=== PATIENT | male | born 1955 | race Caucasian/White ===

== ENCOUNTER 2020-06-24 14:14 | Emergency (ER) | payer OTHER, SELFPAY | END 2020-06-24 16:36 | disposition left against medical advice (07) | PROVIDERS: Emergency Provider Emergency Medicine; PCP Family Medicine | DX: M79.646 Pain in unspecified finger(s) (principal) ==

== ENCOUNTER 2020-07-12 10:00 | Outpatient (RCR) | payer OTHER, SELFPAY ==
--- NOTE | 2020-06-06 14:54 | MHC.PT.EP ---
[facility] [place] Office [place] Office [place] Office [address] Leola Farr [address] [phone] F: [phone] F: [phone] F: [phone] F: [phone] Physical Therapy Plan of Care Date of Evaluation: 06/06/20 Date of Surgery: N/A Diagnosis: sciatica, left side Assessment: pt presents to physical therapy with pain, decreased range of motion, decreased strength, impaired functional mobility, impaired postural awareness, and gait deviations. pt is a good candidate for skilled PT due to age, potential remediation of impairments, typical disease/condition progression and prognosis, comorbidities, and motivation. pt would benefit from tailored strengthening and stretching exercise program, functional training, gait training, postural re-training, neuromuscular re-education, modalities as needed for pain, equipment safety demonstration. Frequency and Duration: The patient will be seen 2x/wk for 5 wks Short Term Goals: pt will be I w/ HEP to promote self-management of condition. pt will demo proper sitting posture w/ lumbar roll to facilitate neutral spine. Penitentiary Goals: pt will report statistically significant improvement in self-reported outcome measure, Nathalie, to promote return to PLOF. pt will report <1/10 low back pain w/ standing for >1 hr to promote full return to work. Treatment Plan: Modalities to reduce pain, spasms and effusion. Manual therapy to restore motion and function. Therapeutic exercise to improve strength and flexibility. Neuromuscular re-education for posture and balance. Therapeutic activities to return to functional activities of daily living. Electronically signed by: Stacie Murillo PT, DPT Please sign and return to therapist. Thank you for your referral.
--- NOTE | 2020-07-12 10:23 | MHC.PT.DC ---
[facility] [place] Office [place] Office [place] Office [address] Leola Farr [address] [phone] F: [phone] F: [phone] F: [phone] F: [phone] Physical Therapy Discharge Report Diagnosis: sciatica, left side Date of Surgery: N/A Date of Evaluation: 06/06/20 Date of Discharge: 07/12/20 Treatments to Date: 10 Cancellations to Date: 0 No Shows to Date: 0 Discharge Status: Achieved Goals Improved Function Independent with HEP Discharge Summary: The patient arrived with no pain for over a week now. He still has two more visits scheduled; however, he stated he would like today to be his last visit as he feels he is able to manage his pain on his own now. We reviewed his home exercise program and he was given an updated handout. He reported a statistically significant improvement in his self-reported outcome measure, the modified Oswestry. 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 He is discharged from this physical therapy plan of care to his home exercise program. Electronically signed by: Stacie Murillo PT, DPT Please sign and return to therapist. Thank you for your referral.
== END 2020-07-12 10:23 | disposition other institution (70) ==
LOC: HO.PT 10:00
PROVIDERS: PCP Family Medicine; Visit Provider Family Medicine
DX: M54.32 Sciatica, left side (principal)
CPT/HCPCS: 97110; 97161; 97530

== ENCOUNTER 2020-07-12 10:56 | Emergency (ER) | payer OTHER, SELFPAY ==
--- NOTE | ~2020-07-12 | XR_ITS ---
EXAMINATION: XR HAND, RIGHT CLINICAL INFORMATION: Injury to ring finger, evaluate for fracture. COMPARISON: None TECHNIQUE: PA, lateral, and oblique views of the right hand. FINDINGS: There is a comminuted fracture of the midshaft of the fourth distal phalanx. There appears to be extension to the proximal articular surface. No dislocation however. There are vascular calcifications consistent with diabetes. Surgical clips are seen lateral to the distal radius. XR/XR hand RT 2V IMPRESSION: Comminuted fracture of the midshaft of the fourth distal phalanx with extension to the proximal articular surface.
[2020-07-12 10:58] VITALS: BP 157/75; PULSE 87; RESP 18; TEMP 36.3; O2SAT 99; BMI 28.0
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
[2020-07-12] MEDS: Lidocaine HCl 2 % MPF 5 ML VIAL SUBCUT (11:32)
== END 2020-07-12 12:31 | disposition home or self-care (01) ==
PROVIDERS: Emergency Provider Emergency Medicine; PCP Family Medicine
DX: S62.634A Displaced fracture of distal phalanx of right ring finger, initial encounter for closed fracture (principal); L60.0 Ingrowing nail; M79.644 Pain in right finger(s); Y04.8XXA Assault by other bodily force, initial encounter; Y93.9 Activity, unspecified; Y92.9 Unspecified place or not applicable; Y99.0 Civilian activity done for income or pay; Z79.899 Other long term (current) drug therapy
CPT/HCPCS: 64450; 73120; 99283; 99284

== ENCOUNTER 2021-03-07 15:44 | Emergency (ER) | payer OTHER, SELFPAY ==
--- NOTE | ~2021-03-07 | XR_ITS ---
EXAMINATION: XR CHEST CLINICAL INFORMATION: Chest pain. COMPARISON: Most recent chest and rib radiographs dated 11/21/2019 TECHNIQUE: Frontal view of the chest was obtained. FINDINGS: Patchy bilateral airspace opacities, most prominent within the left lower lobe, consistent with multifocal pneumonia. No pleural effusion or pneumothorax. Stable cardiomediastinal silhouette. Sternal wires and mediastinal surgical clips. XR/XR chest 1V IMPRESSION: Patchy bilateral airspace opacities, most prominent within the left lower lobe. Findings are consistent with multifocal pneumonia and can be seen in the setting of an infectious or inflammatory process, including viral pneumonia.
[2021-03-07 15:54] VITALS: BP 158/75; PULSE 76; RESP 18; TEMP 36.8; O2SAT 96; BMI 26.9
--- NOTE | 2021-03-07 15:59 | ECG_ITS ---
Test Reason : CHEST PAIN Blood Pressure : / mmHG Vent. Rate : 072 BPM Atrial Rate : 072 BPM P-R Int : 146 ms QRS Dur : 098 ms QT Int : 390 ms P-R-T Axes : 069 032 166 degrees QTc Int : 427 ms Normal sinus rhythm Left ventricular hypertrophy with repolarization abnormality ( Sokolow-Betts ) Abnormal ECG No previous ECGs available Referred By: Generic ED Physician Electronically Signed By:ADELSO HERNÁNDEZ MD
[2021-03-07 16:56] LABS: MANUAL DIFF FLAG NO
[2021-03-07 17:11] LABS: Anion Gap 12 (12-20); Blood Urea Nitrogen 12 mg/dL (9-16); Calcium 9.2 mg/dL (8.4-10.2); Carbon Dioxide 29 mmol/L (22-29); Chloride 102 mmol/L (96-108); Creatinine Clr Calc Pharmacy 56.5; Estimated Glomerular Filt Rate 58; Glucose Random 301 mg/dL (60-115); Potassium 4.3 mmol/L (3.3-5.1); Sodium 139 mmol/L (135-145)
[2021-03-07 17:19] LABS: Basophils Percent Auto 0.1 % (0-2); Hematocrit 31.3 % (42-52); Hemoglobin 10.5 g/dl (14.0-18.0); Imm Gran Abs Auto 0.04 X10*3/uL (0.00-0.03); Imm Gran Pct Auto 0.6 % (0.0-0.4); Lymphocytes Absolute Auto 1.9 X10*3/uL (1.2-4.9); Lymphocytes Percent Auto 26.7 % (20-40); Mean Corpuscular HGB Conc 33.5 g/dl (31.0-36.0); Mean Corpuscular Hemoglobin 28.8 pg (27.0-33.0); Mean Platelet Volume 8.8 fL (9.4-12.4); Monocytes Absolute Auto 0.6 X10*3/uL (0.1-1.2); Monocytes Percent Auto 8.8 % (2-11); Neutrophils Absolute Auto 4.6 X10*3/uL (2.0-8.3); Neutrophils Percent Auto 63.8 % (45-73); Platelet Count 521 X10*3/uL (160-400); Red Blood Count 3.64 X10*6/uL (4.60-5.80); Red Cell Distribution Width 15.1 % (11.0-16.0); White Blood Count 7.2 X10*3/uL (4.8-10.8)
[2021-03-07 17:36] LABS: Troponin-I High Sensitivity 148.5 ng/L (<3.5-35.0)
[2021-03-07 17:57] VITALS: BP 160/71; PULSE 69; RESP 17; TEMP 36.7; O2SAT 99
--- NOTE | 2021-03-07 17:58 | ED_ITS ---
HPI - Chest Pain General Chief Complaint: Chest Pain Stated Complaint: Chest pain Time Seen by Provider: 03/07/21 17:42 History of Present Illness HPI narrative: Patient is 65 years old presents today with having chest pain that is mid chest goes to the left arm. The pain is dull. Associated with shortness of breath. It woke him up from sleep. Patient works overnight he woke up at approximately 01:00 with the chest pain. Subsequently the pain subsided patient came to the ED for further evaluation. No diaphoresis. Patient has a history of diabetes. Has been noncompliant with his medication. Also history of hypertension. No history of smoking. Positive history of MIs in the past. Status post bypass and also status post stent in the past. Last in 2017. There is no leg swelling. Patient does not have any history of blood clots. He is not on any blood thinners. He has no coughing congestion upper respiratory symptoms. He did receive his coronavirus vaccine x2 over 2 weeks ago. Related Data Previous Rx's Medication Instructions Recorded glipizide 10 mg tablet 10 mg PO BID #60 tab 02/11/21 metformin 1,000 mg tablet 1,000 mg PO BID 90 Days #180 tab 02/26/21 metoprolol succinate 50 mg 50 mg PO BID 90 Days #180 tab 02/26/21 tablet,extended release 24 hr Allergies Allergy/AdvReac Type Severity Reaction Status Date / Time No Known Allergies Allergy Verified 02/29/20 09:11 [No Known Allergies*] Review of Systems Review of Systems: No fever no chills no diaphoresis No cough no congestion Positive chest pain Positive shortness of breath All systems reviewed otherwise negative PMFSH Past Medical History Attestation statement: The following information was validated with the patient. Medical History Diabetes Epilepsy Heart attack High cholesterol Hypertension Sciatica Surgical History History of cardiac catheterization (~2015) History of coronary artery bypass graft x 2 (~2005) History of tonsillectomy Family History Family History Father Cardiovascular disease Mother No problems noted. Social History Social History Smoked in Last 30 Days: No Use of substances other than those prescribed or required for medical reasons: No Advance Directives: No Advance Directives Information Provided: No Physical Exam Vital Signs: Vital Signs: Last Vital Signs Temp 98.1 F 03/07/21 17:57 Pulse 69 03/07/21 17:57 Resp 17 03/07/21 17:57 BP 160/71 H 03/07/21 17:57 Pulse Ox 99 03/07/21 17:57 Body Mass Index 26.9 Appearance: Alert. Oriented X3. No acute distress. Eyes: Pupils equal, round and reactive to light. ENT: Pharynx normal. Neck: Normal inspection. Neck supple. No lymph nodes noted. No crepitus CVS: Normal heart rate and rhythm. Pulses normal. Normal S1 and S2 Respiratory: No respiratory distress. Breath sounds normal. No Wheezing. No rales Abdomen: Soft and nontender. No rigidity. No distention. good BS x4 Skin: Skin warm and dry. Normal skin color. Normal skin turgor. Extremities: No lower extremity edema. Neurovascular intact to all extremities. No Lacerations. No Rash Neuro: Oriented X 3. No motor deficit. No sensory deficit. Moving all extermities. No slurred speech MDM - Chest Pain MDM Narrative Medical decision making narrative: Fair peering not acute distress patient did have chest pain on waking up along with shortness of breath and tingling to his left hand. Previous history of NH. Proven coronary artery disease. Patient's EKG initially was done at 16:45. It showed a sinus pattern heart rate was 70 AL QRS QT within normal limits there is T wave inversions over the 5 and V6. T- wave flattening over the inferior leads. Troponin was done at triage. It was grossly elevated at over 100. A repeat EKG was done at 05:54 p.m. it is essentially unchanged. Heart rate was 70 AL QRS QT within normal limits it is sinus. There is T-wave inversion over tV5, V6. Nonspecific T-wave flattening over 2 3 and AVF. Patient currently is chest pain-free. Aspirin given. Will d iscuss with Cardiology about potentially transferring patient for further cardiac care. Patient's case discussed with Cardiology at [facility] agree with plan of transfer. Patient's case discussed with bilingual spanish inbound sales at [facility]. Agree with plan of transfer to a telemetry unit and be monitored. Medical Records Data Attestation: I reviewed the patient's medical records. Lab Data Attestation: I reviewed the patient's lab results. Result diagrams: 03/07/21 16:50 03/07/21 16:50 Labs: Lab Results 03/07/21 03/07/21 03/07/21 Range/Units 16:50 16:50 16:50 WBC 7.2 (4.8-10.8) X10*3/uL RBC 3.64 L (4.60-5.80) X10*6/uL Hgb 10.5 L (14.0-18.0) g/dl Hct 31.3 L (42-52) % MCV 86.0 (80-98) fL MCH 28.8 (27.0-33.0) pg MCHC 33.5 (31.0-36.0) g/dl RDW 15.1 (11.0-16.0) % Plt Count 521 H (160-400) X10*3/uL MPV 8.8 L (9.4-12.4) fL Immature Gran % (Auto) 0.6 H (0.0-0.4) % Neut % (Auto) 63.8 (45-73) % Lymph % (Auto) 26.7 (20-40) % Logan % (Auto) 8.8 (2-11) % Eos % (Auto) 0.0 (0-4) % Baso % (Auto) 0.1 (0-2) % Lymph # (Auto) 1.9 (1.2-4.9) X10*3/uL Logan # (Auto) 0.6 (0.1-1.2) X10*3/uL Eos # (Auto) 0.0 (0.0-0.4) X10*3/uL Baso # (Auto) 0.0 (0.0-0.2) X10*3/uL Abs Immat Gran (auto) 0.04 H (0.00-0.03) X10*3/uL Absolute Neuts (auto) 4.6 (2.0-8.3) X10*3/uL Absolute Nucleated RBC 0.000 (0.0-0.012) X10*3/uL Nucleated RBC % (auto) 0.0 (0.0-0.2) /100WBC Sodium 139 (135-145) mmol/L Potassium 4.3 (3.3-5.1) mmol/L Chloride 102 (96-108) mmol/L Carbon Dioxide 29 (22-29) mmol/L Anion Gap 12 (12-20) BUN 12 (9-16) mg/dL Creatinine 1.25 (0.5-1.4) mg/dL Estim Creat Clear Calc 56.5 Estimated GFR 58 Random Glucose 301 H (60-115) mg/dL Calcium 9.2 (8.4-10.2) mg/dL Troponin I High Sens 148.5 H* (<3.5-35.0) ng/L COVID-19 ([facility]) (Negative) COVID-19 Clin Com 03/07/21 Range/Units 18:05 WBC (4.8-10.8) X10*3/uL RBC (4.60-5.80) X10*6/uL Hgb (14.0-18.0) g/dl Hct (42-52) % MCV (80-98) fL MCH (27.0-33.0) pg MCHC (31.0-36.0) g/dl RDW (11.0-16.0) % Plt Count (160-400) X10*3/uL MPV (9.4-12.4) fL Immature Gran % (Auto) (0.0-0.4) % Neut % (Auto) (45-73) % Lymph % (Auto) (20-40) % Logan % (Auto) (2-11) % Eos % (Auto) (0-4) % Baso % (Auto) (0-2) % Lymph # (Auto) (1.2-4.9) X10*3/uL Logan # (Auto) (0.1-1.2) X10*3/uL Eos # (Auto) (0.0-0.4) X10*3/uL Baso # (Auto) (0.0-0.2) X10*3/uL Abs Immat Gran (auto) (0.00-0.03) X10*3/uL Absolute Neuts (auto) (2.0-8.3) X10*3/uL Absolute Nucleated RBC (0.0-0.012) X10*3/uL Nucleated RBC % (auto) (0.0-0.2) /100WBC Sodium (135-145) mmol/L Potassium (3.3-5.1) mmol/L Chloride (96-108) mmol/L Carbon Dioxide (22-29) mmol/L Anion Gap (12-20) BUN (9-16) mg/dL Creatinine (0.5-1.4) mg/dL Estim Creat Clear Calc Estimated GFR Random Glucose (60-115) mg/dL Calcium (8.4-10.2) mg/dL Troponin I High Sens (<3.5-35.0) ng/L COVID-19 ([facility]) Positive A (Negative) COVID-19 Clin Com See Note Critical Care Time Critical Care Time Critical Care Time: Yes Total Critical Care Time: 40 Attestation: I have personally provided 40 minutes of critical care time exclusive of time spent on separately billable procedures. Time includes review of lab data, radiology results, discussion with consultants, and monitoring for potential decompensation. Interventions were performed as documented above Discharge Plan Discharge Clinical Impression: COVID-19, Non-ST elevation NH (NSTEMI) Patient Disposition: Xfer Acute Care Hospital Prescriptions: No Action glipizide 10 mg tablet 10 mg PO BID Qty: 60 RF: 2 metformin 1,000 mg tablet 1,000 mg PO BID 90 Days Qty: 180 RF: 3 metoprolol succinate 50 mg tablet extended release 24 hr 50 mg PO BID 90 Days Qty: 180 RF: 3
[2021-03-07] MEDS: Aspirin 81 MG TAB.CHEW 324 MG PO (18:03)
[2021-03-07 18:18] LABS: COVID-19 Test Positive (Negative)
[2021-03-07] MEDS: Enoxaparin Sodium 80 MG/0.8 ML SYRINGE SUBCUT (18:56)
--- NOTE | 2021-03-07 19:45 | PC.NURSE ---
spoke with emiliana in [facility] transfer center at 1942, states that she has not heard back from provider for an update on bed we were waiting for. She reports she will try to contact the provider again and will call back with an update.
--- NOTE | 2021-03-07 20:10 | PC.NURSE ---
patient placement at [facility] 6A rm [address]. Dr Rosales and RN Asya aware
[2021-03-07 20:29] VITALS: BP 144/61; PULSE 66; RESP 16; TEMP 36.6; O2SAT 94
[2021-03-07 20:53] VITALS: BP 136/61; PULSE 70; RESP 18; O2SAT 97
--- NOTE | 2021-03-07 20:54 | PC.NURSE ---
Pt transferred to [facility] at this time via EMS, sent in stable condition w/ all belongings, report called to receiving RN at [facility] 6A room 57A
== END 2021-03-07 20:55 | disposition short-term general hospital (02) ==
PROVIDERS: Emergency Provider Emergency Medicine Emergency Medical Services; PCP Family Medicine
DX: U07.1 COVID-19 (principal); I21.4 Non-ST elevation (NSTEMI) myocardial infarction; R07.9 Chest pain, unspecified; R06.02 Shortness of breath; I10 Essential (primary) hypertension; Z79.899 Other long term (current) drug therapy
CPT/HCPCS: 36415; 71045; 80048; 84484; 85025; 87635; 93005; 96372; 99285; 99291; J1650

== ENCOUNTER 2021-03-26 13:42 | Emergency (ER) | payer OTHER, SELFPAY ==
--- NOTE | 2021-03-26 | ECG_ITS ---
Test Reason : cp Blood Pressure : / mmHG Vent. Rate : 069 BPM Atrial Rate : 069 BPM P-R Int : 152 ms QRS Dur : 088 ms QT Int : 400 ms P-R-T Axes : 009 005 009 degrees QTc Int : 428 ms Normal sinus rhythm Minimal voltage criteria for LVH, may be normal variant ( R in aVL ) Nonspecific T wave abnormality Abnormal ECG T wave inversion more evident in Lateral leads Referred By: Generic ED Physician Electronically Signed By:ADELSO HERNÁNDEZ MD
--- NOTE | ~2021-03-26 | CT_ITS ---
EXAMINATION: CT ANGIOGRAM OF THE CHEST WITH AND WITHOUT CONTRAST (CT PULMONARY ANGIOGRAM FOR PE) CLINICAL INFORMATION: Reason for Exam recent covid, +sob/cp COMPARISON: None TECHNIQUE: Prior to contrast administration, noncontrast localization images were obtained. Subsequently, multidetector volumetric imaging was performed from the thoracic inlet to below the diaphragms following the administration of 71 mL Omnipaque 350 intravenous contrast. No contrast reaction reported Sagittal, coronal, and MIP oblique sagittal reformatted images were obtained on the CT workstation, uploaded to PACS, and reviewed. This CT examination was performed using dose optimization techniques as appropriate, variously including the following: *Automated exposure control *Adjustment of mA and/or kV according to patient size (this includes techniques or standardized protocols for targeted exams where dose is matched to indication/reason for exam; i.e. extremities or head) *Use of iterative reconstruction technique Total exam dose-length product 272 mGy-cm FINDINGS: QUALITY OF STUDY/CONTRAST BOLUS: Satisfactory. PULMONARY ARTERIES: No central or segmental pulmonary emboli. THORACIC AORTA: No aneurysm or dissection. LUNG: Multifocal infiltrates are seen in the right upper lobe lingula compatible with lower lobes predominantly peripheral. No solid lung masses are seen. PLEURA: No pleural effusion or pneumothorax. MEDIASTINUM: Heart size upper limits of normal. No pericardial effusion. No hilar or mediastinal lymphadenopathy. No evidence of septal bowing or right heart strain. CHEST WALL/AXILLA: No axillary or internal mammary lymphadenopathy. OSSEOUS STRUCTURES: Status post median sternotomy. Some mild degenerative changes present in the spine. No bony destructive lesions. UPPER ABDOMEN: The entire spleen is not included but the spleen is most certainly enlarged measuring at least 15 cm in greatest length. No reflux of contrast into the hepatic veins to suggest elevated right heart pressures. CT/CT angio chest PE protocol IMPRESSION: 1. No evidence of pulmonary emboli 2. Commonly reported imaging features of Covid 19 or viral pneumonia are present. Other processes such as influenza pneumonia or organizing pneumonia, as can be seen with drug toxicity and connective tissue disease, can cause a similar imaging pattern. VTE: negative
--- NOTE | ~2021-03-26 | XR_ITS ---
EXAMINATION: XR CHEST CLINICAL INFORMATION: Chest pain COMPARISON: Chest x-ray March 07, 2021 TECHNIQUE: Frontal view of the chest was obtained. 5:13 PM FINDINGS: The patchy parenchymal airspace opacity in the left mid and lower lung has improved. There are still faint stranding opacities remaining. The right lung is normally aerated. There is no dense consolidation. No new airspace disease. Heart size is normal. Cardiac mediastinal contours normal. Status post median sternotomy. No pulmonary vascular congestion. XR/XR chest 1V IMPRESSION: Improving but persistent patchy airspace disease at the left lung base.
[2021-03-26 14:15] VITALS: BP 156/70; PULSE 75; RESP 18; TEMP 36.1; O2SAT 99; BMI 23.0
[2021-03-26 16:54] LABS: MANUAL DIFF FLAG NO
[2021-03-26 16:58] LABS: Basophils Percent Auto 0.2 % (0-2); Hematocrit 30.6 % (42.0-52.0); Hemoglobin 10.1 g/dl (14.0-18.0); Imm Gran Abs Auto 0.02 X10*3/uL (0.00-0.03); Imm Gran Pct Auto 0.4 % (0.0-0.4); Lymphocytes Absolute Auto 1.7 X10*3/uL (1.2-4.9); Lymphocytes Percent Auto 35.2 % (20-40); Mean Corpuscular Hemoglobin 28.2 pg (27.0-33.0); Mean Corpuscular Volume 85.5 fL (80.0-98.0); Mean Platelet Volume 9.1 fL (9.4-12.4); Monocytes Absolute Auto 0.6 X10*3/uL (0.1-1.2); Monocytes Percent Auto 12.3 % (2-11); Neutrophils Absolute Auto 2.52 x10*3/uL (2.0-8.3); Neutrophils Percent Auto 51.9 % (45-73); Platelet Count 276 X10*3/uL (160-400); Red Blood Count 3.58 X10*6/uL (4.60-5.80); White Blood Count 4.9 X10*3/uL (4.8-10.8)
[2021-03-26 17:17] LABS: Anion Gap 10 (12-20); Blood Urea Nitrogen 21 mg/dL (9-16); Calcium 9.2 mg/dL (8.4-10.2); Carbon Dioxide 27 mmol/L (22-29); Chloride 105 mmol/L (96-108); Creatinine Clr Calc Pharmacy 67.2; Estimated Glomerular Filt Rate > 60; Glucose Random 172 mg/dL (60-115); Potassium 4.2 mmol/L (3.3-5.1); Sodium 138 mmol/L (135-145)
[2021-03-26 17:22] LABS: Troponin-I High Sensitivity 6.7 ng/L (<3.5-35.0)
--- NOTE | 2021-03-26 18:57 | ED.CHESTPAIN ---
HPI - Chest Pain General Chief Complaint: Chest Pain Stated Complaint: chest pressure Time Seen by Provider: 03/26/21 18:46 Source: patient Mode of arrival: ambulatory Limitations: no limitations History of Present Illness HPI narrative: 65-year-old male with a past medical history of coronary artery disease with 2 stents placed March 10, diabetes, seizure disorder, high cholesterol, hypertension here with complaints of chest pain and shortness of breath. Patient tells me that he was seen here on March 07 and was sent to [facility] for 2 stents placed. Incidentally was noted to be COVID positive. He was discharged on the 11 of March. He tells me that after some walking on March 11 he started to experience chest pain which was central and tight which lasted for about 15 minutes and then self resolved. Did have some associated shortness of breath with this. No fevers, chills, nausea, vomiting, dizziness or diaphoresis. He tells me that he has had occasional episodes of throat burning when he walks but no chest pain which lasts for several seconds and self-resolved. He also notices when he walks very far about 20 blocks that he feels short of breath. Related Data Home Medications Medication Instructions Recorded Confirmed aspirin 81 mg chewable tablet 1 tab PO DAILY 03/25/21 03/25/21 isosorbide mononitrate 30 mg 30 mg PO DAILY 03/25/21 03/25/21 tablet,extended release 24 hr Previous Rx's Medication Instructions Recorded glipizide 10 mg tablet 10 mg PO BID #60 tab 02/11/21 metformin 1,000 mg tablet 1,000 mg PO BID 90 Days #180 tab 02/26/21 metoprolol succinate 50 mg 50 mg PO BID 90 Days #180 tab 02/26/21 tablet,extended release 24 hr fluticasone propionate 50 2 spray INTRANASAL DAILY 30 Days 03/25/21 mcg/actuation nasal #16 g spray,suspension (Allergy Relief (fluticasone)) loratadine 10 mg tablet (Allergy 10 mg PO DAILY 30 Days #30 tab 03/25/21 Relief (loratadine)) Allergies Allergy/AdvReac Type Severity Reaction Status Date / Time No Known Allergies Allergy Verified 03/25/21 11:45 [No Known Allergies*] Review of Systems Review of Systems: Yes all other systems are reviewed and are negative Constitutional: Constitutional: Reports no additional constitutional complaints, Denies body ache(s), Denies chills, Denies fever(s), Denies headache(s) and Denies weakness Eyes: Eyes: Reports no additional eye complaints and Denies change in vision ENT: Reports system reviewed and no additional complaints, except as documented, Denies dizziness, Denies headache(s), Denies nasal congestion, Denies nasal discharge and Denies neck pain Cardiovascular: Cardiovascular: Reports no additional cardiovascular complaints, Reports chest pain, Denies leg edema, Denies dyspnea and Reports dyspnea on exertion Respiratory: Respiratory: Reports no additional respiratory complaints, Denies cough, Denies dyspnea and Reports dyspnea on exertion Gastrointestinal: Gastrointestinal: Reports no additional gastrointestinal complaints, Denies abdominal pain, Denies diarrhea, Denies nausea and Denies vomiting Genitourinary: Genitourinary: Denies urinary incontinence Musculoskeletal: Musculoskeletal: Reports no additional musculoskeletal complaints, Denies back pain, Denies arthralgias, Denies joint swelling, Denies neck pain, Denies numbness and Denies tingling Integumentary/Breasts: Skin/Breast: Reports system reviewed and no additional complaints, except as docu and Denies rash Neurologic: Reports system reviewed and no additional complaints, except as documented, Denies Abnormal speech present, Denies dizziness, Denies headache(s), Denies numbness, Denies tingling and Denies weakness PMFSH Past Medical History Attestation statement: The following information was validated with the patient. Source: old records reviewed and nursing notes reviewed Medical History Diabetes Epilepsy Heart attack High cholesterol Hypertension Sciatica Surgical History History of cardiac catheterization (~2015) History of coronary artery bypass graft x 2 (~2005) History of tonsillectomy Family History Family History Father Cardiovascular disease Mother No problems noted. Social History Social History Housing: House Alcohol intake: never Patient Tobacco Use Status: Never used Tobacco e-Cigarette/Vaping Use: Never Used Advance Directives: No Advance Directives Information Provided: No service: No Physical Exam Vital Signs: Vital Signs: Last Vital Signs Temp 97 F 03/26/21 14:15 Pulse 64 03/26/21 20:00 Resp 18 03/26/21 20:00 BP 158/72 H 03/26/21 20:00 Pulse Ox 99 03/26/21 20:00 Body Mass Index 23.0 Const: General: cooperative, healthy appearing, comfortable and no acute distress Orientation/consciousness: patient oriented x3 Limitations: no limitations HENMT: Head: Yes normal to inspection Ears: hearing grossly normal bilaterally and TM's normal bilaterally General nose exam: Normal external nose present Face and sinus: Yes normal facial exam Mouth: Normal oral and palatal mucosa present Throat: Yes posterior oropharynx normal, Yes tonsils normal and Yes uvula midline Eyes: General: appearance normal, both eyes and all related structures Pupils: Equal, round and reactive pupils present Neck: Neck: Yes normal visual inspection Chest: Chest palpation & inspection: normal inspection of the chest Resp: Effort & Inspection: normal respiratory effort Auscultation: clear to auscultation bilaterally Cardio: Rate: regular rate Rhythm: regular rhythm Peripheral pulses: Peripheral pulses 2+ throughout GI: Inspection: Yes normal to inspection Palpation (GI): Soft to palpation and nontender Auscultation: normal bowel sounds Back/Spine/Pelvis: Thoracic/Lumbar Spine: thoracic and lumbar spine normal to inspection Skin: General skin exam: no rashes or lesions noted Neuro: General: patient oriented x3, no focal motor deficits and normal sensation to monofilament Cranial nerves: Yes Equal, round and reactive pupils present Cognition (Neuro): normal cognition Speech: No Abnormal speech present Gait exam (Neuro): Normal gait present Motor exam (neuro): 5/5 motor strength present throughout Extrem: General: Yes normal to inspection, Yes no pedal edema and Yes no calf tenderness Course Course Course Narrative: 65-year-old male here with 1 episode of chest pain on March 11 after some exertion with intermittent throat burning and shortness of breath since then. Of note, patient has history of coronary artery disease with 2 stents placed on March 10.. Will check labs, EKG, chest x-ray, CTA to rule out PE 1940-reviewed cardiac catheterization from [facility]. Patient had previous CABG x2 in 2005 (TREJO to LAD and RA to OM), S/p MELISSA to RCA in 2016. NEW RCA lesion stented 03/10/21) 2210-CTA shows IMPRESSION: 1.? No evidence of pulmonary emboli 2.? Commonly reported imaging features of Covid 19 or viral pneumonia are present. Other processes such as influenza pneumonia or organizing pneumonia, as can be seen with drug toxicity and connective tissue disease, can cause a similar imaging pattern. Repeat troponin is unchanged. Less likely ACS with atypical chest pain intermittent over the last few weeks with a troponin x2 which is flat did an EKG which shows no acute changes. 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 Reviewed worrisome signs and symptoms of when to return to the emergency department. Comfortable discharge home. MDM - Chest Pain MDM Narrative Medical decision making narrative: ACS, PE Medical Records Data Attestation: I reviewed the patient's medical records. Lab Data Attestation: I reviewed the patient's lab results. Result diagrams: 03/26/21 16:49 03/26/21 16:49 Labs: Lab Results 03/26/21 03/26/21 03/26/21 Range/Units 16:49 16:49 16:49 WBC 4.9 (4.8-10.8) X10*3/uL RBC 3.58 L (4.60-5.80) X10*6/uL Hgb 10.1 L (14.0-18.0) g/dl Hct 30.6 L (42.0-52.0) % MCV 85.5 (80.0-98.0) fL MCH 28.2 (27.0-33.0) pg MCHC 33.0 (31.0-36.0) g/dl RDW 16.0 (11.0-16.0) % Plt Count 276 (160-400) X10*3/uL MPV 9.1 L (9.4-12.4) fL Immature Gran % (Auto) 0.4 (0.0-0.4) % Neut % (Auto) 51.9 (45-73) % Lymph % (Auto) 35.2 (20-40) % Mesa % (Auto) 12.3 H (2-11) % Eos % (Auto) 0.0 (0-4) % Baso % (Auto) 0.2 (0-2) % Lymph # (Auto) 1.7 (1.2-4.9) X10*3/uL [place] # (Auto) 0.6 (0.1-1.2) X10*3/uL Eos # (Auto) 0.0 (0.0-0.4) X10*3/uL Baso # (Auto) 0.0 (0.0-0.2) X10*3/uL Abs Immat Gran (auto) 0.02 (0.00-0.03) X10*3/uL Absolute Neuts (auto) 2.52 (2.0-8.3) x10*3/uL Absolute Nucleated RBC 0.000 (0.0-0.012) X10*3/uL Nucleated RBC % (auto) 0.0 (0.0-0.2) /100WBC ESR (0-15) MM/HR Sodium 138 (135-145) mmol/L Potassium 4.2 (3.3-5.1) mmol/L Chloride 105 (96-108) mmol/L Carbon Dioxide 27 (22-29) mmol/L Anion Gap 10 L (12-20) BUN 21 H D (9-16) mg/dL Creatinine 1.19 (0.5-1.4) mg/dL Estim Creat Clear Calc 67.2 Estimated GFR > 60 Random Glucose 172 H D (60-115) mg/dL Calcium 9.2 (8.4-10.2) mg/dL Total Bilirubin 0.7 (0.0-1.0) mg/dL Direct Bilirubin 0.3 (0.0-0.5) mg/dL AST 11 (5-37) U/L ALT 9 (0-40) U/L Alkaline Phosphatase 113 (39-117) U/L Troponin I High Sens 6.7 D (<3.5-35.0) ng/L C-Reactive Protein 0.37 (< or = 0.50) mg/dL Total Protein 7.1 (6.5-8.0) g/dL Albumin 3.8 (3.5-5.0) g/dL 03/26/21 03/26/21 Range/Units 16:49 20:13 WBC (4.8-10.8) X10*3/uL RBC (4.60-5.80) X10*6/uL Hgb (14.0-18.0) g/dl Hct (42.0-52.0) % MCV (80.0-98.0) fL MCH (27.0-33.0) pg MCHC (31.0-36.0) g/dl RDW (11.0-16.0) % Plt Count (160-400) X10*3/uL MPV (9.4-12.4) fL Immature Gran % (Auto) (0.0-0.4) % Neut % (Auto) (45-73) % Lymph % (Auto) (20-40) % Mesa % (Auto) (2-11) % Eos % (Auto) (0-4) % Baso % (Auto) (0-2) % Lymph # (Auto) (1.2-4.9) X10*3/uL Mes[place] # (Auto) (0.1-1.2) X10*3/uL Eos # (Auto) (0.0-0.4) X10*3/uL Baso # (Auto) (0.0-0.2) X10*3/uL Abs Immat Gran (auto) (0.00-0.03) X10*3/uL Absolute Neuts (auto) (2.0-8.3) x10*3/uL Absolute Nucleated RBC (0.0-0.012) X10*3/uL Nucleated RBC % (auto) (0.0-0.2) /100WBC ESR 87 H (0-15) MM/HR Sodium (135-145) mmol/L Potassium (3.3-5.1) mmol/L Chloride (96-108) mmol/L Carbon Dioxide (22-29) mmol/L Anion Gap (12-20) BUN (9-16) mg/dL Creatinine (0.5-1.4) mg/dL Estim Creat Clear Calc Estimated GFR Random Glucose (60-115) mg/dL Calcium (8.4-10.2) mg/dL Total Bilirubin (0.0-1.0) mg/dL Direct Bilirubin (0.0-0.5) mg/dL AST (5-37) U/L ALT (0-40) U/L Alkaline Phosphatase (39-117) U/L Troponin I High Sens 8.6 (<3.5-35.0) ng/L C-Reactive Protein (< or = 0.50) mg/dL Total Protein (6.5-8.0) g/dL Albumin (3.5-5.0) g/dL Imaging Data Chest x-ray: Attestation: I personally reviewed and interpreted this imaging study as follows: Radiologist's impression: FINDINGS: The patchy parenchymal airspace opacity in the left mid and lower lung has improved. There are still faint stranding opacities remaining. The right lung is normally aerated. There is no dense consolidation. No new airspace disease. Heart size is normal. Cardiac mediastinal contours normal. Status post median sternotomy. No pulmonary vascular congestion. XR/XR chest 1V IMPRESSION: Improving but persistent patchy airspace disease at the left lung base. ? CT scan - chest: Attestation: I personally reviewed and interpreted this imaging study as follows: Radiologist's impression: IMPRESSION: 1.? No evidence of pulmonary emboli 2.? Commonly reported imaging features of Covid 19 or viral pneumonia are present. Other processes such as influenza pneumonia or organizing pneumonia, as can be seen with drug toxicity and connective tissue disease, can cause a similar imaging pattern. ECG Data ECG #1: Attestation: I personally reviewed and interpreted this ECG as follows: ECG interpretation date: 03/26/21 ECG interpretation time: 14:01 Interpretation: NSR with rate 69, normal pr, normal qrs, nonspecific ST changes, LVH Discharge Plan Discharge Clinical Impression: Atypical chest pain Patient Disposition: Home, Self-Care Instructions: Chest Wall Pain (ED) Additional Instructions: Your lab work, EKG are normal Your CT scan of her chest shows some inflammatory changes we see with a previous COVID infection. This will improve with time. Follow-up with your outpatient frame gate mortiser operator Prescriptions: No Action glipizide 10 mg tablet 10 mg PO BID Qty: 60 RF: 2 metformin 1,000 mg tablet 1,000 mg PO BID 90 Days Qty: 180 RF: 3 metoprolol succinate 50 mg tablet extended release 24 hr 50 mg PO BID 90 Days Qty: 180 RF: 3 aspirin 81 mg tablet,chewable 1 tab PO DAILY RF: 0 isosorbide mononitrate 30 mg tablet extended release 24 hr 30 mg PO DAILY RF: 0 fluticasone propionate [Allergy Relief (fluticasone)] 50 mcg/actuation spray,suspension 2 spray intranasal DAILY 30 Days Qty: 16 RF: 4 loratadine [Allergy Relief (loratadine)] 10 mg tablet 10 mg PO DAILY 30 Days Qty: 30 RF: 4 Referrals: Bandar Martin MD [Primary Care Provider] - 2 days Interventions: ED Discharge Assessment Last Done: 03/26/21 22:07 Discharge Date/Time: 03/26/21 22:08
[2021-03-26 19:26] LABS: Alanine Aminotransferase 9 U/L (0-40); Albumin Level 3.8 g/dL (3.5-5.0); Alkaline Phosphatase 113 U/L (39-117); Aspartate Amino Transferase 11 U/L (5-37); Bilirubin Direct 0.3 mg/dL (0.0-0.5); Bilirubin Total 0.7 mg/dL (0.0-1.0); C Reactive Protein 0.37 mg/dL (< or = 0.50); Total Protein 7.1 g/dL (6.5-8.0)
[2021-03-26 19:59] LABS: Erythrocyte Sedimentation Rate 87 MM/HR (0-15)
[2021-03-26 20:00] VITALS: BP 158/72; PULSE 64; RESP 18; O2SAT 99
[2021-03-26 20:41] LABS: Troponin-I High Sensitivity 8.6 ng/L (<3.5-35.0)
[2021-03-26] MEDS: iohexoL 350 MG/ML 100 ML INFUS..BTL IV (20:56)
== END 2021-03-26 22:08 | disposition home or self-care (01) ==
PROVIDERS: Nurse Practitioner Family; Emergency Provider Internal Medicine; PCP Family Medicine
DX: R07.89 Other chest pain (principal); I25.10 Atherosclerotic heart disease of native coronary artery without angina pectoris; E11.9 Type 2 diabetes mellitus without complications; G40.909 Epilepsy, unspecified, not intractable, without status epilepticus; Z79.82 Long term (current) use of aspirin; I25.2 Old myocardial infarction; Z95.5 Presence of coronary angioplasty implant and graft
CPT/HCPCS: 36415; 71045; 71275; 80048; 80076; 84484; 85025; 85652; 86140; 93005; 99284; Q9967

== ENCOUNTER → 2021-04-10 10:44 | Outpatient (BNVA) | payer OTHER, SELFPAY | PROVIDERS: PCP Family Medicine; Referring Provider Family Medicine; Visit Provider Internal Medicine | DX: I25.10 Atherosclerotic heart disease of native coronary artery without angina pectoris (principal); I10 Essential (primary) hypertension; E11.8 Type 2 diabetes mellitus with unspecified complications; R00.2 Palpitations | CPT/HCPCS: 99212 ==

== ENCOUNTER → 2021-05-08 07:43 | Outpatient (REF) | payer OTHER, SELFPAY ==
--- NOTE | 2021-05-08 07:46 | HM_ITS ---
Conclusion : 1. Patient was monitored for total of 3 days and 16 hours 2. Baseline rhythm is NSR with average HR of 81 bpm 3. No significant pauses or bradycardia noted 4. Very rare ectopics noted 5. 3 short runs of SVT longest 6 beats 6. No patient reported events MTDD
== END ==
LOC: HO.CARD 07:43
PROVIDERS: PCP Family Medicine; Visit Provider Internal Medicine
DX: R00.2 Palpitations (principal)
CPT/HCPCS: 93242

== ENCOUNTER 2021-08-20 09:19 | Emergency (ER) | payer OTHER, SELFPAY ==
[2021-07-28 12:31] VITALS: BP 124/58; BMI 26.7
[2021-08-20 09:29] VITALS: BP 142/55; PULSE 62; RESP 16; TEMP 36.5; O2SAT 100; BMI 26.6
[2021-08-20 09:32] VITALS: BP 142/55; PULSE 60; RESP 16; TEMP 36.5; O2SAT 99; BMI 26.6
[2021-08-20] MEDS: Tetracaine HCl/PF 0.5% Oph Sol 4 ML DROPS 3 DROP EYE-LEFT (11:13)
[2021-08-20] MEDS: Fluorescein Sodium STRIP 1 STRIP EYE-BOTH (11:13)
--- NOTE | 2021-08-20 11:28 | ED.EYEPROB ---
HPI - Eye Problem General Chief complaint: Eye Problems Stated complaint: Eye pain Time Seen by Provider: 08/20/21 11:07 Source: patient Mode of arrival: ambulatory Limitations: no limitations History of Present Illness HPI Narrative: 66-year-old male presents with a right itchy red eye that started yesterday. Also has redness and swelling around his eye. States that 5 days ago he got an eyelash in his eye and rubbed his eye. He has noticed yellow discharge. No other trauma that he can remember, nothing flow up into his eye. He does not wear contacts but he does were glasses. No pain with eye movements, no photophobia, no fevers, no headache, no neck pain. He is using saline rinse which helps a little bit. Related Data Home Medications Medication Instructions Recorded Confirmed lamotrigine 200 mg tablet 200 mg PO BID 07/01/21 Previous Rx's Medication Instructions Recorded loratadine 10 mg tablet (Allergy 10 mg PO DAILY 30 Days #30 tab 03/25/21 Relief (loratadine)) aspirin 81 mg chewable tablet 81 mg PO DAILY #30 tab 04/16/21 atorvastatin 80 mg tablet 80 mg PO DAILY #90 tab 05/22/21 clopidogrel 75 mg tablet 75 mg PO DAILY #90 tab 05/22/21 blood sugar diagnostic (FreeStyle #50 ea 06/10/21 Lite Strips) glipizide 10 mg tablet 10 mg PO BID #60 tab 06/27/21 fluticasone propionate 50 2 spray INTRANASAL DAILY #48 ml 07/16/21 mcg/actuation nasal spray,suspension isosorbide mononitrate 30 mg 30 mg PO DAILY #90 tab 07/16/21 tablet,extended release 24 hr metformin 1,000 mg tablet 1,000 mg PO BID 90 Days #180 tab 07/30/21 metoprolol succinate 50 mg 50 mg PO BID 90 Days #180 tab 07/30/21 tablet,extended release 24 hr amoxicillin 875 mg-potassium 1 tab PO BID 10 Days #20 tab 08/20/21 clavulanate 125 mg tablet erythromycin 5 mg/gram (0.5 %) eye 0.5 inch OPHTHALMIC (EYE) QID 5 08/20/21 ointment Days #3.5 g Allergies Allergy/AdvReac Type Severity Reaction Status Date / Time No Known Allergies Allergy Verified 08/20/21 09:33 [No Known Allergies*] Review of Systems Constitutional: Constitutional: Denies body ache(s), Denies chills, Denies fatigue, Denies fever(s), Denies headache(s), Denies malaise and Denies weakness Eyes: Eyes: Denies change in vision, Denies diplopia, Reports eye discharge, Reports irritation, Reports itchy eyes, Denies loss of vision, Denies eye pain, Reports requires corrective lenses, Denies seeing flashes and Denies photophobia ENT: Denies vertigo, Denies dizziness, Denies otalgia, Denies headache(s), Denies mouth pain, Denies post nasal drip, Denies sinus pain, Denies sinus pressure, Denies sore throat and Denies throat swelling Cardiovascular: Cardiovascular: Denies chest pain, Denies syncope, Denies leg edema, Denies lightheadedness, Denies Loss of Consciousness, Denies palpitations and Denies dyspnea Respiratory: Respiratory: Denies chest congestion, Denies cough and Denies dyspnea Gastrointestinal: Gastrointestinal: Reports abdominal pain, Denies hematochezia, Denies constipation, Denies diarrhea and Denies vomiting Musculoskeletal: Musculoskeletal: Reports no additional musculoskeletal complaints Neurologic: Denies confusion, Denies vertigo, Denies dizziness, Denies syncope, Denies headache(s), Denies loss of vision and Denies weakness Psychiatric: Psychiatric: Denies anxiety, Denies confusion and Denies depression Endocrine: Endocrine: Denies fatigue and Denies palpitations Allergic/Immunologic: Allergic/Immunologic: Reports itchy eyes and Denies throat swelling PMFSH Past Medical History Medical History Diabetes Epilepsy Heart attack High cholesterol Hypertension Sciatica Surgical History History of cardiac catheterization (~2015) History of coronary artery bypass graft x 2 (~2005) History of tonsillectomy Family History Family History Father Cardiovascular disease Mother No problems noted. Social History Social History Housing: House Alcohol intake: never Patient Tobacco Use Status: Never used Tobacco e-Cigarette/Vaping Use: Never Used Second Hand Smoke Exposure: No Advance Directives: No Advance Directives Information Provided: Yes service: No Cognitive needs: No Hearing needs: No Vision needs: No Physical Exam Vital Signs: Vital Signs: Last Vital Signs Temp 97.7 F 08/20/21 09:32 Pulse 60 08/20/21 09:32 Resp 16 08/20/21 09:32 BP 142/55 H 08/20/21 09:32 Pulse Ox 99 08/20/21 09:32 BMI result Body Mass Index 26.6 Const: General: No confusion Nutritional Appearance: well nourished Orientation/consciousness: No confusion Limitations: no limitations HEENT: Head: Yes normal to inspection, Yes normocephalic and Yes atraumatic Ears: hearing grossly normal bilaterally, external ears normal, TM's normal bilaterally and EAC's normal General nose exam: Normal external nose present Face and sinus: Yes normal facial exam and Yes sinuses nontender Mouth: Normal oral and palatal mucosa present Throat: Yes posterior oropharynx normal Eyes: Visual Jean-Baptiste: normal visual jean-baptiste by confrontation Alignment and Position: alignment normal Periorbital: periorbital findings abnormal right periorbital erythema; Negative for no swelling, no tenderness and no crepitus Eyelids: Yes eyelids normal Conjunctivae: conjunctival abnormal right conjunctival chemosis, conjunctival injection diffuse and discharge purulent Sclerae: sclerae normal Corneas: corneas normal and fluorescein used Pupils: Equal, round and reactive pupils present EOM: EOMs intact bilaterally Direct Ophthalmoscopy: normal light reflex, no photophobia and No photophobia Neck: Neck: Yes full ROM, Yes no lymphadenopathy and Yes supple Resp: Effort & Inspection: normal respiratory effort and able to speak in complete sentences Auscultation: clear to auscultation bilaterally, no crackles, no rales, no rhonchi and no wheezes Cardio: Rate: regular rate Rhythm: regular rhythm Heart sounds: S1 normal heart sound present and S2 normal heart sound present GI: Inspection: Yes normal to inspection Palpation (GI): Soft to palpation, nontender, no guarding and not rigid Percussion: Yes normal to percussion Auscultation: normal bowel sounds Skin: General skin exam: no rashes or lesions noted Neuro: General: No confusion Cranial nerves: Yes Equal, round and reactive pupils present Extrem: General: Yes normal to inspection and Yes full ROM Psych: Appearance: grossly normal Affect: normal affect Attitude: cooperative Thought process: Normal thought process present Course Course Course Narrative: 66-year-old male presents for 2 days of right red itchy eye with discharge. On exam, patient has no pain with external ocular movement, has pupils reactive and equal, no nystagmus. Patient has injected right conjunctivas that is erythematous and diffuse with purulence discharge. Conjunctival chemosis noted right lateral eye. Eyelids were lifted and examined, no foreign body under upper or lower eyelid. No corneal abrasion seen on fluorescein stain. Patient does have surrounding erythema of right eye without significant edema. I think this is preseptal cellulitis with conjuntiviitis. Will treat with Augmentin, erythromycin ointment, follow-up with primary care provider Patient given return precautions of sudden visual loss, headache, pain with eye movement Discharge Plan Discharge Clinical Impression: Conjunctivitis, Preseptal cellulitis of right eye Patient Disposition: Home, Self-Care Instructions: Conjunctivitis (ED) Additional Instructions: Please call your primary care provider for follow-up appointment from today's emergency room visit. If you have sudden severe eye pain, loss of vision, sudden headache, please return to emergency room. Please apply 1/2 inch strip to your right eye of the antibiotic ointment 4 times a day for the next 5 days. For the redness and swelling around her eye, please take the oral antibiotic for the next 10 days. Please return to emergency room for any new or concerning symptoms. Prescriptions: New amoxicillin-pot clavulanate 875-125 mg tablet 1 tab PO BID 10 Days Qty: 20 0RF erythromycin 5 mg/gram (0.5 %) ointment 0.5 inch ophthalmic (eye) QID 5 Days Qty: 3.5 0RF No Action aspirin 81 mg tablet,chewable 81 mg PO DAILY Qty: 30 2RF clopidogrel 75 mg tablet 75 mg PO DAILY Qty: 90 1RF atorvastatin 80 mg tablet 80 mg PO DAILY Qty: 90 1RF (DME) FreeStyle Lite Strips Strip See Rx Instructions .Route Qty: 50 3RF Rx Instructions: daily glipizide 10 mg tablet 10 mg PO BID Qty: 60 2RF fluticasone propionate 50 mcg/actuation spray,suspension 2 spray intranasal DAILY Qty: 48 1RF isosorbide mononitrate 30 mg tablet extended release 24 hr 30 mg PO DAILY Qty: 90 1RF metformin 1,000 mg tablet 1,000 mg PO BID 90 Days Qty: 180 3RF metoprolol succinate 50 mg tablet extended release 24 hr 50 mg PO BID 90 Days Qty: 180 3RF lamotrigine 200 mg tablet 200 mg PO BID 0RF loratadine [Allergy Relief (loratadine)] 10 mg tablet 10 mg PO DAILY 30 Days Qty: 30 4RF
== END 2021-08-20 11:48 | disposition home or self-care (01) ==
PROVIDERS: Emergency Provider Emergency Medicine; PCP Family Medicine
DX: H10.89 Other conjunctivitis (principal); H11.421 Conjunctival edema, right eye; L03.213 Periorbital cellulitis
CPT/HCPCS: 99283; 99284

== ENCOUNTER → 2021-10-22 09:20 | Outpatient (BNVA) | payer OTHER, SELFPAY ==
[2021-08-28 07:22] VITALS: BP 146/76; BP 148/60; BMI 26.7
== END ==
PROVIDERS: PCP Family Medicine; Referring Provider Family Medicine; Visit Provider Internal Medicine
DX: I25.10 Atherosclerotic heart disease of native coronary artery without angina pectoris (principal); I10 Essential (primary) hypertension; E11.8 Type 2 diabetes mellitus with unspecified complications
CPT/HCPCS: 99212

== ENCOUNTER 2021-12-01 07:40 | Emergency (ER) | payer OTHER, SELFPAY ==
[2021-08-28 07:22] VITALS: BP 146/76; BP 148/60; BMI 26.7
--- NOTE | ~2021-12-01 | CT_ITS ---
EXAMINATION: CT HEAD WITHOUT CONTRAST CLINICAL INFORMATION: Headache for one week COMPARISON: Previous head CT May 2019 TECHNIQUE: Contiguous axial imaging was performed from the skull base to vertex without intravenous administration of contrast. This CT examination was performed using dose optimization techniques as appropriate, variously including the following: *Automated exposure control *Adjustment of mA and/or kV according to patient size (this includes techniques or standardized protocols for targeted exams where dose is matched to indication/reason for exam; i.e. extremities or head) *Use of iterative reconstruction technique DLP: 796 mGy-cm FINDINGS: There is no evidence of acute intracranial hemorrhage. No abnormal mass effect or midline shift is seen. Ferrera to white matter differentiation is well preserved. No extra-axial fluid collections are identified. The ventricles are normal in size. 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 No mass, mass effect or acute infarct is seen. The osseous structures and soft tissues are normal. There are inflammatory changes in the left maxillary sinus. The mastoid air cells and visualized portions of the paranasal sinuses are otherwise clear. CT/CT head/brain wo con IMPRESSION: No acute findings. 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
--- NOTE | 2021-12-01 07:45 | ECG_ITS ---
Test Reason : dizzy Blood Pressure : / mmHG Vent. Rate : 065 BPM Atrial Rate : 065 BPM P-R Int : 156 ms QRS Dur : 094 ms QT Int : 420 ms P-R-T Axes : 010 001 026 degrees QTc Int : 436 ms Normal sinus rhythm Moderate voltage criteria for LVH, may be normal variant ( R in aVL , Nathan product ) Borderline ECG When compared with ECG of 26-MAR-2021 14:01, No significant change was found Referred By: Generic ED Physician Electronically Signed By:EMILY ROBINS MD
[2021-12-01 09:46] VITALS: BP 183/81; PULSE 66; RESP 18; TEMP 36.6; O2SAT 99; BMI 27.1
[2021-12-01 12:03] LABS: IDNOW Serial# 9DB6401D; Influenza A Negative (Negative); Influenza B2 Negative (Negative)
[2021-12-01 12:06] LABS: MANUAL DIFF FLAG NO
[2021-12-01 12:07] LABS: Eosinophils Percent Auto 0.2 % (0-4); Hematocrit 41.8 % (42.0-52.0); Hemoglobin 14.3 g/dl (14.0-18.0); Imm Gran Abs Auto 0.01 X10*3/uL (0.00-0.03); Imm Gran Pct Auto 0.2 % (0.0-0.4); Lymphocytes Percent Auto 36.8 % (20-40); Mean Corpuscular HGB Conc 34.2 g/dl (31.0-36.0); Mean Corpuscular Hemoglobin 28.8 pg (27.0-33.0); Mean Corpuscular Volume 84.1 fL (80.0-98.0); Mean Platelet Volume 9.5 fL (9.4-12.4); Monocytes Absolute Auto 0.5 X10*3/uL (0.1-1.2); Monocytes Percent Auto 10.1 % (2-11); Neutrophils Absolute Auto 2.8 x10*3/uL (2.0-8.3); Neutrophils Percent Auto 52.7 % (45-73); Platelet Count 202 X10*3/uL (160-400); Red Blood Count 4.97 X10*6/uL (4.60-5.80); Red Cell Distribution Width 13.5 % (11.0-16.0); White Blood Count 5.4 X10*3/uL (4.8-10.8)
[2021-12-01 12:11] LABS: Alanine Aminotransferase 13 U/L (0-40); Albumin Level 4.4 g/dL (3.5-5.0); Alkaline Phosphatase 90 U/L (39-117); Anion Gap 13 (12-20); Aspartate Amino Transferase 16 U/L (5-37); Bilirubin Direct 0.3 mg/dL (0.0-0.5); Bilirubin Total 0.6 mg/dL (0.0-1.0); Blood Urea Nitrogen 17 mg/dL (9-16); Calcium 9.6 mg/dL (8.4-10.2); Carbon Dioxide 28 mmol/L (22-29); Chloride 103 mmol/L (96-108); Creatinine Clr Calc Pharmacy 57.1; Estimated Glomerular Filt Rate 60; Glucose Random 87 mg/dL (60-115); Potassium 4.7 mmol/L (3.3-5.1); Sodium 139 mmol/L (135-145); Total Protein 7.2 g/dL (6.5-8.0)
[2021-12-01 12:22] LABS: COVID-19 Test Negative (Negative); IDNOW Serial# 55D5AD1C
--- NOTE | 2021-12-01 12:49 | ED.GENADULT ---
HPI - General Adult General Chief complaint: General Medical Stated complaint: Headache/Dizziness/trouble walking 1x week Time Seen by Provider: 12/01/21 11:44 Source: patient Mode of arrival: ambulatory Limitations: no limitations History of Present Illness HPI narrative: Patient is a 66 year old male presenting to the emergency department today with intermittent lightheadedness and a headache over the last week. Patient states that over the last week, he has had moments of having a headache some mild lightheadedness. Patient states that he is a diabetic but he is not checking his sugar in those moments. Patient states that the only thing that seems to help is when he eats. Patient states that his blood pressure is high today because he doesn't take his medications until before work which is at 11pm. Patient denies any current dizziness, lightheadedness, abdominal pain, nausea, vomiting, fever, chills, blurry vision, double vision, loss of vision, chest pain, difficulty breathing, shortness of breath, back pain, night sweats, pain with urination, increased urinary frequency, increased urinary urgency, blood in his urine or stool, syncope or a near syncopal episode, recent trauma or falls, bowel incontinence, bladder incontinence, bowel retention, bladder retention, or any other complaints at this time. Onset (ago): week(s) (1) Severity: mild Severity scale (1-10): 2 Relieving factors: none Exacerbating factors: none Associated symptoms: denies other symptoms Treatments prior to arrival: none Related Data Home Medications Medication Instructions Recorded Confirmed lamotrigine 200 mg tablet 200 mg PO BID 07/01/21 10/22/21 Previous Rx's Medication Instructions Recorded loratadine 10 mg tablet (Allergy 10 mg PO DAILY 1 month #30 tabs 03/25/21 Relief (loratadine)) aspirin 81 mg chewable tablet 81 mg PO DAILY #30 tabs 04/16/21 atorvastatin 80 mg tablet 80 mg PO DAILY #90 tabs 05/22/21 blood sugar diagnostic (FreeStyle #50 ea 06/10/21 Lite Strips) glipizide 10 mg tablet 10 mg PO BID #60 tabs 06/27/21 fluticasone propionate 50 2 spray intranasal DAILY #48 mL 07/16/21 mcg/actuation nasal spray,suspension isosorbide mononitrate 30 mg 30 mg PO DAILY #90 tabs 07/16/21 tablet,extended release 24 hr metformin 1,000 mg tablet 1,000 mg PO BID 90 days #180 tabs 07/30/21 metoprolol succinate 50 mg 50 mg PO BID 90 days #180 tabs 07/30/21 tablet,extended release 24 hr erythromycin 5 mg/gram (0.5 %) eye 0.5 inch ophthalmic (eye) QID 5 08/20/21 ointment days #3.5 grams blood pressure test kit-large #1 ea 09/30/21 clopidogrel 75 mg tablet 75 mg PO DAILY #90 tabs 10/28/21 Allergies Allergy/AdvReac Type Severity Reaction Status Date / Time No Known Allergies Allergy Verified 10/22/21 09:46 [No Known Allergies*] Review of Systems Constitutional: Constitutional: Reports no additional constitutional complaints, Denies chills, Denies fever(s) and Denies night sweats Eyes: Eyes: Reports no additional eye complaints, Denies blurry vision, Denies change in vision, Denies diplopia, Denies eye discharge, Denies loss of vision and Denies eye pain ENT: Denies dizziness Cardiovascular: Cardiovascular: Reports no additional cardiovascular complaints, Denies chest pain, Denies lightheadedness, Denies Loss of Consciousness and Denies dyspnea Respiratory: Respiratory: Reports no additional respiratory complaints and Denies dyspnea Gastrointestinal: Gastrointestinal: Reports no additional gastrointestinal complaints, Denies abdominal pain, Denies melena, Denies hematochezia, Denies change in bowel habits and Denies change in stool character Genitourinary: Genitourinary: Reports no additional male genitourinary complaints, Denies hematuria, Denies oliguria, Denies difficulty urinating, Denies dysuria, Denies urinary frequency, Denies urinary hesitancy, Denies urinary incontinence and Denies urinary urgency Musculoskeletal: Musculoskeletal: Reports no additional musculoskeletal complaints, Denies numbness and Denies tingling Neurologic: Denies dizziness, Denies loss of vision, Denies numbness and Denies tingling Psychiatric: Psychiatric: Reports no additional psychiatric complaints Endocrine: Endocrine: Reports no additional endocrine complaints Hematologic/Lymphatic: Hematologic/Lymphatic: Reports no additional hematologic/lymphatic complaints Allergic/Immunologic: Allergic/Immunologic: Reports no additional allergic/immunologic complaints PMFSH Past Medical History Attestation statement: The following information was validated with the patient. Source: old records reviewed Medical History Diabetes Epilepsy Heart attack High cholesterol Hypertension Sciatica Surgical History History of cardiac catheterization (~2015) History of coronary artery bypass graft x 2 (~2005) History of tonsillectomy Family History Family History Father Cardiovascular disease Mother No problems noted. Social History Social History Housing: House Alcohol intake: never Patient Tobacco Use Status: Never used Tobacco e-Cigarette/Vaping Use: Never Used Second Hand Smoke Exposure: No Advance Directives: No Advance Directives Information Provided: No service: No Cognitive needs: No Hearing needs: No Vision needs: No Physical Exam ED Vital Signs: Vital Signs - 24 hr 12/01/21 09:46 Temperature 98 F Pulse Rate 66 Respiratory Rate 18 Blood Pressure 183/81 H Pulse Oximetry 99 BMI result Body Mass Index 27.1 Const General: cooperative, no acute distress, alert and awake Nutritional Appearance: well nourished Orientation/consciousness: patient oriented x3 Limitations: no limitations HENMT Head: Yes normal to inspection and Yes atraumatic Ears: hearing grossly normal bilaterally and external ears normal General nose exam: Normal external nose present, no nasal discharge noted and no epistaxis Face and sinus: Yes normal facial exam, No abrasion and No laceration Mouth: Normal oral and palatal mucosa present, no drooling and no muffled voice Eyes General: appearance normal, both eyes and all related structures Periorbital: periorbital findings normal Eyelids: Yes eyelids normal Conjunctivae: conjunctivae normal Pupils: Equal, round and reactive pupils present EOM: EOMs intact bilaterally Neck Neck: Yes normal visual inspection, Yes full ROM and Yes no lymphadenopathy Chest Chest palpation & inspection: normal inspection of the chest Resp Effort & Inspection: normal respiratory effort and able to speak in complete sentences Auscultation: clear to auscultation bilaterally Cardio Rate: regular rate Rhythm: regular rhythm GI Inspection: Yes normal to inspection Neuro General: patient oriented x3 and moves all extremities Cranial nerves: Yes Equal, round and reactive pupils present Cognition (Neuro): normal cognition Motor exam (neuro): 5/5 motor strength present throughout Sensory Exam: Normal double simultaneous stimulation for sensation Coordination: [id number] test normal Extrem General: Yes normal to inspection, Yes full ROM and Yes capillary refill normal Psych Appearance: grossly normal Mental Status: mental status grossly normal Affect: normal affect Attitude: cooperative Thought process: Normal thought process present Thought content: Normal thought content present Insight: Good insight present (Psych) NIH Stroke Scale Internal: Initial- Upon Arrival Time: 11:44 Level of Consciousness: Alert Level of Consciousness Questions: Answers both questions correctly Level of Consciousness Commands: Performs both tasks correctly Best Gaze: Normal Visual: No visual loss Facial Palsy: Normal Motor Arm (Right): No drift Motor Arm (Left): No drift Motor Leg (Right): No drift Motor Leg (Left): No drift Limb Ataxia: Absent Sensory: Normal Best Language: No aphasia Dysarthia: Normal Extinction and Inattention: No abnormality Score: 0 Medical Decision Making MDM Narrative Medical decision making narrative: Patient is a 66 year old male presenting to the emergency department today with intermittent lightheadedness and a headache. Patient's physical exam was unremarkable including a negative stroke examination. Patient's blood work was unremarkable. Patient's EKG was unremarkable. Patient's head CT showed no acute process. I explained to the patient that was I am suspicious these episodes have to do with a hypoglycemic episode. I recommended the patient check his blood sugar when these episodes occur and document them for his primary care provider to review. I also recommended the patient follow up with a sleep specialist as he describes having sleep apnea diagnosed years ago but no CPAP machine and endorses he sleeps poorly. I explained my physical exam findings as well as all test results to the patient. I answered all questions asked by the patient. I stressed the importance of the patient taking his medication as prescribed. I stressed the importance of the patient following up with his primary care provider. I stressed the importance of the patient returning to the emergency department immediately if his symptoms were to worsen or if he were to develop any dizziness, shortness of breath, difficulty breathing, chest pain, blurry vision, loss of vision, nausea, vomiting, abdominal pain, fever, chills, back pain, or any other complaints. Patient verbalized agreement and understanding with this treatment plan and discharge. Differential Diagnosis Differential Diagnosis: hypoglycemia Medical Records Medical records reviewed: Yes I reviewed the patient's medical records. Lab Data Lab results reviewed: Yes I reviewed the patient's lab results. Result diagrams: 12/01/21 12:00 12/01/21 11:33 Labs: Lab Results 12/01/21 12/01/21 12/01/21 Range/Units 11:33 11:33 11:33 WBC (4.8-10.8) X10*3/uL RBC (4.60-5.80) X10*6/uL Hgb (14.0-18.0) g/dl Hct (42.0-52.0) % MCV (80.0-98.0) fL MCH (27.0-33.0) pg MCHC (31.0-36.0) g/dl RDW (11.0-16.0) % Plt Count (160-400) X10*3/uL MPV (9.4-12.4) fL Immature Gran % (Auto) (0.0-0.4) % Neut % (Auto) (45-73) % Lymph % (Auto) (20-40) % [place] % (Auto) (2-11) % Eos % (Auto) (0-4) % Baso % (Auto) (0-2) % Lymph # (Auto) (1.2-4.9) X10*3/uL [place] # (Auto) (0.1-1.2) X10*3/uL Eos # (Auto) (0.0-0.4) X10*3/uL Baso # (Auto) (0.0-0.2) X10*3/uL Abs Immat Gran (auto) (0.00-0.03) X10*3/uL Absolute Neuts (auto) (2.0-8.3) x10*3/uL Absolute Nucleated RBC (0.0-0.012) X10*3/uL Nucleated RBC % (auto) (0.0-0.2) /100WBC Sodium 139 (135-145) mmol/L Potassium 4.7 (3.3-5.1) mmol/L Chloride 103 (96-108) mmol/L Carbon Dioxide 28 (22-29) mmol/L Anion Gap 13 (12-20) BUN 17 H (9-16) mg/dL Creatinine 1.22 (0.5-1.4) mg/dL Estim Creat Clear Calc 57.1 Estimated GFR 60 Random Glucose 87 D (60-115) mg/dL Calcium 9.6 (8.4-10.2) mg/dL Total Bilirubin 0.6 (0.0-1.0) mg/dL Direct Bilirubin 0.3 (0.0-0.5) mg/dL AST 16 D (5-37) U/L ALT 13 (0-40) U/L Alkaline Phosphatase 90 D (39-117) U/L Troponin I High Sens 9.0 (<3.5-35.0) ng/L Total Protein 7.2 (6.5-8.0) g/dL Albumin 4.4 (3.5-5.0) g/dL COVID-19 ([facility]) Negative (Negative) COVID-19 Clin Com See Note Influenza Type A ([facility]) (Negative) Influenza Type B ([facility]) (Negative) Influenza A & B Note 12/01/21 12/01/21 Range/Units 11:33 12:00 WBC 5.4 (4.8-10.8) X10*3/uL RBC 4.97 D (4.60-5.80) X10*6/uL Hgb 14.3 D (14.0-18.0) g/dl Hct 41.8 L D (42.0-52.0) % MCV 84.1 (80.0-98.0) fL MCH 28.8 (27.0-33.0) pg MCHC 34.2 (31.0-36.0) g/dl RDW 13.5 (11.0-16.0) % Plt Count 202 D (160-400) X10*3/uL MPV 9.5 (9.4-12.4) fL Immature Gran % (Auto) 0.2 (0.0-0.4) % Neut % (Auto) 52.7 (45-73) % Lymph % (Auto) 36.8 (20-40) % [place] % (Auto) 10.1 (2-11) % Eos % (Auto) 0.2 (0-4) % Baso % (Auto) 0.0 (0-2) % Lymph # (Auto) 2.0 (1.2-4.9) X10*3/uL [place] # (Auto) 0.5 (0.1-1.2) X10*3/uL Eos # (Auto) 0.0 (0.0-0.4) X10*3/uL Baso # (Auto) 0.0 (0.0-0.2) X10*3/uL Abs Immat Gran (auto) 0.01 (0.00-0.03) X10*3/uL Absolute Neuts (auto) 2.8 (2.0-8.3) x10*3/uL Absolute Nucleated RBC 0.000 (0.0-0.012) X10*3/uL Nucleated RBC % (auto) 0.0 (0.0-0.2) /100WBC Sodium (135-145) mmol/L Potassium (3.3-5.1) mmol/L Chloride (96-108) mmol/L Carbon Dioxide (22-29) mmol/L Anion Gap (12-20) BUN (9-16) mg/dL Creatinine (0.5-1.4) mg/dL Estim Creat Clear Calc Estimated GFR Random Glucose (60-115) mg/dL Calcium (8.4-10.2) mg/dL Total Bilirubin (0.0-1.0) mg/dL Direct Bilirubin (0.0-0.5) mg/dL AST (5-37) U/L ALT (0-40) U/L Alkaline Phosphatase (39-117) U/L Troponin I High Sens (<3.5-35.0) ng/L Total Protein (6.5-8.0) g/dL Albumin (3.5-5.0) g/dL COVID-19 ([facility]) (Negative) COVID-19 Clin Com Influenza Type A ([facility]) Negative (Negative) Influenza Type B ([facility]) Negative (Negative) Influenza A & B Note See Note Imaging Data CT scan - head: Attestation: I personally reviewed and interpreted this imaging study as follows: My impression: No acute process. Radiologist's impression: EXAMINATION: CT HEAD WITHOUT CONTRAST CLINICAL INFORMATION: Headache for one week? COMPARISON: Previous head CT May 2019 TECHNIQUE: Contiguous axial imaging was performed from the skull base to vertex without intravenous administration of contrast. This CT examination was performed using dose optimization techniques as appropriate, variously including the following: *Automated exposure control *Adjustment of mA and/or kV according to patient size (this includes techniques or standardized protocols for targeted exams where dose is matched to indication/reason for exam; i.e. extremities or head) *Use of iterative reconstruction technique DLP: 796 mGy-cm FINDINGS: There is no evidence of acute intracranial hemorrhage. No abnormal mass effect or midline shift is seen. Ferrera to white matter differentiation is well preserved. No extra-axial fluid collections are identified. The ventricles are normal in size. 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 No mass, mass effect or acute infarct is seen. The osseous structures and soft tissues are normal. There are inflammatory changes in the left maxillary sinus. The mastoid air cells and visualized portions of the paranasal sinuses are otherwise clear. ? CT/CT head/brain wo con IMPRESSION: No acute findings. 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 Dictated By: Kavya Hines MD Signed By: Electronically signed by Kavya Hines MD 12/01/21 1035 ECG Data Attestation: I personally reviewed and interpreted this ECG as follows: Prior ECG tracings: available for review Interpretation: Vent. Rate: 065 BPM ? ? Atrial Rate: 065 BPM P-R Int: 156 ms? QRS Dur: 094 ms QT Int: 420 ms ? ? ? P-R-T Axes: 010 001 026 degrees QTc Int: 436 ms ? Normal sinus rhythm Moderate voltage criteria for LVH, may be normal variant ( R in aVL , Nathan product ) Borderline ECG When compared with ECG of 26-MAR-2021 14:01, No significant change was found Electronically Signed By:ERROL ROBINS MD Dictated By: Errol Robins MD Signed By: Electronically signed by Errol Robins MD 12/01/21 1384 Discharge Plan Discharge Clinical Impression: History of hypertension, Hx of diabetes mellitus Patient Disposition: Home, Self-Care Instructions: Hypoglycemia in a Person with Diabetes (ED) Additional Instructions: Follow up with your primary care provider. Return to the emergency department immediately if your symptoms worsen or if you develop any dizziness, shortness of breath, difficulty breathing, chest pain, blurry vision, loss of vision, nausea, vomiting, abdominal pain, fever, chills, back pain, or any other complaints. Prescriptions: No Action aspirin 81 mg tablet,chewable 81 mg PO DAILY Qty: 30 2RF atorvastatin 80 mg tablet 80 mg PO DAILY Qty: 90 1RF (DME) FreeStyle Lite Strips Strip See Rx Instructions .Route Qty: 50 3RF Rx Instructions: daily glipizide 10 mg tablet 10 mg PO BID Qty: 60 2RF fluticasone propionate 50 mcg/actuation spray,suspension 2 spray intranasal DAILY Qty: 48 1RF isosorbide mononitrate 30 mg tablet extended release 24 hr 30 mg PO DAILY Qty: 90 1RF metformin 1,000 mg tablet 1,000 mg PO BID 90 Days Qty: 180 3RF metoprolol succinate 50 mg tablet extended release 24 hr 50 mg PO BID 90 Days Qty: 180 3RF clopidogrel 75 mg tablet 75 mg PO DAILY Qty: 90 1RF erythromycin 5 mg/gram (0.5 %) ointment 0.5 inch ophthalmic (eye) QID 5 Days Qty: 3.5 0RF lamotrigine 200 mg tablet 200 mg PO BID (DME) blood pressure test kit-large Kit See Rx Instructions .ROUTE .MEDSUPPLY Qty: 1 0RF Rx Instructions: check bp daily once stable check twice a week and as needed loratadine [Allergy Relief (loratadine)] 10 mg tablet 10 mg PO DAILY 30 Days Qty: 30 4RF [place] [facility] [facility] [place] (Call to establish and follow up with a sleep specialist. ) Bandar Martin MD [Primary Care Provider] - Print Language: Georgian
[2021-12-01 13:12] VITALS: BP 206/89; PULSE 65; RESP 18; O2SAT 99
--- NOTE | 2021-12-01 13:14 | PC.NURSE ---
Pt's BP elevated. PA aware. Pt states that he did not take home BP med today but plans to take when he gets home.
== END 2021-12-01 13:16 | disposition home or self-care (01) ==
PROVIDERS: Emergency Provider Emergency Medicine; PCP Family Medicine
DX: R51.9 Headache, unspecified (principal); R42 Dizziness and giddiness; R26.2 Difficulty in walking, not elsewhere classified; I10 Essential (primary) hypertension; Z20.822 Contact with and (suspected) exposure to COVID-19; Z91.14 Patient's other noncompliance with medication regimen; Z79.899 Other long term (current) drug therapy
CPT/HCPCS: 36415; 70450; 80048; 80076; 84484; 85025; 87502; 87635; 93005; 99283; 99284

== ENCOUNTER 2021-12-22 08:16 | Outpatient (REF) | payer OTHER, SELFPAY ==
[2021-08-28 07:22] VITALS: BP 146/76; BP 148/60; BMI 26.7
[2021-12-22 09:53] LABS: Alanine Aminotransferase 12 U/L (0-40); Albumin Level 4.2 g/dL (3.5-5.0); Alkaline Phosphatase 88 U/L (39-117); Anion Gap 14 (12-20); Aspartate Amino Transferase 14 U/L (5-37); Bilirubin Total 0.6 mg/dL (0.0-1.0); Blood Urea Nitrogen 19 mg/dL (9-16); Calcium 9.1 mg/dL (8.4-10.2); Carbon Dioxide 27 mmol/L (22-29); Chloride 103 mmol/L (96-108); Cholesterol 209 mg/dL; Estimated Glomerular Filt Rate 59; Glucose Fasting 102 mg/dL (60-99); HDL Cholesterol 35 mg/dL; LDL Cholesterol Calculated 141 mg/dl; Potassium 4.5 mmol/L (3.3-5.1); Sodium 139 mmol/L (135-145); Total Protein 7.1 g/dL (6.5-8.0); Triglycerides 168 mg/dL
[2021-12-22 10:15] LABS: Prostate Specific Antigen Scr 1.97 ng/mL (<0.05-4.0); TSH reflex Free T4 1.35 uIU/mL (0.32-4.0)
== END 2021-12-22 08:17 | disposition home or self-care (01) ==
LOC: HO.10HDL 08:16
PROVIDERS: Visit Provider Family Medicine
DX: Z00.00 Encounter for general adult medical examination without abnormal findings (principal); Z12.5 Encounter for screening for malignant neoplasm of prostate
CPT/HCPCS: 36415; 80053; 80061; 84153; 84443

== ENCOUNTER → 2022-01-22 09:30 | Outpatient (BNVA) | payer OTHER, SELFPAY ==
[2021-08-28 07:22] VITALS: BP 146/76; BP 148/60; BMI 26.7
== END ==
PROVIDERS: PCP Family Medicine; Visit Provider Nurse Practitioner Family
DX: G47.30 Sleep apnea, unspecified (principal); R06.83 Snoring; G47.26 Circadian rhythm sleep disorder, shift work type; E11.8 Type 2 diabetes mellitus with unspecified complications; Z86.73 Personal history of transient ischemic attack (TIA), and cerebral infarction without residual deficits
CPT/HCPCS: 99202

== ENCOUNTER 2022-01-23 08:01 | Outpatient (REF) | payer OTHER, SELFPAY ==
[2021-08-28 07:22] VITALS: BP 146/76; BP 148/60; BMI 26.7
--- NOTE | 2022-01-23 13:55 | MHC.AU.ANO ---
Adult Audiological Evaluation Date of Visit: 01/23/22 Quality Control Used: Not Applicable Reason for Appointment: Audiologic evaluation due to history of tinnitus and question of decreased hearing ability. Does patient feel they have a hearing loss?: No Has hearing been tested previously?: No Hearing Handicap Inventory: HHIE SCORE: 2 Based on HHIE score, patient has: No perceived hearing handicap Ear History: Bothersome Tinnitus/Ringing/Noises in Ears: Both Ears History of occupational noise exposure?: Yes Medical History: Medical History: Diabetes, Headache, Heart Problems, High Blood Pressure, Seizure Disorder, Stroke Medication List: Asprin, Atorvastatin, Clopidogrel, Erythromycin drops, Fluticasone, Glipizide, Isosorbide, Lamotrigine, Metformin, Metoprolol Otoscopy: Right Ear: Unremarkable Left Ear: Unremarkable Tympanometry: Tympanometry performed due to: To assess integrity of the middle ear system Right Ear: Normal Middle Ear System (Type A) Left Ear: Normal Middle Ear System (Type A) Otoacoustic Emissions Did Not Test Hearing Evaluation: Transducer(s) Used: Insert Earphones Bone Conduction Method: Conventional Audiometry Stimuli Used: Pure Tones Right Ear: Description of Hearing: Normal hearing thresholds 250-1000 Hz, sloping to a moderately-severe sensorineural hearing loss Left Ear: Description of Hearing: Normal hearing thresholds 250-1000 Hz, sloping to a moderately-severe sensorineural hearing loss Speech Recognition Threshold (SRT): Method Used: Monitored Live Voice Stimuli Used: Spondee Words Right Ear: 25 dB HL Left Ear: 25 dB HL Word Discrimination: Method: Recorded Lists Word Lists Used: NU-6 Right Ear: 84% at 65 dB HL Left Ear: 84% at 65 dB HL Interpretation of Results: Results indicate bilateral high frequency sensorineural hearing loss. With this type of hearing loss, Kiel can hear in general, but is not able to hear the high frequency consonant sounds of speech which is needed for speech discrimination ability. He is a candidate for binaural hearing aids. This hearing loss is also related to his perception of tinnitus. Discussed the theories of tinnitus. Recommendations: Advise cerumen removal by physician, then use the [id number] Ear Wax MD once a month to reduce the amount of cerumen build up Trial with amplification is recommended. Medical clearance from a physician is required before fitting. Hearing Aid Fitting will be scheduled when all materials arrive. Audiological re-evaluation in one year. Will send a reminder card Diagnosis: Primary Diagnosis: H90.3 Bilateral Sensorineural Hearing Loss Secondary Diagnosis: H93.13 Tinnitus, Bilateral Services Performed: Comprehensive Audiological Evaluation (CPT 94922) Tympanometry (CPT 52319) Signature: Provider: Mary De León, MACHELLE-A
--- NOTE | 2022-01-23 13:59 | MHC.AU.MED ---
Medical Clearance for Hearing Instrumentation Date: 01/23/22 Patient Name: Kiel Bourne Date of : 1955 Primary Care Provider: Referring Provider: Bandar Martin MD We have seen your patient on 01/23/22 and have determined that they are a candidate for amplification (See accompanying report). Specifically, they would benefit from: Hearing aid use in both ears There is a statute that addresses Medical Evaluation Requirements prior to fitting a patient with a hearing aid. According to [place] statute 265 CMR:6.03(1), (a) General. Except as provided in 265 CMR 6.03(1)(b), a hearing care professional shall not sell a hearing aid unless the prospective user has presented to the hearing care professional a written statement signed by a licensed physician that states that the patient's hearing loss has been medically evaluated and the patient may be considered a candidate for a hearing aid. The medical evaluation must have taken place within the preceding six months. Please note: Due to the [place] Statute referenced above, we cannot accept a signature other than that of a licensed physician. BOX TRUCK DRIVER and PA signatures cannot be accepted. I am in agreement with the above recommendation. There is no medical contraindication for hearing instrumentation. Physician Signature Date Physician Name (Printed)
--- NOTE | 2022-01-23 14:03 | MHC.AU.HAS ---
Hearing Aid Evaluation Date of Visit: 01/23/22 Historical Information: Description of Hearing: Normal hearing thresholds 250-1000 Hz, sloping to a moderately-severe high frequency sensorineural hearing loss bilaterally. This hearing causes difficulty understanding speech, particularly when background noise is present. 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 Current personal amplification information, if applicable: None Hearing Aid Prescription: Based on the individual?s shared listening needs, communication environments, dexterity, desire for connectivity, and personal preferences, the following prescription for amplification has been made: Right ear: Front Office Clerk: Phonak Model: Audeo P 70-R Battery Size: Rechargeable Color: Silver [employer] Network Technician: #1 M Type of Dome: Open Left ear: Left ear prescription to be same as Right Hearing Aid above: Front Office Clerk: Phonak Model: Audeo P 70-R Battery Size: Rechargeable Color: Silver [employer] Network Technician: #1 M Type of Dome: Open Plan of Care: Patient wishes to purchase hearing aids as prescribed Action Taken/Action Needed: Medical Clearance to be requested from PCP/ENT Hearing Instrument Fitting to be scheduled when materials arrive Primary Diagnosis: H90.3 Bilateral Sensorineural Hearing Loss Secondary Diagnosis: H93.13 Tinnitus, Bilateral Signature:Provider: Kathleen De León, MACHELLE-A
== END 2022-01-23 08:02 | disposition home or self-care (01) ==
LOC: HO.SH 08:01
PROVIDERS: Visit Provider Family Medicine
DX: Z01.118 Encounter for examination of ears and hearing with other abnormal findings (principal); Z46.1 Encounter for fitting and adjustment of hearing aid; H90.3 Sensorineural hearing loss, bilateral; H93.13 Tinnitus, bilateral
CPT/HCPCS: 92557; 92567; 92591

== ENCOUNTER → 2022-02-04 08:43 | Outpatient (BNVA) | payer OTHER, SELFPAY ==
[2021-08-28 07:22] VITALS: BP 146/76; BP 148/60; BMI 26.7
== END ==
PROVIDERS: PCP Family Medicine; Visit Provider Nurse Practitioner
DX: Z01.818 Encounter for other preprocedural examination (principal); I25.10 Atherosclerotic heart disease of native coronary artery without angina pectoris; G40.909 Epilepsy, unspecified, not intractable, without status epilepticus; G47.30 Sleep apnea, unspecified
CPT/HCPCS: 99202; 99212

== ENCOUNTER 2022-02-05 07:43 | Emergency (ER) | payer OTHER, SELFPAY ==
[2021-08-28 07:22] VITALS: BP 146/76; BP 148/60; BMI 26.7
[2022-02-05 08:03] VITALS: BP 171/87; PULSE 82; RESP 18; TEMP 36.6; O2SAT 98; BMI 26.7
--- NOTE | 2022-02-05 08:24 | ED.EXTPRO ---
HPI - Extremity Problem General Chief complaint: Extremity Problem Stated complaint: L foot pain Time Seen by Provider: 02/05/22 08:10 Source: patient Mode of arrival: ambulatory History of Present Illness HPI Narrative: 66-year-old male with a past medical history of diabetes, epilepsy, [place], HLD, HTN, sciatica, presenting to the ED complaining of nonhealing wound to bottom of left foot x3 weeks. Admits has been walking about 35 miles weekly to get to work. Has been applying topical triple antibiotic without relief. Denies fever, erythema, drainage, injury, puncture wound MD Complaint: extremity pain Onset (ago): week(s) Related Data Home Medications Medication Instructions Recorded Confirmed lamotrigine 200 mg tablet 200 mg PO BID 07/01/21 12/04/21 Previous Rx's Medication Instructions Recorded loratadine 10 mg tablet (Allergy 10 mg PO DAILY 1 month #30 tabs 03/25/21 Relief (loratadine)) aspirin 81 mg chewable tablet 81 mg PO DAILY #30 tabs 04/16/21 atorvastatin 80 mg tablet 80 mg PO DAILY #90 tabs 05/22/21 blood sugar diagnostic (FreeStyle #50 ea 06/10/21 Lite Strips) glipizide 10 mg tablet 10 mg PO BID #60 tabs 06/27/21 isosorbide mononitrate 30 mg 30 mg PO DAILY #90 tabs 07/16/21 tablet,extended release 24 hr metformin 1,000 mg tablet 1,000 mg PO BID 90 days #180 tabs 07/30/21 metoprolol succinate 50 mg 50 mg PO BID 90 days #180 tabs 07/30/21 tablet,extended release 24 hr blood pressure test kit-large #1 ea 09/30/21 clopidogrel 75 mg tablet 75 mg PO DAILY #90 tabs 10/28/21 peg 3350-electrolytes 236 240 ml PO Q10M 1 day #4,000 mL 02/04/22 gram-22.74 gram-6.74 gram-5.86 gram solution (Golytely) clotrimazole 1 % topical cream 1 appl topical BID 2 weeks #45 02/05/22 grams fluticasone propionate 50 2 spray intranasal DAILY #48 mL 02/05/22 mcg/actuation nasal spray,suspension Allergies Allergy/AdvReac Type Severity Reaction Status Date / Time No Known Allergies Allergy Verified 02/04/22 08:57 [No Known Allergies*] Review of Systems Review of Systems: Constitutional: No Fever, No Chills ENT/Mouth: No Ear Pain, No Nasal Congestion, No sore throat, No Rhinorrhea, No Swallowing Difficulty Cardiovascular: No Chest Pain, No SOB Respiratory: No Cough, No Sputum, No Wheezing Gastrointestinal: No Nausea, No Vomiting, No Diarrhea, No Constipation, No Abdominal pain Genitourinary: No Dysuria, No Hematuria, No Flank Pain Musculoskeletal: No joint pain, No Myalgias, No Joint Swelling Skin: + Skin Lesions, No rash Neuro: No Weakness, No Numbness, No Paresthesias Yes all other systems are reviewed and are negative Constitutional: Constitutional: Reports as per [facility] [place] Past Medical History Attestation statement: The following information was validated with the patient. Medical History Diabetes Epilepsy Heart attack High cholesterol Hypertension Sciatica Surgical History H/O colonoscopy History of cardiac catheterization (~2015) History of coronary artery bypass graft x 2 (~2005) History of tonsillectomy Family History Family History Father Cardiovascular disease Mother No problems noted. Social History Social History Housing: Apartment Alcohol intake: never Patient Tobacco Use Status: Never used Tobacco e-Cigarette/Vaping Use: Never Used Second Hand Smoke Exposure: No Advance Directives: No Advance Directives Information Provided: No service: No Current occupational exposures/hazards: No Cognitive needs: No Hearing needs: No Vision needs: No Physical Exam Vital Signs: Vital Signs: Last Vital Signs Temp 98 F 02/05/22 08:03 Pulse 82 02/05/22 08:03 Resp 18 02/05/22 08:03 BP 171/87 H 02/05/22 08:03 Pulse Ox 98 02/05/22 08:03 O2 Del Method 02/05/22 08:03 BMI result Body Mass Index 26.7 Const: General: cooperative, healthy appearing and no acute distress Orientation/consciousness: patient oriented x3 Limitations: no limitations HEENT: Head: Yes normal to inspection and Yes atraumatic Ears: hearing grossly normal bilaterally General nose exam: Normal external nose present Face and sinus: Yes normal facial exam Eyes: General: appearance normal, both eyes and all related structures EOM: EOMs intact bilaterally Neck: Neck: Yes normal visual inspection and Yes no meningeal signs Resp: Effort & Inspection: normal respiratory effort and no respiratory distress Auscultation: clear to auscultation bilaterally Cardio: Rate: regular rate Heart sounds: S1 normal heart sound present and S2 normal heart sound present Skin: Other: + small scaling patch noted to plantar aspect of left foot. No erythema. No ulceration. No fluctuance/induration. Wounds: no wounds Neuro: General: patient oriented x3, tone normal and no meningeal signs Gait exam (Neuro): Normal gait present Extrem: General: Yes normal to inspection MDM - Extremity (Nontraumatic) MDM Narrative Medical decision making narrative: 66-year-old male with a past medical history of diabetes, epilepsy, [place], HLD, HTN, sciatica, presenting to the ED complaining of nonhealing wound to bottom of left foot x3 weeks. On exam vital signs stable, NAD, nontoxic appearing, physical exam consistent with tinea pedis. No evidence of cellulitis or Ulceration. Low concern for osteomyelitis Plan: Topical clotrimazole, close PCP follow-up Medical Records Attestation: I reviewed the patient's medical records. Lab Data Attestation: I reviewed the patient's lab results. Discharge Plan Discharge Clinical Impression: Tinea pedis Qualifiers: Laterality: left Qualified Code(s): B35.3 - Tinea pedis Patient Disposition: Home, Self-Care Instructions: Athlete's Foot (ED) Additional Instructions: It appears you have a foot fungus. Apply topical clotrimazole twice daily for the next 2 weeks as prescribed. Keep a close eye in the area, it becomes red, there streaking, changes colors, you have fevers please return to the emergency department. Please with close follow-up with your doctor. Keep your feet dry, avoid moisture Prescriptions: New clotrimazole 1 % cream 1 appl topical BID 14 Days Qty: 45 0RF No Action aspirin 81 mg tablet,chewable 81 mg PO DAILY Qty: 30 2RF atorvastatin 80 mg tablet 80 mg PO DAILY Qty: 90 1RF (DME) FreeStyle Lite Strips Strip See Rx Instructions .Route Qty: 50 3RF Rx Instructions: daily glipizide 10 mg tablet 10 mg PO BID Qty: 60 2RF isosorbide mononitrate 30 mg tablet extended release 24 hr 30 mg PO DAILY Qty: 90 1RF metformin 1,000 mg tablet 1,000 mg PO BID 90 Days Qty: 180 3RF metoprolol succinate 50 mg tablet extended release 24 hr 50 mg PO BID 90 Days Qty: 180 3RF clopidogrel 75 mg tablet 75 mg PO DAILY Qty: 90 1RF fluticasone propionate 50 mcg/actuation spray,suspension 2 spray intranasal DAILY Qty: 48 1RF lamotrigine 200 mg tablet 200 mg PO BID (DME) blood pressure test kit-large Kit See Rx Instructions .ROUTE .MEDSUPPLY Qty: 1 0RF Rx Instructions: check bp daily once stable check twice a week and as needed loratadine [Allergy Relief (loratadine)] 10 mg tablet 10 mg PO DAILY 30 Days Qty: 30 4RF peg 3350-electrolytes [Golytely] 236-22.74-6.74 -5.86 gram recon soln 240 ml PO Q10M 1 Days Qty: 4000 0RF Rx Instructions: until fecal effluent is clear; do not exceed a total volume of 2,000 mL Referrals: Bandar Martin MD [Primary Care Provider] -
== END 2022-02-05 09:12 | disposition home or self-care (01) ==
PROVIDERS: Emergency Provider Emergency Medicine; PCP Family Medicine
DX: B35.3 Tinea pedis (principal); Z79.899 Other long term (current) drug therapy
CPT/HCPCS: 99283

== ENCOUNTER → 2022-02-24 09:00 | Outpatient (REF) | payer OTHER, SELFPAY ==
[2021-08-28 07:22] VITALS: BP 146/76; BP 148/60; BMI 26.7
== END ==
LOC: HO.SL 09:00
PROVIDERS: PCP Family Medicine; Visit Provider Nurse Practitioner Family
DX: G47.30 Sleep apnea, unspecified (principal); R06.83 Snoring; E11.8 Type 2 diabetes mellitus with unspecified complications; Z86.73 Personal history of transient ischemic attack (TIA), and cerebral infarction without residual deficits
CPT/HCPCS: 95806

== ENCOUNTER 2022-03-12 09:24 | Outpatient (REF) | payer OTHER, SELFPAY ==
[2021-08-28 07:22] VITALS: BP 146/76; BP 148/60; BMI 26.7
== END 2022-03-12 09:25 | disposition home or self-care (01) ==
LOC: HO.HAP 09:24
PROVIDERS: Visit Provider Family Medicine
DX: Z46.1 Encounter for fitting and adjustment of hearing aid (principal); H90.3 Sensorineural hearing loss, bilateral
CPT/HCPCS: V5011; V5020; V5160; V5261

== ENCOUNTER 2022-03-24 08:25 | Outpatient (REF) | payer OTHER, SELFPAY ==
[2021-08-28 07:22] VITALS: BP 146/76; BP 148/60; BMI 26.7
[2022-03-24 09:02] LABS: COVID-19 Test Negative (Negative); IDNOW Serial# 9DB6401D
== END 2022-03-24 08:26 | disposition home or self-care (01) ==
LOC: HO.LAB 08:25
PROVIDERS: Visit Provider Internal Medicine
DX: Z20.822 Contact with and (suspected) exposure to COVID-19 (principal)
CPT/HCPCS: 87635; C9803

== ENCOUNTER 2022-03-24 08:41 | Outpatient (REF) | payer OTHER, SELFPAY ==
[2021-08-28 07:22] VITALS: BP 146/76; BP 148/60; BMI 26.7
== END 2022-03-24 08:42 | disposition home or self-care (01) ==
LOC: HO.HAP 08:41
PROVIDERS: Visit Provider Family Medicine
DX: Z13.89 Encounter for screening for other disorder (principal)

== ENCOUNTER 2022-03-25 08:31 | Outpatient (REF) | payer OTHER, SELFPAY ==
[2021-08-28 07:22] VITALS: BP 146/76; BP 148/60; BMI 26.7
== END 2022-03-25 08:32 | disposition home or self-care (01) ==
LOC: HO.HAP 08:31
PROVIDERS: Visit Provider Family Medicine
DX: Z13.89 Encounter for screening for other disorder (principal)

== ENCOUNTER → 2022-03-31 14:05 | Outpatient (BNVA) | payer OTHER, SELFPAY ==
[2021-08-28 07:22] VITALS: BP 146/76; BP 148/60; BMI 26.7
== END ==
PROVIDERS: PCP Family Medicine; Visit Provider Urology
DX: R68.82 Decreased libido (principal); E11.69 Type 2 diabetes mellitus with other specified complication; N52.1 Erectile dysfunction due to diseases classified elsewhere
CPT/HCPCS: 99212

== ENCOUNTER 2022-04-03 09:20 | Outpatient (REF) | payer OTHER, SELFPAY ==
[2021-08-28 07:22] VITALS: BP 146/76; BP 148/60; BMI 26.7
--- NOTE | 2022-04-07 07:51 | MHC.AU.HFU ---
Hearing Instrument Follow-Up- Binaural Date of Visit: 04/03/22 Right Ear: Skin Washer: Phonak Audeo P 70-R Silver Ferrera Serial#[id number] Repair Warranty: 05/02/2025 Loss and Damage Warranty: 05/02/2025 Service Plan: 03/13/2023 Battery Size: Rechargeable Color: Silver Ferrera Veneer Grader: #1 M Type of Dome: Medium Open Type of Wax Guard: CeruShield Dispensed By: [facility] Date of Fittin03/12/2022 Left Ear: Skin Washer: Phonak Audeo P 70-R Silver Ferrera Serial# [id number] Repair Warranty: 05/02/2025 Loss and Damage Warranty: 05/02/2025 Service Plan: 03/13/2023 Battery Size: Rechargeable Color: Silver Ferrera Veneer Grader: #1 M Type of Dome: Medium Open Type of Wax Guard: CeruShield Dispensed By: [facility] Date of Fittin03/12/2022 Follow-Up Summary: Hearing Aid Follow-up - Patient reports improved comfort after decreasing the left aid high frequency gain. Datalogging shows average of 4 hours wearing time. Again counseled on need for every day, all day use for most benefit and adjustment to aids. Patient wants to keep the aids. Answered patient questions regarding aids. Recommendations: Hearing instrument follow-up or maintenance as needed. Please contact our clinic with any questions or concerns. Diagnosis Code(s): Primary Diagnosis: H90.3 Bilateral Sensorineural Hearing Loss Secondary Diagnosis: H93.13 Tinnitus, Bilateral Signature:Provider: Twila De León, [facility]
== END 2022-04-03 09:21 | disposition home or self-care (01) ==
LOC: HO.HAP 09:20
PROVIDERS: Visit Provider Family Medicine
DX: Z13.89 Encounter for screening for other disorder (principal)

== ENCOUNTER 2022-04-10 10:26 | Outpatient (REF) | payer OTHER, SELFPAY ==
[2021-08-28 07:22] VITALS: BP 146/76; BP 148/60; BMI 26.7
[2022-04-17 21:57] LABS: Testosterone, Free 61.5 pg/mL (35.0-155.0); Testosterone, Total 340 ng/dL (250-1100)
== END 2022-04-10 10:27 | disposition home or self-care (01) ==
LOC: HO.LAB 10:26
PROVIDERS: PCP Family Medicine; Visit Provider Urology
DX: R68.82 Decreased libido (principal)
CPT/HCPCS: 36415; 84402; 84403

== ENCOUNTER → 2022-04-23 09:06 | Outpatient (BNVA) | payer OTHER, SELFPAY ==
[2021-08-28 07:22] VITALS: BP 146/76; BP 148/60; BMI 26.7
== END ==
PROVIDERS: PCP Family Medicine; Referring Provider Family Medicine; Visit Provider Internal Medicine
DX: I25.10 Atherosclerotic heart disease of native coronary artery without angina pectoris (principal); I10 Essential (primary) hypertension; E11.8 Type 2 diabetes mellitus with unspecified complications; E78.5 Hyperlipidemia, unspecified
CPT/HCPCS: 99212

== ENCOUNTER 2022-05-04 09:47 | Outpatient (REF) | payer OTHER, SELFPAY ==
[2021-08-28 07:22] VITALS: BP 146/76; BP 148/60; BMI 26.7
== END 2022-05-04 09:48 | disposition home or self-care (01) ==
LOC: HO.HAP 09:47
PROVIDERS: Visit Provider Family Medicine
DX: Z13.89 Encounter for screening for other disorder (principal)

== ENCOUNTER 2022-05-05 10:12 | Outpatient (REF) | payer OTHER, SELFPAY ==
[2021-08-28 07:22] VITALS: BP 146/76; BP 148/60; BMI 26.7
== END 2022-05-05 10:13 | disposition home or self-care (01) ==
LOC: HO.HAP 10:12
PROVIDERS: Visit Provider Family Medicine
DX: Z13.89 Encounter for screening for other disorder (principal)

== ENCOUNTER 2022-07-07 09:30 | Outpatient (REF) | payer OTHER, SELFPAY ==
[2021-08-28 07:22] VITALS: BP 146/76; BP 148/60; BMI 26.7
[2022-07-12 12:23] LABS: Testosterone, Total 365 ng/dL (250-1100)
== END 2022-07-07 09:31 | disposition home or self-care (01) ==
LOC: HO.10HDL 09:30
PROVIDERS: Visit Provider Urology
DX: R68.82 Decreased libido (principal)
CPT/HCPCS: 36415; 84403

== ENCOUNTER → 2022-07-21 10:13 | Outpatient (BNVA) | payer MEDICAID, SELFPAY ==
[2021-08-28 07:22] VITALS: BP 146/76; BP 148/60; BMI 26.7
== END ==
PROVIDERS: PCP Family Medicine; Visit Provider Urology
DX: Z13.89 Encounter for screening for other disorder (principal)

== ENCOUNTER → 2022-08-27 12:38 | Outpatient (BNVA) | payer MEDICAID, SELFPAY ==
[2021-08-28 07:22] VITALS: BP 146/76; BP 148/60; BMI 26.7
== END ==
PROVIDERS: PCP Family Medicine; Visit Provider Urology

== ENCOUNTER → 2022-10-28 10:49 | Outpatient (BNVA) | payer MEDICARE, MEDICAID, SELFPAY ==
[2021-08-28 07:22] VITALS: BP 146/76; BP 148/60; BMI 26.7
== END ==
PROVIDERS: PCP Family Medicine; Visit Provider Urology
DX: E11.69 Type 2 diabetes mellitus with other specified complication (principal); N52.1 Erectile dysfunction due to diseases classified elsewhere
CPT/HCPCS: 99212

== ENCOUNTER 2023-01-13 12:49 | Outpatient (REF) | payer MEDICARE, MEDICAID, SELFPAY ==
[2021-08-28 07:22] VITALS: BP 146/76; BP 148/60; BMI 26.7
== END 2023-01-13 12:50 | disposition home or self-care (01) ==
LOC: HO.HAP 12:49
PROVIDERS: Visit Provider Family Medicine
DX: Z13.89 Encounter for screening for other disorder (principal)

== ENCOUNTER 2023-01-15 14:32 | Outpatient (AMB) | payer MEDICARE, MEDICAID, SELFPAY ==
[2021-08-28 07:22] VITALS: BP 146/76; BP 148/60; BMI 26.7
--- NOTE | 2023-01-13 11:12 | MHC.OFFVIS ---
Intake Intake Visit Reasons: Erectile dysfunction/Penile injection Intake Note: Patient presents today for a follow-up Erectile dysfunction/Penile injection Urology Medications: None Blood Thinner- None Plant Utility Person Required: No Accompanied by: Self / Same As Patient Allergies No Known Allergies [No Known Allergies*] Allergy (Verified 01/15/23 16:08) Medication List - Last Reconciled 01/15/23 by RIC Suero- aspirin 81 mg PO DAILY atorvastatin 80 mg PO DAILY blood pressure test kit-large check bp daily once stable check twice a week and as needed blood sugar diagnostic (FreeStyle Lite Strips) daily clotrimazole 1% 1 appl topical BID 2 weeks fluticasone propionate 50 mcg/actuation 2 sprays intranasal DAILY glipizide 10 mg PO BID isosorbide mononitrate ER 30 mg PO DAILY lamotrigine 200 mg PO BID loratadine (Allergy Relief (loratadine)) 10 mg PO DAILY 1 month metformin 1,000 mg PO BID 90 days metoprolol succinate ER 50 mg PO BID 90 days peg 3350-electrolytes 236-22.74-6.74 -5.86 gram (Golytely) 240 mL PO Q10M 1 day tadalafil 10 mg PO DAILY 90 days tadalafil 20 mg PO DAILY PRN 30 days HPI HPI Comments History of Present Illness Details Kiel is a 67-year-old male who presents today to the office for a follow up for an erectile dysfunction and penile injection. 01/13/2023? Kiel is followed today due to erectile dysfunction and penile injection. He has seen Dr. Santamaria on 10/28/2022 for erectile dysfunction. Patient states that is no longer taking tadalafil. States that he attempted to take one tadalafil 10mg along with Tadalafil 20mg and still not working. He was recommended to trial injection therapy versus penile prosthetic at that time, and information provided about penile vacuum pump during that time. Penile injection performed in the office Patient provided medication Good response to TriMix initial 30 units Sterile technique used Teaching provided for identification of injection sites CPT 98817? Education provided Erectile dysfunction Failed oral therapy Here for injectable therapy Good response to 30 units.? Suggest 40 units of TriMix initial [facility] Medical History Diabetes Epilepsy Heart attack High cholesterol Hypertension Sciatica Surgical History H/O colonoscopy History of cardiac catheterization (~2015) History of coronary artery bypass graft x 2 (~2005) History of tonsillectomy Family History Father Cardiovascular disease Mother No problems noted. Social History Housing: Apartment Alcohol intake: never Patient Tobacco Use Status: Never used Tobacco e-Cigarette/Vaping Use: Never Used Second Hand Smoke Exposure: No service: No Current occupational exposures/hazards: No Cognitive needs: No Hearing needs: No Vision needs: No Assessment & Plan Assessment & Plan Orders: Orders Hemoglobin A1c 3 Months E11.9 - Type 2 diabetes mellitus without complications AMB Urinalysis Automated Today Z13.9 - Encounter for screening, unspecified Patient Instructions: The patient had an opportunity to ask questions regarding treatment plan. All questions were answered. Imaging, Laboratory studies and physical exam results were discussed and reviewed in detail. No major barriers to understanding were identified. The patient expressed understanding and agreement with the above treatment plan.? ? ? The patient is aware they should contact our office by phone for worsening of their current condition or the appearance of new symptoms. Compliance is encouraged with any medications and followup testing that is ordered.? ? ? It is a privilege to be allowed the opportunity to participate in the urologic care of your patient. If you have any questions or concerns regarding treatment for the above conditions please do not hesitate to contact me. The office telephone contact is [phone].? ? ? This note is constructed in part using voice recognition software. While every effort has been made to ensure accuracy germ drier errors may have been included.? ? ? Yours sincerely,? ? ? James Giraldo MD? ? Coding Diagnoses
--- NOTE | 2023-01-15 16:10 | A.OFFVIS_ITS ---
Intake Intake Visit Reasons: Erectile dysfunction/Penile injection Allergies No Known Allergies [No Known Allergies*] Allergy (Verified 01/15/23 16:08) Medication List - Last Reconciled 01/15/23 by NARGIS Suero aspirin 81 mg PO DAILY atorvastatin 80 mg PO DAILY blood pressure test kit-large check bp daily once stable check twice a week and as needed blood sugar diagnostic (FreeStyle Lite Strips) daily clotrimazole 1% 1 appl topical BID 2 weeks fluticasone propionate 50 mcg/actuation 2 sprays intranasal DAILY glipizide 10 mg PO BID isosorbide mononitrate ER 30 mg PO DAILY lamotrigine 200 mg PO BID loratadine (Allergy Relief (loratadine)) 10 mg PO DAILY 1 month metformin 1,000 mg PO BID 90 days metoprolol succinate ER 50 mg PO BID 90 days peg 3350-electrolytes 236-22.74-6.74 -5.86 gram (Golytely) 240 mL PO Q10M 1 day tadalafil 10 mg PO DAILY 90 days tadalafil 20 mg PO DAILY PRN 30 days HPI HPI Comments History of Present Illness Details Kiel is a pleasant 67-year-old male patient of Dr. Martin. He has a past medical history of diabetes, epilepsy, [place], hypertension, hyperlipidemia, and sciatica. He presents to the office today for follow-up of his erectile dysfunction. Of note, patient was previously seen by Dr. Santamaria approximately 2 months ago at which time injectable therapy was prescribed. The patient presents to the office today for penile injection therapy teaching. Penile injection performed in the office Patient provided medication Good response to TriMix initial 30 units Sterile technique used Teaching provided for identification of injection sites CPT 05808? Education provided Erectile dysfunction Failed oral therapy Here for injectable therapy Good response to 30 units.?Suggest 45 units of TriMix initial Discussed using medication 1-2 times per week p.r.n. no more than 2 times per week. [facility] Medical History Diabetes Epilepsy Heart attack High cholesterol Hypertension Sciatica Surgical History H/O colonoscopy History of cardiac catheterization (~2015) History of coronary artery bypass graft x 2 (~2005) History of tonsillectomy Family History Father Cardiovascular disease Mother No problems noted. Social History Housing: Apartment Alcohol intake: never Patient Tobacco Use Status: Never used Tobacco e-Cigarette/Vaping Use: Never Used Second Hand Smoke Exposure: No service: No Current occupational exposures/hazards: No Cognitive needs: No Hearing needs: No Vision needs: No Review of Systems Const Reports as per HPI Eyes Reports no additional complaints ENT Reports no additional complaints Card Reports as per HPI Resp Reports no additional complaints GI Reports no additional complaints Reports as per HPI Musc Reports no additional complaints Neuro Reports as per HPI Psych Reports no additional complaints Endo Reports no additional complaints Grupo/Lymph Reports no additional complaints Aller/Immun Reports no additional complaints Physical Exam Const General: cooperative, comfortable, no acute distress, well developed, alert and awake Orientation/consciousness: patient oriented x3 Limitations: no limitations HEENT Head: Yes normal to inspection, Yes normocephalic and Yes atraumatic Ears: hearing grossly normal bilaterally Eyes General: appearance normal, both eyes and all related structures Neck Neck: Yes normal visual inspection and Yes trachea midline Chest Chest palpation & inspection: normal inspection of the chest Resp Effort & Inspection: normal respiratory effort and able to speak in complete sentences Cardio Rate: regular rate GI Inspection: Yes normal to inspection General: Yes no CVA tenderness Penis: normal penis and circumcised Meatus: meatus normal Scrotum: scrotum normal Testes: Testes normal Back/Spine/Pelvis Back: no CVA tenderness Skin General skin exam: no rashes or lesions noted Neuro General: patient oriented x3 Extrem General: Yes normal to inspection Psych Appearance: grossly normal and well kempt Mental Status: mental status grossly normal Speech and movement: Normal speech and movement present and Clear speech present Affect: normal affect Attitude: cooperative Thought process: Normal thought process present Thought content: Normal thought content present Insight: Fair insight present (Psych) Assessment & Plan Assessment & Plan (1) Erectile dysfunction associated with type 2 diabetes mellitus: Code(s): E11.69 - Type 2 diabetes mellitus with other specified complication; N52.1 - Erectile dysfunction due to diseases classified elsewhere Plan With penile injection teaching provided at today's office visit; as noted above. Educational packet provided Discussed and stressed the importance of limiting penile injection therapy to no more than 2 times per week PRN Discussed at length importance of managing diabetes for improvement in erectile dysfunction as well as overall health and well-being. Discussed obtaining hemoglobin A1c in 3 months for further assessment evaluation. Discussed at length penile prosthesis risks and benefits Patient otherwise denies any other urological issues or concerns at this time; he is happy with his current voiding parameters. Follow-up in 3 months with lab to be completed prior; or sooner with any issues, concerns, and or questions Orders: Orders Hemoglobin A1c 3 Months E11.9 - Type 2 diabetes mellitus without complications AMB Urinalysis Automated 01/15/23 Z13.9 - Encounter for screening, unspecified Patient Instructions: The patient had an opportunity to ask questions regarding the treatment plan. All questions were answered. Physical exam, labs, and imaging were discussed and reviewed in detail. As well as risks, benefits, and discussion of treatment choices. No major barriers to understanding were identified. The patient expressed understanding and agreement with the above treatment plan. The patient was made aware they should contact our office by phone for worsening of their current condition, the appearance of new symptoms, or with any questions or concerns. Compliance is encouraged with any medications and follow up testing that is ordered. It is a privilege to be allowed the opportunity to participate in? your urological care.? Again, if you have any questions or concerns If you have any questions or concerns please do not hesitate to contact me. The office is [phone]. This note is constructed using voice recognition software. While every effort has been made to ensure accuracy prepared foods service team member errors may have been included. Yours sincerely, NARGIS Suero Coding Level of Care Code Est Pt Level 3 (93135) Diagnoses Erectile dysfunction associated with type 2 diabetes mellitus E11.69; N52.1
== END 2023-01-15 16:00 | disposition home or self-care (01) ==
PROVIDERS: PCP Family Medicine; Visit Provider Nurse Practitioner Family
DX: E11.69 Type 2 diabetes mellitus with other specified complication (principal); N52.1 Erectile dysfunction due to diseases classified elsewhere
CPT/HCPCS: 99213

== ENCOUNTER → 2023-01-15 14:32 | Outpatient (BNVA) | payer MEDICARE, MEDICAID, SELFPAY ==
[2021-08-28 07:22] VITALS: BP 146/76; BP 148/60; BMI 26.7
== END ==
PROVIDERS: PCP Family Medicine; Visit Provider Nurse Practitioner Family
DX: E11.69 Type 2 diabetes mellitus with other specified complication (principal); N52.1 Erectile dysfunction due to diseases classified elsewhere
CPT/HCPCS: 99212

== ENCOUNTER 2023-01-15 15:57 | Outpatient (REF) | payer MEDICARE, MEDICAID, SELFPAY ==
[2021-08-28 07:22] VITALS: BP 146/76; BP 148/60; BMI 26.7
== END 2023-01-15 15:58 | disposition home or self-care (01) ==
LOC: HO.HAP 15:57
PROVIDERS: Visit Provider Family Medicine
DX: Z13.89 Encounter for screening for other disorder (principal)
CPT/HCPCS: V5299

== ENCOUNTER 2023-01-25 16:18 | Emergency (ER) | payer MEDICARE, MEDICAID, SELFPAY ==
[2021-08-28 07:22] VITALS: BP 146/76; BP 148/60; BMI 26.7
[2023-01-25 16:39] VITALS: BP 212/92; PULSE 108; RESP 18; TEMP 36.3; O2SAT 97; BMI 27.2
--- NOTE | 2023-01-25 16:39 | ED_ITS ---
HPI - General Adult General Chief complaint: General Medical Stated complaint: Allergic Reaction to Medication Time Seen by Provider: 01/25/23 19:00 Source: patient Mode of arrival: ambulatory Limitations: no limitations History of Present Illness HPI narrative: Patient's history of erectile dysfunction secondary to type 2 diabetes on TriMix injection started today for the 1st time is of taking 1 injection patient took 3 injections at around 10:30 with an hour patient got erection and is not going away, has improved slightly no history of priapism in the past Related Data Home Medications Medication Instructions Recorded Confirmed lamotrigine 200 mg tablet 200 mg PO BID 07/01/21 08/27/22 Previous Rx's Medication Instructions Recorded aspirin 81 mg chewable tablet 81 mg PO DAILY #30 tabs 04/16/21 atorvastatin 80 mg tablet 80 mg PO DAILY #90 tabs 05/22/21 metformin 1,000 mg tablet 1,000 mg PO BID 90 days #180 tabs 07/30/21 metoprolol succinate 50 mg 50 mg PO BID 90 days #180 tabs 07/30/21 tablet,extended release 24 hr blood pressure test kit-large #1 ea 09/30/21 peg 3350-electrolytes 236 240 ml PO Q10M 1 day #4,000 mL 02/04/22 gram-22.74 gram-6.74 gram-5.86 [facility] clotrimazole 1 % topical cream 1 appl topical BID 2 weeks #45 02/05/22 grams fluticasone propionate 50 2 spray intranasal DAILY #48 mL 02/05/22 mcg/actuation nasal spray,suspension tadalafil 10 mg tablet 10 mg PO DAILY sexual activity 90 07/21/22 days #90 tabs blood sugar diagnostic (FreeStyle #50 ea 07/27/22 Lite Strips) isosorbide mononitrate 30 mg 30 mg PO DAILY #60 tabs 08/17/22 tablet,extended release 24 hr tadalafil 20 mg tablet 20 mg PO DAILY PRN sexual activity 08/27/22 30 days #30 tabs glipizide 10 mg tablet 10 mg PO BID #60 tabs 11/10/22 loratadine 10 mg tablet (Allergy 10 mg PO DAILY 1 month #90 tabs 12/17/22 Relief (loratadine)) Allergies Allergy/AdvReac Type Severity Reaction Status Date / Time No Known Allergies Allergy Verified 01/25/23 16:43 [No Known Allergies*] Review of Systems Review of Systems: Yes all other systems are reviewed and are negative [facility] Past Medical History Medical History Diabetes Epilepsy Heart attack High cholesterol Hypertension Sciatica Surgical History H/O colonoscopy History of cardiac catheterization (~2015) History of coronary artery bypass graft x 2 (~2005) History of tonsillectomy Family History Family History Father Cardiovascular disease Mother No problems noted. Social History Social History Housing: Apartment Alcohol intake: never Patient Tobacco Use Status: Never used Tobacco e-Cigarette/Vaping Use: Never Used Second Hand Smoke Exposure: No Advance Directives: No Advance Directives Information Provided: No service: No Current occupational exposures/hazards: No Cognitive needs: No Hearing needs: No Vision needs: No Physical Exam ED Vital Signs: Vital Signs - 24 hr 01/25/23 16:39 01/25/23 19:18 01/25/23 19:34 Temperature 97.4 F 98.1 F Pulse Rate 108 H 77 69 Respiratory Rate 18 17 Blood Pressure 212/92 H 193/86 H 198/95 H Pulse Oximetry 97 99 Oxygen Delivery Method Room Air Room Air 01/25/23 20:23 Temperature 98.0 F Pulse Rate 79 Respiratory Rate 16 Blood Pressure 180/97 H Pulse Oximetry 97 Oxygen Delivery Method Room Air BMI result Body Mass Index 27.2 Appearance: Alert. Oriented X3. No acute distress. CVS: Normal heart rate and rhythm. Pulses normal. Respiratory: No respiratory distress. Equal air entry bilateral, no wheezing /rales/rhonchi Abdomen: Soft and nontender. Bowel sounds are present, no mass palpable, no CVA tenderness : Erect penis with slight tenderness sensations intact Skin: Skin warm and dry. Normal skin color. Normal skin turgor. Extremities: No lower extremity edema. Neuro: Oriented X 3. Course Course Course Narrative: This is a rapid medical exam: Additional HPI, ROS, PE not included below will be deferred to primary provider. Patient is a 67-year-old male presenting to the emergency department stating that he accidentally dosed himself with Tri-Mix (alprostadil, phenotolamine, and papaverine) prescribed by Dr. Santamaria for ED. States each injection was 0.55mLs. Has had an erection since 10:30. Denies any pain. Patient hypertensive in triage, states he forgot to take his BP meds this morning. Plan: EKG, charge account authorizer notified and patient will be brought to main ED right away Medications Administered Discontinued Medications Generic Name Dose Route Start Last Admin Trade Name Freq PRN Reason Stop Dose Admin Phenylephrine HCl 0 mg 01/25/23 19:01 01/25/23 19:34 Phenylephrine Hcl 10 Mg/Ml Vial INTRACAVER 01/25/23 19:02 10 mg ONCE ONE Administration Procedures Penile Procedure Time Out Performed: Yes Indication: priapism management Procedural Sedation: No Priapism Management: phenylephrine injection Patient Tolerated Procedure: well Complications: none Medical Decision Making Medical Decision Making [facility] Narrative: Patient with priapism secondary to use of TriMix injections over the dose as prescribed as for more than 8 hours responded to phenylephrine injections and drainage. Case discussed Dr. Santamaria urology agreed for discharge Discharge Plan Discharge Clinical Impression: Priapism Patient Disposition: Home, Self-Care Instructions: Priapism (ED) Additional Instructions: Do not use the medication over the dose as prescribed Follow-up with your urologist regarding to use the medication in future Prescriptions: No Action aspirin 81 mg tablet,chewable 81 mg PO DAILY Qty: 30 2RF atorvastatin 80 mg tablet 80 mg PO DAILY Qty: 90 1RF metformin 1,000 mg tablet 1,000 mg PO BID 90 Days Qty: 180 3RF metoprolol succinate 50 mg tablet extended release 24 hr 50 mg PO BID 90 Days Qty: 180 3RF fluticasone propionate 50 mcg/actuation spray,suspension 2 spray intranasal DAILY Qty: 48 1RF (DME) FreeStyle Lite Strips Strip See Rx Instructions .Route Qty: 50 3RF Rx Instructions: daily isosorbide mononitrate 30 mg tablet extended release 24 hr 30 mg PO DAILY Qty: 60 1RF glipizide 10 mg tablet 10 mg PO BID Qty: 60 2RF loratadine [Allergy Relief (loratadine)] 10 mg tablet 10 mg PO DAILY 30 Days Qty: 90 0RF clotrimazole 1 % cream 1 appl topical BID 14 Days Qty: 45 0RF lamotrigine 200 mg tablet 200 mg PO BID (DME) blood pressure test kit-large Kit See Rx Instructions .ROUTE .MEDSUPPLY Qty: 1 0RF Rx Instructions: check bp daily once stable check twice a week and as needed peg 3350-electrolytes [Golytely] 236-22.74-6.74 -5.86 gram recon soln 240 ml PO Q10M 1 Days Qty: 4000 0RF Rx Instructions: until fecal effluent is clear; do not exceed a total volume of 2,000 mL tadalafil 10 mg tablet 10 mg PO DAILY 90 Days Qty: 90 0RF tadalafil 20 mg tablet 20 mg PO DAILY PRN (Reason: sexual activity) 30 Days Qty: 30 0RF Interventions: ED Discharge Assessment Last Done: 01/25/23 20:24 Discharge Date/Time: 01/25/23 20:26
--- NOTE | 2023-01-25 16:44 | ECG_ITS ---
Test Reason : Overdose of Erectile Dysfunction Medication Blood Pressure : / mmHG Vent. Rate : 092 BPM Atrial Rate : 092 BPM P-R Int : 156 ms QRS Dur : 096 ms QT Int : 372 ms P-R-T Axes : 063 007 058 degrees QTc Int : 460 ms Normal sinus rhythm Left ventricular hypertrophy with repolarization abnormality ( R in aVL , Nathan product ) Abnormal ECG When compared with ECG of 01-DEC-2021 07:48, No significant change was found Referred By: Cristina Coyne Electronically Signed By:JENN BRADFORD
[2023-01-25 19:18] VITALS: BP 193/86; PULSE 77; RESP 17; TEMP 36.7; O2SAT 99
[2023-01-25 19:34] VITALS: BP 198/95; PULSE 69
[2023-01-25] MEDS: Phenylephrine HCL 10 MG/ML VIAL INTRACAVER (19:34)
[2023-01-25 20:23] VITALS: BP 180/97; PULSE 79; RESP 16; TEMP 36.7; O2SAT 97
== END 2023-01-25 20:26 | disposition home or self-care (01) ==
PROVIDERS: Emergency Provider Internal Medicine; PCP Family Medicine
DX: N48.30 Priapism, unspecified (principal); R94.31 Abnormal electrocardiogram [ECG] [EKG]; Z79.899 Other long term (current) drug therapy
CPT/HCPCS: 93005; 99284; J2371

== ENCOUNTER 2023-04-03 06:53 | Emergency (ER) | payer MEDICARE, MEDICAID, SELFPAY ==
[2021-08-28 07:22] VITALS: BP 146/76; BP 148/60; BMI 26.7
--- NOTE | ~2023-04-03 | XR_ITS ---
Examination: Left ankle and left foot CLINICAL INFORMATION: Pain following trauma TECHNIQUE: 3 views of left ankle and left foot. COMPARISON: None FINDINGS: 3 views of left foot revealed no fracture or dislocation soft tissues are unremarkable there is plantar calcaneal spurring and there is calcification in the soft tissues behind talus most likely calcified loose 3 views of left foot revealed no fracture or subluxation. Ankle mortise is preserved. Soft tissue calcification adjacent to the posterior aspect of talus seen again. XR/XR foot LT min 3V IMPRESSION: No fracture seen. Plantar calcaneal spurring and soft tissue calcification.
--- NOTE | ~2023-04-03 | XR_ITS ---
Examination: Left ankle and left foot CLINICAL INFORMATION: Pain following trauma TECHNIQUE: 3 views of left ankle and left foot. COMPARISON: None FINDINGS: 3 views of left foot revealed no fracture or dislocation soft tissues are unremarkable there is plantar calcaneal spurring and there is calcification in the soft tissues behind talus most likely calcified loose 3 views of left foot revealed no fracture or subluxation. Ankle mortise is preserved. Soft tissue calcification adjacent to the posterior aspect of talus seen again. XR/XR ankle LT min 3V IMPRESSION: No fracture seen. Plantar calcaneal spurring and soft tissue calcification.
--- NOTE | 2023-04-03 06:54 | ED.GENADULT ---
HPI - General Adult General Chief complaint: Extremity Injury, Lower Stated complaint: ankle inj Time Seen by Provider: 04/03/23 06:54 Source: patient Mode of arrival: ambulatory Limitations: no limitations History of Present Illness HPI narrative: Patient is a 67 year old assigned male at with a history of DM and HTN presenting to the emergency department today with left ankle and foot pain. Patient states that last night he tripped over a curb and heard a pop in his left foot or ankle. Patient denies any head strike or loss of consciousness. Patient denies any dizziness, lightheadedness, abdominal pain, nausea, vomiting, fever, chills, blurry vision, double vision, loss of vision, chest pain, difficulty breathing, shortness of breath, back pain, night sweats, pain with urination, increased urinary frequency, increased urinary urgency, blood in his urine or stool, syncope or a near syncopal episode, bowel incontinence, bladder incontinence, bowel retention, bladder retention, or any other complaints at this time. Onset (ago): day(s) (1) Location: left and lower extremity Radiation: non-radiation Severity: mild Severity scale (1-10): 3 Quality: aching and dull Pain Consistency: constant Relieving factors: immobilization Exacerbating factors: movement Associated symptoms: denies other symptoms Treatments prior to arrival: none Related Data Home Medications Medication Instructions Recorded Confirmed lamotrigine 200 mg tablet 200 mg PO BID 07/01/21 08/27/22 Previous Rx's Medication Instructions Recorded aspirin 81 mg chewable tablet 81 mg PO DAILY #30 tabs 04/16/21 atorvastatin 80 mg tablet 80 mg PO DAILY #90 tabs 05/22/21 metformin 1,000 mg tablet 1,000 mg PO BID 90 days #180 tabs 07/30/21 metoprolol succinate 50 mg 50 mg PO BID 90 days #180 tabs 07/30/21 tablet,extended release 24 hr blood pressure test kit-large #1 ea 09/30/21 peg 3350-electrolytes 236 240 ml PO Q10M 1 day #4,000 mL 02/04/22 gram-22.74 gram-6.74 gram-5.86 gram solution (Golytely) clotrimazole 1 % topical cream 1 appl topical BID 2 weeks #45 02/05/22 grams fluticasone propionate 50 2 spray intranasal DAILY #48 mL 02/05/22 mcg/actuation nasal spray,suspension tadalafil 10 mg tablet 10 mg PO DAILY sexual activity 90 07/21/22 days #90 tabs blood sugar diagnostic (FreeStyle #50 ea 07/27/22 Lite Strips) isosorbide mononitrate 30 mg 30 mg PO DAILY #60 tabs 08/17/22 tablet,extended release 24 hr tadalafil 20 mg tablet 20 mg PO DAILY PRN sexual activity 08/27/22 30 days #30 tabs loratadine 10 mg tablet (Allergy 10 mg PO DAILY 1 month #90 tabs 12/17/22 Relief (loratadine)) glipizide 10 mg tablet 10 mg PO BID #60 tabs 03/08/23 Allergies Allergy/AdvReac Type Severity Reaction Status Date / Time No Known Allergies Allergy Verified 01/25/23 16:43 [No Known Allergies*] Review of Systems Constitutional: Constitutional: Reports no additional constitutional complaints, Denies chills, Denies fever(s) and Denies night sweats Eyes: Eyes: Reports no additional eye complaints, Denies blurry vision, Denies change in vision, Denies diplopia, Denies eye discharge, Denies loss of vision and Denies eye pain ENT: Denies dizziness Cardiovascular: Cardiovascular: Reports no additional cardiovascular complaints, Denies chest pain, Denies lightheadedness, Denies Loss of Consciousness and Denies dyspnea Respiratory: Respiratory: Reports no additional respiratory complaints and Denies dyspnea Gastrointestinal: Gastrointestinal: Reports no additional gastrointestinal complaints, Denies abdominal pain, Denies melena, Denies hematochezia, Denies change in bowel habits and Denies change in stool character Genitourinary: Genitourinary: Reports no additional male genitourinary complaints, Denies hematuria, Denies oliguria, Denies difficulty urinating, Denies dysuria, Denies urinary frequency, Denies urinary hesitancy, Denies urinary incontinence and Denies urinary urgency Musculoskeletal: Musculoskeletal: Reports no additional musculoskeletal complaints, Denies numbness and Denies tingling Comments: left foot and ankle pain Neurologic: Denies dizziness, Denies loss of vision, Denies numbness and Denies tingling Psychiatric: Psychiatric: Reports no additional psychiatric complaints Endocrine: Endocrine: Reports no additional endocrine complaints Hematologic/Lymphatic: Hematologic/Lymphatic: Reports no additional hematologic/lymphatic complaints Allergic/Immunologic: Allergic/Immunologic: Reports no additional allergic/immunologic complaints [facility] Past Medical History Attestation statement: The following information was validated with the patient. Source: old records reviewed and nursing notes reviewed Medical History Low libido Screening for prostate cancer Pre-op examination Shift work sleep disorder Snoring Erectile dysfunction Headache Screening for prostate cancer Screening for colon cancer Adult general medical exam Erectile dysfunction due to type 2 diabetes mellitus Heart palpitations Chest pain COVID-19 High cholesterol Sciatica Hypertension Diabetes Epilepsy Heart attack Surgical History H/O colonoscopy History of tonsillectomy History of cardiac catheterization (~2015) History of coronary artery bypass graft x 2 (~2005) Family History Family History Father Cardiovascular disease Mother No problems noted. Social History Social History Housing: Apartment Alcohol intake: never Patient Tobacco Use Status: Never used Tobacco Smoked in Last 30 Days: No e-Cigarette/Vaping Use: Never Used Second Hand Smoke Exposure: No Use of substances other than those prescribed or required for medical reasons: No Advance Directives: No Advance Directives Information Provided: Yes service: No Current occupational exposures/hazards: No Cognitive needs: No Hearing needs: No Vision needs: No Physical Exam ED Vital Signs: Vital Signs - 24 hr 04/03/23 07:00 Temperature 97.1 F Pulse Rate 93 Respiratory Rate 16 Blood Pressure 173/93 H Pulse Oximetry 96 Oxygen Delivery Method Room Air BMI result Body Mass Index 29.0 Const General: cooperative, no acute distress, alert and awake Nutritional Appearance: well nourished Orientation/consciousness: patient oriented x3 Limitations: no limitations HENMT Head: Yes normal to inspection and Yes atraumatic Ears: hearing grossly normal bilaterally and external ears normal General nose exam: Normal external nose present, no nasal discharge noted and no epistaxis Face and sinus: Yes normal facial exam, No abrasion and No laceration Mouth: Normal oral and palatal mucosa present, no drooling and no muffled voice Eyes General: appearance normal, both eyes and all related structures Periorbital: periorbital findings normal Eyelids: Yes eyelids normal Conjunctivae: conjunctivae normal Pupils: Equal, round and reactive pupils present EOM: EOMs intact bilaterally Neck Neck: Yes normal visual inspection, Yes full ROM and Yes no lymphadenopathy Chest Chest palpation & inspection: normal inspection of the chest Resp Effort & Inspection: normal respiratory effort and able to speak in complete sentences GI Inspection: Yes normal to inspection Neuro General: patient oriented x3 and moves all extremities Cranial nerves: Yes Equal, round and reactive pupils present Cognition (Neuro): normal cognition Motor exam (neuro): 5/5 motor strength present throughout Sensory Exam: Normal double simultaneous stimulation for sensation Coordination: [id number] test normal Extrem Other: minimal swelling to the left lateral ankle General: Yes full ROM and Yes capillary refill normal Psych Appearance: grossly normal Mental Status: mental status grossly normal Affect: normal affect Attitude: cooperative Thought process: Normal thought process present Thought content: Normal thought content present Insight: Good insight present (Psych) Procedures Orthopedic Splinting/Casting Injury #1: Side: left Lower Extremity Injury Location: ankle Lower Extremity Immobilizer: boot orthosis Medical Decision Making Medical Decision Making MDM Narrative: Patient is a 67 year old assigned male at with a history of DM and HTN presenting to the emergency department today with left ankle pain. Patient's physical exam was as noted in the physical exam portion of this note. Patient's left ankle and foot x-rays showed no acute process. I explained my physical exam findings as well as all test results to the patient. I answered all questions asked by the patient. Patient's left ankle and foot was placed in a walking boot, without incident. Patient's PMS was intact prior to and after boot placement. I stressed the importance of the patient taking his medication as prescribed. I stressed the importance of the patient following up with his primary care provider and if pain persists >1 week, an orthopedic provider. I stressed the importance of the patient returning to the emergency department immediately if his symptoms were to worsen or if he were to develop any dizziness, shortness of breath, difficulty breathing, chest pain, blurry vision, loss of vision, nausea, vomiting, abdominal pain, fever, chills, back pain, or any other complaints. Patient verbalized agreement and understanding with this treatment plan and discharge. Differential Diagnosis Differential Diagnoses: The differential diagnosis associated with the presentation includes Ankle fracture Foot fracture Ankle sprain Foot sprain Independent Interpretation I performed an independent interpretation of an: Plain X-Ray Interpretation: My interpretation is in agreement with the radiologist's impression of these imaging studies. Examination: Left ankle and left foot CLINICAL INFORMATION: Pain following trauma TECHNIQUE: 3 views of left ankle and left foot. COMPARISON: None FINDINGS: 3 views of left foot revealed no fracture or dislocation soft tissues are unremarkable there is plantar calcaneal spurring and there is calcification in the soft tissues behind talus most likely calcified loose 3 views of left foot revealed no fracture or subluxation. Ankle mortise is preserved. Soft tissue calcification adjacent to the posterior aspect of talus seen again. XR/XR foot LT min 3V IMPRESSION: No fracture seen. Plantar calcaneal spurring and soft tissue calcification. Dictated By: Reina Rodarte MD Signed By: Electronically signed by Reina Rodarte MD 04/03/23 0816 Radiology Impression Discussion of test interpretation with radiology: I have reviewed the radiologist's reading. Discharge Plan Discharge Clinical Impression: Ankle sprain Patient Disposition: Home, Self-Care Instructions: Ankle Sprain (DC) Additional Instructions: Follow up with your primary care provider and if pain persists >1 week, an orthopedic provider. Return to the emergency department immediately if your symptoms worsen or if you develop any dizziness, shortness of breath, difficulty breathing, chest pain, blurry vision, loss of vision, nausea, vomiting, abdominal pain, fever, chills, back pain, or any other complaints. Prescriptions: No Action aspirin 81 mg tablet,chewable 81 mg PO DAILY Qty: 30 2RF atorvastatin 80 mg tablet 80 mg PO DAILY Qty: 90 1RF metformin 1,000 mg tablet 1,000 mg PO BID 90 Days Qty: 180 3RF metoprolol succinate 50 mg tablet extended release 24 hr 50 mg PO BID 90 Days Qty: 180 3RF fluticasone propionate 50 mcg/actuation spray,suspension 2 spray intranasal DAILY Qty: 48 1RF (DME) FreeStyle Lite Strips Strip See Rx Instructions .Route Qty: 50 3RF Rx Instructions: daily isosorbide mononitrate 30 mg tablet extended release 24 hr 30 mg PO DAILY Qty: 60 1RF loratadine [Allergy Relief (loratadine)] 10 mg tablet 10 mg PO DAILY 30 Days Qty: 90 0RF glipizide 10 mg tablet 10 mg PO BID Qty: 60 0RF clotrimazole 1 % cream 1 appl topical BID 14 Days Qty: 45 0RF lamotrigine 200 mg tablet 200 mg PO BID (DME) blood pressure test kit-large Kit See Rx Instructions .ROUTE .MEDSUPPLY Qty: 1 0RF Rx Instructions: check bp daily once stable check twice a week and as needed peg 3350-electrolytes [Golytely] 236-22.74-6.74 -5.86 gram recon soln 240 ml PO Q10M 1 Days Qty: 4000 0RF Rx Instructions: until fecal effluent is clear; do not exceed a total volume of 2,000 mL tadalafil 10 mg tablet 10 mg PO DAILY 90 Days Qty: 90 0RF tadalafil 20 mg tablet 20 mg PO DAILY PRN (Reason: sexual activity) 30 Days Qty: 30 0RF Referrals: [facility] [place] [facility] [Provider Group] (Call to establish and follow up with an orthopedic provider if your pain persists >1 week. ) Bandar Martin MD [Primary Care Provider] - Print Language: Belarusian
[2023-04-03 07:00] VITALS: BP 173/93; PULSE 93; RESP 16; TEMP 36.2; O2SAT 96; BMI 29.0
--- NOTE | 2023-04-03 07:33 | PC.NURSE ---
PT ASSISTED INTO STRETCHER BY THIS RN. THIS RN AND PROVIDER ASSESSED LOWER EXTREMITY; REFER TO EXTREMITY ASSESSMENT DOCUMENTATION. PT NOW IN STRETCHER RESTING COMFORTABLY WITH WHEELS LOCKED FOR SAFETY AND CALL [facility] WITHIN REACH. PT ABLE TO UTILIZE CALL [facility] FOR ASSISTANCE IF NEEDED.
[2023-04-03 08:40] VITALS: BP 190/86; PULSE 97; RESP 18; TEMP 36.6; O2SAT 97
== END 2023-04-03 08:58 | disposition home or self-care (01) ==
PROVIDERS: Emergency Provider Emergency Medicine Emergency Medical Services; PCP Family Medicine
DX: S93.402A Sprain of unspecified ligament of left ankle, initial encounter (principal); W18.43XA Slipping, tripping and stumbling without falling due to stepping from one level to another, initial encounter; E11.9 Type 2 diabetes mellitus without complications; I10 Essential (primary) hypertension; E78.00 Pure hypercholesterolemia, unspecified; Z79.82 Long term (current) use of aspirin; Z79.84 Long term (current) use of oral hypoglycemic drugs; Z79.899 Other long term (current) drug therapy; Y93.01 Activity, walking, marching and hiking; Y92.480 Sidewalk as the place of occurrence of the external cause; Y99.9 Unspecified external cause status
CPT/HCPCS: 73610; 73630; 99283; 99284

== ENCOUNTER 2023-04-22 12:51 | Outpatient (AMB) | payer MEDICARE, MEDICAID, SELFPAY ==
[2021-08-28 07:22] VITALS: BP 146/76; BP 148/60; BMI 26.7
--- NOTE | 2023-04-22 13:19 | MHC.PC.OV ---
Vital Signs 04/22/23 13:20 Height 5 ft 7 in Weight 180 lb BMI 28.2 BP 150/88 H Blood Pressure Location Lt brachial Position Sitting Pulse 80 Pulse Source Pulse Oximeter Pulse Oximetry (%) 98 Oxygen Delivery Method Room Air Intake Visit Reasons: f/u HTN and DM Intake Note: Patient is here for follow up on hypertension and diabetes. Allergies No Known Allergies [No Known Allergies*] Allergy (Verified 04/22/23 13:23) Tobacco use date assessed: 04/22/23 Fall risk assessment: 1 Fall in past year Last assessed Fall Risk: 04/22/23 Dental Screening Dental Screen Date: 04/22/23 Did you have a dental visit in the last 12 months?: Yes Did you have a dental problem in the last 6 months where you did not have access to dental care?: No Was dental information given to patient?: Yes HPI f/u HTN and DM HPI Details 67 y/o male presents to f/u hypertension and diabetes. Blood pressure today 150/88. He is on metoprolol 50mg b.i.d. and isosorbide 30mg daily but he states he has not been on any of his BP meds. A1c today 04/22/23 7.1%. He is on metformin 1000mg b.i.d. and glipizide 10mg b.i.d. [facility] Medical History Low libido Screening for prostate cancer Pre-op examination Shift work sleep disorder Snoring Erectile dysfunction Headache Screening for prostate cancer Screening for colon cancer Adult general medical exam Erectile dysfunction due to type 2 diabetes mellitus Heart palpitations Chest pain COVID-19 High cholesterol Sciatica Hypertension Diabetes Epilepsy Heart attack Surgical History H/O colonoscopy History of tonsillectomy History of cardiac catheterization (~2015) History of coronary artery bypass graft x 2 (~2005) Family History Father Cardiovascular disease Mother No problems noted. Social History Housing: Apartment Alcohol intake: never Patient Tobacco Use Status: Never used Tobacco e-Cigarette/Vaping Use: Never Used Second Hand Smoke Exposure: No service: No Current occupational status: previously employed Current occupational exposures/hazards: No Cognitive needs: No Hearing needs: No Vision needs: No Questionnaire PHQ-9 Over the last 2 weeks, how often have you been bothered by any of the following problems? 1. Little interest or pleasure in doing things: nearly every day 2. Feeling down, depressed, or hopeless: nearly every day 3. Trouble falling or staying asleep, or sleeping too much: nearly every day 4. Feeling tired or having little energy: nearly every day 5. Poor appetite or overeating: not at all 6. Feeling bad about yourself - or that you are a failure or have let yourself or your family down: not at all 7. Trouble concentrating on things, such as reading the newspaper or watching television: not at all 8. Moving or speaking so slowly that other people could have noticed. Or the opposite - being so fidgety or restless that you have been moving around a lot more than usual: not at all 9. Thoughts that you would be better off or of hurting yourself in some way: not at all Total score: 12 Source: Developed by Drs. Alex Ledezma, Nicole Scott, Messi Og and colleagues, with an educational rhonda from [employer]. Thrive Questionnaire Date Thrive assessed: 07/01/21 AUDIT C Alcohol Use Questionnaire (AUDIT-C) 1. How often do you have a drink containing alcohol?: Never 3. How often do you have six or more drinks on one occasion?: Never Total Score: 0 LAURA-7 AMB Questionnaire LAURA-7 Date LAURA - 7 assessed: 04/22/23 Feeling nervous, anxious, or on edge: 3 = Nearly every day Not being able to stop or control worryin = Several days Worrying too much about different things: 0 = Not at all Trouble relaxin = Nearly every day Being so restless that it is hard to sit still: 3 = Nearly every day Becoming easily annoyed or irritable: 0 = Not at all Feeling afraid as if something awful might happen: 0 = Not at all Total LAURA-7 score (0-4 normal; 5-9 mild; 10-14 moderate; 15-21 severe): 10 Source: Developed by Drs. Alex Ledezma, Nicole Scott, Messi Og and colleagues, with an educational rhonda from [employer]. Review of Systems Const Denies chills, Denies fatigue, Denies fever(s), Denies headache(s) and Denies weakness ENT Denies dizziness and Denies headache(s) Card Denies chest pain, Denies lightheadedness, Denies dyspnea and Denies other (Palpitations) Resp Denies cough, Denies dyspnea, Denies wheezing and Denies other ( shortness of breath) Musc Denies numbness and Denies tingling Neuro Denies dizziness, Denies headache(s), Denies numbness, Denies tingling, Denies paresthesias and Denies weakness Psych Denies anxiety and Denies depression Endo Denies fatigue Aller/Immun Denies wheezing Physical exam (Primary Care) Vital Signs: Last Vital Signs Pulse 80 04/22/23 13:20 BP 124/80 04/22/23 13:20 Pulse Ox 98 04/22/23 13:20 Oxygen Delivery Method Room Air 04/22/23 13:20 BMI result Body Mass Index 28.2 Tobacco/Smoking Status: Tobacco use Status Tobacco use date assessed 04/22/23 04/22/23 13:25 Patient Tobacco Use Status Never used Tobacco 04/22/23 13:25 e-Cigarette/Vaping Use Never Used 04/22/23 13:25 PHQ-9: PHQ-9 Score PHQ-9: Total score 12 04/22/23 13:58 Thrive Assessment: Date of Thrive Assessment Date Thrive assessed 07/01/21 04/22/23 13:25 Const General: no acute distress and well developed Nutritional Appearance: well nourished Orientation/consciousness: patient oriented x3 [facility] Head: Yes normocephalic and Yes atraumatic Eyes General: appearance normal, both eyes and all related structures Pupils: Equal, round and reactive pupils present EOM: EOMs intact bilaterally Resp Effort & Inspection: normal respiratory effort Auscultation: clear to auscultation bilaterally Cardio Rate: regular rate Rhythm: regular rhythm Heart sounds: S1 normal heart sound present, S2 normal heart sound present, no gallops, no murmurs and no rubs Neuro General: patient oriented x3 and gait normal Cranial nerves: Yes Equal, round and reactive pupils present Psych Affect: normal affect Results AMB Hemoglobin A1c AMB Hemoglobin A1c 7.1 % Last Edit by Janice Reis CMA on 04/22/23 13:38 Results Reviewed Results Reviewed: Laboratory Last Values Hgb A1c (Clinic) 7.1 % (4.0-6.0) H 04/22/23 13:36 Assessment and Plan Assessment & Plan (1) Essential hypertension: Code(s): I10 - Essential (primary) hypertension Plan: Her?is?still?high.??Goal?is?less?than?130/80 Use?metoprolol Will?follow-up?in?3?months (2) Type 2 diabetes mellitus with unspecified complications: Code(s): E11.8 - Type 2 diabetes mellitus with unspecified complications Plan: A1c?7.1%?which?is?suboptimal?control.??Goal?is?less?than?7.0% Continue?current?medication?regimen Work?at?a?diet?low?in?sugars?and?starches Will?follow-up?in?3?months (3) Erectile dysfunction associated with type 2 diabetes mellitus: Code(s): E11.69 - Type 2 diabetes mellitus with other specified complication; N52.1 - Erectile dysfunction due to diseases classified elsewhere Plan: Patient?would?like?a?referral?to?[facility]rology?at[facility] Referral?sent (4) Atherosclerotic cardiovascular disease: Code(s): I25.10 - Atherosclerotic heart disease of [place] coronary artery without angina pectoris Plan: Follow-up?with?Cardiology?as?recommended Orders: Orders AMB Hemoglobin A1c Today Z13.9 - Encounter for screening, unspecified Medications: Changed From glipizide 10 mg PO BID 60 tabs 0RF To glipizide 10 mg PO BID 30 days 60 tabs 2RF Refilled metformin 1,000 mg PO BID 90 days 180 tabs 3RF metoprolol succinate ER 50 mg PO BID 90 days 180 tabs 3RF Coding Level of Care Code Est Pt Level 4 (37354) Diagnoses Essential hypertension I10 Type 2 diabetes mellitus with unspecified complications E11.8 Erectile dysfunction associated with type 2 diabetes mellitus E11.69; N52.1 Atherosclerotic cardiovascular disease I25.10
[2023-04-22 13:20] VITALS: BP 150/88; PULSE 80; O2SAT 98; BMI 28.2
== END 2023-04-22 14:26 | disposition home or self-care (01) ==
PROVIDERS: PCP Family Medicine; Visit Provider Family Medicine
DX: I10 Essential (primary) hypertension (principal); E11.8 Type 2 diabetes mellitus with unspecified complications; E11.69 Type 2 diabetes mellitus with other specified complication; N52.1 Erectile dysfunction due to diseases classified elsewhere; I25.10 Atherosclerotic heart disease of native coronary artery without angina pectoris; Z13.9 Encounter for screening, unspecified
CPT/HCPCS: 83036; 99214

== ENCOUNTER 2023-04-23 14:15 | Outpatient (AMB) | payer MEDICARE, MEDICAID, SELFPAY ==
[2021-08-28 07:22] VITALS: BP 146/76; BP 148/60; BMI 26.7
--- NOTE | 2023-04-23 14:19 | MHC.OFFVIS ---
Intake Vital Signs 04/23/23 14:31 Height 5 ft 7 in Weight 180 lb BMI 28.2 Intake Visit Reasons: chicken hanger- left ankle Sprain Intake Note: Kiel 67 yr old male presents today for his ED follow up visit for his left ankle sprain. Patient states that on 04/02/23 he tripped over a curb and heard a pop in his left foot or ankle. Xrays taken in ED and he was given a boot which he has D/C due to pain being tolerable. Currently states he has pain with W/B and prolong walking. Also mentioned he has scabs on his foot due to scratching after an allergic reaction to eating sweets at [employer]. Allergies No Known Allergies [No Known Allergies*] Allergy (Verified 04/23/23 14:30) HPI chicken hanger- left ankle Sprain HPI Details 67-year-old male who presents in the office today, as a new patient, for an evaluation of left ankle pain. The patient presented to the ED on 04/03/2023 status post hearing a pop in the left foot or ankle. X-rays of the left ankle were obtained. He was placed in a walking boot and referred to orthopedic. He reports he discontinued the boot due to an increase in pain. The patient reports having to walk to get around and the injury is keeping him from being able to do that. He states he currently has pain with weight bearing. The patient reports after eating a desert he began to have itchy bilateral feet due to an allergic reaction. He confirms having scabs on his feet from itching. Patient has a significant medical history of diabetes mellitus. [facility] Medical History Low libido Screening for prostate cancer Pre-op examination Shift work sleep disorder Snoring Erectile dysfunction Headache Screening for prostate cancer Screening for colon cancer Adult general medical exam Erectile dysfunction due to type 2 diabetes mellitus Heart palpitations Chest pain COVID-19 High cholesterol Sciatica Hypertension Diabetes Epilepsy Heart attack Surgical History H/O colonoscopy History of tonsillectomy History of cardiac catheterization (~2015) History of coronary artery bypass graft x 2 (~2005) Family History Father Cardiovascular disease Mother No problems noted. Social History Housing: Apartment Alcohol intake: never Patient Tobacco Use Status: Never used Tobacco e-Cigarette/Vaping Use: Never Used Second Hand Smoke Exposure: No service: No Current occupational status: previously employed Current occupational exposures/hazards: No Cognitive needs: No Hearing needs: No Vision needs: No Review of Systems Const All systems reviewed & are unremarkable except as noted in HPI and below Physical Exam Vital Signs: BMI result Body Mass Index 28.2 Const General: cooperative and no acute distress Orientation/consciousness: patient oriented x3 Resp Effort & Inspection: normal respiratory effort and able to speak in complete sentences Cardio Peripheral pulses: Peripheral pulses 2+ throughout Skin General skin exam: no rashes or lesions noted Neuro General: patient oriented x3 Extrem Other: Left ankle: Normal to inspection. No ecchymosis, erythema, or edema. Able to perform dorsiflex, plantarflexion, inversion and eversion. No tenderness to palpation over the tibia tendon. Slight tenderness to palpation over the peroneal tendon. No tenderness to the ATFL or deltoid. Negative anterior drawer. Excoriation dominguez from itching which are located on the top of the foot. Sensation intact. Pedal pulse intact. Assessment & Plan Assessment & Plan (1) Left ankle sprain: Code(s): S93.402A - Sprain of unspecified ligament of left ankle, initial encounter Qualifiers: Encounter type: initial encounter Involved ligament of ankle: other ligament Qualified Code(s): S93.492A - Sprain of other ligament of left ankle, initial encounter Plan Mr. Bourne is a 67-year-old male who presents in the office today, as a new patient, for an evaluation of left ankle pain. The patient presented to the ED on 04/03/2023 status post hearing a pop in the left foot or ankle. X-rays of the left ankle were obtained. He was placed in a walking boot and referred to orthopedic. He reports he discontinued the boot due to an increase in pain. The patient reports having to walk to get around and the injury is keeping him from being able to do that. He states he currently has pain with weight bearing. The patient reports after eating a desert he began to have itchy bilateral feet due to an allergic reaction. He confirms having scabs on his feet from itching. Patient has a significant medical history of diabetes mellitus. The patient was in a boot that he was given in ED, however, he states he stopped using the boot due to his ankle feeling better and he felt he did not need it any longer. I have placed a referral for the patient to work with physical therapy on strengthening and modalities. Follow up will be in 6 weeks, or sooner if needed. X-rays of the left foot, obtained on 04/03/2023, revealed: No fracture seen. Plantar calcaneal spurring and soft tissue calcification. Orders: Orders PT Evaluation and Treatment Today S93.402A - Sprain of unspecified ligament of left ankle, initial encounter Patient Instructions: Scribed for Berta Dixon PA-C by Corrine Sampson certified ophthalmic medical technician, on 04/23/2023 at 2:22 pm, EST. Coding Level of Care Code New Pt Level 4 (96296) Diagnoses Sprain of other ligament of left ankle, initial encounter S93.492A Encounter type: initial encounter Involved ligament of ankle: other ligament
[2023-04-23 14:31] VITALS: BMI 28.2
== END 2023-04-23 15:00 | disposition home or self-care (01) ==
PROVIDERS: PCP Family Medicine; Visit Provider Physician Assistant
DX: S93.492A Sprain of other ligament of left ankle, initial encounter (principal)
CPT/HCPCS: 99203

== ENCOUNTER → 2023-04-23 14:15 | Outpatient (BNVA) | payer MEDICARE, MEDICAID, SELFPAY ==
[2021-08-28 07:22] VITALS: BP 146/76; BP 148/60; BMI 26.7
== END ==
PROVIDERS: PCP Family Medicine; Visit Provider Physician Assistant
DX: S93.492A Sprain of other ligament of left ankle, initial encounter (principal)
CPT/HCPCS: 99202

== ENCOUNTER 2023-04-28 12:24 | Outpatient (REF) | payer MEDICARE, MEDICAID, SELFPAY ==
[2021-08-28 07:22] VITALS: BP 146/76; BP 148/60; BMI 26.7
[2023-04-28 13:40] LABS: Estimated Average Glucose 151 mg/dL; Hemoglobin A1c % 6.9 % (<6.0)
[2023-05-02 14:08] LABS: Testosterone, Total 339 ng/dL (250-1100)
== END 2023-04-28 12:25 | disposition home or self-care (01) ==
LOC: HO.10HDL 12:24
PROVIDERS: Nurse Practitioner Family; Visit Provider Urology
DX: I25.10 Atherosclerotic heart disease of native coronary artery without angina pectoris (principal); I10 Essential (primary) hypertension; E11.8 Type 2 diabetes mellitus with unspecified complications; E78.5 Hyperlipidemia, unspecified; R68.82 Decreased libido
CPT/HCPCS: 36415; 83036; 84403; 99212

== ENCOUNTER 2023-04-28 12:33 | Outpatient (AMB) | payer MEDICARE, MEDICAID, SELFPAY ==
[2021-08-28 07:22] VITALS: BP 146/76; BP 148/60; BMI 26.7
--- NOTE | 2023-04-28 12:39 | A.OFFVIS_ITS ---
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 Accompanied by: Self / Same As Patient Allergies No Known Allergies [No Known Allergies*] Allergy (Verified 04/28/23 12:42) Medication List - Last Reviewed 04/28/23 by Juana Salas aspirin 81 mg PO DAILY atorvastatin 80 mg PO QPM blood pressure test kit-large check bp daily once stable check twice a week and as needed blood sugar diagnostic (FreeStyle Lite Strips) daily clotrimazole 1% 1 appl topical BID 2 weeks fluticasone propionate 50 mcg/actuation 2 sprays intranasal DAILY glipizide 10 mg PO BID 30 days isosorbide mononitrate ER 30 mg PO DAILY lamotrigine 200 mg PO BID loratadine (Allergy Relief (loratadine)) 10 mg PO DAILY 1 month metformin 1,000 mg PO BID 90 days metoprolol succinate ER 50 mg PO BID tadalafil 10 mg PO DAILY 90 days tadalafil 20 mg PO DAILY PRN 30 days HPI HPI Comments History of Present Illness Details Kiel is here for follow-up regarding coronary disease. He has a history of coronary artery bypass surgery from 2005. Then right coronary artery stenting in 2015. In 2020, he again underwent right coronary artery stenting in setting of NSTEMI. Still extremely noncompliant with medications. He states he has a script for metoprolol but has not taken it in a while. He can not give me a good reason why. Also not taking any atorvastatin. Among other medications, he states he is just taking the diabetes ones. For the most part, he is doing okay and no major cardiac concerns otherwise from symptoms. [facility] Medical History Low libido Screening for prostate cancer Pre-op examination Shift work sleep disorder Snoring Erectile dysfunction Headache Screening for prostate cancer Screening for colon cancer Adult general medical exam Erectile dysfunction due to type 2 diabetes mellitus Heart palpitations Chest pain COVID-19 High cholesterol Sciatica Hypertension Diabetes Epilepsy Heart attack Surgical History H/O colonoscopy History of tonsillectomy History of cardiac catheterization (~2015) History of coronary artery bypass graft x 2 (~2005) Family History Father Cardiovascular disease Mother No problems noted. Social History Housing: Apartment Alcohol intake: never Patient Tobacco Use Status: Never used Tobacco e-Cigarette/Vaping Use: Never Used Second Hand Smoke Exposure: No service: No Current occupational status: previously employed Current occupational exposures/hazards: No Cognitive needs: No Hearing needs: No Vision needs: No Review of Systems Const Denies weakness ENT Denies dizziness Card Denies chest pain, Denies chest pain with activity, Denies syncope, Denies rapid heart rate, Denies pedal edema, Denies edema, Denies leg edema, Denies light headedness, Denies palpitations, Denies dyspnea, Denies dyspnea on exertion and Denies orthopnea Resp Denies cough, Denies dyspnea and Denies dyspnea on exertion GI Denies hematochezia and Denies change in stool character Musc Denies abnormal gait, Denies muscle cramps, Denies muscle weakness, Denies numbness, Denies radiating pain into limb and Denies tingling Neuro Denies abnormal gait, Denies dizziness, Denies syncope, Denies numbness, Denies tingling and Denies weakness Endo Denies palpitations Physical Exam Vital Signs: Last Vital Signs Pulse 93 04/28/23 12:42 BP 136/70 04/28/23 12:42 Const General: comfortable and no acute distress Orientation/consciousness: patient oriented x3 HEENT Other: Unremarkable Head: Yes normal to inspection Neck Neck: Yes normal visual inspection Chest Chest palpation & inspection: normal inspection of the chest Resp Auscultation: clear to auscultation bilaterally Cardio Palpation: normal PMI Heart sounds: S1 normal heart sound present, S2 normal heart sound present, no gallops, no murmurs and no rubs GI Palpation (GI): Soft to palpation Back/Spine/Pelvis Other: unremarkable Skin General skin exam: no rashes or lesions noted Neuro General: patient oriented x3 Extrem General: Yes normal to inspection Psych Mental Status: mental status grossly normal Assessment & Plan Assessment & Plan (1) Atherosclerotic cardiovascular disease: Code(s): I25.10 - Atherosclerotic heart disease of [place] coronary artery without angina pectoris Plan: Cardiac catheterization data reviewed from 02/2021 He underwent drug-eluting stents to the right coronary artery. Patent TREJO to LAD and free radial graft to OM 2. Chronically occluded proximal LAD. Echocardiogram then with LVEF of 60-65% and no definite wall motion abnormalities. Continue aspirin. Advised him to resume the metoprolol. He states he already has a script but just has to go pick it up. Compliance increased. He is not taking any statins and am sending a new script for the same and again advised compliance. Risk of heart attack without medications discussed and not sure how much he understands or will comply. (2) Essential hypertension: Code(s): I10 - Essential (primary) hypertension Plan: Blood pressure seems okay today. Hopefully resuming metoprolol will help. (3) Type 2 diabetes mellitus with unspecified complications: Code(s): E11.8 - Type 2 diabetes mellitus with unspecified complications Plan: On metformin, glipizide. Most recent hemoglobin A1c is 7.1%. (4) Hyperlipidemia: Code(s): E78.5 - Hyperlipidemia, unspecified Plan: As above, sending another script for statins. Advised him to start. Medications: New atorvastatin 80 mg PO QPM 90 tabs 3RF Coding Level of Care Code Est Pt Level 4 (05736) Diagnoses Atherosclerotic cardiovascular disease I25.10 Essential hypertension I10 Type 2 diabetes mellitus with unspecified complications E11.8 Hyperlipidemia E78.5
[2023-04-28 12:42] VITALS: BP 136/70; PULSE 93
== END 2023-04-28 12:58 | disposition home or self-care (01) ==
PROVIDERS: PCP Family Medicine; Visit Provider Internal Medicine
DX: I25.10 Atherosclerotic heart disease of native coronary artery without angina pectoris (principal); I10 Essential (primary) hypertension; E11.8 Type 2 diabetes mellitus with unspecified complications; E78.5 Hyperlipidemia, unspecified
CPT/HCPCS: 99214

== ENCOUNTER 2023-06-04 11:23 | Outpatient (AMB) | payer MEDICARE, MEDICAID, SELFPAY ==
[2021-08-28 07:22] VITALS: BP 146/76; BP 148/60; BMI 26.7
[2023-06-04 11:28] VITALS: BMI 28.2
--- NOTE | 2023-06-04 11:28 | A.OFFVIS_ITS ---
Intake Vital Signs 06/04/23 11:28 Height 5 ft 7 in Weight 180 lb BMI 28.2 Intake Visit Reasons: ov- left ankle sprain Intake Note: Kiel is a 67 year old male who presents today for a follow up of his left knee sprain, DOI 04/02/23. Patient reports he is doing well and his swelling has gone down. PT went well and he is showing improvements. Allergies No Known Allergies [No Known Allergies*] Allergy (Verified 06/04/23 11:31) HPI ov- left ankle sprain HPI Details 67-year-old male who presents in the off ice today for a follow up on a left ankle sprain. I last saw the patient in the office on 04/23/2023 when he was referred to physical therapy to work on ROM. The patient reports he is doing well. He states he has not had pain in the ankle. He reports he is only wearing the ankle brace when he is out of the house. He states he uses the brace on the ankle when he walks the mile to the bus stop. Patient has a significant medical history of diabetes mellitus. 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 Social History Housing: Apartment Alcohol intake: never Patient Tobacco Use Status: Never used Tobacco e-Cigarette/Vaping Use: Never Used Second Hand Smoke Exposure: No service: No Current occupational status: previously employed Current occupational exposures/hazards: No Cognitive needs: No Hearing needs: No Vision needs: No Review of Systems Const All systems reviewed & are unremarkable except as noted in HPI and below Physical Exam Vital Signs: BMI result Body Mass Index 28.2 Const General: cooperative, healthy appearing and no acute distress Resp Effort & Inspection: normal respiratory effort and able to speak in complete sentences Cardio Rate: regular rate Peripheral pulses: Peripheral pulses 2+ throughout GI Palpation (GI): Soft to palpation Skin Lesions: no lesions Rashes: no rashes Extrem Other: Left ankle: Normal to inspection. No ecchymosis, erythema, or edema. Patient is able to demonstrate dorsiflexion, plantar flexion, pronation and supination. Negative anterior drawer. Sensation intact. Pedal Pulse intact. Assessment & Plan Assessment & Plan (1) Left ankle sprain: Code(s): S93.402A - Sprain of unspecified ligament of left ankle, initial encounter Qualifiers: Encounter type: initial encounter Involved ligament of ankle: other ligament Qualified Code(s): S93.492A - Sprain of other ligament of left ankle, initial encounter Plan Mr. Bourne is a 67-year-old male who presents in the office today for a follow up on a left ankle sprain. I last saw the patient in the office on 04/23/2023 when he was referred to physical therapy to work on ROM. The patient reports he is doing well. He states he has not had pain in the ankle. He reports he is only wearing the ankle brace when he is out of the house. He states he uses the brace on the ankle when he walks the mile to the bus stop. Patient has a significant medical history of diabetes mellitus. The patient states he still has 6 sessions of physical therapy and I would like for him to complete these sessions. He can discontinue the use of the brace at this time unless he is going to do any long distance walking. We discussed that he is able to return to normal activities as tolerated. As for the gym he was instructed to use pain as his guide. I would recommend waiting a few months before starting to attend the gym in order to get the strength in the ankle before attending. I would recommend the use of the brace the first few times at the gym until you feel stable. Follow up will be PRN, or sooner if needed. Patient Instructions: Scribed for Berta Dixon PA-C by Corrine Sampson bacteriologist medical, on 05/28/2023 at 11:24 am, EST. Coding Level of Care Code Est Pt Level 3 (24199) Diagnoses Sprain of other ligament of left ankle, initial encounter S93.492A Encounter type: initial encounter Involved ligament of ankle: other ligament
== END 2023-06-04 11:37 | disposition home or self-care (01) ==
PROVIDERS: PCP Family Medicine; Visit Provider Physician Assistant
DX: S93.492A Sprain of other ligament of left ankle, initial encounter (principal)
CPT/HCPCS: 99213

== ENCOUNTER → 2023-06-04 11:23 | Outpatient (BNVA) | payer MEDICARE, MEDICAID, SELFPAY ==
[2021-08-28 07:22] VITALS: BP 146/76; BP 148/60; BMI 26.7
== END ==
PROVIDERS: PCP Family Medicine; Visit Provider Physician Assistant
DX: S93.492A Sprain of other ligament of left ankle, initial encounter (principal)
CPT/HCPCS: 99212

== ENCOUNTER 2023-06-07 13:03 | Outpatient (AMB) | payer MEDICARE, MEDICAID, SELFPAY ==
[2021-08-28 07:22] VITALS: BP 146/76; BP 148/60; BMI 26.7
--- NOTE | 2023-06-07 13:12 | MHC.OFFVIS ---
Intake Intake Visit Reasons: 3 month/ labs Intake Note: Patient is Present for Follow Up Urology Medication: Tadalafil (Patient states that this medication is not working) Antibiotic Allergies: None Blood Thinners: Aspirin Plate Cleaner Required: No Allergies No Known Allergies [No Known Allergies*] Allergy (Verified 06/07/23 13:48) Medication List - Last Reconciled 06/07/23 by NARGIS Suero aspirin 81 mg PO DAILY atorvastatin 80 mg PO QPM blood pressure test kit-large check bp daily once stable check twice a week and as needed blood sugar diagnostic (FreeStyle Lite Strips) daily clotrimazole 1% 1 appl topical BID 2 weeks fluticasone propionate 50 mcg/actuation 2 sprays intranasal DAILY glipizide 10 mg PO BID 30 days lamotrigine 200 mg PO BID loratadine (Allergy Relief (loratadine)) 10 mg PO DAILY 1 month metformin 1,000 mg PO BID 90 days metoprolol succinate ER 50 mg PO BID HPI HPI Comments History of Present Illness Details Kiel is a pleasant 67-year-old male patient of Dr. Martin. He has a past medical history of diabetes, epilepsy, [place], hypertension, hyperlipidemia, and sciatica. He presents to the office today for follow-up of his erectile dysfunction. Of note, patient was approximately 5 months ago at which time penile injection therapy was reviewed and teaching was provided in office. In discussion with the patient today he reports to be doing and feeling well. He reports to be having adequate erections for penetration with TriMix at approximately 50 units. He denies having had any recent issues or concerns with the TriMix. He does however continue to inquire for penile prosthesis. In review of patient's chart it appears hemoglobin A1c 05/15 6.9 which is decreased from previously. He otherwise denies any bothersome urinary issues. He has previously trialed multiple different dosages of Cialis as well as Viagra with no benefit. Discussed at length potential causes for erectile dysfunction. He denies urinary urgency, urinary frequency, incontinence, nocturia, hematuria, dysuria, foul smelling urine, changes to urinary stream, flank pain, fever, and or chills. He is happy with his current voiding parameters. [facility] Medical History Low libido Screening for prostate cancer Pre-op examination Shift work sleep disorder Snoring Erectile dysfunction Headache Screening for prostate cancer Screening for colon cancer Adult general medical exam Erectile dysfunction due to type 2 diabetes mellitus Heart palpitations Chest pain COVID-19 High cholesterol Sciatica Hypertension Diabetes Epilepsy Heart attack Surgical History H/O colonoscopy History of tonsillectomy History of cardiac catheterization (~2015) History of coronary artery bypass graft x 2 (~2005) Family History Father Cardiovascular disease Mother No problems noted. Social History Housing: Apartment Alcohol intake: never Patient Tobacco Use Status: Never used Tobacco e-Cigarette/Vaping Use: Never Used Second Hand Smoke Exposure: No service: No Current occupational status: previously employed Current occupational exposures/hazards: No Cognitive needs: No Hearing needs: No Vision needs: No Review of Systems Const Reports as per HPI Eyes Reports no additional complaints ENT Reports no additional complaints Card Reports as per HPI Resp Reports no additional complaints GI Reports no additional complaints Reports as per HPI Musc Reports no additional complaints Neuro Reports as per HPI Psych Reports no additional complaints Endo Reports no additional complaints Grupo/Lymph Reports no additional complaints Aller/Immun Reports no additional complaints Physical Exam Const General: cooperative, comfortable, no acute distress, well developed, alert and awake Orientation/consciousness: patient oriented x3 Limitations: no limitations HEENT Head: Yes normal to inspection, Yes normocephalic and Yes atraumatic Ears: hearing grossly normal bilaterally Eyes General: appearance normal, both eyes and all related structures Neck Neck: Yes normal visual inspection and Yes trachea midline Chest Chest palpation & inspection: normal inspection of the chest Resp Effort & Inspection: normal respiratory effort and able to speak in complete sentences Cardio Rate: regular rate GI Inspection: Yes normal to inspection General: Yes no CVA tenderness Penis: normal penis and circumcised Meatus: meatus normal Scrotum: scrotum normal Testes: Testes normal Back/Spine/Pelvis Back: no CVA tenderness Skin General skin exam: no rashes or lesions noted Neuro General: patient oriented x3 Extrem General: Yes normal to inspection Psych Appearance: grossly normal and well kempt Mental Status: mental status grossly normal Speech and movement: Normal speech and movement present and Clear speech present Affect: normal affect Attitude: cooperative Thought process: Normal thought process present Thought content: Normal thought content present Insight: Fair insight present (Psych) Judgement: Fair judgement present (Psych) Assessment & Plan Assessment & Plan (1) Erectile dysfunction associated with type 2 diabetes mellitus: Code(s): E11.69 - Type 2 diabetes mellitus with other specified complication; N52.1 - Erectile dysfunction due to diseases classified elsewhere Plan Patient will continue with penile injection therapy for treatment of ED; as patient reports adequate erections for penetration. Recent A1c results reviewed with the patient today; as noted above. Will schedule for follow-up appointment with Dr. Santamaria to further assess, evaluate, and discuss options for penile prosthesis Discussed and stressed the importance of limiting penile injection therapy to no more than 2 times per week PRN Discussed at length importance of managing diabetes for improvement in erectile dysfunction as well as overall health and well-being. Discussed obtaining hemoglobin A1c in 3 months for further assessment evaluation. Discussed at length penile prosthesis risks and benefits Patient otherwise denies any other urological issues or concerns at this time; he is happy with his current voiding parameters. Follow-up with with lab to be completed prior; or sooner with any issues, concerns, and or questions Orders: Orders AMB Urinalysis Automated Today Z13.9 - Encounter for screening, unspecified Hemoglobin A1c Today E11.69 - Type 2 diabetes mellitus with other specified complication, N52.1 - Erectile dysfunction due to diseases classified elsewhere Patient Instructions: The patient had an opportunity to ask questions regarding the treatment plan. All questions were answered. Physical exam, labs, and imaging were discussed and reviewed in detail. As well as risks, benefits, and discussion of treatment choices. No major barriers to understanding were identified. The patient expressed understanding and agreement with the above treatment plan. The patient was made aware they should contact our office by phone for worsening of their current condition, the appearance of new symptoms, or with any questions or concerns. Compliance is encouraged with any medications and follow up testing that is ordered. It is a privilege to be allowed the opportunity to participate in? your urological care.? Again, if you have any questions or concerns If you have any questions or concerns please do not hesitate to contact me. The office is [phone]. This note is constructed using voice recognition software. While every effort has been made to ensure accuracy rubble placer errors may have been included. Yours sincerely, NARGIS Suero Coding Level of Care Code Est Pt Level 3 (99965) Diagnoses Erectile dysfunction associated with type 2 diabetes mellitus E11.69; N52.1
== END 2023-06-07 13:45 | disposition home or self-care (01) ==
PROVIDERS: PCP Family Medicine; Visit Provider Nurse Practitioner Family
DX: E11.69 Type 2 diabetes mellitus with other specified complication (principal); N52.1 Erectile dysfunction due to diseases classified elsewhere
CPT/HCPCS: 99213

== ENCOUNTER → 2023-06-07 13:03 | Outpatient (BNVA) | payer MEDICARE, MEDICAID, SELFPAY ==
[2021-08-28 07:22] VITALS: BP 146/76; BP 148/60; BMI 26.7
== END ==
PROVIDERS: PCP Family Medicine; Visit Provider Nurse Practitioner Family
DX: E11.69 Type 2 diabetes mellitus with other specified complication (principal); N52.1 Erectile dysfunction due to diseases classified elsewhere
CPT/HCPCS: 99212

== ENCOUNTER 2023-06-10 12:00 | Outpatient (RCR) | payer MEDICARE, MEDICAID, SELFPAY ==
[2021-08-28 07:22] VITALS: BP 146/76; BP 148/60; BMI 26.7
--- NOTE | 2023-05-06 13:28 | MHC.PT.EP ---
[facility] [place] [facility] [place] [facility] [place] [facility] [address] Leola Farr [address] [phone] F: [phone] F: [phone] F: [phone] F: [phone] Physical Therapy Plan of Care Date of Evaluation: 05/06/23 Date of Surgery: Diagnosis: L ankle sprain Assessment: Pt is a 67yo male who presents to PT 1 month s/p fall and L ankle sprain. Skilled PT indicated to address impairments found on exam including L ankle stability/ROM, abnormal balance and gait. Focus will be re-injury prevention, and patient education to maintain mobility and exercise upon D/C. Pt in agreement with POC and is motivated to continue. Frequency and Duration: The patient will be seen 2x/week, x 4 weeks Short Term Goals: 1. In 2 weeks, improve L ankle AROM to 10 degrees. 2. 0/10 L ankle pain and no edema in 2 weeks. 3. I with HEP for daily gastroc/soleus stretching and LE exercise. Assisted Goals: 1. In 4 weeks, patient will be able to maintain L LE SLS x 15 seconds. 2. In 4 weeks, pt will have greater L ankle stability with 5/5 MMT all planes. 3. Improve LEFS score by 10 points indicating improved functional mobility in 4 weeks. Treatment Plan: Modalities to reduce pain, spasms and effusion. Manual therapy to restore motion and function. Therapeutic exercise to improve strength and flexibility. Neuromuscular re-education for posture and balance. Therapeutic activities to return to functional activities of daily living. Electronically signed by: Lesa Hoskins PT, DPT Please sign and return to therapist. Thank you for your referral.
--- NOTE | 2023-06-21 11:46 | MHC.PT.DC ---
[facility] [place] Office [place] Office [place] Office [address] Leola Farr [address] [phone] F: [phone] F: [phone] F: [phone] F: [phone] Physical Therapy Discharge Report Diagnosis: L ankle sprain Date of Surgery: Date of Evaluation: 05/06/23 Date of Discharge: 06/10/23 Treatments to Date: 5 Cancellations to Date: No Shows to Date: Discharge Status: Achieved Goals Improved Function Independent with HEP Discharge Summary: Pt is a 67yo male who presented to PT 1 month s/p fall and L ankle sprain. Skilled PT indicated to address impairments found on exam including L ankle stability/ROM, abnormal balance and gait. Treatment focused on re-injury prevention, and patient education to maintain mobility and exercise upon D/C. Pt participated in 5 treatment sessions, reduced pain to 0/10, improved LEFS from 44/80 to 80/80 and is in agreement to D/C at this time. Electronically signed by: Lesa Hoskins PT, DPT Please sign and return to therapist. Thank you for your referral.
== END 2023-06-21 11:47 | disposition home or self-care (01) ==
LOC: HO.PT 12:00
PROVIDERS: PCP Family Medicine; Visit Provider Physician Assistant
DX: S93.402A Sprain of unspecified ligament of left ankle, initial encounter (principal)
CPT/HCPCS: 97110; 97140; 97161; 97530

== ENCOUNTER 2023-08-06 11:43 | Outpatient (REF) | payer MEDICARE, SELFPAY ==
[2021-08-28 07:22] VITALS: BP 146/76; BP 148/60; BMI 26.7
[2023-08-06 12:43] LABS: Estimated Average Glucose 134 mg/dL; Hemoglobin A1C 151.7948 umol/L; Hemoglobin A1c % 6.3 % (<6.0)
== END 2023-08-06 11:44 | disposition home or self-care (01) ==
LOC: HO.LAB 11:43
PROVIDERS: PCP Family Medicine; Visit Provider Urology
DX: E11.69 Type 2 diabetes mellitus with other specified complication (principal); N52.1 Erectile dysfunction due to diseases classified elsewhere
CPT/HCPCS: 36415; 83036

== ENCOUNTER 2023-08-11 14:08 | Outpatient (AMB) | payer MEDICARE, MEDICAID, SELFPAY ==
[2021-08-28 07:22] VITALS: BP 146/76; BP 148/60; BMI 26.7
--- NOTE | 2023-08-11 15:06 | A.OFFVIS_ITS ---
Intake Visit Reasons: 2M A1C(Lab?)Confirmed Intake Note: Patient presents today for a follow-up on labs results Meds- None Allergies to Antibiotic- No Known Allergies Blood Thinner- Aspirin Enterprise Sales Person Required: No Accompanied by: Self / Same As Patient Allergies No Known Allergies [No Known Allergies*] Allergy (Verified 08/11/23 15:12) HPI Comments Details: Kiel is a pleasant male. He is a patient of Dr. Martin. Seen for following urologic conditions - erectile dysfunction - low libido Continue good response to injectable therapy. Uses TriMix 50 units. 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 - type 2 diabetic with hypertension - HbA1c 03/14 7.9 - post COVID fatigue syndrome - atherosclerotic cardiovascular disease on isosorbide mononitrate, max statins, glipizide, metformin Prior therapy - failed high-dose oral therapy - prior success with injections Labs - 04/14 T 340 F 61.5, 07/16 T 365 PFSH Medical History Low libido Screening for prostate cancer Pre-op examination Shift work sleep disorder Snoring Erectile dysfunction Headache Screening for prostate cancer Screening for colon cancer Adult general medical exam Erectile dysfunction due to type 2 diabetes mellitus Heart palpitations Chest pain COVID-19 High cholesterol Sciatica Hypertension Diabetes Epilepsy Heart attack Surgical History H/O colonoscopy History of tonsillectomy History of cardiac catheterization (~2015) History of coronary artery bypass graft x 2 (~2005) Family History Father Cardiovascular disease Mother No problems noted. Social History (Reviewed 08/11/23 @ 15:12 by CJ Osborn Housing: Apartment Alcohol intake: never Patient Tobacco Use Status: Never used Tobacco e-Cigarette/Vaping Use: Never Used Second Hand Smoke Exposure: No service: No Current occupational status: previously employed Current occupational exposures/hazards: No Cognitive needs: No Hearing needs: No Vision needs: No Review of Systems Const Denies chills and Denies fever(s) Card Reports no additional complaints and Denies syncope Resp Denies cough GI Denies abdominal pain and Denies heartburn Reports as per HPI and Denies change in libido Neuro Denies syncope Psych Denies change in libido Endo Denies change in libido Physical Exam Const General: cooperative, healthy appearing, comfortable and no acute distress Orientation/consciousness: patient oriented x3 HEENT Face and sinus: Yes normal facial exam Mouth: moist mucous membranes Neck Neck: Yes normal visual inspection, Yes full ROM and Yes trachea midline Chest Chest palpation & inspection: normal inspection of the chest Resp Effort & Inspection: normal respiratory effort, able to speak in complete sentences and no respiratory distress GI Inspection: Yes normal to inspection Back/Spine/Pelvis Cervical Spine: normal cervical lordosis Thoracic/Lumbar Spine: thoracic and lumbar spine normal to inspection Skin General skin exam: no rashes or lesions noted Neuro General: patient oriented x3, gait normal, tone normal and moves all extremities Extrem General: Yes normal to inspection and Yes capillary refill normal Assessment & Plan Assessment & Plan (1) Erectile dysfunction associated with type 2 diabetes mellitus: Code(s): E11.69 - Type 2 diabetes mellitus with other specified complication; N52.1 - Erectile dysfunction due to diseases classified elsewhere Category: Medical Plan Interested in penile prosthetic Six-month follow-up Orders: Orders Hemoglobin A1c 08/06/23 E11.69 - Type 2 diabetes mellitus with other specified complication, N52.1 - Erectile dysfunction due to diseases classified elsewhere Patient Instructions: Imaging studies, laboratory and physical exam results were discussed and reviewed in detail. No major barriers to patient understanding were identified. An opportunity to ask questions regarding the treatment plan was provided. All questions were answered. The patient expressed understanding and agreement with the above treatment plan. The patient is aware they should contact our office by phone for worsening of their current condition or the appearance of new urologic symptoms. Compliance is encouraged with any medications and followup testing that is ordered. It is a privilege to participate in the urologic care of your patient. If you have any questions or concerns regarding treatment for the above conditions, or other urologic issues, please do not hesitate to contact me. The office telephone contact is [phone]. This note is constructed using voice recognition software. While every effort has been made to ensure accuracy image editor errors may have been included. Yours sincerely, Dr Maurizio Santamaria MD, [facility] - Urology Providers of Expert, Compassionate Care for the Genitourinary System
== END 2023-08-11 15:29 | disposition home or self-care (01) ==
PROVIDERS: PCP Family Medicine; Visit Provider Urology
DX: E11.69 Type 2 diabetes mellitus with other specified complication (principal); N52.1 Erectile dysfunction due to diseases classified elsewhere
CPT/HCPCS: 99213

== ENCOUNTER → 2023-08-11 14:08 | Outpatient (BNVA) | payer MEDICARE, MEDICAID, SELFPAY ==
[2021-08-28 07:22] VITALS: BP 146/76; BP 148/60; BMI 26.7
== END ==
PROVIDERS: PCP Family Medicine; Visit Provider Urology
DX: E11.69 Type 2 diabetes mellitus with other specified complication (principal); N52.1 Erectile dysfunction due to diseases classified elsewhere
CPT/HCPCS: 99212

== ENCOUNTER 2023-09-22 16:00 | Outpatient (AMB) | payer MEDICARE, SELFPAY ==
[2021-08-28 07:22] VITALS: BP 146/76; BP 148/60; BMI 26.7
[2023-09-22 16:16] VITALS: BP 134/72; PULSE 80; O2SAT 100; BMI 27.6
--- NOTE | 2023-09-22 16:16 | A.OFFPC_ITS ---
Vital Signs 09/22/23 16:16 Height 5 ft 7 in Weight 176 lb 2 oz BMI 27.6 BP 134/72 Blood Pressure Location Lt brachial Position Sitting Pulse 80 Pulse Source Pulse Oximeter Pulse Oximetry (%) 100 Oxygen Delivery Method Room Air Intake Visit Reasons: medication follow up Intake Note: Patient is hereto talk about being taken off the Metformin, he stated it gives him ED, and makes him depressed. Allergies No Known Allergies [No Known Allergies*] Allergy (Verified 09/22/23 16:24) Tobacco use date assessed: 09/22/23 Fall risk assessment: No Falls in past year Last assessed Fall Risk: 09/22/23 Dental Screening Dental Screen Date: 09/22/23 Did you have a dental visit in the last 12 months?: Yes Did you have a dental problem in the last 6 months where you did not have access to dental care?: No Was dental information given to patient?: Patient has dentist HPI medication follow up HPI Details 68 y/o male [facility]. Blood pressure today 134/72. He is on metoprolol 50mg b.i.d. Last A1c 08/06/23 6.3%. He is on glipizide 10mg b.i.d, metformin 1000mg b.i.d. He states he would like to trial being off metformin due to complaints of ED/depression. Pt notes depression ever since his heart attack. Pt reports difficulty staying asleep. Sometimes he wakes up to go to the bathroom. He notes he has been tested for sleep apnea about a year ago. [facility] Medical History Low libido Screening for prostate cancer Pre-op examination Shift work sleep disorder Snoring Erectile dysfunction Headache Screening for prostate cancer Screening for colon cancer Adult general medical exam Erectile dysfunction due to type 2 diabetes mellitus Heart palpitations Chest pain COVID-19 High cholesterol Sciatica Hypertension Diabetes Epilepsy Heart attack Surgical History H/O colonoscopy History of tonsillectomy History of cardiac catheterization (~2015) History of coronary artery bypass graft x 2 (~2005) Family History Father Cardiovascular disease Mother No problems noted. Social History Housing: Apartment Alcohol intake: never Patient Tobacco Use Status: Never used Tobacco e-Cigarette/Vaping Use: Never Used Second Hand Smoke Exposure: No service: No Current occupational status: previously employed Current occupational exposures/hazards: No Cognitive needs: No Hearing needs: No Vision needs: No Questionnaire Thrive Questionnaire Date Thrive assessed: 07/01/21 LAURA-7 AMB Questionnaire LAURA-7 Date LAURA - 7 assessed: 04/22/23 Source: Developed by Drs. Alex Ledezma, Nicole Scott, Messi Og and colleagues, with an educational rhonda from [employer]. Review of Systems Const Denies chills, Denies fatigue, Denies fever(s), Denies headache(s) and Denies weakness ENT Denies dizziness and Denies headache(s) Card Denies chest pain, Denies lightheadedness, Denies dyspnea and Denies other (Palpitations) Resp Denies cough, Denies dyspnea, Denies wheezing and Denies other ( shortness of breath) Musc Denies numbness and Denies tingling Neuro Denies dizziness, Denies headache(s), Denies numbness, Denies tingling, Denies paresthesias and Denies weakness Psych Denies anxiety and Denies depression Endo Denies fatigue Aller/Immun Denies wheezing Physical exam (Primary Care) Vital Signs: Last Vital Signs Pulse 80 09/22/23 16:16 BP 134/72 09/22/23 16:16 Pulse Ox 100 09/22/23 16:16 Oxygen Delivery Method Room Air 09/22/23 16:16 BMI result Body Mass Index 27.6 Tobacco/Smoking Status: Tobacco use Status Tobacco use date assessed 09/22/23 09/22/23 16:26 Patient Tobacco Use Status Never used Tobacco 09/22/23 16:16 e-Cigarette/Vaping Use Never Used 09/22/23 16:16 Thrive Assessment: Date of Thrive Assessment Date Thrive assessed 07/01/21 09/22/23 16:16 Const General: no acute distress and well developed Nutritional Appearance: well nourished Orientation/consciousness: patient oriented x3 HENMT Head: Yes normocephalic and Yes atraumatic Eyes General: appearance normal, both eyes and all related structures Pupils: Equal, round and reactive pupils present EOM: EOMs intact bilaterally Resp Effort & Inspection: normal respiratory effort Auscultation: clear to auscultation bilaterally Cardio Rate: regular rate Rhythm: regular rhythm Heart sounds: S1 normal heart sound present, S2 normal heart sound present, no gallops, no murmurs and no rubs Neuro General: patient oriented x3 and gait normal Cranial nerves: Yes Equal, round and reactive pupils present Psych Affect: normal affect Assessment and Plan Assessment & Plan (1) Essential hypertension: Code(s): I10 - Essential (primary) hypertension Plan: Fairly?well?controlled.??Goal?is?less?than?130/80 Continue?current?medication Follow-up?with?Cardiology?as?recommended (2) Type 2 diabetes mellitus with unspecified complications: Code(s): E11.8 - Type 2 diabetes mellitus with unspecified complications Plan: Last?A1c?shows?good?control.??Goal?is?less?than?7.0% Patient?was?not?sure?he?wanted?to?continue?metformin?but?after?discussing?this?h e?has?decided?to?continue?it?along?with?glipizide. We?did?discuss?other?medications?inc luding?Farxiga.??He?has?a?history?of?coronary?artery?disease?and?this?might?be?a ?good?choice?in?the?future For?now,?continue?current?medication?and?continue?diabetic?diet Encouraged?exercise (3) Atherosclerotic cardiovascular disease: Code(s): I25.10 - Atherosclerotic heart disease of [place] coronary artery without angina pectoris Plan: He?is?on?atorvastatin Follow-up?with?Cardiology?as?recommended Continue?atorvastatin (4) Depression: Code(s): F32.A - Depression, unspecified Plan: Ongoing?depression?and?history?of?epilepsy. Continue?lamotrigine (5) Erectile dysfunction associated with type 2 diabetes mellitus: Code(s): E11.69 - Type 2 diabetes mellitus with other specified complication; N52.1 - Erectile dysfunction due to diseases classified elsewhere Plan: History?erectile?dysfunction?likely?secondary?to?diabetes?and?other?comorbiditie s. Continue?to?controlled?diabetes Recommended?he?Follow-up?with?urology?but?patient?would?like?a?referral?to?anoth er?urologist?for?2nd?opinion?regarding?erectile?dysfunction?as?well?as?enhanceme nt?surgery.??We?discussed ?enhancement?would?likely?be?cosmetic?and?not?covered?by?insurance. He?can?discuss?with?urologist. (6) Difficulty sleeping: Code(s): G47.9 - Sleep disorder, unspecified Plan: Encouraged?patient?to?work?on?an?earlier?bedtime?as?he?is?not?trying?to?go?to?sl eep?until?between?1?and?04 AM Will?try?some?zolpidem Has?had?a?sleep?study?which?was?neg Orders: Referrals Podiatry Referral E11.8 - Type 2 diabetes mellitus with unspecified complications, L60.2 - Onychogryphosis, M79.673 - Pain in unspecified foot Urology Referral E11.69 - Type 2 diabetes mellitus with other specified complication, N52.1 - Erectile dysfunction due to diseases classified elsewhere Medications: New zolpidem 5 mg PO BEDTIME 30 days PRN 20 tabs 0RF sleep G47.9 - Sleep disorder, unspecified collagenase clostridium histo. 1 appl topical BEDTIME 14 days PRN 15 grams 0RF wound care R23.4 - Changes in skin texture Coding Level of Care Code Est Pt Level 4 (05785) Diagnoses Essential hypertension I10 Type 2 diabetes mellitus with unspecified complications E11.8 Atherosclerotic cardiovascular disease I25.10 Depression F32.A Erectile dysfunction associated with type 2 diabetes mellitus E11.69; N52.1 Difficulty sleeping G47.9
== END 2023-09-22 17:12 | disposition home or self-care (01) ==
PROVIDERS: PCP Family Medicine; Visit Provider Family Medicine
DX: I10 Essential (primary) hypertension (principal); E11.8 Type 2 diabetes mellitus with unspecified complications; E11.69 Type 2 diabetes mellitus with other specified complication; I25.10 Atherosclerotic heart disease of native coronary artery without angina pectoris; F32.A Depression, unspecified; N52.1 Erectile dysfunction due to diseases classified elsewhere; G47.9 Sleep disorder, unspecified
CPT/HCPCS: 99214

== ENCOUNTER 2023-11-01 14:35 | Outpatient (REF) | payer SELFPAY ==
[2021-08-28 07:22] VITALS: BP 146/76; BP 148/60; BMI 26.7
--- NOTE | 2023-11-02 14:01 | MHC.AU.HA3 ---
Hearing Instrument Follow-Up- Binaural Date of Visit: 11/01/23 Right Ear: Sanchez, , Color, Serial Number: Marilyn Montero P 70-R SN: [id number] Color: Silver Ferrera Technology Lead Repair Warranty: 05/02/2025 Technology Lead Loss and Damage Warranty: 05/02/2025 [facility] Service Plan: 03/13/2023 Battery Size: Rechargeable Psychiatric Nurse Practitioner/Slim Tube: 1M Earmold/Dome/CShell/SlimTip:Medium open dome (no retention tail) Type of Wax Guard: CeruShield Dispensed By: [facility] Date of Fittin03/12/2022 Left Ear: Model Sanchez, Color, Serial Number: Marilyn Montero P 70-R SN: [id number] Color: Silver Ferrera Technology Lead Repair Warranty: 05/02/2025 Technology Lead Loss and Damage Warranty: 05/02/2025 [facility] Service Plan: 03/13/2023 Battery Size: Rechargeable Psychiatric Nurse Practitioner/Slim Tube: 1M Earmold/Dome/CShell/SlimTip: Medium open dome (no retention tail) Type of Wax Guard: CeruShield Dispensed By: [facility] Date of Fittin03/12/2022 Follow-Up Summary: Both hearing aids and hotel valet attendant (no cord or wall plug) dropped off reporting . Upon inspection, both wax guards occluded. Cleaned both hearing aids. Replaced domes and wax guards. Vacuumed microphones. Ran through dehumidifier. Listening check demonstrated hearing aids amplifying clearly. Also updated firmware for more reliable charging. Recommendations:Hearing instrument follow-up or maintenance as needed. Please contact our clinic with any questions or concerns. Diagnosis Code(s): Primary Diagnosis: H90.3 Bilateral Sensorineural Hearing Loss Secondary Diagnosis: H93.13 Tinnitus, Bilateral Signature: Provider: Twila Cleaning, [facility]
== END 2023-11-01 14:36 | disposition home or self-care (01) ==
LOC: HO.HAP 14:35
PROVIDERS: Visit Provider Family Medicine
DX: Z13.89 Encounter for screening for other disorder (principal)

== ENCOUNTER 2023-11-02 14:24 | Outpatient (REF) | payer MEDICARE, OTHER, SELFPAY ==
[2021-08-28 07:22] VITALS: BP 146/76; BP 148/60; BMI 26.7
== END 2023-11-02 14:25 | disposition home or self-care (01) ==
LOC: HO.HAP 14:24
PROVIDERS: Visit Provider Family Medicine
DX: Z46.1 Encounter for fitting and adjustment of hearing aid (principal); H90.3 Sensorineural hearing loss, bilateral; H93.13 Tinnitus, bilateral
CPT/HCPCS: 92593; 99499

== ENCOUNTER 2023-12-21 09:39 | Outpatient (REF) | payer SELFPAY ==
[2021-08-28 07:22] VITALS: BP 146/76; BP 148/60; BMI 26.7
--- NOTE | 2023-12-21 11:07 | MHC.AU.HA3 ---
Hearing Instrument Follow-Up- Binaural Date of Visit: 12/21/23 Right Ear: Sanchez, Model, Color, Serial Number: Marilyn Montero P 70-R SN: [id number] Color: Silver Ferrera Data Visualization Developer Repair Warranty: 05/02/2025 Data Visualization Developer Loss and Damage Warranty: 05/02/2025 [facility] Service Plan: 03/13/2023 Battery Size: Rechargeable Swedish Masseuse/Slim Tube: 1M Earmold/Dome/CShell/SlimTip:Medium open dome (no retention tail) Type of Wax Guard: CeruShield Dispensed By: [facility] Date of Fittin03/12/2022 Left Ear: Sanchez, Model, Color, Serial Number: Marilyn Montero P 70-R SN: [id number] Color: Silver Ferrera Data Visualization Developer Repair Warranty: 05/02/2025 Data Visualization Developer Loss and Damage Warranty: 05/02/2025 [facility] Service Plan: 03/13/2023 Battery Size: Rechargeable Swedish Masseuse/Slim Tube: 1M Earmold/Dome/CShell/SlimTip: Medium open dome (no retention tail) Type of Wax Guard: CeruShield Dispensed By: [facility] Date of Fittin03/12/2022 Follow-Up Summary: Pt d/o hearing aids, reporting right static returned about 1 week ago. Could not replicate in office. Cleaned both aids and ran through dehumidifier, replaced right columnist/commentator under warranty. Sent to front for pickup, if issue persists will send aid out. Recommendations: Recommendations: Patient will call if problems persist. Diagnosis Code(s): Primary Diagnosis: H90.3 Bilateral Sensorineural Hearing Loss Secondary Diagnosis: H93.13 Tinnitus, Bilateral Signature: Provider: Kathleen Godwin, [facility]
== END 2023-12-21 09:40 | disposition home or self-care (01) ==
LOC: HO.HAP 09:39
PROVIDERS: Visit Provider Family Medicine
DX: Z13.89 Encounter for screening for other disorder (principal)

== ENCOUNTER 2023-12-21 09:47 | Emergency (ER) | payer MEDICARE, MEDICAID, SELFPAY ==
[2021-08-28 07:22] VITALS: BP 146/76; BP 148/60; BMI 26.7
--- NOTE | ~2023-12-21 | CT_ITS ---
EXAMINATION: CT CERVICAL SPINE WITHOUT CONTRAST CLINICAL INFORMATION: Fell down, head injury and pain COMPARISON: None available. TECHNIQUE: Multiple 3.0 mm axial images were obtained from base of skull to T1 levels without IV contrast enhancement. Sagittal and coronal 2.0 mm bone window images were reconstructed from axial image data. This CT examination was performed using dose optimization techniques as appropriate, variously including the following: *Automated exposure control *Adjustment of mA and/or kV according to patient size (this includes techniques or standardized protocols for targeted exams where dose is matched to indication/reason for exam; i.e. extremities or head) *Use of iterative reconstruction technique DLP: 504.05 mGy-cm FINDINGS: C1/C2: Bony structures are intact with normal alignment. There is no spinal stenosis. C2/C3: Bony structures are intact with normal alignment. Sharp anterior bridging syndesmophytes are present. There is no spinal stenosis. Bilateral C2/C3 neuroforamina are patent. Bilateral apophyseal joints are intact with normal alignment. C3/C4: Bony structures are intact with normal alignment. Diffuse sclerotic changes are seen in central and left C3 vertebral body. Mild posterior disc protrusion is present. Erosions are seen at inferior C3 vertebral endplate. Large anterior bridging syndesmophytes and small posterior inferior C3 syndesmophyte are present. There is no spinal stenosis. Bilateral C3/C4 neuroforamina are patent. Bilateral apophyseal joints are intact with normal alignment. C4/C5: Bony structures are intact with normal alignment. Sharp anterior syndesmophytes are present. Moderate posterior disc protrusion is seen. There is resulting moderate spinal stenosis with AP diameter of the spinal canal reduced to 8.4 mm. There is mild asymmetric left C4/C5 neural foraminal stenosis. Bilateral apophyseal joints are intact with normal alignment. C5/C6: Bony structures are intact with normal alignment. Sharp anterior syndesmophytes are present. There is no spinal stenosis. Bilateral C5/C6 neuroforamina are moderately stenosed. Bilateral apophyseal joints are intact with normal alignment. C6/C7: Bony structures are intact with normal alignment. Sharp anterior bridging syndesmophytes are present. There is marked decrease in intervertebral disc height. There is marked decrease in intervertebral disc height. There is no spinal stenosis. There are mild right and moderate left C6/C7 neural foraminal stenosis. Bilateral apophyseal joints are intact with normal alignment. C7/T1: Bony structures are intact with normal alignment. There is no spinal stenosis. Bilateral C7/T1 neuroforamina are patent. Bilateral apophyseal joints are intact with normal alignment. Multilevel bilateral apophyseal joint and uncovertebral joint osteoarthritis with loss of joint space, sclerosis, facet hypertrophy and osteophytosis are seen. CT/CT cervical spine wo IV con IMPRESSION: 1. No evidence of acute fracture or dislocation is seen in the cervical spine. 2. Moderate posterior disc protrusion causing Moderate C4/C5 spinal stenosis is seen. 3. Mild posterior C3-C4 disc protrusion is also seen. 4. Moderate bilateral C5-C6, mild right and moderate left C6-C7 foraminal stenosis is seen. 5. Diffuse sclerotic changes are seen in central and left C3 vertebral body. Erosions are seen at inferior C3 vertebral endplate. 6. Multilevel advanced cervical spondylosis and predominantly anterior C2-C7 syndesmophytes are present. Fleischner guidelines were followed.
--- NOTE | ~2023-12-21 | CT_ITS ---
EXAMINATION: CT HEAD WITHOUT CONTRAST CLINICAL INFORMATION: Mechanical fall. Blunt head trauma without loss of consciousness, significant head injury and posttraumatic headache. COMPARISON: CT scan of brain on 12/01/2021 TECHNIQUE: Contiguous axial imaging was performed from the skull base to vertex without intravenous administration of contrast. This CT examination was performed using dose optimization techniques as appropriate, variously including the following: *Automated exposure control *Adjustment of mA and/or kV according to patient size (this includes techniques or standardized protocols for targeted exams where dose is matched to indication/reason for exam; i.e. extremities or head) *Use of iterative reconstruction technique DLP: 738.41 mGy-cm FINDINGS: Ventricles, sulci and cisterns are dilated. Persistent localized cystic encephalomalacia is seen in anterior medial superior left cerebellum abutting the cerebellar vermis. There is no midline shift, no abnormal intra- or extra- axial fluid accumulation. Ferrera and white matter differentiation is normal. Bone window images show no evidence of skull fracture. CT/CT head/brain wo IV con IMPRESSION: 1. Unchanged mild age related cerebral atrophy. 2. No intracranial hemorrhage or skull fracture is seen. 3. No evidence of space occupying lesion could be found. 4. 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 5. The current plain CT scan of the brain shows no diagnostic evidence of acute cerebral infarction.
[2023-12-21 09:58] VITALS: BP 172/77; PULSE 73; RESP 16; TEMP 37; O2SAT 96; BMI 26.9
[2023-12-21 12:00] VITALS: BP 155/70; PULSE 61; RESP 14; TEMP 36.2; O2SAT 99
--- NOTE | 2023-12-21 14:40 | ED.FALL ---
HPI - Fall General Chief Complaint: Fall Stated Complaint: Fall yesterday - head/neck injury Time Seen by Provider: 12/21/23 10:04 Source: patient and RN notes reviewed Mode of arrival: ambulatory Limitations: no limitations History of Present Illness ED Provider: Mary Gardner PA-C HPI Narrative: This is a 68-year-old male, with a history of diabetes, and hypertension, who presents emergency department for evaluation of mechanical fall which occurred yesterday. Patient states that yesterday while he was walking in his home, he accidentally slipped on his wet flours and fell backwards striking his posterior head. He denies loss of consciousness. He states that he was feeling well prior to the fall. He states that this morning he awoke with slight lightheadedness, he denies any headaches, neck pain, chest pain, shortness breast, abdominal pain, nausea, vomiting or diarrhea. He denies any changes to his vision. He is not on blood thinners. No other complaints or concerns at this time. MD complaint: fall Onset (ago): day(s) Fall from: standing Fall witnessed: no Place fall occurred: home Loss of consciousness: none Prolonged down time: no Symptoms prior to fall: none Context: tripped/slipped Location of injury: head Severity: moderate Quality: aching Associated symptoms (after fall): denies Related Data Home Medications ?Medication ?Instructions ?Recorded ?Confirmed lamotrigine 200 mg tablet 200 mg PO BID 07/01/21 06/07/23 metoprolol succinate 50 mg 50 mg PO BID 04/28/23 06/07/23 tablet,extended release 24 hr Previous Rx's ?Medication ?Instructions ?Recorded aspirin 81 mg chewable tablet 81 mg PO DAILY #30 tabs 04/16/21 blood pressure test kit-large #1 ea 09/30/21 clotrimazole 1 % topical cream 1 appl topical BID 2 weeks #45 02/05/22 grams fluticasone propionate 50 2 spray intranasal DAILY #48 mL 02/05/22 mcg/actuation nasal spray,suspension loratadine 10 mg tablet (Allergy 10 mg PO DAILY 1 month #90 tabs 12/17/22 Relief (loratadine)) metformin 1,000 mg tablet 1,000 mg PO BID 90 days #180 tabs 04/22/23 atorvastatin 80 mg tablet 80 mg PO QPM #90 tabs 04/28/23 glipizide 10 mg tablet 10 mg PO BID 30 days #60 tabs 08/03/23 blood sugar diagnostic (FreeStyle #50 ea 09/07/23 Lite Strips) collagenase clostridium histo. 250 1 appl topical BEDTIME PRN wound 09/22/23 unit/gram topical ointment care 14 days #15 grams zolpidem 5 mg tablet 5 mg PO BEDTIME PRN sleep 30 days 11/22/23 #20 tabs Allergies Allergy/AdvReac Type Severity Reaction Status Date / Time No Known Allergies Allergy Verified 12/21/23 09:59 [No Known Allergies*] Review of Systems Review of Systems: Yes all other systems are reviewed and are negative Constitutional: Constitutional: Reports as per [facility] Past Medical History Medical History Low libido Screening for prostate cancer Pre-op examination Shift work sleep disorder Snoring Erectile dysfunction Headache Screening for prostate cancer Screening for colon cancer Adult general medical exam Erectile dysfunction due to type 2 diabetes mellitus Heart palpitations Chest pain COVID-19 High cholesterol Sciatica Hypertension Diabetes Epilepsy Heart attack Surgical History H/O colonoscopy History of tonsillectomy History of cardiac catheterization (~2015) History of coronary artery bypass graft x 2 (~2005) Family History Family History Father Cardiovascular disease Mother No problems noted. Social History Social History Housing: Apartment Alcohol intake: never Patient Tobacco Use Status: Never used Tobacco e-Cigarette/Vaping Use: Never Used Second Hand Smoke Exposure: No Advance Directives: No service: No Current occupational status: previously employed Current occupational exposures/hazards: No Cognitive needs: No Hearing needs: No Vision needs: No Physical Exam Vital Signs: Vital Signs: Last Vital Signs Temp 97.1 F 12/21/23 15:11 Pulse 61 12/21/23 15:11 Resp 18 12/21/23 15:11 BP 155/70 H 12/21/23 15:11 Pulse Ox 99 12/21/23 15:11 O2 Del Method Room Air 12/21/23 15:11 BMI result Body Mass Index 26.9 Const: General: cooperative, comfortable and no acute distress Orientation/consciousness: patient oriented x3 Limitations: no limitations HEENT: Head: Yes normal to inspection, Yes normocephalic, Yes atraumatic, No Vick's sign, No occipital foramen tenderness and No palpable skull fracture Ears: hearing grossly normal bilaterally and TM's normal bilaterally (No hemotympanum) General nose exam: Normal external nose present Face and sinus: Yes normal facial exam Mouth: Normal oral and palatal mucosa present, oropharynx normal and moist mucous membranes Throat: Yes posterior oropharynx normal Eyes: General: appearance normal, both eyes and all related structures Eyelids: Yes eyelids normal Conjunctivae: conjunctivae normal Sclerae: sclerae normal Pupils: Equal, round and reactive pupils present EOM: EOMs intact bilaterally Neck: Other: No midline C-spine tenderness to palpation. Neck: Yes normal visual inspection, Yes full ROM and Yes no lymphadenopathy Lymphatic: no lymphadenopathy noted Chest: Chest palpation & inspection: normal inspection of the chest Resp: Effort & Inspection: normal respiratory effort and able to speak in complete sentences Auscultation: clear to auscultation bilaterally, no crackles, no rales, no rhonchi and no wheezes Cardio: Rate: regular rate Rhythm: regular rhythm Heart sounds: S1 normal heart sound present and S2 normal heart sound present GI: Inspection: Yes normal to inspection Skin: General skin exam: no rashes or lesions noted Trauma: no lacerations or abrasions Wounds: no wounds Neuro: General: patient oriented x3 and moves all extremities Cranial nerves: Yes Equal, round and reactive pupils present Extrem: General: Yes normal to inspection Right upper extremity: normal to inspection Left upper extremity: normal to inspection Right lower extremity: normal to inspection Left lower extremity: normal to inspection Course Reevaluation(s) Reevaluation #1: CT head and neck return. They are unremarkable for any acute findings. Discussed findings with patient, he understands and agrees with plan. Given strict return precautions. Patient stable for discharge. Time: 14:40 Medical Decision Making Medical Decision Making MDM Narrative: This is a 68-year-old male who presents emergency department with complaints of mechanical fall which occurred yesterday. He slipped and fell backwards striking his posterior head on the ground. This fall was mechanical, denies any dizziness, lightheadedness, chest pain or shortness breast prior to the fall. He states he did not lose consciousness. He is not on blood thinners. He states he had slight lightheadedness this morning, denies any headache or neck pain. On arrival, patient mildly hypertensive at 172/77, all other vital signs within normal limits. He is alert and oriented x4, no neurologic deficits on examination. No C-spine tenderness. Given mechanical fall as well as lightheadedness this morning, will obtain CT head and neck to rule out any intracranial process. Differential Diagnosis Differential Diagnoses: The differential diagnosis associated with the presentation includes ICH, SDH, C-spine fracture, closed head injury Admission/Observation Consideration of admission/observation: Escalation of care including admission/observation considered Radiology Impression Discussion of test interpretation with radiology: I have reviewed the radiologist's reading. Radiologist Impression: CT/CT head/brain wo IV con IMPRESSION: 1. Unchanged mild age related cerebral atrophy. 2. No intracranial hemorrhage or skull fracture is seen. 3. No evidence of space occupying lesion could be found. 4. 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 5. The current plain CT scan of the brain shows no diagnostic evidence of acute cerebral infarction. Dictated By: Dalia Lainez CT/CT cervical spine wo IV con IMPRESSION: 1. No evidence of acute fracture or dislocation is seen in the cervical spine. 2. Moderate posterior disc protrusion causing Moderate C4/C5 spinal stenosis is seen. 3. Mild posterior C3-C4 disc protrusion is also seen. 4. Moderate bilateral C5-C6, mild right and moderate left C6-C7 foraminal stenosis is seen. 5. Diffuse sclerotic changes are seen in central and left C3 vertebral body. Erosions are seen at inferior C3 vertebral endplate. 6. Multilevel advanced cervical spondylosis and predominantly anterior C2-C7 syndesmophytes are present. Fleischner guidelines were followed. Dictated By: Dalia Lainez External Record Review External record reviewed: Inpatient record, Office record, Outpatient record, Prior outpatient labs, Prior outpatient radiology, Primary care record and Outside ED record Discharge Plan Discharge Clinical Impression: Fall, Head injury Patient Disposition: Home, Self-Care Instructions: Head Injury (ED), Fall Prevention (ED) Additional Instructions: You were seen in the emergency department after hitting your head. Your CT scans do not show any injury from this fall. Please drink plenty of fluids get plenty of rest. Your CT scan does show spinal stenosis, disc protrusions and degenerative disc disease, this can be followed up through your primary care physician for further management. Mental and physical rest can also help with your symptoms. If you develop any new or worsening symptoms including but not limited to severe headache, severe dizziness, vomiting, chest pain or shortness of breath, please return for re-evaluation. Prescriptions: No Action aspirin 81 mg tablet,chewable 81 mg PO DAILY Qty: 30 2RF fluticasone propionate 50 mcg/actuation spray,suspension 2 spray intranasal DAILY Qty: 48 1RF loratadine [Allergy Relief (loratadine)] 10 mg tablet 10 mg PO DAILY 30 Days Qty: 90 0RF glipizide 10 mg tablet 10 mg PO BID 30 Days Qty: 60 2RF (DME) FreeStyle Lite Strips Strip See Rx Instructions .Route Qty: 50 3RF Rx Instructions: daily zolpidem 5 mg tablet 5 mg PO BEDTIME PRN (Reason: sleep) 30 Days Qty: 20 0RF clotrimazole 1 % cream 1 appl topical BID 14 Days Qty: 45 0RF lamotrigine 200 mg tablet 200 mg PO BID (DME) blood pressure test kit-large Kit See Rx Instructions .ROUTE .MEDSUPPLY Qty: 1 0RF Rx Instructions: check bp daily once stable check twice a week and as needed metformin 1,000 mg tablet 1,000 mg PO BID 90 Days Qty: 180 3RF collagenase clostridium histo. 250 unit/gram ointment 1 appl topical BEDTIME PRN (Reason: wound care) 14 Days Qty: 15 0RF atorvastatin 80 mg tablet 80 mg PO QPM Qty: 90 3RF metoprolol succinate 50 mg tablet extended release 24 hr 50 mg PO BID Interventions: ED Discharge Assessment Last Done: 12/21/23 15:11 Discharge Date/Time: 12/21/23 15:11 Print Language: Bangladeshi
[2023-12-21 15:11] VITALS: BP 155/70; PULSE 61; RESP 18; TEMP 36.2; O2SAT 99
== END 2023-12-21 15:11 | disposition home or self-care (01) ==
PROVIDERS: Emergency Provider Emergency Medicine; PCP Family Medicine
DX: S09.90XA Unspecified injury of head, initial encounter (principal); X58.XXXA Exposure to other specified factors, initial encounter; R51.9 Headache, unspecified; M54.2 Cervicalgia; W01.0XXA Fall on same level from slipping, tripping and stumbling without subsequent striking against object, initial encounter; Y93.89 Activity, other specified; Y92.098 Other place in other non-institutional residence as the place of occurrence of the external cause; Y99.8 Other external cause status
CPT/HCPCS: 70450; 72125; 99283; 99284

== ENCOUNTER 2023-12-27 13:34 | Outpatient (AMB) | payer MEDICARE, MEDICAID, SELFPAY ==
[2021-08-28 07:22] VITALS: BP 146/76; BP 148/60; BMI 26.7
--- NOTE | 2023-12-27 13:52 | A.OFFPC_ITS ---
Vital Signs 12/27/23 13:57 Height 5 ft 7 in Weight 171 lb 2 oz BMI 26.8 BP 136/72 Blood Pressure Location Rt brachial Position Sitting Respiration 14 Pulse 63 Pulse Source Pulse Oximeter Pulse Oximetry (%) 94 Oxygen Delivery Method Room Air Intake Visit Reasons: f/u diabetes, hypertension Intake Note: Follow up diabetes, htn. Requesting month supply of Zolpidem. Allergies No Known Allergies [No Known Allergies*] Allergy (Verified 12/21/23 09:59) Tobacco use date assessed: 09/22/23 Dental Screening Dental Screen Date: 09/22/23 HPI f/u diabetes, hypertension HPI Details 68 y/o male presents to f/u diabetes, hy pertension. Last A1c 08/06/23 6.3%. A1c today 12/27/23 is 6.4%. Blood pressure today 136/72. He is on metoprolol 50mg b.i.d. Recent ED visit 12/21/23 for a fall. Had accidentally slipped on wet floors and had fallen backwards, striking posterior head. CT scan did not show any injury from fall. He reports fatigue. HPI Comments History of Present Illness Details Documentation assistance for Bandar Martin MD, was provided by Ronnie Barrera, Leather Case Finisher on 12/27/2023 at 2:11 PM EST. I, Dr. Martin, have read, observed, and verified documentation. [facility] Medical History Low libido Screening for prostate cancer Pre-op examination Shift work sleep disorder Snoring Erectile dysfunction Headache Screening for prostate cancer Screening for colon cancer Adult general medical exam Erectile dysfunction due to type 2 diabetes mellitus Heart palpitations Chest pain COVID-19 High cholesterol Sciatica Hypertension Diabetes Epilepsy Heart attack Surgical History H/O colonoscopy History of tonsillectomy History of cardiac catheterization (~2015) History of coronary artery bypass graft x 2 (~2005) Family History Father Cardiovascular disease Mother No problems noted. Social History Housing: Apartment Alcohol intake: never Patient Tobacco Use Status: Never used Tobacco e-Cigarette/Vaping Use: Never Used Second Hand Smoke Exposure: No service: No Current occupational status: previously employed Current occupational exposures/hazards: No Cognitive needs: No Hearing needs: No Vision needs: No Questionnaire Thrive Questionnaire Date Thrive assessed: 07/01/21 LAURA-7 AMB Questionnaire LAURA-7 Date LAURA - 7 assessed: 04/22/23 Source: Developed by Drs. Alex Ledezma, Nicole Scott, Messi Og and colleagues, with an educational rhonda from [employer]. Review of Systems Const Denies chills, Reports fatigue, Denies fever(s), Denies headache(s) and Denies weakness ENT Denies dizziness and Denies headache(s) Card Denies chest pain, Denies lightheadedness, Denies dyspnea and Denies other (Palpitations) Resp Denies cough, Denies dyspnea, Denies wheezing and Denies other ( shortness of breath) Musc Denies numbness and Denies tingling Neuro Denies dizziness, Denies headache(s), Denies numbness, Denies tingling, Denies paresthesias and Denies weakness Psych Denies anxiety and Denies depression Endo Reports fatigue Aller/Immun Denies wheezing Physical exam (Primary Care) Vital Signs: Last Vital Signs Pulse 63 12/27/23 13:57 Resp 14 12/27/23 13:57 BP 136/72 12/27/23 13:57 Pulse Ox 94 12/27/23 13:57 Oxygen Delivery Method Room Air 12/27/23 13:57 BMI result Body Mass Index 26.8 Tobacco/Smoking Status: Tobacco use Status Tobacco use date assessed 09/22/23 12/27/23 13:55 Patient Tobacco Use Status Never used Tobacco 12/27/23 13:55 e-Cigarette/Vaping Use Never Used 12/27/23 13:55 Thrive Assessment: Date of Thrive Assessment Date Thrive assessed 07/01/21 12/27/23 13:55 Const General: no acute distress and well developed Nutritional Appearance: well nourished Orientation/consciousness: patient oriented x3 HENMT Head: Yes normocephalic and Yes atraumatic Eyes General: appearance normal, both eyes and all related structures Pupils: Equal, round and reactive pupils present EOM: EOMs intact bilaterally Resp Effort & Inspection: normal respiratory effort Auscultation: clear to auscultation bilaterally Cardio Rate: regular rate Rhythm: regular rhythm Heart sounds: S1 normal heart sound present, S2 normal heart sound present, no gallops, no murmurs and no rubs Neuro General: patient oriented x3 and gait normal Cranial nerves: Yes Equal, round and reactive pupils present Psych Affect: normal affect Results AMB Hemoglobin A1c AMB Hemoglobin A1c 6.4 % Last Edit by Ximena Mason CMA on 12/27/23 14:03 Assessment and Plan Assessment & Plan (1) Essential hypertension: Code(s): I10 - Essential (primary) hypertension Plan: Blood?pressure?shows?fair?control?but?is?slightly?above?goal?of?less?than?130/80 . He?does?note?that?his?blood?pressures?in?the?mornings?are?sometimes?rather?high - these?are?not?readings?from?when?he?1st?wakes?up?but?later?in?his?mornings. He?will?check?his?blood?pressures?when?he?1st?wakes?up?and?if?they?are?already? high?we?will?have?him?increase?his?evening?metoprolol?dose. If?readings?from?1st?thing?in?the?morning?are?not?already?high,?then?he?will?sim ply?take?his?morning?dose?earlier?when?he?1st?wakes?up. Will?adjust?blood?pressure?further?if?needed (2) Type 2 diabetes mellitus with unspecified complications: Code(s): E11.8 - Type 2 diabetes mellitus with unspecified complications Plan: A1c?6.4%.??Controlled.??Goal?is?less?than?7.0% Continue?current?medication?regimen (3) Atherosclerotic cardiovascular disease: Code(s): I25.10 - Atherosclerotic heart disease of [place] coronary artery without angina pectoris Plan: Stable Follow-up?with?Cardiology?as?recommended (4) Status post fall: Code(s): Z91.81 - History of falling Plan: No?headaches,?dizziness?or?emotional?lability Does?still?have??stiff?neck Start?physical?therapy (5) Fatigue: Code(s): R53.83 - Other fatigue Plan: Patient?says?he?still?only?getting?about?4?hours?of?sleep?per?night?but?goes?to? bed?very?late Sleep?study?was?negative?for?apnea Encouraged?him?again?to?try?to?pull?his?bedtime?earlier?and?sleep?longer He?can?use?zolpidem?but?I?encouraged?him?to?continue?trying?to?use?this?more?spa ring?then?every?day Check?labs (6) Difficulty sleeping: Code(s): G47.9 - Sleep disorder, unspecified Plan: As?above Orders: Orders AMB Hemoglobin A1c Today E11.8 - Type 2 diabetes mellitus with unspecified complications PT Evaluation and Treatment Today M54.2 - Cervicalgia, Z91.81 - History of falling Medications: Refilled zolpidem 5 mg PO BEDTIME 30 days PRN 30 tabs 0RF sleep G47.9 - Sleep disorder, unspecified Coding Level of Care Code Est Pt Level 4 (27841) Diagnoses Essential hypertension I10 Type 2 diabetes mellitus with unspecified complications E11.8 Atherosclerotic cardiovascular disease I25.10 Status post fall Z91.81 Fatigue R53.83 Difficulty sleeping G47.9
[2023-12-27 13:57] VITALS: BP 136/72; PULSE 63; RESP 14; O2SAT 94; BMI 26.8
== END 2023-12-27 14:25 | disposition home or self-care (01) ==
PROVIDERS: PCP Family Medicine; Visit Provider Family Medicine
DX: I10 Essential (primary) hypertension (principal); E11.8 Type 2 diabetes mellitus with unspecified complications; I25.10 Atherosclerotic heart disease of native coronary artery without angina pectoris; Z91.81 History of falling; R53.83 Other fatigue; G47.9 Sleep disorder, unspecified
CPT/HCPCS: 83036; 99214

== ENCOUNTER 2024-03-07 15:11 | Outpatient (AMB) | payer MEDICARE, MEDICAID, SELFPAY ==
[2021-08-28 07:22] VITALS: BP 146/76; BP 148/60; BMI 26.7
--- NOTE | 2024-03-07 15:28 | A.OFFPC_ITS ---
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 12/27/23 6.4%. On metformin 1000 twice daily, glipizide. On statin. Denies chest pain, exertional dyspnea. 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 Tried OTC. Requests zolpidem. He has been very fatigued for the past few months, low energy. Denies depressive symptoms Persistent left ankle pain following trip/injury. Had xray a year ago. Declines colonoscopy. Ok for cologuard. ROS CONSTITUTIONAL: Denies weight loss, fever and chills. HEENT: Denies changes in vision and hearing. RESPIRATORY: Denies SOB and cough. CV: Denies palpitations and CP GI: Denies abdominal pain, nausea, vomiting and diarrhea. : Denies dysuria and urinary frequency. MSK: Denies new myalgia and joint pain. SKIN: Denies rash and pruritus. NEUROLOGICAL: Denies headache PSYCHIATRIC: Denies recent changes in mood. PHYSICAL EXAM: GENERAL: Alert and oriented x 3. NAD EYES: EOMI. Anicteric. HENT: Moist mucous membranes. No scleral icterus. No cervical lymphadenopathy. LUNGS: Clear to auscultation bilaterally. CARDIOVASCULAR: Regular rate and rhythm. No murmur. No JVD. ABDOMEN: Soft, non-tender +bs EXTREMITIES: No edema. Non-tender. SKIN: No rashes or lesions. Warm. NEUROLOGIC: No focal neurological deficits. CN II-XII grossly intact PSYCHIATRIC: Cooperative. Appropriate mood and affect [facility] Medical History Low libido Screening for prostate cancer Pre-op examination Shift work sleep disorder Snoring Erectile dysfunction Headache Screening for prostate cancer Screening for colon cancer Adult general medical exam Erectile dysfunction due to type 2 diabetes mellitus Heart palpitations Chest pain COVID-19 High cholesterol Sciatica Hypertension Diabetes Epilepsy Heart attack Surgical History H/O colonoscopy History of tonsillectomy History of cardiac catheterization (~2015) History of coronary artery bypass graft x 2 (~2005) Family History Father Cardiovascular disease Mother No problems noted. Social History Housing: Apartment Alcohol intake: never Patient Tobacco Use Status: Never used Tobacco e-Cigarette/Vaping Use: Never Used Second Hand Smoke Exposure: No service: No Current occupational status: previously employed Current occupational exposures/hazards: No Cognitive needs: No Hearing needs: No Vision needs: No Questionnaire PHQ-9 Over the last 2 weeks, how often have you been bothered by any of the following problems? 1. Little interest or pleasure in doing things: nearly every day 2. Feeling down, depressed, or hopeless: not at all 3. Trouble falling or staying asleep, or sleeping too much: nearly every day 4. Feeling tired or having little energy: nearly every day 5. Poor appetite or overeating: not at all 6. Feeling bad about yourself - or that you are a failure or have let yourself or your family down: not at all 7. Trouble concentrating on things, such as reading the newspaper or watching television: nearly every day 8. Moving or speaking so slowly that other people could have noticed. Or the opposite - being so fidgety or restless that you have been moving around a lot more than usual: not at all 9. Thoughts that you would be better off or of hurting yourself in some way: not at all Total score: 12 Depression Screening Interpretation: Positive Depression Screening Follow-up: Declines treatment Depression Screening Done: Yes [id number] - PHQ-9 Billing: Yes Source: Developed by Drs. Alex Ledezma, Messi Champion and colleagues, with an educational rhonda from [employer]. Thrive Questionnaire Date Thrive assessed: 07/01/21 I am a: Patient What is your living situation today?: I have a steady place to live Within the past 12 months, did the food you bought not last and you didn't have the money to get more?: Never true Within the past 12 months, did you worry whether your food would run out before you got money to buy more?: Never true Do you have trouble paying for medicines?: No Do you have trouble getting transportation to medical appointments?: No Do you have trouble paying your heating and electricity bill?: No Do you have trouble taking care of your child, family member or friend?: No Do you have trouble with day-to-day activities such as bathing, preparing meals, shopping, managing finances, etc.?: No Are you currently unemployed and looking for a job?: Yes Are you interested in more education?: No Please select the resources that you would like help with: None Currently or been in a relationship where the following occur: No concerns reported THRIVE Score: 0 AUDIT C Alcohol Use Questionnaire (AUDIT-C) 1. How often do you have a drink containing alcohol?: Never Total Score: 0 LAURA-7 AMB Questionnaire LAURA-7 Date LAURA - 7 assessed: 04/22/23 Feeling nervous, anxious, or on edge: 0 = Not at all Not being able to stop or control worryin = Nearly every day Worrying too much about different things: 3 = Nearly every day Trouble relaxin = Not at all Being so restless that it is hard to sit still: 0 = Not at all Becoming easily annoyed or irritable: 3 = Nearly every day Feeling afraid as if something awful might happen: 0 = Not at all Total LAURA-7 score (0-4 normal; 5-9 mild; 10-14 moderate; 15-21 severe): 9 Source: Developed by Drs. Alex Ledezma, Messi Champion and colleagues, with an educational rhonda from [employer]. Physical exam (Primary Care) Vital Signs: Last Vital Signs Pulse 71 03/07/24 15:31 BP 116/66 03/07/24 15:31 Pulse Ox 98 03/07/24 15:31 Oxygen Delivery Method Room Air 03/07/24 15:31 BMI result Body Mass Index 27.2 Tobacco/Smoking Status: Tobacco use Status Tobacco use date assessed 09/22/23 03/07/24 15:30 Patient Tobacco Use Status Never used Tobacco 03/07/24 15:30 e-Cigarette/Vaping Use Never Used 03/07/24 15:30 PHQ-9: PHQ-9 Score PHQ-9: Total score 12 03/10/24 13:33 Depression Screening Interpretation: Positive Depression Screening Follow-up: Declines treatment Thrive Assessment: Date of Thrive Assessment Date Thrive assessed 07/01/21 03/07/24 15:30 Currently or been in a relationship where the following occur: No concerns reported Coding Level of Care Code Est Pt Prev Care >65y(10110) Diagnoses Physical exam Z00.00 Type 2 diabetes mellitus with unspecified complications E11.8 Essential hypertension I10 Difficulty sleeping G47.9 Fatigue, unspecified type R53.83 Fatigue type: unspecified Assessment & Plan Assessment & Plan (1) Physical exam: Code(s): Z00.00 - Encounter for general adult medical examination without abnormal findings Plan: Preventive measures for age discussed Patient declines colonoscopy referral Cologuard ordered. Labs ordered (2) Type 2 diabetes mellitus with unspecified complications: Code(s): E11.8 - Type 2 diabetes mellitus with unspecified complications Category: Medical Plan: controlled on current medications (3) Essential hypertension: Code(s): I10 - Essential (primary) hypertension Category: Medical Plan: Low salt diet continue current medication (4) Difficulty sleeping: Code(s): G47.9 - Sleep disorder, unspecified Category: Medical Plan: zolpidem sent (5) Fatigue: Code(s): R53.83 - Other fatigue Category: Medical Qualifiers: Fatigue type: unspecified Qualified Code(s): R53.83 - Other fatigue Plan: Labs ordered Orders: Orders Complete Blood Count Auto Diff 03/08/24 E11.8 - Type 2 diabetes mellitus with unspecified complications, R53.83 - Other fatigue Comprehensive Met. Panel 03/08/24 E11.8 - Type 2 diabetes mellitus with unspecified complications, R53.83 - Other fatigue Prostate Specific Antigen 03/08/24 E11.8 - Type 2 diabetes mellitus with unspecified complications, R53.83 - Other fatigue Microalbumin, Random (w Creat) 03/08/24 E11.8 - Type 2 diabetes mellitus with unspecified complications, R53.83 - Other fatigue Lyme IgG/IgM w/reflex to WB 03/08/24 E11.8 - Type 2 diabetes mellitus with unspecified complications, R53.83 - Other fatigue, R68.82 - Decreased libido TSH reflex Free T4 03/08/24 E11.8 - Type 2 diabetes mellitus with unspecified complications, R53.83 - Other fatigue Lipid Panel 03/08/24 E11.8 - Type 2 diabetes mellitus with unspecified complications, R53.83 - Other fatigue Vitamin B12 and Folate 03/08/24 R53.83 - Other fatigue IRON PROFILE 03/08/24 R53.83 - Other fatigue Testosterone, Free/Total 03/08/24 E11.8 - Type 2 diabetes mellitus with unspecified complications, R53.83 - Other fatigue, R68.82 - Decreased libido Referrals Orthopedics Referral M25.572 - Pain in left ankle and joints of left foot Podiatry Referral B35.1 - Tinea unguium, E11.8 - Type 2 diabetes mellitus with unspecified complications Cologuard Test Z12.11 - Encounter for screening for malignant neoplasm of colon, Z12.12 - Encounter for screening for malignant neoplasm of rectum Medications: New diclofenac sodium 1% (Arthritis Pain (diclofenac)) apply to single knee, ankle, foot; for foot includes sole/toes/top of foot 4 grams topical QID 100 grams 3RF Changed From zolpidem 5 mg PO BEDTIME 30 days PRN 30 tabs 0RF sleep G47.00 - Insomnia, unspecified, G47.9 - Sleep disorder, unspecified To zolpidem 5 mg PO BEDTIME PRN 60 tabs 0RF sleep 60 days G47.00 - Insomnia, unspecified, G47.9 - Sleep disorder, unspecified From glipizide 10 mg PO BID 30 days 60 tabs 2RF To glipizide 10 mg PO BID 180 tabs 3RF 90 days From lamotrigine 200 mg PO BID To lamotrigine 200 mg PO BID 180 tabs 3RF 90 days Refilled atorvastatin 80 mg PO QPM 90 tabs 3RF metoprolol succinate ER 50 mg PO BID 180 tabs 3RF 90 days clotrimazole 1% 1 appl topical BID 45 grams 3RF 2 weeks metformin 1,000 mg PO BID 180 tabs 3RF 90 days
[2024-03-07 15:31] VITALS: BP 116/66; PULSE 71; O2SAT 98; BMI 27.2
== END 2024-03-07 16:16 | disposition home or self-care (01) ==
PROVIDERS: PCP Family Medicine; Visit Provider Internal Medicine
DX: Z00.00 Encounter for general adult medical examination without abnormal findings (principal); E11.8 Type 2 diabetes mellitus with unspecified complications; I10 Essential (primary) hypertension; G47.9 Sleep disorder, unspecified; R53.83 Other fatigue

== ENCOUNTER → 2024-03-07 15:11 | Outpatient (BNVA) | payer MEDICARE, MEDICAID, SELFPAY ==
[2021-08-28 07:22] VITALS: BP 146/76; BP 148/60; BMI 26.7
== END ==
PROVIDERS: PCP Family Medicine; Visit Provider Internal Medicine
DX: Z00.00 Encounter for general adult medical examination without abnormal findings (principal); E11.8 Type 2 diabetes mellitus with unspecified complications; I10 Essential (primary) hypertension; G47.9 Sleep disorder, unspecified; R53.83 Other fatigue
CPT/HCPCS: 99397

== ENCOUNTER 2024-03-08 14:33 | Outpatient (REF) | payer MEDICARE, MEDICAID, SELFPAY ==
[2021-08-28 07:22] VITALS: BP 146/76; BP 148/60; BMI 26.7
[2024-03-08 15:57] LABS: Hematocrit 37.9 % (42.0-52.0); Hemoglobin 12.7 g/dl (14.0-18.0); Imm Gran Abs Auto 0.01 X10*3/uL (0.00-0.03); Imm Gran Pct Auto 0.1 % (0.0-0.4); Lymphocytes Absolute Auto 3.3 X10*3/uL (1.2-4.9); Lymphocytes Percent Auto 49.9 % (20-40); MANUAL DIFF FLAG SCAN; Mean Corpuscular HGB Conc 33.5 g/dl (31.0-36.0); Mean Corpuscular Hemoglobin 29.3 pg (27.0-33.0); Mean Corpuscular Volume 87.3 fL (80.0-98.0); Mean Platelet Volume 9.7 fL (9.4-12.4); Monocytes Absolute Auto 0.4 X10*3/uL (0.1-1.2); Monocytes Percent Auto 5.2 % (2-11); Neutrophils Percent Auto 44.8 % (45-73); Platelet Count 257 X10*3/uL (160-400); Red Blood Count 4.34 X10*6/uL (4.60-5.80); Red Cell Distribution Width 14.6 % (11.0-16.0); SCAN SMEAR FLAG 1; White Blood Count 6.7 X10*3/uL (4.8-10.8)
[2024-03-08 16:38] LABS: Alanine Aminotransferase 15 U/L (0-40); Albumin Level 4.4 g/dL (3.5-5.0); Alkaline Phosphatase 143 U/L (39-117); Anion Gap 15 (12-20); Aspartate Amino Transferase 22 U/L (5-37); Bilirubin Total 1.2 mg/dL (0.0-1.0); Blood Urea Nitrogen 21 mg/dL (9-16); Calcium 9.9 mg/dL (8.4-10.2); Carbon Dioxide 28 mmol/L (22-29); Chloride 103 mmol/L (96-108); Cholesterol 130 mg/dL (<200); Estimated Glomerular Filt Rate 48; Glucose Random 254 mg/dL (60-115); HDL Cholesterol 25 mg/dL (>40); Iron 71 mcg/dL (45-160); LDL Cholesterol Calculated 48 mg/dL (<100); Percent Iron Saturation 24 % (15-50); Sodium 142 mmol/L (135-145); Total Iron Binding Capacity 299 mcg/dL (228-428); Total Protein 7.9 g/dL (6.5-8.0); Triglycerides 285 mg/dL (<150); Unsaturated Iron Binding 228 ug/dL
[2024-03-08 16:56] LABS: TSH reflex Free T4 1.49 uIU/mL (0.32-4.0)
[2024-03-08 17:01] LABS: Folate 7.6 ng/mL (> or = 4.0); Prostate Specific Antigen 3.29 ng/mL (<0.05-4.0); Vitamin B12 314 pg/mL (200-900)
[2024-03-08 17:12] LABS: Creatinine Urine 149.26 mg/dL
[2024-03-08 17:24] LABS: Microalbum/Creatinine Ratio Ur 1339.9 ug/mg cr (<30); Microalbumin Urine > 2000.0 mg/L
[2024-03-08 19:38] LABS: SLIDE REVIEW VERIFIED
[2024-03-09 18:48] LABS: Lyme Abs Screen <0.90 index
[2024-03-12 15:33] LABS: Testosterone, Free 35.1 pg/mL (35.0-155.0); Testosterone, Total 270 ng/dL (250-1100)
== END 2024-03-08 14:34 | disposition home or self-care (01) ==
LOC: HO.LAB 14:33
PROVIDERS: Visit Provider Internal Medicine
DX: E11.8 Type 2 diabetes mellitus with unspecified complications (principal); R68.82 Decreased libido; R53.83 Other fatigue; Z12.5 Encounter for screening for malignant neoplasm of prostate
CPT/HCPCS: 36415; 80053; 80061; 82043; 82570; 82607; 82746; 83540; 84153; 84402; 84403; 84443; 85025; 86617; 86618

== ENCOUNTER → 2024-03-09 14:06 | Outpatient (BNVA) | payer MEDICARE, MEDICAID, SELFPAY ==
[2021-08-28 07:22] VITALS: BP 146/76; BP 148/60; BMI 26.7
== END ==
PROVIDERS: PCP Family Medicine; Visit Provider Family Medicine

== ENCOUNTER 2024-03-20 14:51 | Outpatient (AMB) | payer MEDICARE, MEDICAID, SELFPAY ==
[2021-08-28 07:22] VITALS: BP 146/76; BP 148/60; BMI 26.7
--- NOTE | 2024-03-20 14:40 | A.OFFPC_ITS ---
Intake Visit Reasons: blood work follow up Allergies No Known Allergies [No Known Allergies*] Allergy (Verified 03/07/24 15:29) Tobacco use date assessed: 09/22/23 Dental Screening Dental Screen Date: 09/22/23 HPI HPI Comments History of Present Illness Details 68 year old male with a past medical his tory of [place], diabetes, hypertension, presenting for follow up He was recently seen for physical exam. Following up on some labs-mild anemia, elevated Cr, alk phos. Diabetes is well controlled. 12/27/23 6.4%. On metformin 1000 twice daily, glipizide. On statin. Denies chest pain, exertional dyspnea. CV: On metoprolol 50mg b.i.d., atorvastatin, ASA Having a lot of trouble sleeping. Tried OTC. on zolpidem. He has been very fatigued for the past few months, low energy. Denies depressive symptoms Persistent left ankle pain following trip/injury. Had xray a year ago. Referral to podiatry was placed Declines colonoscopy. Cologuard test was ordered ROS CONSTITUTIONAL: Denies weight loss, fever and chills. HEENT: Denies changes in vision and hearing. RESPIRATORY: Denies SOB and cough. CV: Denies palpitations and CP GI: Denies abdominal pain, nausea, vomiting and diarrhea. : Denies dysuria and urinary frequency. MSK: Denies new myalgia and joint pain. SKIN: Denies rash and pruritus. NEUROLOGICAL: Denies headache PSYCHIATRIC: Denies recent changes in mood. PHYSICAL EXAM: GENERAL: Alert and oriented x 3. NAD EYES: EOMI. Anicteric. HENT: Moist mucous membranes. No scleral icterus. No cervical lymphadenopathy. LUNGS: Clear to auscultation bilaterally. CARDIOVASCULAR: Regular rate and rhythm. No murmur. No JVD. ABDOMEN: Soft, non-tender +bs EXTREMITIES: No edema. Non-tender. SKIN: No rashes or lesions. Warm. NEUROLOGIC: No focal neurological deficits. CN II-XII grossly intact PSYCHIATRIC: Cooperative. Appropriate mood and affect [facility] Medical History Low libido Screening for prostate cancer Pre-op examination Shift work sleep disorder Snoring Erectile dysfunction Headache Screening for prostate cancer Screening for colon cancer Adult general medical exam Erectile dysfunction due to type 2 diabetes mellitus Heart palpitations Chest pain COVID-19 High cholesterol Sciatica Hypertension Diabetes Epilepsy Heart attack Surgical History H/O colonoscopy History of tonsillectomy History of cardiac catheterization (~2015) History of coronary artery bypass graft x 2 (~2005) Family History Father Cardiovascular disease Mother No problems noted. Social History Housing: Apartment Alcohol intake: never Patient Tobacco Use Status: Never used Tobacco e-Cigarette/Vaping Use: Never Used Second Hand Smoke Exposure: No service: No Current occupational status: previously employed Current occupational exposures/hazards: No Cognitive needs: No Hearing needs: No Vision needs: No Questionnaire Thrive Questionnaire Date Thrive assessed: 03/07/24 LAURA-7 AMB Questionnaire LAURA-7 Date LAURA - 7 assessed: 04/22/23 Source: Developed by Drs. Alex Ledezma, Nicole Scott, Messi Og and colleagues, with an educational rhonda from [employer]. Physical exam (Primary Care) Tobacco/Smoking Status: Tobacco use Status Tobacco use date assessed 09/22/23 03/20/24 14:40 Patient Tobacco Use Status Never used Tobacco 03/20/24 14:40 e-Cigarette/Vaping Use Never Used 03/20/24 14:40 Thrive Assessment: Date of Thrive Assessment Date Thrive assessed 03/07/24 03/20/24 14:40 Coding Level of Care Code Est Pt Level 4 (00791) Diagnoses Type 2 diabetes mellitus with unspecified complications E11.8 Abnormal CBC R79.89 RISHABH (acute kidney injury) N17.9 Assessment & Plan Assessment & Plan (1) Type 2 diabetes mellitus with unspecified complications: Code(s): E11.8 - Type 2 diabetes mellitus with unspecified complications Category: Medical Plan: well controlled continue current medications (2) Abnormal CBC: Code(s): R79.89 - Other specified abnormal findings of blood chemistry Category: Medical Plan: repeat cbc. cologuard pending. declines colonoscopy (3) RISHABH (acute kidney injury): Code(s): N17.9 - Acute kidney failure, unspecified Category: Medical Plan: Repeat labs. If still abnormal likely nephrology consult Orders: Orders IRON PROFILE 03/20/24 R79.89 - Other specified abnormal findings of blood chemistry, N17.9 - Acute kidney failure, unspecified Pathologist Review - CBC 03/20/24 R79.89 - Other specified abnormal findings of blood chemistry, N17.9 - Acute kidney failure, unspecified Comprehensive Met. Panel 03/20/24 R79.89 - Other specified abnormal findings of blood chemistry, N17.9 - Acute kidney failure, unspecified Complete Blood Count Auto Diff 03/20/24 R79.89 - Other specified abnormal findings of blood chemistry, N17.9 - Acute kidney failure, unspecified
== END 2024-03-20 15:39 | disposition home or self-care (01) ==
LOC: HO.HMCFM 14:52
PROVIDERS: PCP Internal Medicine; Visit Provider Internal Medicine
DX: E11.8 Type 2 diabetes mellitus with unspecified complications (principal); R79.89 Other specified abnormal findings of blood chemistry; N17.9 Acute kidney failure, unspecified

== ENCOUNTER → 2024-03-20 14:51 | Outpatient (BNVA) | payer MEDICARE, MEDICAID, SELFPAY ==
[2021-08-28 07:22] VITALS: BP 146/76; BP 148/60; BMI 26.7
== END ==
PROVIDERS: PCP Internal Medicine; Visit Provider Internal Medicine
DX: E11.8 Type 2 diabetes mellitus with unspecified complications (principal); N17.9 Acute kidney failure, unspecified; R79.89 Other specified abnormal findings of blood chemistry
CPT/HCPCS: 99212

== ENCOUNTER 2024-03-27 09:34 | Outpatient (RCR) | payer MEDICARE, MEDICAID, SELFPAY ==
[2021-08-28 07:22] VITALS: BP 146/76; BP 148/60; BMI 26.7
--- NOTE | 2024-03-27 12:58 | MHC.PT.EP ---
[facility] [place] Office [place] Office [place] Office [address] [phone] F: [phone] F: [phone] F: [phone] F: [phone] Physical Therapy Plan of Care Date of Evaluation: 03/27/24 Date of Surgery: Diagnosis: cervicalgia, Hx of falls. Assessment: Pt is a 68 yo male with Hx of HTN, NE, DM II, who is referred to PT for eval and treat of cervicalgia s/p fall who reports he fell > 3 months ago and went to the ED as he hit his head; CT at the time did not indicate acute problems, reports he does not feel dizziness, reports he had just washed his floors and was wearing socks that were slippery and fell. He has DM though denies neuropathy Sx. He reports it has taken some time to get to his PT apt and reports no functional limitations d/t his neck pain which he reports as non limiting stiffness though wanted to follow up with his appointment. Reports part of neck stiffness may be chronic poor sleep. Evaluation reveals what patient describes as mild cervical soreness with end-range rotation and flexion which is largely full and unrestricted for his age, no TTP about his cervical and upper shoulder structures. Pt is not recommended to to attend therapy for his cervical condition as he reports no pain and reports his condition is not limiting his function; Pt is in agreement. Frequency and Duration: The patient will be seen Short Term Goals: Pt evaluated w/o need for treatment at this time. Clay Mixer Goals: Pt evaluated w/o need for treatment at this time. Treatment Plan: Modalities to reduce pain, spasms and effusion. Manual therapy to restore motion and function. Therapeutic exercise to improve strength and flexibility. Neuromuscular re-education for posture and balance. Therapeutic activities to return to functional activities of daily living. Electronically signed by: Minor Gonzalez PT. Please sign and return to therapist. Thank you for your referral.
== END 2024-03-27 12:59 | disposition home or self-care (01) ==
LOC: HO.PT 09:34
PROVIDERS: PCP Internal Medicine; Visit Provider Family Medicine
DX: M54.2 Cervicalgia (principal); Z91.81 History of falling
CPT/HCPCS: 97161

== ENCOUNTER 2024-04-04 16:12 | Outpatient (AMB) | payer MEDICARE, MEDICAID, SELFPAY ==
[2021-08-28 07:22] VITALS: BP 146/76; BP 148/60; BMI 26.7
--- NOTE | 2024-04-04 16:14 | A.OFFVIS_ITS ---
Intake Visit Reasons: 6M PSA/Testo(set) Intake Note: Patient is present for PSA/Testo follow up Urology Med: None Antibiotic Allergy: None Blood Thinner: Aspirin Hemoglobin A1C: 12/27/23- 6.4(H) PSA:03/08/24 -3.29 Testosterone: 03/08/24 -270 Allergies No Known Allergies [No Known Allergies*] Allergy (Verified 03/07/24 15:29) HPI Comments Details: Kiel is a pleasant male. He is a patient of Dr. Martin. Seen for following urologic conditions - erectile dysfunction - low libido Continue good response to injectable therapy. Uses TriMix 50 units. 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 - current evaluation for sleep disorder - type 2 diabetic with hypertension - HbA1c 03/14 7.9 - post COVID fatigue syndrome - atherosclerotic cardiovascular disease on isosorbide mononitrate, max statins, glipizide, metformin Prior therapy - failed high-dose oral therapy - prior success with injections Labs - 04/14 T 340 F 61.5, 07/16 T 365, 03/16 T 270 P3.3 PFSH Medical History Low libido Screening for prostate cancer Pre-op examination Shift work sleep disorder Snoring Erectile dysfunction Headache Screening for prostate cancer Screening for colon cancer Adult general medical exam Erectile dysfunction due to type 2 diabetes mellitus Heart palpitations Chest pain COVID-19 High cholesterol Sciatica Hypertension Diabetes Epilepsy Heart attack Surgical History H/O colonoscopy History of tonsillectomy History of cardiac catheterization (~2015) History of coronary artery bypass graft x 2 (~2005) Family History Father Cardiovascular disease Mother No problems noted. Social History Housing: Apartment Alcohol intake: never Patient Tobacco Use Status: Never used Tobacco e-Cigarette/Vaping Use: Never Used Second Hand Smoke Exposure: No service: No Current occupational status: previously employed Current occupational exposures/hazards: No Cognitive needs: No Hearing needs: No Vision needs: No Review of Systems Const All systems reviewed & are unremarkable except as noted in HPI and below Denies chills and Denies fever(s) Card Reports no additional complaints and Denies syncope Resp Denies cough GI Denies abdominal pain and Denies heartburn Reports as per HPI and Denies change in libido Musc Reports no additional complaints Neuro Denies syncope Psych Denies change in libido Endo Denies change in libido Physical Exam Telemedicine evaluation Appropriate responses Regular breathing rate and rhythm HEENT Head: Yes normal to inspection Ears: hearing grossly normal bilaterally Eyes General: appearance normal, both eyes and all related structures Neck Neck: Yes normal visual inspection Chest Chest palpation & inspection: normal inspection of the chest Resp Effort & Inspection: normal respiratory effort and able to speak in complete sentences Telehealth Telehealth Location of provider rendering services: practice address Location of patient: address on file Patient Identification confirmed using: Name, : Yes Telehealth method: video Patient verbally consented to treatment: Yes Patient verbally consented to billing insurance company: Yes Patient informed of any privacy concerns related to visit: Yes Assessment & Plan Assessment & Plan (1) Low testosterone: Code(s): R79.89 - Other specified abnormal findings of blood chemistry Category: Medical Plan Check testosterone Orders: Orders Testosterone, Free/Total 10 Weeks R79.89 - Other specified abnormal findings of blood chemistry Patient Instructions: Imaging studies, laboratory and physical exam results were discussed and reviewed in detail. No major barriers to patient understanding were identified. An opportunity to ask questions regarding the treatment plan was provided. All questions were answered. The patient expressed understanding and agreement with the above treatment plan. The patient is aware they should contact our office by phone for worsening of their current condition or the appearance of new urologic symptoms. Compliance is encouraged with any medications and followup testing that is ordered. It is a privilege to participate in the urologic care of your patient. If you have any questions or concerns regarding treatment for the above conditions, or other urologic issues, please do not hesitate to contact me. The office telephone contact is [phone]. This note is constructed using voice recognition software. While every effort has been made to ensure accuracy rehab services aide errors may have been included. Yours sincerely, Dr Maurizio Santamaria MD, [facility] - Urology Providers of Expert, Compassionate Care for the Genitourinary System Coding Level of Care Code Tele Est Pt Level 3 (80105) Diagnoses Low testosterone R79.89
== END 2024-04-04 16:35 | disposition home or self-care (01) ==
LOC: HO.HUSH 16:12
PROVIDERS: PCP Internal Medicine; Visit Provider Urology
DX: R79.89 Other specified abnormal findings of blood chemistry (principal)
CPT/HCPCS: 99213

== ENCOUNTER 2024-04-17 15:11 | Outpatient (REF) | payer MEDICARE, MEDICAID, SELFPAY ==
[2021-08-28 07:22] VITALS: BP 146/76; BP 148/60; BMI 26.7
[2024-04-17 16:10] LABS: Hematocrit 37.1 % (42.0-52.0); Hemoglobin 12.5 g/dl (14.0-18.0); Imm Gran Abs Auto 0.05 X10*3/uL (0.00-0.03); Imm Gran Pct Auto 0.7 % (0.0-0.4); Lymphocytes Absolute Auto 3.6 X10*3/uL (1.2-4.9); Lymphocytes Percent Auto 47.6 % (20-40); MANUAL DIFF FLAG SCAN; Mean Corpuscular HGB Conc 33.7 g/dl (31.0-36.0); Mean Corpuscular Hemoglobin 29.4 pg (27.0-33.0); Mean Corpuscular Volume 87.3 fL (80.0-98.0); Mean Platelet Volume 9.6 fL (9.4-12.4); Monocytes Absolute Auto 0.7 X10*3/uL (0.1-1.2); Monocytes Percent Auto 9.5 % (2-11); Neutrophils Absolute Auto 3.2 x10*3/uL (2.0-8.3); Neutrophils Percent Auto 42.2 % (45-73); Platelet Count 246 X10*3/uL (160-400); Red Blood Count 4.25 X10*6/uL (4.60-5.80); Red Cell Distribution Width 14.4 % (11.0-16.0); SCAN SMEAR FLAG 1; White Blood Count 7.6 X10*3/uL (4.8-10.8)
[2024-04-17 16:38] LABS: SLIDE REVIEW VERIFIED
[2024-04-17 16:51] LABS: Alanine Aminotransferase 18 U/L (0-40); Alkaline Phosphatase 127 U/L (39-117); Anion Gap 10 (12-20); Aspartate Amino Transferase 22 U/L (5-37); Blood Urea Nitrogen 15 mg/dL (9-16); Calcium 9.3 mg/dL (8.4-10.2); Carbon Dioxide 29 mmol/L (22-29); Chloride 105 mmol/L (96-108); Estimated Glomerular Filt Rate 50; Glucose Random 176 mg/dL (60-115); Iron 45 mcg/dL (45-160); Percent Iron Saturation 16 % (15-50); Potassium 4.7 mmol/L (3.3-5.1); Sodium 139 mmol/L (135-145); Total Iron Binding Capacity 277 mcg/dL (228-428); Total Protein 7.2 g/dL (6.5-8.0); Unsaturated Iron Binding 232 ug/dL
== END 2024-04-17 15:12 | disposition home or self-care (01) ==
LOC: HO.LAB 15:11
PROVIDERS: PCP Internal Medicine; Visit Provider Internal Medicine
DX: N17.9 Acute kidney failure, unspecified (principal); R79.89 Other specified abnormal findings of blood chemistry
CPT/HCPCS: 80053; 83540; 85025

== ENCOUNTER 2024-06-02 14:16 | Outpatient (REF) | payer SELFPAY ==
[2021-08-28 07:22] VITALS: BP 146/76; BP 148/60; BMI 26.7
== END 2024-06-02 14:17 | disposition home or self-care (01) ==
LOC: HO.HAP 14:16
PROVIDERS: Visit Provider Internal Medicine
DX: Z46.1 Encounter for fitting and adjustment of hearing aid (principal); H90.3 Sensorineural hearing loss, bilateral
CPT/HCPCS: 92593

== ENCOUNTER 2024-06-06 13:13 | Outpatient (REF) | payer MEDICARE, SELFPAY ==
[2021-08-28 07:22] VITALS: BP 146/76; BP 148/60; BMI 26.7
[2024-06-06 15:01] LABS: Appearance Urine Clear; Color Urine Yellow; Glucose Urine UA Negative (Negative); Leukocyte Esterase Urine Negative (Negative); Nitrite Urine Negative (Negative); UMIC TRIGGER UA YES; Urine Blood Negative (Negative); Urine Ketones Trace mg/dL (Negative); Urine Protein 300 (3+) mg/dL (Neg-Trace)
[2024-06-06 15:29] LABS: Bacteria Urine None Seen (None Seen); RBC Urine 0-2 /HPF (0-2); Squamous Epithelial Cell Urine 0-2 /HPF (0-2); WBC Urine 0-5 /HPF (0-5)
[2024-06-06 15:30] LABS: Hyaline Casts Urine 0-2 /LPF (0-2)
[2024-06-06 16:00] LABS: Parathyroid Hormone Intact 143.8 pg/mL (8.7-77.1)
== END 2024-06-06 13:14 | disposition home or self-care (01) ==
LOC: HO.LAB 13:13
PROVIDERS: PCP Internal Medicine; Referring Provider Internal Medicine; Visit Provider Internal Medicine Hypertension Specialist
DX: N17.9 Acute kidney failure, unspecified (principal); N18.30 Chronic kidney disease, stage 3 unspecified
CPT/HCPCS: 36415; 81001; 81003; 83970; 99202

== ENCOUNTER 2024-06-06 13:13 | Outpatient (AMB) | payer MEDICARE, MEDICAID, SELFPAY ==
[2021-08-28 07:22] VITALS: BP 146/76; BP 148/60; BMI 26.7
[2024-06-06 13:24] VITALS: BP 150/64; PULSE 71; O2SAT 96; BMI 27.6
--- NOTE | 2024-06-06 13:24 | HO.NEPHOV_ITS ---
Vital Signs 06/06/24 13:24 06/06/24 13:49 Height 5 ft 7 in Weight 176 lb BMI 27.6 BP 150/64 H 140/70 H Blood Pressure Location Lt brachial Lt brachial Position Sitting Sitting Pulse 71 Pulse Source Pulse Oximeter Pulse Oximetry (%) 96 Oxygen Delivery Method Room Air Intake Visit Reasons: INP: Acute kidney failure/CONF Cardiograph Operator Required: No Accompanied by: Self / Same As Patient Allergies No Known Allergies [No Known Allergies*] Allergy (Verified 06/06/24 13:26) Medication List - Last Reconciled 06/06/24 by Mynor Gallegos MD aspirin 81 mg PO DAILY atorvastatin 10 mg PO DAILY blood pressure test kit-large check bp daily once stable check twice a week and as needed blood sugar diagnostic (FreeStyle Lite Strips) daily clotrimazole 1% 1 appl topical BID 2 weeks collagenase clostridium histo. 1 appl topical BEDTIME PRN 14 days diclofenac sodium 1% (Arthritis Pain (diclofenac)) 4 grams topical QID glipizide 10 mg PO BID 90 days lamotrigine 200 mg PO BID 90 days losartan 50 mg PO DAILY metformin 1,000 mg PO BID 90 days metoprolol succinate ER 50 mg PO BID 90 days zolpidem 5 mg PO BEDTIME PRN 60 days HPI Comments Details: 68-year-old man with a history of diabetes mellitus and proteinuria referred for chronic kidney disease. Kiel had NH at the age of 43. He was diagnosed with diabetes mellitus at that time. He has had diabetes mellitus for more than 20 years. Recent urine protein creatinine ratio was 1.333. He was started on losartan 50 mg few months ago. Serum creatinine was 1.24 back in December of 2021. The next serum creatinine was 1.47 in February of 2024. With the increase p.o. hydration repeat serum creatinine was 1.41 in March of 2024. He also has hypertension. He was initially on metoprolol. History of seizures.. [place]. He is on lamotrigine. Follows with Dr. Wesotn There is a strong family history of coronary disease. Paternal grandmother at the age of 39. His father at age of 51 -both from myocardial infarction. He is currently retired. No history of smoking or alcohol abuse. [facility] Medical History Low libido Screening for prostate cancer Pre-op examination Shift work sleep disorder Snoring Erectile dysfunction Headache Screening for prostate cancer Screening for colon cancer Adult general medical exam Erectile dysfunction due to type 2 diabetes mellitus Heart palpitations Chest pain COVID-19 High cholesterol Sciatica Hypertension Diabetes Epilepsy Heart attack Surgical History H/O colonoscopy History of tonsillectomy History of cardiac catheterization (~2015) History of coronary artery bypass graft x 2 (~2005) Family History Father Cardiovascular disease Mother No problems noted. Social History Housing: Apartment Alcohol intake: never Patient Tobacco Use Status: Never used Tobacco e-Cigarette/Vaping Use: Never Used Second Hand Smoke Exposure: No service: No Current occupational status: previously employed Current occupational exposures/hazards: No Cognitive needs: No Hearing needs: No Vision needs: No Review of Systems Const Denies fever(s) and Denies weight loss Card Denies chest pain Resp Denies cough and Denies hemoptysis GI Denies abdominal pain, Denies diarrhea and Denies nausea Musc Denies back pain Neuro Denies focal weakness Physical Exam Vital Signs: Last Vital Signs Pulse 71 06/06/24 13:24 BP 140/70 H 06/06/24 13:49 Pulse Ox 96 06/06/24 13:24 Oxygen Delivery Method Room Air 06/06/24 13:24 BMI result Body Mass Index 27.6 Comfortable Neck supple no JVD. Lungs entry equal no rales. Heart S1-S2 heard no gallop or rub. Abdomen soft nontender. Neuro alert awake oriented. No asterixis. Extremities no edema. Results Reviewed Nephrology Results: Hgb 12.5 g/dl (14.0-18.0) L 04/17/24 WBC 7.6 X10*3/uL (4.8-10.8) 04/17/24 Plt Count 246 X10*3/uL (160-400) 04/17/24 Sodium 139 mmol/L (135-145) 04/17/24 Potassium 4.7 mmol/L (3.3-5.1) 04/17/24 Chloride 105 mmol/L (96-108) 04/17/24 Carbon Dioxide 29 mmol/L (22-29) 04/17/24 BUN 15 mg/dL (9-16) 04/17/24 Creatinine 1.41 mg/dL (0.5-1.4) H 04/17/24 Calcium 9.3 mg/dL (8.4-10.2) 04/17/24 Assessment & Plan Assessment & Plan (1) RISHABH (acute kidney injury): Code(s): N17.9 - Acute kidney failure, unspecified Category: Medical (2) CKD (chronic kidney disease) stage 3, GFR 30-59 ml/min: Code(s): N18.30 - Chronic kidney disease, stage 3 unspecified Category: Medical Plan Kiel has stage 3 chronic kidney disease in the setting of longstanding diabetes mellitus. He has had diabetes mellitus for more than 20 years. He has non nep hrotic range proteinuria most likely due to underlying diabetic kidney disease. No reason to believe he has any active glomerular nephritis or interstitial disease. Obstructive uropathy seems less likely nevertheless needs to be ruled out. There could be a component of acute kidney injury. Further clinical course we will determine this. Serum creatinine was 1.24 about 2 years ago and the current serum creatinine is around 1.4. This may be due to natural progression of the underlying disease. I have initiated a workup for CKD as outlined below. Hypertension. Blood pressure has been suboptimal initially. However the repeat blood pressure was better. Goal is to maintain blood pressure less than 130/80 mm Hg. Encouraged him to stay on low-sodium diet. She will recheck blood pressure and if needed we can either increase losartan or add a calcium channel shea to achieve the target. He returned to the office after the baseline workup is completed I will keep you updated Orders: Orders Creatinine Clearance Urine 24U Today N17.9 - Acute kidney failure, unspecified Creatinine, 24 Hr Group Today N17.9 - Acute kidney failure, unspecified Comprehensive Met. Panel Today N17.9 - Acute kidney failure, unspecified Protein, 24 Hr Urine Group Today N17.9 - Acute kidney failure, unspecified Parathyroid Hormone Intact Today N17.9 - Acute kidney failure, unspecified US renal BI Today I10 - Essential (primary) hypertension, N17.9 - Acute kidney failure, unspecified UA and rflx microscopic Today N17.9 - Acute kidney failure, unspecified Coding Level of Care Code New Pt Level 4 (73066) Diagnoses RISHABH (acute kidney injury) N17.9 CKD (chronic kidney disease) stage 3, GFR 30-59 ml/min N18.30
[2024-06-06 13:49] VITALS: BP 140/70
== END 2024-06-06 13:53 | disposition home or self-care (01) ==
PROVIDERS: PCP Internal Medicine; Referring Provider Internal Medicine; Visit Provider Internal Medicine Hypertension Specialist
DX: N17.9 Acute kidney failure, unspecified (principal); N18.30 Chronic kidney disease, stage 3 unspecified
CPT/HCPCS: 99204

== ENCOUNTER 2024-06-14 15:58 | Outpatient (REF) | payer MEDICARE, MEDICAID, SELFPAY ==
[2021-08-28 07:22] VITALS: BP 146/76; BP 148/60; BMI 26.7
--- NOTE | ~2024-06-14 | US_ITS ---
EXAMINATION: US RETROPERITONEAL LIMITED (RENAL ONLY) CLINICAL INFORMATION: Essential hypertension.. COMPARISON: 12/23/2012 abdomen US. TECHNIQUE: Real-time imaging of the kidneys. FINDINGS: RIGHT KIDNEY: 10.4 x 5.3 x 5.6 cm (SAG x AP x TRV). The kidney is normal in size, contour, and echogenicity. Renal cortical thickness is normal. No calculi or focal parenchymal lesions. No hydronephrosis. LEFT KIDNEY: 11.6 x 6.1 x 4.8 cm (SAG x AP x TRV). The kidney is normal in size, contour, and echogenicity. Renal cortical thickness is normal. No calculi or focal parenchymal lesions. No hydronephrosis. US/US renal BI IMPRESSION: Normal kidneys bilaterally. Electronically signed by: Hakan Faria MD 06/14/2024 04:58 PM [facility]
--- OUTSIDE RECORDS SUMMARY | 2024-06-14 18:07 | XMS_ITS | Clinical Summary ---
Author Organization [email or web address] Address [address] [place] [address] Care Team Providers Care Enterprise Security Architect Name Role Phone Unavailable Primary Care Provider Unavailabl e Allergies No known active allergies Medications atorvastatin (Lipitor) 10 MG tablet Take 10 mg by mouth in the morning. Active metoprolol succinate XL (Toprol-XL) 25 MG 24 hr tablet Take by mouth. Do not crush or chew. Active metFORMIN, OSM, (Fortamet) 500 MG 24 hr tablet Take 500 mg by mouth with evening meal. Do not crush, chew, or split. Active lamoTRIgine (LaMICtal) 25 MG tablet Take by mouth. Active aspirin 81 MG EC tablet Take 81 mg by mouth in the morning. Active glipiZIDE XL (Glucotrol XL) 2.5 MG 24 hr tablet Take 2.5 mg by mouth in the morning. Do not crush, chew, or split. Active Active Problems Problem Noted Date Diagnosed Date Retained dental root 09/30/2023 Severe dental caries 09/30/2023 Dental abscess 09/24/2023 Social History Tobacco Use Types Packs/Day Years Used Date Smoking Tobacco: Never Smokeless Tobacco: Never Tobacco Cessation:Counseling Given: Not Answered Alcohol Use Standard Drinks/Week Comments Defer 0 (1 standard drink = 0.6 oz pur e alcohol) Sex and Gender Information Value Date Recorded Sex Assigned at Male 08/25/2023 8:14 AM EDT Legal Sex Male 8:10 AM EDT Gender Identity Male 08/25/2023 8:11 AM EDT Sexual Orientation Straight 08/25/2023 8: 14 AM EDT Last Filed Vital Signs Vital Sign Reading Time Taken Comments Blood Pressure 120/70 09/30/2023 7:57 AM EDT Pulse 88 09/30/2023 7:57 AM EDT Temperature - - Respiratory Rate - - Oxygen Saturation - - Inhaled Oxygen Concentration - - Weight - - Height - - Body Mass Index - - Plan of Treatment Health Maintenance Due Date Last Done Comments CT Colonography 1957 Colonoscopy 1957 Colorectal Cancer Screening 1957 Dental Oral Exam 1957 Dental Prophylaxis 1957 Depression Screening 1957 FIT DNA/Cologuard 1957 FIT 1957 FOBT 1957 Lipid Panel 1957 SDOH Screening 1957 Sigmoidoscopy 1957 Alcohol/Substance Use Screening 1969 Hepatitis C Screening 1975 Zoster Vaccines (1 of 2) 2007 Pneumococcal Vaccine: 65+ Years (1 of 1 - PCV) 2022 COVID-19 Vaccine (4 - 2023-2 5 season) 2024 06/20/2021, 10/04/2020, 09/06/2020 Influenza Vaccine (#1) 2024 04/07/2021 Dental X-Ray: Bitewings 08/25/2024 08/25/2023 Tobacco Screening 09/29/2024 09/30/2023 Dental X-Ray: Full Mouth 09/24/2026 09/24/2023 DTaP/Tdap/Td Vaccines (2 - T d or Tdap) 11/20/2029 11/21/2019 RSV Patients and Patients Aged 60 years or older (1 - 1-dose 75+ series) 2032 HIB Vaccines Aged Out No longer eligi ble based on patient's age to complete this topic HPV Vaccines Aged Out No longer eligi ble based on patient's age to complete this topic Hepatitis A Vaccines Aged Out No long er eligible based on patient's age to complete this topic Hepatitis B Vaccines Aged Out No long er eligible based on patient's age to complete this topic IPV Vaccines Aged Out No longer eligi ble based on patient's age to complete this topic Meningococcal Vaccine Aged Out No philippe ronald eligible based on patient's age to complete this topic RSV under 20 months Aged Out No longe r eligible based on patient's age to complete this topic Rotavirus Vaccines Aged Out No longer eligible based on patient's age to complete this topic Procedures Procedure Name Priority Date/Time Associated Diagnosis Comments PANORAMIC RADIOGRAPHIC IMAGE Routine 09/24/2023 11:30 AM EDT BITEWING - SINGLE RADIOGRAPHIC IMAGE Routine 08/25/2023 1:00 PM EDT from Last 3 Months or Most Recently Relevant to Health Maintenance Insurance DENTAL - HSN FULL (MEDICAID)
--- OUTSIDE RECORDS SUMMARY | 2024-06-14 18:07 | XMS_ITS | Clinical Summary ---
Author Organization 175 [facility] Address [address] [place] [address] Phone Care Team Providers Care Mica Miner Blasting Name Role Phone Lou Jameson MD Primary Care Provider [phone] Allergies No known active allergies Medications Medication Sig Dispensed Refills Start Date End Date Status diclofenac (VOLTAREN) 1 % topical gel Apply 4 g topically 2 (two) times a day. Active zolpidem (AMBIEN) 5 mg tablet Take 1 tablet (5 mg total) by mouth at bedtime as needed for sleep. Max Daily Amount: 5 mg Active glipiZIDE (GLUCOTROL XL) 10 mg 24 hr tablet Take 1 tablet (10 mg total) by mouth 1 (one) time each day. Do not crush, chew, or split. Active lamoTRIgine (LaMICtal XR) 200 mg tablet extended release 24hr 24 hr tablet Take 1 tablet (200 mg total) by mouth. Active atorvastatin (LIPITOR) 80 mg tablet Take 1 tablet (80 mg total) by mouth at bedtime. Active metFORMIN (FORTAMET) 1,000 mg 24 hr tablet Take 1 tablet (1,000 mg total) by mouth 1 (one) time each day with dinner. Do not crush, chew, or split. Active clotrimazole (LOTRIMIN) 1 % cream Apply topically 2 (two) times a day. Active metoprolol succinate (TOPROL-XL) 50 mg 24 hr tablet Take 1 tablet (50 mg total) by mouth 1 (one) time each day. Do not crush or chew. Active clotrimazole (LOTRIMIN) 1 % cream Apply topically 2 (two) times a day. 30 g 3 06/07/2024 07/07/2024 Active Active Problems Problem Noted Date Diagnosed Date Type 2 diabetes mellitus with unspecified compli cations 06/02/2024 Tinea unguium 06/02/2024 Encounters Date Type Department Care Team Description 06/07/2024 1:00 PM EST Office Visit Orthopedic Surgery [facility] [address] [phone] Brandon Clement DPM Dermatophytosis of nail (Primary Dx); Pain in toe of right foot; Pain in toe of left foot; Tinea pedis of both feet; Diabetic mononeuropathy simplex (CMS/HCC); Type II diabetes mellitus with peripheral circulatory disorder (CMS/HCC); Metatarsalgia of both feet from Last 3 Months Social History Tobacco Use Types Packs/Day Years Used Date Smoking Tobacco: Never Assessed Sex and Gender Information Value Date Recorded Sex Assigned at Not on file Gender Identity Not on file Sexual Orientation Not on file Job Start Date Occupation Industry Not on file Not on file Not on file Last Filed Vital Signs Vital Sign Reading Time Taken Comments Blood Pressure - - Pulse - - Temperature - - Respiratory Rate - - Oxygen Saturation - - Inhaled Oxygen Concentration - - Weight 79.8 kg (176 lb) 06/07/2024 12:54 PM EST Height 170.2 cm (5' 7 ) 06/07/2024 12:54 PM EST Body Mass Index 27.57 06/07/2024 12:54 PM EST Plan of Treatment Upcoming Encounters Date Type Department Care Team (Late st Contact Info) Description 09/05/2024 1:30 PM EDT Office Visit Orthopedic [facility] [address] [phone] Brandon Clement DPM 175 [place] [address] Health Maintenance Due Date Last Done Comments Diabetes: Annual GFR (Glomerular Filtration Rate) 1957 Pneumococcal Vaccine: 65+ Years (1 of 2 - PCV) 1963 Diabetes: Annual Foot Exam 1967 Diabetes: Annual Retina Eye Exam 1967 Zoster Vaccines (1 of 2) 2007 RSV Immunization Patients 60 + Years Old (1 - Risk 60-74 years 1-dose series) 2017 COVID-19 Vaccine (2023-2 5 season) 2024 06/20/2021, 10/04/2020, 09/06/2020 Influenza Vaccine (#1) 2024 04/07/2021 Cholesterol Screening (Lipid Panel) 03/18/2024 Colorectal Cancer Screening: Colonoscopy 03/18/2024 Depression Screening 03/18/2024 Falls Risk Assessment 03/18/2024 Hepatitis C Screening 03/18/2024 Medicare Annual Wellness Visit 03/18/2024 Social Influencers of Health Screening 03/18/2024 Diabetes: Annual Urine Albumin-Creatinine Ratio (uACR) 06/02/2024 Diabetes: Blood Sugar Contro l Test (HGBA1C) 06/02/2024 DTaP,Tdap,and Td Vaccines (2 - Td or Tdap) 11/20/2029 11/21/2019 HIB Vaccines Aged Out No longer eligi [...] on patient's age to complete this topic MMR Vaccines Aged Out No longer eligi ble based on patient's age to complete this topic Meningococcal ACWY Vaccine Aged Out N o longer eligible based on patient's age to complete this topic RSV Immunization Patients Under 20 months Aged Out No longer eligible b ased on patient's age to complete this topic Varicella Vaccines Aged Out No longer eligible based on patient's age to complete this topic Care Teams Mica Miner Blasting Relationship Specialty Start Date End Date Lou Jameson MD PCP - General 03/15/24
--- OUTSIDE RECORDS SUMMARY | 2024-06-14 18:07 | XMS_ITS | Encounter Summary ---
Author Organization [facility] Address [address] [place] [phone] Care Team Providers Care Mid Level Java Developer Name Role Phone Lou Jameson MD Primary Care Provider [phone] Reason for Visit * Reason Comments DM Foot Care * Consultation (Routine) - Closed Specialty Diagnoses / Procedures Referred By Contact Referred To Contact Podiatry / Orthopaedic Surgery Diagnoses Diabetic foot (CMS/HCC) Procedures [id number] REFERRAL Lou Jameson MD [address] [place] [phone] Brandon Clement DPM [address] [place] [phone] Referral ID Status Reason Start Date Expiration Date V isits Requested Visits Authorized [id number] Closed Specialty Services Required 03/24/2024 03/24/2025 1 1 Encounter Details Date Type Department Care Team (Late st Contact Info) Description 06/07/2024 1:00 PM EST Office Visit Orthopedic Surgery [address] [phone] Brandon Clement DPM [address] [place] [phone] Dermatophytosis of nail (Primary Dx); Pain in toe of right foot; Pain in toe of left foot; Tinea pedis of both feet; Diabetic mononeuropathy simplex (CMS/HCC); Type II diabetes mellitus with peripheral circulatory disorder (CMS/HCC); Metatarsalgia of both feet Social History Tobacco Use Types Packs/Day Years Used Date Smoking Tobacco: Never Assessed Sex and Gender Information Value Date Recorded Sex Assigned at Not on file Gender Identity Not on file Sexual Orientation Not on file Job Start Date Occupation Industry Not on file Not on file Not on file documented as of this encounter Last Filed Vital Signs Vital Sign Reading Time Taken Comments Blood Pressure - - Pulse - - Temperature - - Respiratory Rate - - Oxygen Saturation - - Inhaled Oxygen Concentration - - Weight 79.8 kg (176 lb) 06/07/2024 12:54 PM EST Height 170.2 cm (5' 7 ) 06/07/2024 12:54 PM EST Body Mass Index 27.57 06/07/2024 12:54 PM EST documented in this encounter Ordered Prescriptions Prescription Sig Dispensed Refills Start Date End Da te clotrimazole (LOTRIMIN) 1 % cream Apply topically 2 (two) times a day. 30 g 3 06/07/2024 07/07/2024 documented in this encounter Progress Notes * Brandon Clement DPM - 06/07/2024 1:00 PM EST Last PCP visit:Referring MD: Lou Jameson MD 03/13/2024 IDENTIFIER: Tayla is a 68 y.o. year old male who presents for consultation. CC: Foot pain HPI: Patient presents today for evaluation of his feet he does report occasional numbness burning tingling does not that he has itchiness of his skin and nails he notes his nails elongated painful thickened to bother him his last A1c was 6.4 states that occasionally his nails grow too long and are painful and difficult for him to walk he does note that he follows with primary care his last PCP visit was on 03/13/2024 denies lipid complaints does state that he used to see an outside padded box sewer but was lost to follow-up ROS: GENERAL: Pt denies nausea, fever, vomiting, chills, or shortness of breath. Pt in NAD. CARDIOLOGY: pt denies chest pain, palpitations LUNGS: pt denies shortness of breath MUSCULOSKELETAL: See HPI, otherwise no joint pain or swelling, back pain, or muscle pain. SKIN: see HPI, otherwise no lesions, rash or itching NEURO: No persistent headache, weakness or numbness The remainder of the review of systems is noncontributory PAST MEDICAL HISTORY: Patient Active Problem List Diagnosis Type 2 diabetes mellitus with unspecified complications (CMS/HCC) Tinea unguium SOCIAL HISTORY: Social History Tobacco Use Smoking status: Not on file Smokeless tobacco: Not on file Substance Use Topics Alcohol use: Not on file ACTIVE MEDICATIONS: No outpatient medications have been marked as taking for the 06/07/24 encounter (Office Visit) with Brandon Clement DPM. ALLERGIES: No Known Allergies PHYSICAL EXAM: Visit Vitals Ht 1.702 m (67 ) Wt 79.8 kg (176 lb) BMI 27.57 kg/m?? BSA 1.91 m?? PODIATRIC EXAMINATION: GENERAL: Patient appears well nourished, with NAD. VASCULAR: Dorsalis pedis pulses are 1/4 bilaterally and Posterior tibial pulses are 2/4 bilaterally. Capillary filling time within normal limits the digits. No pallor on elevation or rubor on dependency. Positive hair growth. No varicosities. Denies rest pain or claudication pain. NEUROLOGICAL: Sharp/dull sensation intact, protective sensation intact 10/10 with 5.07 semmes farideh bilaterally, vibratory sensation with tuning fork intact to the tibial tuberosity. ORTHOPEDIC: Good muscle strength 5/5 of all flexors and extensors. Dorsi flexion of ankle ,10 degrees, plantar flexion WNL. No muscle atrophy. DERMATOLOGICAL:Toenails: Left Toenail(s) 1-5: Crumbling upon debridement, subungual debris, discoloration, dystrophy, elongation, mycotic appearance, onychomycosis, pain and thickening. Right Toenail(s) 1-5: Crumbling upon debridement, subungual debris, discoloration, dystrophy, elongation, mycotic appearance, onychomycosis, pain and thickening. Annular scaling bilateral feet moccasin distribution Skin thinning texture shiny appearance diffuse hyperpigmentation bilaterally pedal hair decreased BIOMECHANICS: Ankle ROM WNL, STJ ROM wnl, MTJ ROM crepitation palpable bilateral, 1st MPJ ROM wnl. Fat pad atrophy bilateral metatarsalgia bilateral hammertoe contractures to the 5 bilateral IMAGING: IMPRESSION: 1. Dermatophytosis of nail 2. Pain in toe of right foot 3. Pain in toe of left foot 4. Tinea pedis of both feet 5. Diabetic mononeuropathy simplex (CMS/HCC) 6. Type II diabetes mellitus with peripheral circulatory disorder (CMS/HCC) 7. Metatarsalgia of both feet PLAN: Pt was seen and examined, history reviewed. Clotrimazole prescribed Discussed with patient regarding proper glucose control, exercise, and diet. Explained to patient proper shoe gear, and importance of daily foot checks. I reviewed neuropathy and why it occurs in diabetics. I educated the patient on proper blood sugar control and the importance of an HgBA1c of less than 7.0%. I reviewed the signs and symptoms of neuropathy with the patient Pt to return for another evaluation in 3 months. Debridement of mycotic toenails 6-10: Verbal informed consent was obtained from the patient. Greater than 6 nails were aseptically debrided in thickness and length with nail nippers Brandon Clement DPM documented in this encounter Plan of Treatment Upcoming Encounters Date Type Department Care Team (Late st Contact Info) Description 09/05/2024 1:30 PM EDT Office Visit Orthopedic Surgery - [place] [phone] [phone] Brandon Clement DPM 175 [place] [address] documented as of this encounter Visit Diagnoses Diagnosis Dermatophytosis of nail- Primary Pain in toe of right foot Pain in soft tissues of limb Pain in toe of left foot Pain in soft tissues of limb Tinea pedis of both feet Diabetic mononeuropathy simplex (CMS/HCC) Type II or unspecified type diabetes mellitus with neurological manifestations, not stated as uncontrolled Type II diabetes mellitus with peripheral circulatory disorder (CMS/HCC) Type II or unspecified type diabetes mellitus with peripheral circulatory disorders, not stated as uncontrolled Metatarsalgia of both feet documented in this encounter Historical Medications * This list may reflect changes made after this encounter. Medication Sig Dispensed Refills Start Date End Date metoprolol succinate (TOPROL-XL) 50 mg 24 hr tablet Take 1 tablet (50 mg total) by mouth 1 (one) time each day. Do not crush or chew. clotrimazole (LOTRIMIN) 1 % cream Apply topically 2 (two) times a day. metFORMIN (FORTAMET) 1,000 mg 24 hr tablet Take 1 tablet (1,000 mg total) by mouth 1 (one) time each day with dinner. Do not crush, chew, or split. atorvastatin (LIPITOR) 80 mg tablet Take 1 tablet (80 mg total) by mouth at bedtime. lamoTRIgine (LaMICtal XR) 200 mg tablet extended release 24hr 24 hr tablet Take 1 tablet (200 mg total) by mouth. glipiZIDE (GLUCOTROL XL) 10 mg 24 hr tablet Take 1 tablet (10 mg total) by mouth 1 (one) time each day. Do not crush, chew, or split. zolpidem (AMBIEN) 5 mg tablet Take 1 tablet (5 mg total) by mouth at bedtime as needed for sleep. Max Daily Amount: 5 mg diclofenac (VOLTAREN) 1 % topical gel Apply 4 g topically 2 (two) times a day. added in this encounter Care Teams Mid Level Java Developer Relationship Specialty Start Date End Date Lou Jameson MD PCP - General 03/15/24 documented as of this encounter
== END 2024-06-14 15:59 | disposition home or self-care (01) ==
LOC: HO.US 15:58
PROVIDERS: PCP Internal Medicine; Visit Provider Internal Medicine Hypertension Specialist
DX: I10 Essential (primary) hypertension (principal); N17.9 Acute kidney failure, unspecified
CPT/HCPCS: 76775

== ENCOUNTER → 2024-06-14 15:59 | Outpatient (BNV) | payer MEDICARE, MEDICAID, SELFPAY ==
[2021-08-28 07:22] VITALS: BP 146/76; BP 148/60; BMI 26.7
== END ==
PROVIDERS: PCP Internal Medicine; Visit Provider Radiology Diagnostic Radiology
DX: I10 Essential (primary) hypertension (principal)
CPT/HCPCS: 76775

== ENCOUNTER 2024-06-15 08:16 | Outpatient (REF) | payer MEDICARE, MEDICAID, SELFPAY ==
[2021-08-28 07:22] VITALS: BP 146/76; BP 148/60; BMI 26.7
[2024-06-15 09:24] LABS: Creatinine, mg/dL 175.61
[2024-06-15 09:26] LABS: Creatinine, mg/dL 178.25; Protein mg/dL 147 mg/dL
[2024-06-15 09:40] LABS: Alanine Aminotransferase 20 U/L (0-40); Albumin Level 3.9 g/dL (3.5-5.0); Alkaline Phosphatase 126 U/L (39-117); Anion Gap 10 (12-20); Aspartate Amino Transferase 21 U/L (5-37); Bilirubin Total 0.8 mg/dL (0.0-1.0); Blood Urea Nitrogen 25 mg/dL (9-16); Calcium 9.4 mg/dL (8.4-10.2); Carbon Dioxide 28 mmol/L (22-29); Chloride 110 mmol/L (96-108); Estimated Glomerular Filt Rate 45; Glucose Random 81 mg/dL (60-115); Potassium 4.5 mmol/L (3.3-5.1); Sodium 143 mmol/L (135-145); Total Protein 7.2 g/dL (6.5-8.0)
[2024-06-15 10:08] LABS: Creatinine (CrCl) 1.56 mg/dL (0.5-1.4); Creatinine Clearance 49.5 mL/min (85-125); Creatinine, 24Hr Urine 1.1 G/Day (1.0-2.0); Protein 24 Hr Urine 919 mg/Day (<150); Total Volume 24 Hour Urine 625 mL
[2024-06-20 20:38] LABS: Testosterone, Free 61.9 pg/mL (35.0-155.0); Testosterone, Total 356 ng/dL (250-1100)
== END 2024-06-15 08:17 | disposition home or self-care (01) ==
LOC: HO.LAB 08:16
PROVIDERS: Urology; PCP Internal Medicine; Visit Provider Internal Medicine Hypertension Specialist
DX: N17.9 Acute kidney failure, unspecified (principal); R79.89 Other specified abnormal findings of blood chemistry
CPT/HCPCS: 36415; 80053; 82570; 82575; 84156; 84402; 84403

== ENCOUNTER 2024-06-27 13:29 | Outpatient (AMB) | payer MEDICARE, SELFPAY ==
[2021-08-28 07:22] VITALS: BP 146/76; BP 148/60; BMI 26.7
--- NOTE | 2024-06-27 13:29 | HO.NEPHOV_ITS ---
Vital Signs 06/27/24 13:30 06/27/24 13:41 06/27/24 13:42 Height 5 ft 7 in Weight 176 lb BMI 27.6 BP 152/62 H 140/70 H 120/70 Blood Pressure Location Lt brachial Lt brachial Lt brachial Position Sitting Sitting Standing Pulse 77 Pulse Source Pulse Oximeter Pulse Oximetry (%) 96 Oxygen Delivery Method Room Air Intake Visit Reasons: Acute kidney failure/ Conf Gasket Supervisor Required: No Accompanied by: Self / Same As Patient Allergies No Known Allergies [No Known Allergies*] Allergy (Verified 06/27/24 13:32) Medication List - Last Reconciled 06/27/24 by Mynor Gallegos MD aspirin 81 mg PO DAILY atorvastatin 80 mg PO BEDTIME blood pressure test kit-large check bp daily once stable check twice a week and as needed blood sugar diagnostic (FreeStyle Lite Strips) daily clotrimazole 1% 1 appl topical BID 2 weeks collagenase clostridium histo. 1 appl topical BEDTIME PRN 14 days diclofenac sodium 1% (Arthritis Pain (diclofenac)) 4 grams topical QID glipizide 10 mg PO BID 90 days lamotrigine 200 mg PO BID 90 days losartan 50 mg PO DAILY metformin 1,000 mg PO BID 90 days metoprolol succinate ER 50 mg PO BID 90 days zolpidem 10 mg (2 x 5 mg) PO BEDTIME 60 days HPI Comments Details: 68-year-old man with a history of diabetes mellitus and proteinuria referred for chronic kidney disease. Kiel had NH at the age of 43. He was diagnosed with diabetes mellitus at that time. He has had diabetes mellitus for more than 20 years. Recent urine protein creatinine ratio was 1.333. He was started on losartan 50 mg few months ago. Serum creatinine was 1.24 back in December of 2021. The next serum creatinine was 1.47 in February of 2024. With the increase p.o. hydration repeat serum creatinine was 1.41 in March of 2024. He also has hypertension. He was initially on metoprolol. History of seizures.. [place]. He is on lamotrigine. Follows with Dr. Weston There is a strong family history of coronary disease. Paternal grandmother at the age of 39. His father at age of 51 -both from myocardial infarction. He is currently retired. No history of smoking or alcohol abuse. [facility] Medical History Low libido Screening for prostate cancer Pre-op examination Shift work sleep disorder Snoring Erectile dysfunction Headache Screening for prostate cancer Screening for colon cancer Adult general medical exam Erectile dysfunction due to type 2 diabetes mellitus Heart palpitations Chest pain COVID-19 High cholesterol Sciatica Hypertension Diabetes Epilepsy Heart attack Surgical History H/O colonoscopy History of tonsillectomy History of cardiac catheterization (~2015) History of coronary artery bypass graft x 2 (~2005) Family History Father Cardiovascular disease Mother No problems noted. Social History Housing: Apartment Alcohol intake: never Patient Tobacco Use Status: Never used Tobacco e-Cigarette/Vaping Use: Never Used Second Hand Smoke Exposure: No service: No Current occupational status: previously employed Current occupational exposures/hazards: No Cognitive needs: No Hearing needs: No Vision needs: No Physical Exam Vital Signs: Last Vital Signs Pulse 77 06/27/24 13:30 BP 152/62 H 06/27/24 13:30 Pulse Ox 96 06/27/24 13:30 Oxygen Delivery Method Room Air 06/27/24 13:30 BMI result Body Mass Index 27.6 Comfortable Neck supple no JVD. Lungs entry equal no rales. Heart S1-S2 heard no gallop or rub. Abdomen soft nontender. Neuro alert awake oriented. No asterixis. Extremities no edema. Results Reviewed Results Reviewed: RIGHT KIDNEY: 10.4 x 5.3 x 5.6 cm (SAG x AP x TRV). The kidney is normal in size, contour, and echogenicity. Renal cortical thickness is normal. No calculi or focal parenchymal lesions. No hydronephrosis. LEFT KIDNEY: 11.6 x 6.1 x 4.8 cm (SAG x AP x TRV). The kidney is normal in size, contour, and echogenicity. Renal cortical thickness is normal. No calculi or focal parenchymal lesions. No hydronephrosis. US/US renal BI IMPRESSION: Normal kidneys bilaterally. Nephrology Results: Hgb 12.5 g/dl (14.0-18.0) L 04/17/24 WBC 7.6 X10*3/uL (4.8-10.8) 04/17/24 Plt Count 246 X10*3/uL (160-400) 04/17/24 Sodium 143 mmol/L (135-145) 06/15/24 Potassium 4.5 mmol/L (3.3-5.1) 06/15/24 Chloride 110 mmol/L (96-108) H 06/15/24 Carbon Dioxide 28 mmol/L (22-29) 06/15/24 BUN 25 mg/dL (9-16) H 06/15/24 Creatinine 1.56 mg/dL (0.5-1.4) H 06/15/24 Calcium 9.4 mg/dL (8.4-10.2) 06/15/24 PTH Intact 143.8 pg/mL (8.7-77.1) H 06/06/24 Urine Protein 300 (3+) mg/dL (Neg-Trace) H 06/06/24 Renal US 06/14/24 Assessment & Plan Assessment & Plan (1) RISHABH (acute kidney injury): Code(s): N17.9 - Acute kidney failure, unspecified Category: Medical (2) CKD (chronic kidney disease) stage 3, GFR 30-59 ml/min: Code(s): N18.30 - Chronic kidney disease, stage 3 unspecified Category: Medical Plan Kiel has stage 3 chronic kidney disease in the setting of longstanding diabetes mellitus. He has had diabetes mellitus for more than 20 years. He has non nephrotic range proteinuria most likely due to underlying diabetic kidney disease. No reason to believe he has any active glomerular nephritis or interstitial disease. No Obstructive uropathy based on renal ultrasonogram There could be a component of acute kidney injury. Further clinical course we will determine this. Serum creatinine was 1.24 about 2 years ago and the current serum creatinine is around 1.4. This may be due to natural progression of the underlying disease. Cr unchanged 24 hr urine shows volume of 625 cc with 919 mg of protein.- Non nephrotic SG is elevated Appears volume depleted Encouraged to increase fluid intake Hypertension. Standing BP was better Goal is to maintain blood pressure less than 130/80 mm Hg. Encouraged him to stay on low-sodium diet. She will recheck blood pressure and if needed we can either increase losartan or add a calcium channel shea to achieve the target. Orders: Orders UA and rflx microscopic 4 Weeks N18.30 - Chronic kidney disease, stage 3 unspecified Basic Metabolic Panel 4 Weeks N18.30 - Chronic kidney disease, stage 3 unspecified Coding Level of Care Code Est Pt Level 4 (00213) Diagnoses RISHABH (acute kidney injury) N17.9 CKD (chronic kidney disease) stage 3, GFR 30-59 ml/min N18.30
[2024-06-27 13:30] VITALS: BP 152/62; PULSE 77; O2SAT 96; BMI 27.6
[2024-06-27 13:41] VITALS: BP 140/70
[2024-06-27 13:42] VITALS: BP 120/70
--- OUTSIDE RECORDS SUMMARY | 2024-06-27 13:42 | XMS_ITS | Clinical Summary ---
Author Organization 175 [facility] Address [address] [place] [address] Phone Care Team Providers Care Ceramist Name Role Phone Lou Jameson MD Primary Care Provider [phone] Allergies No known active allergies Medications Medication [...] 1:00 PM EST Office Visit Orthopedic Surgery [facility] [address] [phone] Brandon Clement DPM Dermatophytosis of nail (Primary [...] 1:30 PM EDT Office Visit Orthopedic Surgery [facility] [address] [phone] Brandon Clement DPM [address] [address] Health Maintenance Due Date Last Done Comments [...] age to complete this topic Care Teams Ceramist Relationship Specialty Start Date End Date Lou Jameson MD PCP - General 03/15/24
--- OUTSIDE RECORDS SUMMARY | 2024-06-27 13:42 | XMS_ITS | Encounter Summary ---
Author Organization [facility] Address [address] [place] [phone] Care Team Providers Care Telegraphic Typewriter Mechanic Name Role Phone Lou Jameson MD Primary Care Provider Reason for Visit * Reason Comments DM Foot Care * Consultation (Routine) - Closed Specialty Diagnoses / Procedures Referred By Contact Referred To Contact Podiatry / Orthopaedic Surgery Diagnoses Diabetic foot (CMS/HCC) Procedures [id number] REFERRAL Lou Jameson MD [address] [place] [phone] Brandon Clement DPM [address] [place] [id number] Referral ID Status Reason Start Date Expiration Date V isits Requested Visits Authorized [id number] Closed Specialty Services Required 03/24/2024 03/24/2025 1 1 Encounter Details Date Type Department Care Team (Late st Contact Info) Description 06/07/2024 1:00 PM EST Office Visit Orthopedic Surgery - [place] [phone] [phone] Brandon Clement DPM [address] [address] Dermatophytosis of nail (Primary Dx); Pain in [...] in this encounter Progress Notes * Brandon Clement, DPM - 06/07/2024 1:00 PM EST Last [...] that he used to see an outside pocket assembler but was lost to follow-up ROS: GENERAL: [...] Pt was seen and examined, history reviewed. Triciarimazole prescribed Discussed with patient regarding proper glucose [...] PM EDT Office Visit Orthopedic Surgery - [place] [address] [phone] Brandon Clement DPM [address] [phone] documented as of this encounter Visit Diagnoses [...] day. added in this encounter Care Teams Telegraphic Typewriter Mechanic Relationship Specialty Start Date End Date Lou Jameson MD PCP - General 03/15/24 documented as of this encounter
--- OUTSIDE RECORDS SUMMARY | 2024-06-27 13:42 | XMS_ITS | Clinical Summary ---
Author Organization [employer] Address [address] [facility] [address] [place] [address] Care Team Providers Care Engineered Wood Designer Name Role Phone Unavailable Primary Care Provider [...] Use Screening 1969 Hepatitis C Screening 1975 Pneumococcal Vaccine: 50+ Years (1 of 1 - PCV) 2007 Zoster Vaccines (1 of 2) 2007 COVID-19 Vaccine (4 - 2023-2 5 season) [...]
== END 2024-06-27 13:49 | disposition home or self-care (01) ==
PROVIDERS: PCP Internal Medicine; Visit Provider Internal Medicine Hypertension Specialist
DX: N17.9 Acute kidney failure, unspecified (principal); N18.30 Chronic kidney disease, stage 3 unspecified
CPT/HCPCS: 99214

== ENCOUNTER 2024-06-27 13:29 | Outpatient (REF) | payer MEDICARE, SELFPAY ==
[2021-08-28 07:22] VITALS: BP 146/76; BP 148/60; BMI 26.7
--- OUTSIDE RECORDS SUMMARY | 2024-06-27 14:15 | XMS_ITS | Encounter Summary ---
Author Organization [facility] Address [address] [place] [phone] Care Team Providers Care Automotive Technology Instructor Name Role Phone Lou Jameson MD Primary Care Provider Reason for Visit * Reason Comments DM Foot Care * Consultation (Routine) - Closed Specialty Diagnoses / Procedures Referred By Contact Referred To Contact Podiatry / Orthopaedic Surgery Diagnoses Diabetic foot (CMS/HCC) Procedures [id number] REFERRAL Lou Jameson MD [address] [place] [phone] Brandon Clement DPM [address] [place] [id number] Referral ID Status Reason Start Date Expiration Date V isits Requested Visits Authorized [id number] Closed Specialty Services Required 03/24/2024 03/24/2025 1 1 Encounter Details Date Type Department Care Team (Late st Contact Info) Description 06/07/2024 1:00 PM EST Office Visit Orthopedic Surgery - [place] [address] [phone] Brandon Clement DPM [address] [address] Dermatophytosis of nail (Primary Dx); Pain in [...] that he used to see an outside ladle puller but was lost to follow-up ROS: GENERAL: [...] PM EDT Office Visit Orthopedic Surgery - [place] [address] [phone] Brandon Clement DPM [address] [address] documented as of this encounter Visit Diagnoses [...] day. added in this encounter Care Teams Automotive Technology Instructor Relationship Specialty Start Date End Date Lou Jameson MD PCP - General 03/15/24 documented as of this encounter
--- OUTSIDE RECORDS SUMMARY | 2024-06-27 14:15 | XMS_ITS | Clinical Summary ---
Author Organization [employer] Address 75 [facility] 7t [place] [address] Care Team Providers Care Convex Grinder Name Role Phone Unavailable Primary Care Provider [...]
--- OUTSIDE RECORDS SUMMARY | 2024-06-27 14:15 | XMS_ITS | Clinical Summary ---
Author Organization 175 [facility] Address 175 [place] [address] Phone Care Team Providers Care Milk Tanker Driver Name Role Phone Lou Jameson MD Primary Care Provider [phone] Allergies No known active allergies Medications Medication [...] 1:00 PM EST Office Visit Orthopedic Surgery [facility] [address] [phone] Brandon Clement DPM Dermatophytosis of nail (Primary [...] 1:30 PM EDT Office Visit Orthopedic Surgery [facility] [address] [phone] Brandon Clement DPM [address] [address] Health Maintenance Due Date Last Done Comments [...] age to complete this topic Care Teams Milk Tanker Driver Relationship Specialty Start Date End Date Lou Jameson MD PCP - General 03/15/24
[2024-07-02 13:54] LABS: Testosterone, Total 256 ng/dL (250-1100)
== END 2024-06-27 13:30 | disposition home or self-care (01) ==
LOC: HO.LAB 13:29
PROVIDERS: Absent Provider Urology; PCP Internal Medicine; Visit Provider Internal Medicine Hypertension Specialist
DX: N18.30 Chronic kidney disease, stage 3 unspecified (principal); R79.89 Other specified abnormal findings of blood chemistry; N17.9 Acute kidney failure, unspecified
CPT/HCPCS: 36415; 84403; 99212

== ENCOUNTER 2024-06-29 15:43 | Outpatient (REF) | payer MEDICARE, MEDICAID, SELFPAY ==
[2021-08-28 07:22] VITALS: BP 146/76; BP 148/60; BMI 26.7
--- OUTSIDE RECORDS SUMMARY | 2024-06-29 15:45 | XMS_ITS | Encounter Summary ---
Author Organization [facility] Address [address] [place] [phone] Care Team Providers Care Record Changer Name Role Phone Lou Jameson MD Primary Care Provider Reason for Visit * Reason Comments DM Foot Care * Consultation (Routine) - Closed Specialty Diagnoses / Procedures Referred By Contact Referred To Contact Podiatry / Orthopaedic Surgery Diagnoses Diabetic foot (CMS/HCC) Procedures [id number] REFERRAL Lou Jameson MD [address] [place] [phone] Brandon Clement DPM [address] [place] [phone] Referral ID Status Reason Start Date Expiration Date V isits Requested Visits Authorized [id number] Closed Specialty Services Required 03/24/2024 03/24/2025 1 1 Encounter Details Date Type Department Care Team (Late st Contact Info) Description 06/07/2024 1:00 PM EST Office Visit Orthopedic Surgery - [place] [address] [phone] Brandon Clement DPM [address] [address] Dermatophytosis of nail (Primary Dx); Pain in [...] that he used to see an outside web development consultant but was lost to follow-up ROS: GENERAL: [...] PM EDT Office Visit Orthopedic Surgery - [place] [address] [phone] Brandon Clement DPM [address] [address] documented as of this encounter Visit Diagnoses [...] day. added in this encounter Care Teams Record Changer Relationship Specialty Start Date End Date Lou Jameson MD PCP - General 03/15/24 documented as of this encounter
--- OUTSIDE RECORDS SUMMARY | 2024-06-29 15:45 | XMS_ITS | Clinical Summary ---
Author Organization 175 [facility] Address 175 [place] [address] Phone Care Team Providers Care Publishing Manager Name Role Phone Lou Jameson MD Primary Care Provider [phone] Allergies No known active allergies Medications Medication [...] 1:00 PM EST Office Visit Orthopedic Surgery [facility] [address] [phone] Brandon Clement DPM Dermatophytosis of nail (Primary [...] 1:30 PM EDT Office Visit Orthopedic Surgery [facility] [address] [phone] Brandon Clement DPM [address] [address] Health Maintenance Due Date Last Done Comments [...] age to complete this topic Care Teams Publishing Manager Relationship Specialty Start Date End Date Lou Jameson MD PCP - General 03/15/24
--- OUTSIDE RECORDS SUMMARY | 2024-06-29 15:46 | XMS_ITS | Clinical Summary ---
Author Organization [employer] Address 75 [facility] 7t [place] [address] Care Team Providers Care Road Engineer Freight Name Role Phone Unavailable Primary Care Provider [...]
[2024-07-03 08:28] LABS: Lamotrigine Lamictal 6.4 mcg/mL (2.5-15.0)
== END 2024-06-29 15:44 | disposition home or self-care (01) ==
LOC: HO.LAB 15:43
PROVIDERS: Visit Provider Registered Nurse
DX: I25.10 Atherosclerotic heart disease of native coronary artery without angina pectoris (principal); I25.2 Old myocardial infarction; I10 Essential (primary) hypertension; E11.8 Type 2 diabetes mellitus with unspecified complications; Z79.84 Long term (current) use of oral hypoglycemic drugs; Z95.1 Presence of aortocoronary bypass graft; E78.5 Hyperlipidemia, unspecified; Z79.899 Other long term (current) drug therapy; G40.909 Epilepsy, unspecified, not intractable, without status epilepticus
CPT/HCPCS: 36415; 80175; 93005; 99212

== ENCOUNTER 2024-07-04 14:50 | Outpatient (AMB) | payer MEDICARE, MEDICAID, SELFPAY ==
[2021-08-28 07:22] VITALS: BP 146/76; BP 148/60; BMI 26.7
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
== END 2024-07-04 15:20 | disposition home or self-care (01) ==
PROVIDERS: PCP Internal Medicine; Visit Provider Urology
DX: E11.69 Type 2 diabetes mellitus with other specified complication (principal); N52.1 Erectile dysfunction due to diseases classified elsewhere; R79.89 Other specified abnormal findings of blood chemistry; R68.82 Decreased libido
CPT/HCPCS: 99214; G2211

== ENCOUNTER → 2024-07-04 14:50 | Outpatient (BNVA) | payer MEDICARE, MEDICAID, SELFPAY ==
[2021-08-28 07:22] VITALS: BP 146/76; BP 148/60; BMI 26.7
== END ==
PROVIDERS: PCP Internal Medicine; Visit Provider Urology
DX: E11.69 Type 2 diabetes mellitus with other specified complication (principal); N52.1 Erectile dysfunction due to diseases classified elsewhere; R79.89 Other specified abnormal findings of blood chemistry; R68.82 Decreased libido
CPT/HCPCS: 99212

== ENCOUNTER 2024-08-01 12:25 | Outpatient (REF) | payer MEDICARE, MEDICAID, SELFPAY ==
[2021-08-28 07:22] VITALS: BP 146/76; BP 148/60; BMI 26.7
[2024-08-01 13:30] LABS: Appearance Urine Clear; Color Urine Yellow; Glucose Urine UA Negative (Negative); Leukocyte Esterase Urine Negative (Negative); Nitrite Urine Negative (Negative); PH 5.5 (5.0-9.0); Specific Gravity - Urine 1.015 (1.005-1.025); UMIC TRIGGER UA YES; Urine Blood Negative (Negative); Urine Ketones Negative (Negative); Urine Protein 100 (2+) mg/dL (Neg-Trace)
[2024-08-01 13:33] LABS: Bacteria Urine None Seen (None Seen); Hyaline Casts Urine 0-2 /LPF (0-2); RBC Urine 0-2 /HPF (0-2); Squamous Epithelial Cell Urine 0-2 /HPF (0-2); WBC Urine 0-5 /HPF (0-5)
[2024-08-01 14:19] LABS: Anion Gap 12 (12-20); Blood Urea Nitrogen 22 mg/dL (9-16); Calcium 9.6 mg/dL (8.4-10.2); Carbon Dioxide 28 mmol/L (22-29); Chloride 107 mmol/L (96-108); Estimated Glomerular Filt Rate 48; Glucose Random 116 mg/dL (60-115); Potassium 4.1 mmol/L (3.3-5.1); Sodium 143 mmol/L (135-145)
--- OUTSIDE RECORDS SUMMARY | 2024-08-01 15:01 | XMS_ITS | Clinical Summary ---
Author Organization 175 [facility] Address 175 [place] [address] Phone Care Team Providers Care Design Manager Name Role Phone Lou Jameson MD Primary Care Provider [phone] Allergies No known active allergies Medications diclofenac (VOLTAREN) 1 % topical gel Apply [...] (two) times a day. 30 g 3 5 07/07/19 25 Active Problems Problem Noted Date Diagnosed Date Type 2 diabetes mellitus with unspecified compli cations 06/02/2024 Tinea unguium 06/02/2024 Encounters Date Type Department Care Team Description 06/07/2024 1:00 PM EST Office Visit Orthopedic Surgery [facility] [address] [phone] Brandon Clement DPM Dermatophytosis of nail (Primary Dx); Pain in toe of right foot; Pain in toe of left foot; Tinea pedis of both feet; Diabetic mononeuropathy simplex ([facility]/HCC); Type II diabetes mellitus with peripheral circulatory disorder ([facility]); Metatarsalgia of both feet from Last 3 Months Social History Tobacco Use Types Packs/Day Years Used Date Smoking Tobacco: Never Assessed Sex and Gender Information Value Date Recorded Sex Assigned at Not on file Legal Sex Male 4:37 PM EDT Gender Identity Not on file Sexual Orientation Not on file Last Filed Vital Signs [...] 09/05/2024 1:30 PM EDT Office Visit Orthopedic [facility] [address] [phone] Brandon Clement DPM [address] [address] Health Maintenance Due Date Last Done Comments Diabetes: Annual GFR (Glomerular Filtration Rate) 1957 Diabetes: Annual Foot Exam 1967 Diabetes: Annual Retina Eye Exam 1967 Pneumococcal Vaccine: 50+ Years (1 of 2 - PCV) 1976 Zoster Vaccines (1 of 2) 2007 RSV [...] patient's age to complete this topic Meningococcal B Vacine Aged Out No lo nger eligible based on patient's age to complete this topic RSV Immunization Patients Under 20 months Aged Out No longer eligible b ased on patient's age to complete this topic Varicella Vaccines Aged Out No longer eligible based on patient's age to complete this topic Insurance MEDICAID - [place] MEDICARE Care Teams Design Manager Relationship Specialty Start Date End Date Lou Jameson MD PCP - General 03/15/24
--- OUTSIDE RECORDS SUMMARY | 2024-08-01 15:01 | XMS_ITS | Clinical Summary ---
Author Organization [employer] Address 75 [facility] 7t [place] [address] Care Team Providers Care Restaurant Operations Manager Name Role Phone Unavailable Primary Care Provider [...]
== END 2024-08-01 12:26 | disposition home or self-care (01) ==
LOC: HO.LAB 12:25
PROVIDERS: PCP Internal Medicine; Visit Provider Internal Medicine Hypertension Specialist
DX: N18.30 Chronic kidney disease, stage 3 unspecified (principal)
CPT/HCPCS: 36415; 80048; 81001

== ENCOUNTER 2024-08-08 10:35 | Outpatient (AMB) | payer MEDICARE, SELFPAY ==
[2021-08-28 07:22] VITALS: BP 146/76; BP 148/60; BMI 26.7
[2024-08-08 10:52] VITALS: BP 140/68; PULSE 61; O2SAT 96; BMI 27.2
--- NOTE | 2024-08-08 10:52 | HO.NEPHOV_ITS ---
Vital Signs 08/08/24 10:52 Height 5 ft 7 in Weight 174 lb BMI 27.2 BP 140/68 H Blood Pressure Location Rt brachial Position Sitting Pulse 61 Pulse Source Pulse Oximeter Pulse Oximetry (%) 96 Oxygen Delivery Method Room Air Intake Visit Reasons: Acute kidney failure/ LVM Metal Spraying Machine Operator Required: No Accompanied by: Self / Same As Patient Allergies No Known Allergies [No Known Allergies*] Allergy (Verified 08/08/24 10:54) Medication List - Last Reconciled 08/08/24 by Mnyor Gallegos MD amlodipine 2.5 mg PO DAILY aspirin 81 mg PO DAILY atorvastatin 80 mg PO BEDTIME blood pressure test kit-large check bp daily once stable check twice a week and as needed blood sugar diagnostic (FreeStyle Lite Strips) daily clotrimazole 1% 1 appl topical BID 2 weeks collagenase clostridium histo. 1 appl topical BEDTIME PRN 14 days diclofenac sodium 1% (Arthritis Pain (diclofenac)) 4 grams topical QID glipizide 10 mg PO BID 90 days lamotrigine 200 mg PO BID 90 days losartan 50 mg PO DAILY metformin 1,000 mg PO BID 90 days metoprolol succinate ER 50 mg PO BID 90 days needle (disp) 18 G (BD Regular Bevel [place]) As directed - draw up testosterone needle (disp) 23 gauge (BD Regular Bevel [place]) Inject testosterone subcutaneous safety needles (BD SafetyGlide Needle) As directed to inject testosterone syringe (disposable) (BD Luer-Verito Syringe) Testosterone injection weekly testosterone cypionate (Depo-Testosterone) 80 mg (0.4 mL) subcut QWEEK 4 weeks zolpidem 10 mg (2 x 5 mg) PO BEDTIME 60 days HPI Comments Details: 69-year-old man with a history of diabetes mellitus and proteinuria referred for chronic kidney disease. Kiel had CO at the age of 43. He was diagnosed with diabetes mellitus at that time. He has had diabetes mellitus for more than 20 years. Recent urine protein creatinine ratio was 1.333. He was started on losartan 50 mg few months ago. Serum creatinine was 1.24 back in December of 2021. The next serum creatinine was 1.47 in February of 2024. With the increase p.o. hydration repeat serum creatinine was 1.41 in March of 2024. He also has hypertension. He was initially on metoprolol. History of seizures.. [place]. He is on lamotrigine. Follows with Dr. Weston There is a strong family history of coronary disease. Paternal grandmother at the age of 39. His father at age of 51 -both from myocardial infarction. He is currently retired. No history of smoking or alcohol abuse. [facility] Medical History Low libido Screening for prostate cancer Pre-op examination Shift work sleep disorder Snoring Erectile dysfunction Headache Screening for prostate cancer Screening for colon cancer Adult general medical exam Erectile dysfunction due to type 2 diabetes mellitus Heart palpitations Chest pain COVID-19 High cholesterol Sciatica Hypertension Diabetes Epilepsy Heart attack Surgical History H/O colonoscopy History of tonsillectomy History of cardiac catheterization (~2015) History of coronary artery bypass graft x 2 (~2005) Family History Father Cardiovascular disease Mother No problems noted. Social History Housing: Apartment Alcohol intake: never Patient Tobacco Use Status: Never used Tobacco e-Cigarette/Vaping Use: Never Used Second Hand Smoke Exposure: No service: No Current occupational status: previously employed Current occupational exposures/hazards: No Cognitive needs: No Hearing needs: No Vision needs: No Physical Exam Vital Signs: Last Vital Signs Pulse 61 08/08/24 10:52 BP 140/68 H 08/08/24 10:52 Pulse Ox 96 08/08/24 10:52 Oxygen Delivery Method Room Air 08/08/24 10:52 BMI result Body Mass Index 27.2 Comfortable Neck supple no JVD. Lungs entry equal no rales. Heart S1-S2 heard no gallop or rub. Abdomen soft nontender. Neuro alert awake oriented. No asterixis. Extremities no edema. Results Reviewed Nephrology Results: Sodium 143 mmol/L (135-145) 08/01/24 Potassium 4.1 mmol/L (3.3-5.1) 08/01/24 Chloride 107 mmol/L (96-108) 08/01/24 Carbon Dioxide 28 mmol/L (22-29) 08/01/24 BUN 22 mg/dL (9-16) H 08/01/24 Creatinine 1.46 mg/dL (0.5-1.4) H 08/01/24 Calcium 9.6 mg/dL (8.4-10.2) 08/01/24 Urine Protein 100 (2+) mg/dL (Neg-Trace) H 08/01/24 Renal US 06/14/24 Assessment & Plan Assessment & Plan (1) RISHABH (acute kidney injury): Code(s): N17.9 - Acute kidney failure, unspecified Category: Medical (2) CKD (chronic kidney disease) stage 3, GFR 30-59 ml/min: Code(s): N18.30 - Chronic kidney disease, stage 3 unspecified Category: Medical Plan Kiel has stage 3 chronic kidney disease in the setting of longstanding diabetes mellitus. He has had diabetes mellitus for more than 20 years. He has non nephrotic range proteinuria most likely due to underlying diabetic kidney disease. No reason to believe he has any active glomerular nephritis or interstitial disease. No Obstructive uropathy based on renal ultrasonogram There could be a component of acute kidney injury. Further clinical course we will determine this. Serum creatinine was 1.24 about 2 years ago and the current serum creatinine is around 1.4. This may be due to natural progression of the underlying disease. Cr unchanged 24 hr urine shows volume of 625 cc with 919 mg of protein.- Non nephrotic SG is elevated Appears volume depleted Encouraged to increase fluid intake Hypertension. BP is above Goal is to maintain blood pressure less than 130/80 mm Hg. Encouraged him to stay on low-sodium diet. Increase amlodipine from 2.5 mg up to 5 mg daily Orders: Orders UA and rflx microscopic 4 Months N18.30 - Chronic kidney disease, stage 3 unspecified Total Protein Urine Random 4 Months N18.30 - Chronic kidney disease, stage 3 unspecified Creatinine Urine 4 Months N18.30 - Chronic kidney disease, stage 3 unspecified Basic Metabolic Panel 4 Months N18.30 - Chronic kidney disease, stage 3 unspecified Medications: Changed From amlodipine 2.5 mg PO DAILY 90 tabs 3RF To amlodipine 5 mg PO DAILY 90 tabs 3RF Coding Level of Care Code Est Pt Level 4 ([address]) Diagnoses RISHABH (acute kidney injury) N17.9 CKD (chronic kidney disease) stage 3, GFR 30-59 ml/min N18.30
--- OUTSIDE RECORDS SUMMARY | 2024-08-08 12:29 | XMS_ITS | Clinical Summary ---
Author Organization [employer] Address 75 [facility] 7t [place] [address] Care Team Providers Care Lance Crewmember/Mlrs Sergeant Name Role Phone Unavailable Primary Care Provider [...]
--- OUTSIDE RECORDS SUMMARY | 2024-08-08 12:29 | XMS_ITS | Clinical Summary ---
Author Organization 175 [facility] Address 175 [place] [address] Phone Care Team Providers Care Baker Operator Automatic Name Role Phone Lou Jameson MD Primary Care Provider Allergies No known active allergies Medications diclofenac [...] day. Do not crush or chew. Active Active Problems Problem Noted Date Diagnosed Date Type 2 diabetes mellitus with unspecified compli cations 06/02/2024 Tinea unguium 06/02/2024 Encounters Date Type Department Care Team Description 06/07/2024 1:00 PM EST Office Visit Orthopedic Surgery [facility] [address] [phone] Brandon Clement DPM Dermatophytosis of nail (Primary [...] 09/05/2024 1:30 PM EDT Office Visit Orthopedic [place] [address] [phone] Brandon Clement DPM [address] [address] Health Maintenance Due Date Last Done Comments Diabetes: Annual GFR (Glomerular Filtration Rate) 1957 Diabetes: Annual Foot Exam 1967 Diabetes: Annual Retina Eye Exam 1967 Pneumococcal Vaccine: 50+ Years (1 of 2 - PCV) 1976 Zoster Vaccines (1 of 2) 2007 RSV Immunization Patients 60 + Years Old (1 - Risk 60-74 years 1-dose series) 2017 COVID-19 Vaccine ( - 2023-2 5 season) 2024 06/20/2021, 10/04/2020, [...] to complete this topic Insurance MEDICAID - [place] MEDICARE Care Teams Baker Operator Automatic Relationship Specialty Start Date End Date oLu Jameson MD PCP - General 03/15/24
== END 2024-08-08 11:15 | disposition home or self-care (01) ==
LOC: HO.HKA 10:35
PROVIDERS: PCP Internal Medicine; Visit Provider Internal Medicine Hypertension Specialist
DX: N17.9 Acute kidney failure, unspecified (principal); N18.30 Chronic kidney disease, stage 3 unspecified
CPT/HCPCS: 99214

== ENCOUNTER → 2024-08-08 10:35 | Outpatient (BNVA) | payer MEDICARE, SELFPAY ==
[2021-08-28 07:22] VITALS: BP 146/76; BP 148/60; BMI 26.7
== END ==
PROVIDERS: PCP Internal Medicine; Visit Provider Internal Medicine Hypertension Specialist
DX: E11.22 Type 2 diabetes mellitus with diabetic chronic kidney disease (principal); R80.9 Proteinuria, unspecified; N17.9 Acute kidney failure, unspecified; N18.30 Chronic kidney disease, stage 3 unspecified
CPT/HCPCS: 99212

== ENCOUNTER 2024-08-15 10:12 | Outpatient (AMB) | payer MEDICARE, MEDICAID, SELFPAY ==
[2021-08-28 07:22] VITALS: BP 146/76; BP 148/60; BMI 26.7
--- NOTE | 2024-08-15 10:42 | A.OFFPC_ITS ---
Vital Signs 08/15/24 10:51 08/15/24 11:02 Height 5 ft 7 in Weight 175 lb BMI 27.4 BP 158/66 H 152/70 H Blood Pressure Location Rt brachial Rt brachial Position Sitting Sitting Respiration 12 Pulse 59 Pulse Source Pulse Oximeter Pulse Oximetry (%) 99 Oxygen Delivery Method Room Air Intake Visit Reasons: DM Intake Note: Follow up diabetes, htn. Blood pressures are still elevated still. Underwriting Consultant Required: No Allergies No Known Allergies [No Known Allergies*] Allergy (Verified 08/15/24 10:47) Medication List - Last Reconciled 08/15/24 by Lou Jameson MD amlodipine 10 mg PO DAILY aspirin 81 mg PO DAILY atorvastatin 80 mg PO BEDTIME blood pressure test kit-large check bp daily once stable check twice a week and as needed blood sugar diagnostic (FreeStyle Lite Strips) daily clotrimazole 1% 1 appl topical BID 2 weeks collagenase clostridium histo. 1 appl topical BEDTIME PRN 14 days glipizide 10 mg PO BID 90 days lamotrigine 200 mg PO BID 90 days losartan 50 mg PO DAILY metformin 1,000 mg PO BID 90 days metoprolol succinate ER 50 mg PO BID 90 days needle (disp) 18 G (BD Regular Bevel [place]) As directed - draw up testosterone needle (disp) 23 gauge (BD Regular Bevel [place]) Inject testosterone subcutaneous safety needles (BD SafetyGlide Needle) As directed to inject testosterone syringe (disposable) (BD Luer-Verito Syringe) Testosterone injection weekly testosterone cypionate (Depo-Testosterone) 80 mg (0.4 mL) subcut QWEEK 4 weeks zolpidem 10 mg (2 x 5 mg) PO BEDTIME 60 days Tobacco use date assessed: 09/22/23 Dental Screening Dental Screen Date: 09/22/23 HPI HPI Comments History of Present Illness Details 69 year old male with a past medical his [place] of [place], diabetes, hypertension, CKD presenting for follow up Diabetes is well controlled. 12/27/23 6.4%. On metformin 1000 twice daily, glipizide. On statin. Denies chest pain, exertional dyspnea. CKD. seeing nephrology CV: On metoprolol 50mg b.i.d, losartan, atorvastatin, ASA Having a lot of trouble sleeping. Tried OTC. on zolpidem. Persistent left ankle pain following trip/injury. Had xray a year ago. Referral to podiatry was placed Declines colonoscopy. Cologuard test was ordered ROS CONSTITUTIONAL: Denies weight loss, fever and chills. HEENT: Denies changes in vision and hearing. RESPIRATORY: Denies SOB and cough. CV: Denies palpitations and CP GI: Denies abdominal pain, nausea, vomiting and diarrhea. : Denies dysuria and urinary frequency. MSK: Denies new myalgia and joint pain. SKIN: Denies rash and pruritus. NEUROLOGICAL: Denies headache PSYCHIATRIC: Denies recent changes in mood. PHYSICAL EXAM: GENERAL: Alert and oriented x 3. NAD EYES: EOMI. Anicteric. HENT: Moist mucous membranes. No scleral icterus. No cervical lymphadenopathy. LUNGS: Clear to auscultation bilaterally. CARDIOVASCULAR: Regular rate and rhythm. No murmur. No JVD. ABDOMEN: Soft, non-tender +bs EXTREMITIES: No edema. Non-tender. SKIN: No rashes or lesions. Warm. NEUROLOGIC: No focal neurological deficits. CN II-XII grossly intact PSYCHIATRIC: Cooperative. Appropriate mood and affect [facility] Medical History Low libido Screening for prostate cancer Pre-op examination Shift work sleep disorder Snoring Erectile dysfunction Headache Screening for prostate cancer Screening for colon cancer Adult general medical exam Erectile dysfunction due to type 2 diabetes mellitus Heart palpitations Chest pain COVID-19 High cholesterol Sciatica Hypertension Diabetes Epilepsy Heart attack Surgical History H/O colonoscopy History of tonsillectomy History of cardiac catheterization (~2015) History of coronary artery bypass graft x 2 (~2005) Family History Father Cardiovascular disease Mother No problems noted. Social History Housing: Apartment Alcohol intake: never Patient Tobacco Use Status: Never used Tobacco e-Cigarette/Vaping Use: Never Used Second Hand Smoke Exposure: No service: No Current occupational status: previously employed Current occupational exposures/hazards: No Cognitive needs: No Hearing needs: No Vision needs: No Questionnaire PHQ-9 Over the last 2 weeks, how often have you been bothered by any of the following problems? 1. Little interest or pleasure in doing things: not at all 2. Feeling down, depressed, or hopeless: nearly every day 3. Trouble falling or staying asleep, or sleeping too much: nearly every day 4. Feeling tired or having little energy: nearly every day 5. Poor appetite or overeating: not at all 6. Feeling bad about yourself - or that you are a failure or have let yourself or your family down: nearly every day 7. Trouble concentrating on things, such as reading the newspaper or watching television: nearly every day 8. Moving or speaking so slowly that other people could have noticed. Or the opposite - being so fidgety or restless that you have been moving around a lot more than usual: not at all 9. Thoughts that you would be better off or of hurting yourself in some way: not at all Total score: 15 Depression Screening Interpretation: Positive Depression Screening Follow-up: Existing condition and Declines treatment Depression Screening Done: Yes 56326 - PHQ-9 Billing: Yes Source: Developed by Drs. Alex Ledezma, Nicole Scott, Messi Og and colleagues, with an educational rhonda from [employer]. Thrive Questionnaire Date Thrive assessed: 03/07/24 I am a: Patient What is your living situation today?: I have a steady place to live Within the past 12 months, did the food you bought not last and you didn't have the money to get more?: Sometimes True Within the past 12 months, did you worry whether your food would run out before you got money to buy more?: Sometimes True Do you have trouble paying for medicines?: No Do you have trouble getting transportation to medical appointments?: No Do you have trouble paying your heating and electricity bill?: No Do you have trouble taking care of your child, family member or friend?: No Do you have trouble with day-to-day activities such as bathing, preparing meals, shopping, managing finances, etc.?: No Are you currently unemployed and looking for a job?: I choose not to answer this question Are you interested in more education?: No Please select the resources that you would like help with: None Currently or been in a relationship where the following occur: No concerns reported THRIVE Score: 2 AUDIT C Alcohol Use Questionnaire (AUDIT-C) 1. How often do you have a drink containing alcohol?: Never Total Score: 0 LAURA-7 AMB Questionnaire LAURA-7 Date LAURA - 7 assessed: 04/22/23 Feeling nervous, anxious, or on edge: 0 = Not at all Not being able to stop or control worryin = Not at all Worrying too much about different things: 0 = Not at all Trouble relaxin = Nearly every day Being so restless that it is hard to sit still: 3 = Nearly every day Becoming easily annoyed or irritable: 0 = Not at all Feeling afraid as if something awful might happen: 0 = Not at all Total LAURA-7 score (0-4 normal; 5-9 mild; 10-14 moderate; 15-21 severe): 6 Source: Developed by Drs. Alex Ledezma, Nicole Scott, Messi Og and colleagues, with an educational rhonda from [employer]. Physical exam (Primary Care) Vital Signs: Last Vital Signs Pulse 59 08/15/24 10:51 Resp 12 08/15/24 10:51 BP 152/70 H 08/15/24 11:02 Pulse Ox 99 08/15/24 10:51 Oxygen Delivery Method Room Air 08/15/24 10:51 BMI result Body Mass Index 27.4 Tobacco/Smoking Status: Tobacco use Status Tobacco use date assessed 09/22/23 08/15/24 10:42 Patient Tobacco Use Status Never used Tobacco 08/15/24 10:42 e-Cigarette/Vaping Use Never Used 08/15/24 10:42 PHQ-9: PHQ-9 Score PHQ-9: Total score 15 08/19/24 11:21 Depression Screening Interpretation: Positive Depression Screening Follow-up: Existing condition and Declines treatment Thrive Assessment: Date of Thrive Assessment Date Thrive assessed 03/07/24 08/15/24 10:42 Currently or been in a relationship where the following occur: No concerns reported Coding Level of Care Code Est Pt Level 4 (34391) Diagnoses Type 2 diabetes mellitus with unspecified complications E11.8 Stage 3 chronic kidney disease, unspecified whether stage 3a or 3b CKD N18.30 Chronic kidney disease stage 3 subtype: unspecified whether 3a or 3b Additional Codes PHQ-9 - 76021 - PHQ-9 Billing: Yes ([id number]) Assessment & Plan Assessment & Plan (1) Type 2 diabetes mellitus with unspecified complications: Code(s): E11.8 - Type 2 diabetes mellitus with unspecified complications Category: Medical (2) CKD (chronic kidney disease) stage 3, GFR 30-59 ml/min: Code(s): N18.30 - Chronic kidney disease, stage 3 unspecified Category: Medical Qualifiers: Chronic kidney disease stage 3 subtype: unspecified whether 3a or 3b Qualified Code(s): N18.30 - Chronic kidney disease, stage 3 unspecified Plan DM-well controlled. continue current medications Continue nephrology follow up Orders: Orders Hemoglobin A1c 6 Months E11.8 - Type 2 diabetes mellitus with unspecified complications Lipid Panel 6 Months E11.8 - Type 2 diabetes mellitus with unspecified complications Comprehensive Met. Panel 6 Months E11.8 - Type 2 diabetes mellitus with unspecified complications AMB Hemoglobin A1c 08/15/24 E11.8 - Type 2 diabetes mellitus with unspecified complications Medications: New amlodipine 10 mg PO DAILY 90 tabs 3RF losartan 100 mg PO DAILY 90 tabs 3RF Discontinued losartan Discontinued Reason: Doctor's Order 50 mg PO DAILY 90 tabs 3RF
[2024-08-15 10:51] VITALS: BP 158/66; PULSE 59; RESP 12; O2SAT 99; BMI 27.4
[2024-08-15 11:02] VITALS: BP 152/70
== END 2024-08-15 11:21 | disposition home or self-care (01) ==
LOC: HO.HMCFM 10:13
PROVIDERS: PCP Family Medicine; Visit Provider Internal Medicine
DX: E11.8 Type 2 diabetes mellitus with unspecified complications (principal); N18.30 Chronic kidney disease, stage 3 unspecified

== ENCOUNTER → 2024-08-15 10:12 | Outpatient (BNVA) | payer MEDICARE, MEDICAID, SELFPAY ==
[2021-08-28 07:22] VITALS: BP 146/76; BP 148/60; BMI 26.7
== END ==
PROVIDERS: PCP Family Medicine; Visit Provider Internal Medicine
DX: E11.22 Type 2 diabetes mellitus with diabetic chronic kidney disease (principal); I12.9 Hypertensive chronic kidney disease with stage 1 through stage 4 chronic kidney disease, or unspecified chronic kidney disease; N18.30 Chronic kidney disease, stage 3 unspecified; Z79.84 Long term (current) use of oral hypoglycemic drugs
CPT/HCPCS: 96127; 99212

== ENCOUNTER 2024-09-12 15:53 | Emergency (ER) | payer MEDICARE, MEDICAID, SELFPAY ==
[2021-08-28 07:22] VITALS: BP 146/76; BP 148/60; BMI 26.7
[2024-09-12 16:57] VITALS: BP 174/64; PULSE 65; RESP 16; O2SAT 97; BMI 27.0
--- NOTE | 2024-09-12 17:07 | ED_ITS ---
HPI - General Adult General Chief complaint: Allergic Reaction Stated complaint: Lips swelling Related Data Home Medications ?Medication ?Instructions ?Recorded ?Confirmed atorvastatin 80 mg tablet 80 mg PO BEDTIME 06/06/24 08/15/24 Previous Rx's ?Medication ?Instructions ?Recorded aspirin 81 mg chewable tablet 81 mg PO DAILY #30 tabs 04/16/21 blood pressure test kit-large #1 ea 09/30/21 blood sugar diagnostic (FreeStyle #50 ea 09/07/23 Lite Strips) collagenase clostridium histo. 250 1 appl topical BEDTIME PRN wound 09/22/23 unit/gram topical ointment care 14 days #15 grams clotrimazole 1 % topical cream 1 appl topical BID 2 weeks #45 03/07/24 grams glipizide 10 mg tablet 10 mg PO BID 90 days #180 tabs 03/07/24 lamotrigine 200 mg tablet 200 mg PO BID 90 days #180 tabs 03/07/24 metformin 1,000 mg tablet 1,000 mg PO BID 90 days #180 tabs 03/07/24 metoprolol succinate 50 mg 50 mg PO BID 90 days #180 tabs 03/07/24 tablet,extended release 24 hr needle (disp) 18 G 18 gauge x 1 #30 ea 07/04/24 (BD Regular Bevel [place]) needle (disp) 23 gauge 23 gauge x #30 ea 07/04/24 3/4 (BD Regular Bevel [place]) syringe (disposable) 1 mL (BD #30 ea 07/04/24 Luer-Verito Syringe) testosterone cypionate 200 mg/mL 80 mg (0.4 mL) subcut QWEEK 4 07/04/24 intramuscular oil weeks #2 mL (Depo-Testosterone) safety needles 23 gauge x 1 (BD #50 ea 07/06/24 SafetyGlide Needle) amlodipine 10 mg tablet 10 mg PO DAILY #90 tabs 08/15/24 losartan 100 mg tablet 100 mg PO DAILY #90 tabs 08/15/24 zolpidem 10 mg tablet 10 mg PO BEDTIME #30 tabs 08/25/24 Allergies Allergy/AdvReac Type Severity Reaction Status Date / Time No Known Allergies Allergy Verified 09/12/24 17:00 [No Known Allergies*] [facility] Past Medical History Medical History Low libido Screening for prostate cancer Pre-op examination Shift work sleep disorder Snoring Erectile dysfunction Headache Screening for prostate cancer Screening for colon cancer Adult general medical exam Erectile dysfunction due to type 2 diabetes mellitus Heart palpitations Chest pain COVID-19 High cholesterol Sciatica Hypertension Diabetes Epilepsy Heart attack Surgical History H/O colonoscopy History of tonsillectomy History of cardiac catheterization (~2015) History of coronary artery bypass graft x 2 (~2005) Family History Family History Father Cardiovascular disease Mother No problems noted. Social History Social History Housing: Apartment Alcohol intake: never Patient Tobacco Use Status: Never used Tobacco Smoked in Last 30 Days: No e-Cigarette/Vaping Use: Never Used Second Hand Smoke Exposure: No Use of substances other than those prescribed or required for medical reasons: No Advance Directives: No Advance Directives Information Provided: No Do you have a plan to hurt others: No Plan service: No Current occupational status: previously employed Current occupational exposures/hazards: No Cognitive needs: No Hearing needs: No Vision needs: No Physical Exam ED Vital Signs: Vital Signs - 24 hr 09/12/24 16:57 Pulse Rate 65 Respiratory Rate 16 Blood Pressure 174/64 H Pulse Oximetry 97 Oxygen Delivery Method Room Air BMI result Body Mass Index 27.0 Course Course Course Narrative: RME: 69-year-old male presents to ED for upper lip swelling since last night. Patient to the ED because swelling of upper lip is not totally resolved. Patient states this has happened before in the past. Patient denies any drooling, change in voice, itchy throat, rash, fever, chills, chest pain, shortness of breath, swelling of tongue or dizziness. Patient is not on any ROGER inhibitors. Patient is speaking in clear sentences. Oral cavity negative for swelling of tongue or uvula. On my evaluation upper lip does not look swollen but patient states his lipids not usually that is size. Patient presently denies any itchiness. We will inform charge nurse Medical Decision Making Medical Decision Making MDM Narrative: Patient eloped from the emergency department prior to me having a chance to evaluate patient. Discharge Plan Discharge Clinical Impression: Allergic reaction Patient Disposition: Left W/O Completing Treatment Prescriptions: No Action aspirin 81 mg tablet,chewable 81 mg PO DAILY Qty: 30 2RF (DME) FreeStyle Lite Strips Strip See Rx Instructions .Route Qty: 50 3RF Rx Instructions: daily atorvastatin 80 mg tablet 80 mg PO BEDTIME (DME) BD SafetyGlide Needle 23 gauge x 1 needle See Rx Instructions .Route Qty: 50 0RF Rx Instructions: As directed to inject testosterone zolpidem 10 mg tablet 10 mg PO BEDTIME Qty: 30 0RF (DME) blood pressure test kit-large Kit See Rx Instructions .ROUTE .MEDSUPPLY Qty: 1 0RF Rx Instructions: check bp daily once stable check twice a week and as needed collagenase clostridium histo. 250 unit/gram ointment 1 appl topical BEDTIME PRN (Reason: wound care) 14 Days Qty: 15 0RF glipizide 10 mg tablet 10 mg PO BID 90 Days Qty: 180 3RF metformin 1,000 mg tablet 1,000 mg PO BID 90 Days Qty: 180 3RF metoprolol succinate 50 mg tablet extended release 24 hr 50 mg PO BID 90 Days Qty: 180 3RF lamotrigine 200 mg tablet 200 mg PO BID 90 Days Qty: 180 3RF clotrimazole 1 % cream 1 appl topical BID 14 Days Qty: 45 3RF amlodipine 10 mg tablet 10 mg PO DAILY Qty: 90 3RF losartan 100 mg tablet 100 mg PO DAILY Qty: 90 3RF (DME) BD Regular Bevel [place] 23 gauge x 3/4 needle See Rx Instructions .Route Qty: 30 0RF Rx Instructions: Inject testosterone subcutaneous (DME) BD Luer-Verito Syringe 1 mL syringe See Rx Instructions .MEDSUPPLY Qty: 30 0RF Rx Instructions: Testosterone injection weekly (DME) needle (disp) 18 G [BD Regular Bevel [place]] 18 gauge x 1 needle See Rx Instructions .MEDSUPPLY Qty: 30 0RF Rx Instructions: As directed - draw up testosterone testosterone cypionate [Depo-Testosterone] 200 mg/mL oil 80 mg subcut QWEEK 28 Days Qty: 2 2RF Discharge Date/Time: 09/12/24 21:26
--- NOTE | 2024-09-12 19:30 | PC.NURSE ---
pt a&ox4, respirations even and unlabored. pt able to speak in full clear sentences. 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 pt denies any allergies, denies new foods and new medications. vss.
--- OUTSIDE RECORDS SUMMARY | 2024-09-12 19:50 | XMS_ITS | Clinical Summary ---
Author Organization [address] [facility] Address [address] [place] [address] Phone Care Team Providers Care Terminologist Name Role Phone Lou Jameson MD Primary Care Provider [phone] Allergies No known active allergies Medications diclofenac [...] Date Diagnosed Date Type 2 diabetes mellitus wit h unspecified complications (CMS/HCC V24, CMS/HCC V28) 06/02/2024 Tinea unguium 06/02/2024 Encounters Date Type Department Care Team Description 09/05/2024 1:30 PM EDT Office Visit Orthopedic Surgery [facility] [address] [phone] Brandon Clement DPM Metatarsalgia of both feet (Primary Dx); Dermatophytosis of nail; Pain in toe of right foot; Pain in toe of left foot; Type II diabetes mellitus with peripheral circulatory disorder ([facility] [place] V24, [facility] V28); Diabetic mononeuropathy simplex ([facility] [place] [facility] V24, [facility] [place] V28); Tinea pedis of both feet; Corns and callosities from Last 3 Months Social History Tobacco [...] Care Team (Late st Contact Info) Description 12/05/2024 1:45 PM EDT Office Visit Orthopedic Surgery [facility] [address] [phone] Brandon Clement DPM [address] [id number] Health Maintenance Due Date Last Done Comments Diabetes: Annual GFR (Glomerular Filtration Rate) 1957 Diabetes: Annual Foot Exam 1967 Diabetes: Annual Retina Eye Exam 1967 Pneumococcal Vaccine: 50+ Years (1 of 2 - PCV) 1976 Zoster Vaccines (1 of 2) 2007 RSV Immunization Adult Patients (1 - Risk 60-74 years 1-dose series) 2017 COVID-19 Vaccine (2023-2 5 season) 2024 06/20/2021, 10/04/2020, 09/06/2020 Cholesterol Screening (Lipid Panel) 03/18/2024 Colorectal Cancer Screening: Colonoscopy 03/18/2024 Depression Screening 03/18/2024 Falls Risk Assessment 03/18/2024 Hepatitis C Screening 03/18/2024 Medicare Annual Wellness Visit 03/18/2024 Social Influencers of Health Screening 03/18/2024 Diabetes: Annual Urine Albumin-Creatinine Ratio (uACR) 06/02/2024 Diabetes: Blood Sugar Contro l Test (HGBA1C) 06/02/2024 Influenza Vaccine (Season Ended) 2025 04/07/2021 DTaP,Tdap,and Td Vaccines (2 - Td or [...] age to complete this topic Meningococcal B Vaccine Aged Out No l onger eligible based on patient's age to complete this topic RSV Immunization Patients Under 20 months Aged Out No longer eligible b ased on patient's age to complete this topic Varicella Vaccines Aged Out No longer eligible based on patient's age to complete this topic Insurance MEDICAID - [place] MEDICARE Care Teams Terminologist Relationship Specialty Start Date End Date Lou Jameson MD [address] [place] [address] PCP - General 03/15/24
--- NOTE | 2024-09-12 21:25 | PC.NURSE ---
pt stated to this rn he no longer wants to wait for provider as he is feeling better.
== END 2024-09-12 21:26 | disposition left against medical advice (07) ==
PROVIDERS: Emergency Provider Emergency Medicine Emergency Medical Services; PCP Internal Medicine
DX: K13.0 Diseases of lips (principal); R22.0 Localized swelling, mass and lump, head; T78.40XA Allergy, unspecified, initial encounter; X58.XXXA Exposure to other specified factors, initial encounter; Z79.899 Other long term (current) drug therapy
CPT/HCPCS: 99282; 99284

== ENCOUNTER 2024-09-18 15:33 | Outpatient (AMB) | payer MEDICARE, MEDICAID, SELFPAY ==
[2021-08-28 07:22] VITALS: BP 146/76; BP 148/60; BMI 26.7
--- NOTE | 2024-09-18 15:50 | MHC.PC.OV ---
Vital Signs 09/18/24 15:53 09/18/24 15:58 Height 5 ft 7 in Weight 172 lb BMI 26.9 BP 156/72 H 152/68 H Blood Pressure Location Rt brachial Lt brachial Position Sitting Sitting Respiration 14 Pulse 66 Pulse Source Pulse Oximeter Pulse Oximetry (%) 96 Oxygen Delivery Method Room Air Intake Visit Reasons: elevated BP Intake Note: HTN follow up Pilot Control Operator Required: No Allergies No Known Allergies [No Known Allergies*] Allergy (Verified 09/21/24 15:29) Tobacco use date assessed: 09/18/24 Fall risk assessment: No Falls in past year Last assessed Fall Risk: 09/18/24 Dental Screening Dental Screen Date: 09/22/23 HPI HPI Comments History of Present Illness Details 69 year old male with a past medical history of SD, diabetes, hypertension, CKD presenting for follow up Notes blood pressure continues to be elevated despite losartan, metoprolol and norvasc. He has had a few episodes recently where his lips have swollen and they have remained so for hours. He has no known food allergies Diabetes is well controlled. 12/27/23 6.4%. On metformin 1000 twice daily, glipizide. On statin. Denies chest pain, exertional dyspnea. CKD. seeing nephrology CV: On metoprolol, losartan, norvasc, atorvastatin, ASA. BP elevated. No chest pain or dyspnea. Having a lot of trouble sleeping. Tried OTC. on zolpidem. MSK: left ankle pain-referred to podiatry Declines colonoscopy. Cologuard test was ordered ROS CONSTITUTIONAL: Denies weight loss, fever and chills. HEENT: Denies changes in vision and hearing. RESPIRATORY: Denies SOB and cough. CV: Denies palpitations and CP GI: Denies abdominal pain, nausea, vomiting and diarrhea. : Denies dysuria and urinary frequency. MSK: Denies new myalgia and joint pain. SKIN: Denies rash and pruritus. NEUROLOGICAL: Denies headache PSYCHIATRIC: Denies recent changes in mood. PHYSICAL EXAM: GENERAL: Alert and oriented x 3. NAD EYES: EOMI. Anicteric. HENT: Moist mucous membranes. No scleral icterus. No cervical lymphadenopathy. LUNGS: Clear to auscultation bilaterally. CARDIOVASCULAR: Regular rate and rhythm. No murmur. No JVD. ABDOMEN: Soft, non-tender +bs EXTREMITIES: No edema. Non-tender. SKIN: No rashes or lesions. Warm. NEUROLOGIC: No focal neurological deficits. CN II-XII grossly intact PSYCHIATRIC: Cooperative. Appropriate mood and affect [facility] Medical History Low libido Screening for prostate cancer Pre-op examination Shift work sleep disorder Snoring Erectile dysfunction Headache Screening for prostate cancer Screening for colon cancer Adult general medical exam Erectile dysfunction due to type 2 diabetes mellitus Heart palpitations Chest pain COVID-19 High cholesterol Sciatica Hypertension Diabetes Epilepsy Heart attack Surgical History H/O colonoscopy History of tonsillectomy History of cardiac catheterization (~2015) History of coronary artery bypass graft x 2 (~2005) Family History Father Cardiovascular disease Mother No problems noted. Social History Housing: Apartment Alcohol intake: former Comment: hasnt drank in 30 years Patient Tobacco Use Status: Never used Tobacco e-Cigarette/Vaping Use: Never Used Second Hand Smoke Exposure: No service: No Current occupational status: previously employed Current occupational exposures/hazards: No Cognitive needs: No Hearing needs: No Vision needs: No Questionnaire Thrive Questionnaire Date Thrive assessed: 08/15/24 I am a: Patient What is your living situation today?: I have a steady place to live Within the past 12 months, did the food you bought not last and you didn't have the money to get more?: Sometimes True Within the past 12 months, did you worry whether your food would run out before you got money to buy more?: Sometimes True Do you have trouble paying for medicines?: No Do you have trouble getting transportation to medical appointments?: No Do you have trouble paying your heating and electricity bill?: No Do you have trouble taking care of your child, family member or friend?: No Do you have trouble with day-to-day activities such as bathing, preparing meals, shopping, managing finances, etc.?: No Are you currently unemployed and looking for a job?: I choose not to answer this question Are you interested in more education?: No Please select the resources that you would like help with: None Currently or been in a relationship where the following occur: No concerns reported THRIVE Score: 2 AUDIT C Alcohol Use Questionnaire (AUDIT-C) 1. How often do you have a drink containing alcohol?: Never 3. How often do you have six or more drinks on one occasion?: Never Total Score: 0 LAURA-7 AMB Questionnaire LAURA-7 Date LAURA - 7 assessed: 04/22/23 Source: Developed by Drs. Alex Ledezma, Nicole Scott, Messi Og and colleagues, with an educational rhonda from [email or web address]. Physical exam (Primary Care) Vital Signs: Last Vital Signs Pulse 66 09/18/24 15:53 Resp 14 09/18/24 15:53 BP 152/68 H 09/18/24 15:58 Pulse Ox 96 09/18/24 15:53 Oxygen Delivery Method Room Air 09/18/24 15:53 BMI result Body Mass Index 26.9 Tobacco/Smoking Status: Tobacco use Status Tobacco use date assessed 09/18/24 09/18/24 15:53 Patient Tobacco Use Status Never used Tobacco 09/18/24 16:00 e-Cigarette/Vaping Use Never Used 09/18/24 16:00 Thrive Assessment: Date of Thrive Assessment Date Thrive assessed 08/15/24 09/18/24 15:53 Currently or been in a relationship where the following occur: No concerns reported Coding Level of Care Code Est Pt Level 4 (80950) Diagnoses Lip swelling R22.0 Essential hypertension I10 Assessment & Plan Assessment & Plan (1) Lip swelling: Code(s): R22.0 - Localized swelling, mass and lump, head Category: Medical (2) Essential hypertension: Code(s): I10 - Essential (primary) hypertension Category: Medical Plan Lip swelling-will take off losartan to be cautious. referral to allergy Start hydralazine 50mg three times daily Follow up 1-2 weeks Orders: Referrals Allergy & Immunology Referral L29.9 - Pruritus, unspecified, R22.0 - Localized swelling, mass and lump, head Medications: New hydralazine 50 mg PO TID 270 tabs 3RF epinephrine (EpiPen 2-Charanjit) for 2 doses 0.3 mg (0.3 mL) IM Q10M PRN 2 ea 0RF anaphylaxis/shortness of breath Discontinued losartan Discontinued Reason: Doctor's Order 100 mg PO DAILY 90 tabs 3RF
[2024-09-18 15:53] VITALS: BP 156/72; PULSE 66; RESP 14; O2SAT 96; BMI 26.9
[2024-09-18 15:58] VITALS: BP 152/68
--- OUTSIDE RECORDS SUMMARY | 2024-09-18 18:21 | XMS_ITS | Clinical Summary ---
Author Organization [employer] Address [address] [place] [address] Care Team Providers Care Lapel Baster Name Role Phone Unavailable Primary Care Provider [...]
--- OUTSIDE RECORDS SUMMARY | 2024-09-18 18:21 | XMS_ITS | Clinical Summary ---
Author Organization 175 [facility] Address [address] [place] [address] Phone Care Team Providers Care Infection Control Nurse Name Role Phone Lou Jameson MD Primary Care Provider [phone] Allergies No known active allergies Medications diclofenac [...] 1:30 PM EDT Office Visit Orthopedic Surgery [facility] [address] [phone] Brandon Clement DPM Metatarsalgia of both feet (Primary Dx); Dermatophytosis of nail; Pain in toe of right foot; Pain in toe of left foot; Type II diabetes mellitus with peripheral circulatory disorder ([facility] V24, [facility] V28); Diabetic mononeuropathy simplex ([facility] V24, [facility] V28); Tinea pedis of both feet; Corns [...] 1:45 PM EDT Office Visit Orthopedic Surgery [facility] [address] [phone] Brandon Clement DPM [address] [phone] Health Maintenance Due Date Last Done Comments [...] Insurance [place] - [place] MEDICARE Care Teams Infection Control Nurse Relationship Specialty Start Date End Date Lou Jameson MD [address] [place] [address] PCP - General 03/15/24
== END 2024-09-18 16:14 | disposition home or self-care (01) ==
LOC: HO.HMCFM 15:33
PROVIDERS: PCP Internal Medicine; Visit Provider Internal Medicine
DX: R22.0 Localized swelling, mass and lump, head (principal); I10 Essential (primary) hypertension

== ENCOUNTER → 2024-09-18 15:33 | Outpatient (BNVA) | payer MEDICARE, MEDICAID, SELFPAY ==
[2021-08-28 07:22] VITALS: BP 146/76; BP 148/60; BMI 26.7
== END ==
PROVIDERS: PCP Internal Medicine; Visit Provider Internal Medicine
DX: I25.2 Old myocardial infarction (principal); I12.9 Hypertensive chronic kidney disease with stage 1 through stage 4 chronic kidney disease, or unspecified chronic kidney disease; E11.22 Type 2 diabetes mellitus with diabetic chronic kidney disease; N18.9 Chronic kidney disease, unspecified; R22.0 Localized swelling, mass and lump, head; L29.9 Pruritus, unspecified
CPT/HCPCS: 99212

== ENCOUNTER 2024-09-21 14:58 | Emergency (ER) | payer MEDICARE, MEDICAID, SELFPAY ==
[2021-08-28 07:22] VITALS: BP 146/76; BP 148/60; BMI 26.7
--- NOTE | ~2024-09-21 | XR_ITS ---
EXAMINATION: XR SHOULDER, LEFT CLINICAL INFORMATION: shoulder pain COMPARISON: None available. TECHNIQUE: AP external rotation, Grashey, scapular Y, and axillary views of the left shoulder. FINDINGS: Normal bone mineralization. No fracture, dislocation, or suspicious bone lesion. Normal alignment. The glenohumeral joint demonstrate mild degenerative arthritis. The AC joint demonstrates mild degenerative arthritis. There is a type II acromion. There is a small subacromial spur. The subacromial space is grossly preserved. Sternotomy wires and surgical clips in the mediastinum. Coronary stent noted. Remainder of the soft tissue and bony structures appear normal. XR/XR shoulder LT min 2V IMPRESSION: No acute findings left shoulder. Electronically signed by: Hakan Faria MD 09/21/2024 04:36 PM EDT
--- NOTE | ~2024-09-21 | XR_ITS ---
EXAMINATION: XR SHOULDER, RIGHT CLINICAL INFORMATION: SHoulder pain COMPARISON: None available. TECHNIQUE: AP external rotation, Grashey, scapular Y, and axillary views of the right shoulder. FINDINGS: Normal bone mineralization. No fracture, dislocation, or suspicious bone lesion. Normal alignment. The glenohumeral joint is mild to moderate osteoarthrosis. The AC joint is mild spurring. There is a type II acromion. No undersurface spurring. The subacromial space is preserved. Sternotomy wires and surgical clips in the mediastinum. Coronary stent noted. Remainder of the soft tissue and bony structures appear normal. XR/XR shoulder RT min 2V IMPRESSION: No acute findings right shoulder. Electronically signed by: Hakan Faria MD 09/21/2024 04:38 PM EDT
--- NOTE | ~2024-09-21 | CT_ITS ---
EXAMINATION: CT CERVICAL SPINE WITHOUT CONTRAST CLINICAL INFORMATION: Neck pain radiating down shoulders. COMPARISON: 12/21/2023. TECHNIQUE: Spiral CT imaging of the cervical spine performed in axial plane without contrast. Multiplanar reformatted images were constructed from the axial data set. This CT examination was performed using dose optimization techniques as appropriate, variously including the following: *Automated exposure control *Adjustment of mA and/or kV according to patient size (this includes techniques or standardized protocols for targeted exams where dose is matched to indication/reason for exam; i.e. extremities or head) *Use of iterative reconstruction technique FINDINGS: CORONAL ALIGNMENT: -There is a minimal right convex scoliosis, apex at T6, possibly positional. SAGITTAL ALIGNMENT: -Mildly exaggerated lordosis. -Trace degenerative retrolisthesis C3 on C4, C5 on C6, and C6 on C7. C1-C2 AND CRANIOCERVICAL JUNCTION: -Intact and normally aligned. VERTEBRAL BODIES AND FACETS: -No fractures, compression deformities, or suspicious bone lesions. -Sclerosis of the endplates present at C3-4. -Normal facet alignment bilaterally with mild multilevel facet degenerative changes. DISCS: -Moderate to severe multilevel disc degeneration present, with associated mild disc osteophytic spurring, spanning C3-C7. Findings appear most severe at C6-7. CENTRAL CANAL: -No evidence of high-grade central canal narrowing or large disc herniation allowing for modality limitations. -Moderate central canal stenosis present C3-4, C4-5, C5-6, and C6-7 due to disc osteophytic bulges and facet hypertrophic changes. -Multilevel neural foraminal encroachment, severe at C4-5, C5-6, and C6-7 bilaterally. PREVERTEBRAL AND PARAVERTEBRAL SOFT TISSUES: -No prevertebral soft tissue abnormality. The thyroid appears normal. No mass or lymphadenopathy. Mild to moderate bilateral carotid bulb calcifications. LUNG APICES: -Imaged lung apices are clear allowing for motion artifact. CT/CT cervical spine wo IV con IMPRESSION: 1. No acute bony abnormality. 2. Moderate degenerative spondylosis of the spine spanning C3-C7. 3. No high-grade central canal stenosis. Moderate central stenosis present C3-4, C4-5, C5-6, and C6-7 due to disc osteophytic ridge complexes and facet hypertrophic changes. Multilevel neural foraminal encroachment, severe at C4-5, C5-6, and C6-7 bilaterally. MRI would be a more appropriate examination to evaluate for etiology of radicular symptoms. Electronically signed by: Hakan Faria MD 09/21/2024 04:32 PM EDT RP
[2024-09-21 15:28] VITALS: BP 164/75; PULSE 73; RESP 16; TEMP 37.2; O2SAT 96; BMI 27.4
--- NOTE | 2024-09-21 16:20 | ED_ITS ---
HPI - Extremity Problem General Chief complaint: Extremity Injury, Upper Stated complaint: shoulder pain Time Seen by Provider: 09/21/24 18:57 Source: patient Limitations: no limitations History of Present Illness ED Provider: Kayley Tinajero PA-C HPI Narrative: 69-year-old male with a history of chronic kidney disease stage 3, known significant arthritis of the cervical spine, hyperlipidemia, hypertension, diab etes, known coronary artery disease, prior CVA without residual deficits, who presents with neck and bilateral shoulder pain. Patient states he woke this morning with a extreme pain. Pain radiating from neck to bilateral shoulders. Patient thinks he may have slept incorrectly, this is happened in the past. Denies preceding trauma, heavy lifting or overuse injury. Denies weakness of upper extremities, paresthesia, headache or visual disturbance. Related Data Home Medications ?Medication ?Instructions ?Recorded ?Confirmed atorvastatin 80 mg tablet 80 mg PO BEDTIME 06/06/24 08/15/24 Previous Rx's ?Medication ?Instructions ?Recorded aspirin 81 mg chewable tablet 81 mg PO DAILY #30 tabs 04/16/21 blood pressure test kit-large #1 ea 09/30/21 blood sugar diagnostic (FreeStyle #50 ea 09/07/23 Lite Strips) collagenase clostridium histo. 250 1 appl topical BEDTIME PRN wound 09/22/23 unit/gram topical ointment care 14 days #15 grams clotrimazole 1 % topical cream 1 appl topical BID 2 weeks #45 03/07/24 grams glipizide 10 mg tablet 10 mg PO BID 90 days #180 tabs 03/07/24 lamotrigine 200 mg tablet 200 mg PO BID 90 days #180 tabs 03/07/24 metformin 1,000 mg tablet 1,000 mg PO BID 90 days #180 tabs 03/07/24 metoprolol succinate 50 mg 50 mg PO BID 90 days #180 tabs 03/07/24 tablet,extended release 24 hr needle (disp) 18 G 18 gauge x 1 #30 ea 07/04/24 (BD Regular Bevel [place]) needle (disp) 23 gauge 23 gauge x #30 ea 07/04/24 3/4 (BD Regular Bevel [place]) syringe (disposable) 1 mL (BD #30 ea 07/04/24 Luer-Verito Syringe) testosterone cypionate 200 mg/mL 80 mg (0.4 mL) subcut QWEEK 4 07/04/24 intramuscular oil weeks #2 mL (Depo-Testosterone) safety needles 23 gauge x 1 (BD #50 ea 07/06/24 SafetyGlide Needle) amlodipine 10 mg tablet 10 mg PO DAILY #90 tabs 08/15/24 epinephrine 0.3 mg/0.3 mL 0.3 mg (0.3 mL) IM Q10M PRN 09/18/24 injection, auto-injector (EpiPen anaphylaxis/shortness of breath #2 2-Charanjit) ea hydralazine 50 mg tablet 50 mg PO TID #270 tabs 09/18/24 methocarbamol 750 mg tablet 1,500 mg (2 x 750 mg) PO Q8H PRN 09/21/24 pain, moderate #20 tabs methylprednisolone 4 mg tablets in 4 mg PO QAM #21 ea 09/21/24 a dose pack (Medrol (Charanjit)) zolpidem 10 mg tablet 10 mg PO BEDTIME #30 tabs 09/21/24 Allergies Allergy/AdvReac Type Severity Reaction Status Date / Time No Known Allergies Allergy Verified 09/21/24 15:29 [No Known Allergies*] Review of Systems Review of Systems: Yes all other systems are reviewed and are negative Constitutional: Constitutional: Denies fatigue, Denies fever(s) and Denies headache(s) Eyes: Eyes: Denies change in vision ENT: Denies dizziness, Denies headache(s) and Reports neck pain Cardiovascular: Cardiovascular: Denies chest pain and Denies dyspnea Respiratory: Respiratory: Denies dyspnea Gastrointestinal: Gastrointestinal: Denies abdominal pain, Denies nausea and Denies vomiting Musculoskeletal: Musculoskeletal: Reports neck pain, Denies numbness, Reports radiating pain into limb and Denies tingling Neurologic: Denies dizziness, Denies headache(s), Denies numbness and Denies tingling Endocrine: Endocrine: Denies fatigue PMFSH Past Medical History Attestation statement: The following information was validated with the patient. Medical History Low libido Screening for prostate cancer Pre-op examination Shift work sleep disorder Snoring Erectile dysfunction Headache Screening for prostate cancer Screening for colon cancer Adult general medical exam Erectile dysfunction due to type 2 diabetes mellitus Heart palpitations Chest pain COVID-19 High cholesterol Sciatica Hypertension Diabetes Epilepsy Heart attack Surgical History H/O colonoscopy History of tonsillectomy History of cardiac catheterization (~2015) History of coronary artery bypass graft x 2 (~2005) Family History Family History Father Cardiovascular disease Mother No problems noted. Social History Social History (Updated 09/18/24 @ 16:00 by Ximena Mason CMA) Housing: Apartment Alcohol intake: former Comment: hasnt drank in 30 years Patient Tobacco Use Status: Never used Tobacco e-Cigarette/Vaping Use: Never Used Second Hand Smoke Exposure: No Advance Directives: No Advance Directives Information Provided: No Do you have a plan to hurt others: No Plan service: No Current occupational status: previously employed Current occupational exposures/hazards: No Cognitive needs: No Hearing needs: No Vision needs: No Physical Exam Vital Signs: Vital Signs: Last Vital Signs Temp 98.0 F 09/21/24 20:58 Pulse 66 09/21/24 20:58 Resp 16 09/21/24 20:58 BP 90/72 09/21/24 20:58 Pulse Ox 96 09/21/24 20:58 O2 Del Method Room Air 09/21/24 20:58 BMI result Body Mass Index 27.4 Const: Other: Alert well-appearing Orientation/consciousness: patient oriented x3 Neck: Other: Full range of motion of neck although with discomfort Resp: Effort & Inspection: normal respiratory effort Cardio: Other: Normal peripheral perfusion Skin: Other: Warm dry no rash Neuro: General: patient oriented x3, gait normal, no focal motor deficits and CN's II-XI intact bilaterally Extrem: Other: Strength 5/5 bilateral upper extremities with resistance Psych: Other: Cooperative Course Course Course Narrative: RME: 59 male presents to ED for bilateral shoulder pain who woke up. Patient able to move bilateral upper extremities but with pain. Patient states neck pain radiating down bilateral shoulders. Patient denies any chest pain, shortness of breath headache, slurred speech, facial droop or paralysis of extremities. Medications Administered Discontinued Medications Generic Name Dose Route Start Last Admin Trade Name Freq PRN Reason Stop Dose Admin Methocarbamol 1,500 mg 09/21/24 20:03 09/21/24 21:03 Methocarbamol 750 Mg Tablet PO 09/21/24 20:04 1,500 mg ONCE ONE Administration Methylprednisolone 8 mg 09/21/24 20:04 09/21/24 21:02 Methylprednisolone 4 Mg Tablet PO 09/21/24 20:05 8 mg ONCE ONE Administration Medical Decision Making Medical Decision Making MDM Narrative: 69-year-old male with a history of chronic kidney disease stage 3, known significant arthritis of the cervical spine, hyperlipidemia, hypertension, diabetes, known coronary artery disease, prior CVA without residual deficits, who presents with neck and bilateral shoulder pain. Patient states he woke this morning with a extreme pain. Pain radiating from neck to bilateral shoulders. Patient thinks he may have slept incorrectly, this is happened in the past. Denies preceding trauma, heavy lifting or overuse injury. Denies weakness of upper extremities, paresthesia, headache or visual disturbance. Problem: Known significant arthritis History: Per patient I have considered the following differential diagnoses: Cervical strain, cervical radiculopathy, compression fracture, VAD, fracture dislocation, sprain Plan: Imaging of the shoulders and cervical spine were ordered from triage, no acute injury, significant arthritic changes again appreciated. The patient was having radicular symptoms. We will send with Medrol Dosepak given he can not have NSAIDs, and a muscle relaxant. I have suggested to him that he follow up with an orthopedist, he could likely benefit from cortisone injections, and follow up with primary care for physical therapy. Thought about VAD, however there was no preceding heavy lifting injury , he is neurologically intact. I have independently reviewed the following tests: X-ray right shoulder: XR/XR shoulder RT min 2V IMPRESSION: No acute findings right shoulder. X-ray left shoulder: XR/XR shoulder LT min 2V IMPRESSION: No acute findings left shoulder. CT cervical spine: CT/CT cervical spine wo IV con IMPRESSION: 1. No acute bony abnormality. 2. Moderate degenerative spondylosis of the spine spanning C3-C7. 3. No high-grade central canal stenosis. Moderate central stenosis present C3-4, C4-5, C5-6, and C6-7 due to disc osteophytic ridge complexes and facet hypertrophic changes. Multilevel neural foraminal encroachment, severe at C4-5, C5-6, and C6-7 bilaterally. MRI would be a more appropriate examination to evaluate for etiology of radicular symptoms. Discharge Plan Discharge Clinical Impression: Cervical radiculopathy Patient Disposition: Home, Self-Care Instructions: Cervical Radiculopathy (ED) Additional Instructions: No acute injury was sustained, the x-rays of both the your shoulders do reveal arthritic changes. As you know, you have significant degenerative changes in your cervical spine. I am treating you for cervical radiculopathy. Use the Medrol Dosepak as directed. This is an anti-inflammatory. Use the methocarbamol as needed, this is a muscle relaxant, it will cause drowsiness, do not drive or operate machinery while taking this medication. You could benefit from physical therapy, follow up with your primary care provider, they can help expedite this process. I am also providing you with our orthopedic service, you could also benefit from cortisone injections. Prescriptions: New methylprednisolone [Medrol (Charanjit)] 4 mg tablets,dose pack 4 mg PO QAM Qty: 21 0RF Rx Instructions: Take the medication per package instructions methocarbamol 750 mg tablet 1,500 mg PO Q8H PRN (Reason: pain, moderate) Qty: 20 0RF No Action aspirin 81 mg tablet,chewable 81 mg PO DAILY Qty: 30 2RF (DME) FreeStyle Lite Strips Strip See Rx Instructions .Route Qty: 50 3RF Rx Instructions: daily atorvastatin 80 mg tablet 80 mg PO BEDTIME (DME) BD SafetyGlide Needle 23 gauge x 1 needle See Rx Instructions .Route Qty: 50 0RF Rx Instructions: As directed to inject testosterone zolpidem 10 mg tablet 10 mg PO BEDTIME Qty: 30 0RF (DME) blood pressure test kit-large Kit See Rx Instructions .ROUTE .MEDSUPPLY Qty: 1 0RF Rx Instructions: check bp daily once stable check twice a week and as needed collagenase clostridium histo. 250 unit/gram ointment 1 appl topical BEDTIME PRN (Reason: wound care) 14 Days Qty: 15 0RF glipizide 10 mg tablet 10 mg PO BID 90 Days Qty: 180 3RF metformin 1,000 mg tablet 1,000 mg PO BID 90 Days Qty: 180 3RF metoprolol succinate 50 mg tablet extended release 24 hr 50 mg PO BID 90 Days Qty: 180 3RF lamotrigine 200 mg tablet 200 mg PO BID 90 Days Qty: 180 3RF clotrimazole 1 % cream 1 appl topical BID 14 Days Qty: 45 3RF hydralazine 50 mg tablet 50 mg PO TID Qty: 270 3RF epinephrine [EpiPen 2-Charanjit] 0.3 mg/0.3 mL auto-injector 0.3 mg IM Q10M PRN (Reason: anaphylaxis/shortness of breath) Qty: 2 0RF Rx Instructions: for 2 doses amlodipine 10 mg tablet 10 mg PO DAILY Qty: 90 3RF (DME) BD Regular Bevel [place] 23 gauge x 3/4 needle See Rx Instructions .Route Qty: 30 0RF Rx Instructions: Inject testosterone subcutaneous (DME) BD Luer-Verito Syringe 1 mL syringe See Rx Instructions .MEDSUPPLY Qty: 30 0RF Rx Instructions: Testosterone injection weekly (DME) needle (disp) 18 G [BD Regular Bevel [place]] 18 gauge x 1 needle See Rx Instructions .MEDSUPPLY Qty: 30 0RF Rx Instructions: As directed - draw up testosterone testosterone cypionate [Depo-Testosterone] 200 mg/mL oil 80 mg subcut QWEEK 28 Days Qty: 2 2RF Referrals: Curly Dill MD [Physician] - (need for potential cortisone injection; cervical radiculopathy) Print Language: Khmer
--- OUTSIDE RECORDS SUMMARY | 2024-09-21 18:35 | XMS_ITS | Clinical Summary ---
Author Organization 175 [facility] Address [address] [place] [address] Phone Care Team Providers Care Sustainability Coach Name Role Phone Lou Jameson MD Primary Care Provider [phone] Allergies No known active allergies Medications diclofenac [...] Surgery [facility] [address] [phone] Brandon Clement DPM Metatarsalgia of both feet (Primary Dx); Dermatophytosis of nail; Pain in toe of right foot; Pain in toe of left foot; Type II diabetes mellitus with peripheral circulatory disorder [place] [place]24, [facility] V28); Diabetic mononeuropathy simplex ([facility] [place]24, [facility] V28); Tinea pedis of both feet; Corns [...] 1:45 PM EDT Office Visit Orthopedic Surgery [facility] [address] [phone] Brandon Clement DPM [address] [address] Health Maintenance Due Date Last Done Comments [...] Insurance [place] Care Teams Sustainability Coach Relationship Specialty Start Date End Date Lou Jameson MD [address] [place] [address] PCP - General 03/15/24
[2024-09-21 18:52] VITALS: BP 146/68; PULSE 68; RESP 18; TEMP 36.9; O2SAT 97
[2024-09-21 20:58] VITALS: BP 90/72; PULSE 66; RESP 16; TEMP 36.7; O2SAT 96
[2024-09-21] MEDS: methylPREDNISolone 4 MG TABLET 8 MG PO (21:02)
[2024-09-21] MEDS: methocarbamoL 750 MG TABLET 1500 MG PO (21:03)
== END 2024-09-21 21:00 | disposition home or self-care (01) ==
PROVIDERS: Emergency Provider Emergency Medicine; PCP Internal Medicine
DX: M54.12 Radiculopathy, cervical region (principal); M25.512 Pain in left shoulder; M25.511 Pain in right shoulder; M54.2 Cervicalgia; Z79.899 Other long term (current) drug therapy
CPT/HCPCS: 72125; 73030; 99283; 99284

== ENCOUNTER → 2024-09-21 15:30 | Outpatient (BNV) | payer MEDICARE, MEDICAID, SELFPAY ==
[2021-08-28 07:22] VITALS: BP 146/76; BP 148/60; BMI 26.7
== END ==
PROVIDERS: PCP Internal Medicine; Visit Provider Radiology Diagnostic Radiology
DX: M47.892 Other spondylosis, cervical region (principal); M48.02 Spinal stenosis, cervical region; M25.512 Pain in left shoulder; M25.511 Pain in right shoulder
CPT/HCPCS: 72125; 73030

== ENCOUNTER 2024-09-23 12:31 | Emergency (ER) | payer MEDICARE, MEDICAID, SELFPAY ==
[2021-08-28 07:22] VITALS: BP 146/76; BP 148/60; BMI 26.7
--- NOTE | ~2024-09-23 | CT_ITS ---
CLINICAL HISTORY: dizziness, weakness CT head without contrast Comparison: CT/[place]/SR - CT HEAD/BRAIN WO IV CON - 12/21/23 12:15 EDT Findings: No intra-axial mass, midline shift, hydrocephalus, or acute hemorrhage. Mild diffuse cerebral volume loss. Mild degree of patchy low-density within the periventricular and subcortical white matter. There is no sinus or mastoid fluid. The orbits are within normal limits. There is no acute fracture. IMPRESSION: 1. No acute intracranial findings. This document has been electronically signed by: Zach Bess MD on 09/23/2024 14:31:00
--- NOTE | ~2024-09-23 | MR_ITS ---
CLINICAL HISTORY: Unsteady gait ? cerebellar CVA MR Brain without gadolinium Comparison: CT/MI/SR - CT HEAD/BRAIN WO IV CON - 09/23/24 13:[address]/MI/SR - CT HEAD/BRAIN WO IV CON - 12/21/23 12:15 EDT Findings: No restricted diffusion. No intra-axial mass or hemorrhage. Mild diffuse cerebral volume loss. No midline shift. No hydrocephalus. Vascular flow voids are intact. Orbital contents are unremarkable. The sinuses and mastoid air cells are clear. No focal bone lesion. IMPRESSION: No acute findings. This document has been electronically signed by: Zach Bess MD on 09/23/2024 17:19:58
[2024-09-23 12:42] VITALS: BP 158/65; PULSE 75; RESP 18; TEMP 36.3; O2SAT 99; BMI 27.4
--- NOTE | 2024-09-23 12:43 | ED_ITS ---
HPI - General Adult General Chief complaint: Neuro Symptoms/Deficit Stated complaint: balance issues, back pain Time Seen by Provider: 09/23/24 13:47 Related Data Home Medications ?Medication ?Instructions ?Recorded ?Confirmed atorvastatin 80 mg tablet 80 mg PO BEDTIME 06/06/24 08/15/24 Previous Rx's ?Medication ?Instructions ?Recorded aspirin 81 mg chewable tablet 81 mg PO DAILY #30 tabs 04/16/21 blood pressure test kit-large #1 ea 09/30/21 blood sugar diagnostic (FreeStyle #50 ea 09/07/23 Lite Strips) collagenase clostridium histo. 250 1 appl topical BEDTIME PRN wound 09/22/23 unit/gram topical ointment care 14 days #15 grams clotrimazole 1 % topical cream 1 appl topical BID 2 weeks #45 03/07/24 grams glipizide 10 mg tablet 10 mg PO BID 90 days #180 tabs 03/07/24 lamotrigine 200 mg tablet 200 mg PO BID 90 days #180 tabs 03/07/24 metformin 1,000 mg tablet 1,000 mg PO BID 90 days #180 tabs 03/07/24 metoprolol succinate 50 mg 50 mg PO BID 90 days #180 tabs 03/07/24 tablet,extended release 24 hr needle (disp) 18 G 18 gauge x 1 #30 ea 07/04/24 (BD Regular [place]vel [place]) needle (disp) 23 gauge 23 gauge x #30 ea 07/04/24 3/4 (BD Regular [place]vel [place]) syringe (disposable) 1 mL (BD #30 ea 07/04/24 Luer-Verito Syringe) testosterone cypionate 200 mg/mL 80 mg (0.4 mL) subcut QWEEK 4 07/04/24 intramuscular oil weeks #2 mL (Depo-Testosterone) safety needles 23 gauge x 1 (BD #50 ea 07/06/24 SafetyGlide Needle) amlodipine 10 mg tablet 10 mg PO DAILY #90 tabs 08/15/24 epinephrine 0.3 mg/0.3 mL 0.3 mg (0.3 mL) IM Q10M PRN 09/18/24 injection, auto-injector (EpiPen anaphylaxis/shortness of breath #2 2-Charanjit) ea hydralazine 50 mg tablet 50 mg PO TID #270 tabs 04/28/25 methocarbamol 750 mg tablet 1,500 mg (2 x 750 mg) PO Q8H PRN 09/21/24 pain, moderate #20 tabs methylprednisolone 4 mg tablets in 4 mg PO QAM #21 ea 09/21/24 a dose pack (Medrol (Charanjit)) zolpidem 10 mg tablet 10 mg PO BEDTIME #30 tabs 09/21/24 Allergies Allergy/AdvReac Type Severity Reaction Status Date / Time sesame seed Allergy Swelling Verified 09/23/24 12:48 [facility] Past Medical History Medical History Low libido Screening for prostate cancer Pre-op examination Shift work sleep disorder Snoring Erectile dysfunction Headache Screening for prostate cancer Screening for colon cancer Adult general medical exam Erectile dysfunction due to type 2 diabetes mellitus Heart palpitations Chest pain COVID-19 High cholesterol Sciatica Hypertension Diabetes Epilepsy Heart attack Surgical History H/O colonoscopy History of tonsillectomy History of cardiac catheterization (~2015) History of coronary artery bypass graft x 2 (~2005) Family History Family History Father Cardiovascular disease Mother No problems noted. Social History Social History Housing: Apartment Alcohol intake: former Comment: hasnt drank in 30 years Patient Tobacco Use Status: Never used Tobacco Smoked in Last 30 Days: No e-Cigarette/Vaping Use: Never Used Second Hand Smoke Exposure: No Use of substances other than those prescribed or required for medical reasons: No Advance Directives: No Advance Directives Information Provided: No service: No Current occupational status: previously employed Current occupational exposures/hazards: No Cognitive needs: No Hearing needs: No Vision needs: No Physical Exam ED Vital Signs: Vital Signs - 24 hr 09/23/24 12:42 09/23/24 15:21 09/23/24 18:48 Temperature 97.4 F 98.0 F 98.0 F Pulse Rate 75 69 72 Respiratory Rate 18 18 18 Blood Pressure 158/65 H 144/63 H 136/72 Pulse Oximetry 99 98 100 Oxygen Delivery Method Room Air Room Air Room Air BMI result Body Mass Index 27.4 Course Course Course Narrative: This is an RME performed by Tamy Lambert CNP: Additional HPI, ROS, PE not included below will be deferred to primary provider. Patient is a 69-year-old male who presents emergency department for evaluation. He reports at approximately 10:45 he was walking into a [employer] when he felt off balance, swing towards the left and the right. [place] as though he might fall if he did not grab onto something. Ultimately someone helped him back to his car and he was able to sit down for awhile. He went out to lunch with family, and still felt a little off. 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 He is feeling well at this time, ambulatory with steady gait NIH score of 0. Plan: Serum labs, EKG, viral serologies, CT head See additional primary note dated from Dr. Child 09/23/2024 Reevaluation(s) Reevaluation #1: 09/23/2024 Dr. Hernandez's progress note:GCS of 15, neuro exam: Mental status: Normal attention, orientation, memory, and affect. Cranial nerves: Pupils are equal, round and reactive to light, EOMI, visual jean-baptiste are fall, face is symmetric, facial sensations are normal. Motor examination normal muscle tone, strength to 4 extremities. DTR are +2, planter's are flexor. Sensory exam; normal coordination, no ataxia, gait stable. Cerebellar exam: [id number] and [id number] is normal. Extrapyramidal system: No tremors, no rigidity with normal facial expressions. Pronator drift not present. Head CT: No acute intracranial findings. MRI of the brain:No restricted diffusion. No intra-axial mass or hemorrhage. Mild diffuse cerebral volume loss. No midline shift. No hydrocephalus. Vascular flow voids are intact. Orbital contents are unremarkable. The sinuses and mastoid air cells are clear. No focal bone lesion. Findings were discussed with the patient using the hourly sign language interpreter service patient fully understand, and he will be discharged home. Time: 18:36 Medical Decision Making Lab Data 09/23/24 13:08 09/23/24 13:08 Labs: Lab Results 09/23/24 09/23/24 Range/Units 13:08 15:20 WBC 10.4 (4.8-10.8) X10*3/uL RBC 4.18 L (4.60-5.80) X10*6/uL Hgb 12.3 L (14.0-18.0) g/dl Hct 35.8 L (42.0-52.0) % MCV 85.6 (80.0-98.0) fL MCH 29.4 (27.0-33.0) pg MCHC 34.4 (31.0-36.0) g/dl RDW 14.6 (11.0-16.0) % Plt Count 262 (160-400) X10*3/uL MPV 9.2 L (9.4-12.4) fL Immature Gran % (Auto) 0.2 (0.0-0.4) % Neut % (Auto) 47.1 (45-73) % Lymph % (Auto) 46.4 H (20-40) % [place] % (Auto) 6.2 (2-11) % Eos % (Auto) 0.0 (0-4) % Baso % (Auto) 0.1 (0-2) % Lymph # (Auto) 4.8 (1.2-4.9) X10*3/uL [place] # (Auto) 0.6 (0.1-1.2) X10*3/uL Eos # (Auto) 0.0 (0.0-0.4) X10*3/uL Baso # (Auto) 0.0 (0.0-0.2) X10*3/uL Abs Immat Gran (auto) 0.02 (0.00-0.03) X10*3/uL Absolute Neuts (auto) 4.9 (2.0-8.3) x10*3/uL Absolute Nucleated RBC 0.000 (0.0-0.012) X10*3/uL Nucleated RBC % (auto) 0.0 (0.0-0.2) /100WBC Smear Tech's Comments VERIFIED Sodium 139 (135-145) mmol/L Potassium 3.7 (3.3-5.1) mmol/L Chloride 107 (96-108) mmol/L Carbon Dioxide 21 L (22-29) mmol/L Anion Gap 15 (12-20) BUN 26 H (9-16) mg/dL Creatinine 1.72 H (0.5-1.4) mg/dL Estim Creat Clear Calc 42.0 Estimated GFR 40 Random Glucose 175 H (60-115) mg/dL Calcium 8.8 D (8.4-10.2) mg/dL Magnesium 1.7 (1.6-2.6) mg/dL Total Bilirubin 0.8 (0.0-1.0) mg/dL AST 20 (5-37) U/L ALT 22 (0-40) U/L Alkaline Phosphatase 164 H (39-117) U/L Troponin I High Sens 9.8 (<3.5-35.0) ng/L Total Protein 7.4 (6.5-8.0) g/dL Albumin 4.0 (3.5-5.0) g/dL Urine Color Yellow Urine Appearance Clear Urine pH 5.0 (5.0-9.0) Ur Specific [place] 1.015 (1.005-1.025) Urine Protein 100 (2+) H (Neg-Trace) mg/dL Urine Glucose (UA) Negative (Negative) mg/dL Urine Ketones Negative (Negative) mg/dL Urine Blood Negative (Negative) Urine Nitrite Negative (Negative) Ur Leukocyte Esterase Negative (Negative) Urine RBC 0-2 (0-2) /HPF Urine WBC 0-5 (0-5) /HPF Ur Squamous Epith Cells 0-2 (0-2) /HPF Urine Bacteria None Seen (None Seen) Hyaline Casts 0-2 (0-2) /LPF Influenza Type A (PCR) NEGATIVE (Negative) Influenza Type B (PCR) NEGATIVE (Negative) RSV RNA Qual (PCR) NEGATIVE (Negative) SARS-CoV-2 RNA (RT-PCR) NEGATIVE (Negative) Discharge Plan Discharge Clinical Impression: Dizziness Patient Disposition: Home, Self-Care Instructions: Vertigo (ED) Prescriptions: No Action aspirin 81 mg tablet,chewable 81 mg PO DAILY Qty: 30 2RF (DME) FreeStyle Lite Strips Strip See Rx Instructions .Route Qty: 50 3RF Rx Instructions: daily atorvastatin 80 mg tablet 80 mg PO BEDTIME (DME) BD SafetyGlide Needle 23 gauge x 1 needle See Rx Instructions .Route Qty: 50 0RF Rx Instructions: As directed to inject testosterone zolpidem 10 mg tablet 10 mg PO BEDTIME Qty: 30 0RF methylprednisolone [Medrol (Charanjit)] 4 mg tablets,dose pack 4 mg PO QAM Qty: 21 0RF Rx Instructions: Take the medication per package instructions methocarbamol 750 mg tablet 1,500 mg PO Q8H PRN (Reason: pain, moderate) Qty: 20 0RF (DME) blood pressure test kit-large Kit See Rx Instructions .ROUTE .MEDSUPPLY Qty: 1 0RF Rx Instructions: check bp daily once stable check twice a week and as needed collagenase clostridium histo. 250 unit/gram ointment 1 appl topical BEDTIME PRN (Reason: wound care) 14 Days Qty: 15 0RF glipizide 10 mg tablet 10 mg PO BID 90 Days Qty: 180 3RF metformin 1,000 mg tablet 1,000 mg PO BID 90 Days Qty: 180 3RF metoprolol succinate 50 mg tablet extended release 24 hr 50 mg PO BID 90 Days Qty: 180 3RF lamotrigine 200 mg tablet 200 mg PO BID 90 Days Qty: 180 3RF clotrimazole 1 % cream 1 appl topical BID 14 Days Qty: 45 3RF hydralazine 50 mg tablet 50 mg PO TID Qty: 270 3RF epinephrine [EpiPen 2-Charanjit] 0.3 mg/0.3 mL auto-injector 0.3 mg IM Q10M PRN (Reason: anaphylaxis/shortness of breath) Qty: 2 0RF Rx Instructions: for 2 doses amlodipine 10 mg tablet 10 mg PO DAILY Qty: 90 3RF (DME) BD Regular [place]vel [place] 23 gauge x 3/4 needle See Rx Instructions .Route Qty: 30 0RF Rx Instructions: Inject testosterone subcutaneous (DME) BD Luer-Verito Syringe 1 mL syringe See Rx Instructions .MEDSUPPLY Qty: 30 0RF Rx Instructions: Testosterone injection weekly (DME) needle (disp) 18 G [BD Regular [place]vel [place]] 18 gauge x 1 needle See Rx Instructions .MEDSUPPLY Qty: 30 0RF Rx Instructions: As directed - draw up testosterone testosterone cypionate [Depo-Testosterone] 200 mg/mL oil 80 mg subcut QWEEK 28 Days Qty: 2 2RF Referrals: Lou Jameson MD [Primary Care Provider] - Interventions: ED Discharge Assessment Last Done: 09/23/24 18:48 Discharge Date/Time: 09/23/24 18:48 Print Language: Korean
--- NOTE | 2024-09-23 12:56 | ECG_ITS ---
Test Reason : dizziness Blood Pressure : */* mmHG Vent. Rate : 72 BPM Atrial Rate : 72 BPM P-R Int : 166 ms QRS Dur : 90 ms QT Int : 388 ms P-R-T Axes : 43 2 104 degrees QTcB Int : 424 ms Normal sinus rhythm Minimal voltage criteria for LVH, may be normal variant ( R in aVL ) Anterior infarct , age undetermined Abnormal ECG When compared with ECG of 25-Jan-2023 17:14, Anterior infarct is now Present Referred By: Juana Lambert Electronically Signed By: Alex العراقي
--- OUTSIDE RECORDS SUMMARY | 2024-09-23 13:07 | XMS_ITS | Clinical Summary ---
Author Organization [facility] Address [address] [place] [address] Phone Care Team Providers Care Oven Baker Name Role Phone Lou Jameson MD Primary Care Provider [phone] Allergies No known active allergies Medications diclofenac [...] 1:30 PM EDT Office Visit Orthopedic Surgery [facility] [address] [phone] Brandon Clement DPM Metatarsalgia of both feet (Primary Dx); Dermatophytosis of nail; Pain in toe of right foot; Pain in toe of left foot; Type II diabetes mellitus with peripheral circulatory disorder [place] [place] [facility] [place] Diabetic mononeuropathy simplex [place] [place] [facility] [place] Tinea pedis of both feet; Corns [...] 1:45 PM EDT Office Visit Orthopedic Surgery [facility] [address] [phone] Brandon Clement DPM [address] [address] Health Maintenance Due Date Last Done Comments [...] Insurance MEDICAID - [place] MEDICARE Care Teams Oven Baker Relationship Specialty Start Date End Date Lou Jameson MD [address] [place] [address] PCP - General 03/15/24
[2024-09-23 13:18] LABS: Basophils Percent Auto 0.1 % (0-2); Hematocrit 35.8 % (42.0-52.0); Hemoglobin 12.3 g/dl (14.0-18.0); Imm Gran Abs Auto 0.02 X10*3/uL (0.00-0.03); Imm Gran Pct Auto 0.2 % (0.0-0.4); Lymphocytes Absolute Auto 4.8 X10*3/uL (1.2-4.9); Lymphocytes Percent Auto 46.4 % (20-40); MANUAL DIFF FLAG SCAN; Mean Corpuscular HGB Conc 34.4 g/dl (31.0-36.0); Mean Corpuscular Hemoglobin 29.4 pg (27.0-33.0); Mean Corpuscular Volume 85.6 fL (80.0-98.0); Mean Platelet Volume 9.2 fL (9.4-12.4); Monocytes Absolute Auto 0.6 X10*3/uL (0.1-1.2); Monocytes Percent Auto 6.2 % (2-11); Neutrophils Absolute Auto 4.9 x10*3/uL (2.0-8.3); Neutrophils Percent Auto 47.1 % (45-73); Platelet Count 262 X10*3/uL (160-400); Red Blood Count 4.18 X10*6/uL (4.60-5.80); Red Cell Distribution Width 14.6 % (11.0-16.0); SCAN SMEAR FLAG 1; White Blood Count 10.4 X10*3/uL (4.8-10.8)
[2024-09-23 13:31] LABS: Alanine Aminotransferase 22 U/L (0-40); Alkaline Phosphatase 164 U/L (39-117); Anion Gap 15 (12-20); Aspartate Amino Transferase 20 U/L (5-37); Bilirubin Total 0.8 mg/dL (0.0-1.0); Blood Urea Nitrogen 26 mg/dL (9-16); Calcium 8.8 mg/dL (8.4-10.2); Carbon Dioxide 21 mmol/L (22-29); Chloride 107 mmol/L (96-108); Estimated Glomerular Filt Rate 40; Glucose Random 175 mg/dL (60-115); Magnesium 1.7 mg/dL (1.6-2.6); Potassium 3.7 mmol/L (3.3-5.1); Sodium 139 mmol/L (135-145); Total Protein 7.4 g/dL (6.5-8.0)
[2024-09-23 13:38] LABS: Troponin-I High Sensitivity 9.8 ng/L (<3.5-35.0)
[2024-09-23 13:43] LABS: SLIDE REVIEW VERIFIED
[2024-09-23 13:54] LABS: Influenza A PCR NEGATIVE (Negative); Influenza B PCR NEGATIVE (Negative); Resp Syncy Virus RNA Qual PCR NEGATIVE (Negative); SARS COV2 PCR INHOUSE NEGATIVE (Negative)
--- NOTE | 2024-09-23 14:01 | ED_ITS ---
HPI - Neuro Symptoms/Deficit General Chief Complaint: Neuro Symptoms/Deficit Stated Complaint: balance issues, back pain Time Seen by Provider: 09/23/24 13:47 Source: patient Mode of arrival: ambulatory Limitations: no limitations History of Present Illness HPI Narrative: This is a 69 years old male presented to the emergency department because feeling of off balance while he was a CVS. Symptoms are improving now. Patient has history of diabetes, he reports history of prior CVA, history of hypertension. He is ambulatory to the emergency department denies any upper extremity weakness or legs weakness or speech problem Onset (ago): hour(s) (2) Location: other (unsteady gait) History of same: No Severity: mild Relieving factors: none Exacerbating factors: none Context: sudden onset On Anticoagulants: No Associated symptoms: denies other symptoms Treatments Prior to Arrival: none Related Data Home Medications ?Medication ?Instructions ?Recorded ?Confirmed atorvastatin 80 mg tablet 80 mg PO BEDTIME 06/06/24 08/15/24 Previous Rx's ?Medication ?Instructions ?Recorded aspirin 81 mg chewable tablet 81 mg PO DAILY #30 tabs 04/16/21 blood pressure test kit-large #1 ea 09/30/21 blood sugar diagnostic (FreeStyle #50 ea 09/07/23 Lite Strips) collagenase clostridium histo. 250 1 appl topical BEDTIME PRN wound 09/22/23 unit/gram topical ointment care 14 days #15 grams clotrimazole 1 % topical cream 1 appl topical BID 2 weeks #45 03/07/24 grams glipizide 10 mg tablet 10 mg PO BID 90 days #180 tabs 03/07/24 lamotrigine 200 mg tablet 200 mg PO BID 90 days #180 tabs 03/07/24 metformin 1,000 mg tablet 1,000 mg PO BID 90 days #180 tabs 03/07/24 metoprolol succinate 50 mg 50 mg PO BID 90 days #180 tabs 03/07/24 tablet,extended release 24 hr needle (disp) 18 G 18 gauge x 1 #30 ea 07/04/24 (BD Regular Bevel [place]) needle (disp) 23 gauge 23 gauge x #30 ea 07/04/24 3/4 (BD Regular Bevel [place]) syringe (disposable) 1 mL (BD #30 ea 07/04/24 Luer-Verito Syringe) testosterone cypionate 200 mg/mL 80 mg (0.4 mL) subcut QWEEK 4 07/04/24 intramuscular oil weeks #2 mL (Depo-Testosterone) safety needles 23 gauge x 1 (BD #50 ea 07/06/24 SafetyGlide Needle) amlodipine 10 mg tablet 10 mg PO DAILY #90 tabs 08/15/24 epinephrine 0.3 mg/0.3 mL 0.3 mg (0.3 mL) IM Q10M PRN 09/18/24 injection, auto-injector (EpiPen anaphylaxis/shortness of breath #2 2-Charanjit) ea hydralazine 50 mg tablet 50 mg PO TID #270 tabs 09/18/24 methocarbamol 750 mg tablet 1,500 mg (2 x 750 mg) PO Q8H PRN 09/21/24 pain, moderate #20 tabs methylprednisolone 4 mg tablets in 4 mg PO QAM #21 ea 09/21/24 a dose pack (Medrol (Charanjit)) zolpidem 10 mg tablet 10 mg PO BEDTIME #30 tabs 09/21/24 Allergies Allergy/AdvReac Type Severity Reaction Status Date / Time sesame seed Allergy Swelling Verified 09/23/24 12:48 Review of Systems 2 Eyes: Eyes: Reports no additional eye complaints Cardiovascular: Cardiovascular: Reports no additional cardiovascular complaints Psychiatric: Psychiatric: Reports as per [facility] Past Medical History Attestation statement: The following information was validated with the patient. Medical History Low libido Screening for prostate cancer Pre-op examination Shift work sleep disorder Snoring Erectile dysfunction Headache Screening for prostate cancer Screening for colon cancer Adult general medical exam Erectile dysfunction due to type 2 diabetes mellitus Heart palpitations Chest pain COVID-19 High cholesterol Sciatica Hypertension Diabetes Epilepsy Heart attack Surgical History H/O colonoscopy History of tonsillectomy History of cardiac catheterization (~2015) History of coronary artery bypass graft x 2 (~2005) Family History Family History Father Cardiovascular disease Mother No problems noted. Social History Social History Housing: Apartment Alcohol intake: former Comment: hasnt drank in 30 years Patient Tobacco Use Status: Never used Tobacco Smoked in Last 30 Days: No e-Cigarette/Vaping Use: Never Used Second Hand Smoke Exposure: No Use of substances other than those prescribed or required for medical reasons: No Advance Directives: No Advance Directives Information Provided: No service: No Current occupational status: previously employed Current occupational exposures/hazards: No Cognitive needs: No Hearing needs: No Vision needs: No Physical Exam 2 Vital Signs: Vital Signs: Last Vital Signs Temp 98.0 F 09/23/24 15:21 Pulse 69 09/23/24 15:21 Resp 18 09/23/24 15:21 BP 144/63 H 09/23/24 15:21 Pulse Ox 98 09/23/24 15:21 O2 Del Method Room Air 09/23/24 15:21 BMI result Body Mass Index 27.4 Awake alert oriented x3, no acute distress Const: General: comfortable, well developed and alert Nutritional Appearance: average body habitus Orientation/consciousness: patient oriented x3 HEENT: Head: Yes normal to inspection General nose exam: Normal external nose present Face and sinus: Yes normal facial exam Neck: Neck: Yes normal visual inspection Chest: Chest palpation & inspection: normal inspection of the chest Resp: Effort & Inspection: normal respiratory effort Auscultation: clear to auscultation bilaterally Cardio: Jugular venous distension: no JVD Rate: regular rate GI: Inspection: Yes normal to inspection Palpation (GI): Soft to palpation, not firm and nontender Auscultation: normal bowel sounds Skin: General skin exam: no rashes or lesions noted, elasticity normal and turgor normal Lesions: no lesions Rashes: no rashes Hair: normal Neuro: Other: Stroke scale 0 at this time, [id number] normal gait stable General: patient oriented x3 Course Reevaluation(s) Reevaluation #1: CT scan negative, we are unable to do a CTA head and neck because of the chronic renal failure we will do an MRI. I am off shift now case was signed out to Dr. Hernandez Time: 17:21 Medical Decision Making Lab Data 09/23/24 13:08 09/23/24 13:08 Labs: Lab Results 09/23/24 09/23/24 Range/Units 13:08 15:20 WBC 10.4 (4.8-10.8) X10*3/uL RBC 4.18 L (4.60-5.80) X10*6/uL Hgb 12.3 L (14.0-18.0) g/dl Hct 35.8 L (42.0-52.0) % MCV 85.6 (80.0-98.0) fL MCH 29.4 (27.0-33.0) pg MCHC 34.4 (31.0-36.0) g/dl RDW 14.6 (11.0-16.0) % Plt Count 262 (160-400) X10*3/uL MPV 9.2 L (9.4-12.4) fL Immature Gran % (Auto) 0.2 (0.0-0.4) % Neut % (Auto) 47.1 (45-73) % Lymph % (Auto) 46.4 H (20-40) % [place] % (Auto) 6.2 (2-11) % Eos % (Auto) 0.0 (0-4) % Baso % (Auto) 0.1 (0-2) % Lymph # (Auto) 4.8 (1.2-4.9) X10*3/uL [place] # (Auto) 0.6 (0.1-1.2) X10*3/uL Eos # (Auto) 0.0 (0.0-0.4) X10*3/uL Baso # (Auto) 0.0 (0.0-0.2) X10*3/uL Abs Immat Gran (auto) 0.02 (0.00-0.03) X10*3/uL Absolute Neuts (auto) 4.9 (2.0-8.3) x10*3/uL Absolute Nucleated RBC 0.000 (0.0-0.012) X10*3/uL Nucleated RBC % (auto) 0.0 (0.0-0.2) /100WBC Smear Tech's Comments VERIFIED Sodium 139 (135-145) mmol/L Potassium 3.7 (3.3-5.1) mmol/L Chloride 107 (96-108) mmol/L Carbon Dioxide 21 L (22-29) mmol/L Anion Gap 15 (12-20) BUN 26 H (9-16) mg/dL Creatinine 1.72 H (0.5-1.4) mg/dL Estim Creat Clear Calc 42.0 Estimated GFR 40 Random Glucose 175 H (60-115) mg/dL Calcium 8.8 D (8.4-10.2) mg/dL Magnesium 1.7 (1.6-2.6) mg/dL Total Bilirubin 0.8 (0.0-1.0) mg/dL AST 20 (5-37) U/L ALT 22 (0-40) U/L Alkaline Phosphatase 164 H (39-117) U/L Troponin I High Sens 9.8 (<3.5-35.0) ng/L Total Protein 7.4 (6.5-8.0) g/dL Albumin 4.0 (3.5-5.0) g/dL Urine Color Yellow Urine Appearance Clear Urine pH 5.0 (5.0-9.0) Ur Specific [place] 1.015 (1.005-1.025) Urine Protein 100 (2+) H (Neg-Trace) mg/dL Urine Glucose (UA) Negative (Negative) mg/dL Urine Ketones Negative (Negative) mg/dL Urine Blood Negative (Negative) Urine Nitrite Negative (Negative) Ur Leukocyte Esterase Negative (Negative) Urine RBC 0-2 (0-2) /HPF Urine WBC 0-5 (0-5) /HPF Ur Squamous Epith Cells 0-2 (0-2) /HPF Urine Bacteria None Seen (None Seen) Hyaline Casts 0-2 (0-2) /LPF Influenza Type A (PCR) NEGATIVE (Negative) Influenza Type B (PCR) NEGATIVE (Negative) RSV RNA Qual (PCR) NEGATIVE (Negative) SARS-CoV-2 RNA (RT-PCR) NEGATIVE (Negative) Discharge Plan Discharge Clinical Impression: Dizziness Patient Disposition: Still a Patient Prescriptions: No Action aspirin 81 mg tablet,chewable 81 mg PO DAILY Qty: 30 2RF (DME) FreeStyle Lite Strips Strip See Rx Instructions .Route Qty: 50 3RF Rx Instructions: daily atorvastatin 80 mg tablet 80 mg PO BEDTIME (DME) BD SafetyGlide Needle 23 gauge x 1 needle See Rx Instructions .Route Qty: 50 0RF Rx Instructions: As directed to inject testosterone zolpidem 10 mg tablet 10 mg PO BEDTIME Qty: 30 0RF methylprednisolone [Medrol (Charanjit)] 4 mg tablets,dose pack 4 mg PO QAM Qty: 21 0RF Rx Instructions: Take the medication per package instructions methocarbamol 750 mg tablet 1,500 mg PO Q8H PRN (Reason: pain, moderate) Qty: 20 0RF (DME) blood pressure test kit-large Kit See Rx Instructions .ROUTE .MEDSUPPLY Qty: 1 0RF Rx Instructions: check bp daily once stable check twice a week and as needed collagenase clostridium histo. 250 unit/gram ointment 1 appl topical BEDTIME PRN (Reason: wound care) 14 Days Qty: 15 0RF glipizide 10 mg tablet 10 mg PO BID 90 Days Qty: 180 3RF metformin 1,000 mg tablet 1,000 mg PO BID 90 Days Qty: 180 3RF metoprolol succinate 50 mg tablet extended release 24 hr 50 mg PO BID 90 Days Qty: 180 3RF lamotrigine 200 mg tablet 200 mg PO BID 90 Days Qty: 180 3RF clotrimazole 1 % cream 1 appl topical BID 14 Days Qty: 45 3RF hydralazine 50 mg tablet 50 mg PO TID Qty: 270 3RF epinephrine [EpiPen 2-Charanjit] 0.3 mg/0.3 mL auto-injector 0.3 mg IM Q10M PRN (Reason: anaphylaxis/shortness of breath) Qty: 2 0RF Rx Instructions: for 2 doses amlodipine 10 mg tablet 10 mg PO DAILY Qty: 90 3RF (DME) BD Regular Bevel [place] 23 gauge x 3/4 needle See Rx Instructions .Route Qty: 30 0RF Rx Instructions: Inject testosterone subcutaneous (DME) BD Luer-Verito Syringe 1 mL syringe See Rx Instructions .MEDSUPPLY Qty: 30 0RF Rx Instructions: Testosterone injection weekly (DME) needle (disp) 18 G [BD Regular Bevel [place]] 18 gauge x 1 needle See Rx Instructions .MEDSUPPLY Qty: 30 0RF Rx Instructions: As directed - draw up testosterone testosterone cypionate [Depo-Testosterone] 200 mg/mL oil 80 mg subcut QWEEK 28 Days Qty: 2 2RF Print Language: Mongolian
[2024-09-23 15:21] VITALS: BP 144/63; PULSE 69; RESP 18; TEMP 36.7; O2SAT 98
[2024-09-23 15:36] LABS: Appearance Urine Clear; Color Urine Yellow; Glucose Urine UA Negative (Negative); Leukocyte Esterase Urine Negative (Negative); Nitrite Urine Negative (Negative); Specific Gravity - Urine 1.015 (1.005-1.025); UMIC TRIGGER UACC YES; Urine Blood Negative (Negative); Urine Ketones Negative (Negative); Urine Protein 100 (2+) mg/dL (Neg-Trace)
[2024-09-23 15:41] LABS: Bacteria Urine None Seen (None Seen); Hyaline Casts Urine 0-2 /LPF (0-2); RBC Urine 0-2 /HPF (0-2); Squamous Epithelial Cell Urine 0-2 /HPF (0-2); WBC Urine 0-5 /HPF (0-5)
--- NOTE | 2024-09-23 16:10 | PC.NURSE ---
Pt off unit at MRI.
--- NOTE | 2024-09-23 17:39 | PC.NURSE ---
Pt a/ox3, speaking in full sentences, no facial droop noted, swelling noted to R side of face/lips, speech clear and appropriate, neuros intact, resppirations even and unlabored, no increased wob/sob noted, lung sounds cta bilaterally, maintaining own airway/O2 sat >92%, denies cp, HR 70s, NSR. Plan for MRI- screening form done and sent to lab. Call villasenor within reach, all needs met at this time.
[2024-09-23 18:48] VITALS: BP 136/72; PULSE 72; RESP 18; TEMP 36.7; O2SAT 100
== END 2024-09-23 18:48 | disposition home or self-care (01) ==
PROVIDERS: Nurse Practitioner Family; Emergency Provider Emergency Medicine; PCP Internal Medicine
DX: R42 Dizziness and giddiness (principal); R26.81 Unsteadiness on feet; R29.6 Repeated falls; M54.50 Low back pain, unspecified; E78.5 Hyperlipidemia, unspecified; Z03.818 Encounter for observation for suspected exposure to other biological agents ruled out; E11.22 Type 2 diabetes mellitus with diabetic chronic kidney disease; I12.9 Hypertensive chronic kidney disease with stage 1 through stage 4 chronic kidney disease, or unspecified chronic kidney disease; N18.30 Chronic kidney disease, stage 3 unspecified; Z86.73 Personal history of transient ischemic attack (TIA), and cerebral infarction without residual deficits; Z79.82 Long term (current) use of aspirin; Z79.02 Long term (current) use of antithrombotics/antiplatelets; Z79.84 Long term (current) use of oral hypoglycemic drugs; Z79.899 Other long term (current) drug therapy
CPT/HCPCS: 0241U; 70450; 70551; 80053; 81001; 83735; 84484; 85025; 93005; 99285

== ENCOUNTER → 2024-09-23 12:56 | Outpatient (BNV) | payer MEDICARE, MEDICAID, SELFPAY ==
[2021-08-28 07:22] VITALS: BP 146/76; BP 148/60; BMI 26.7
== END ==
PROVIDERS: Emergency Provider Emergency Medicine; PCP Internal Medicine; Visit Provider Radiology Diagnostic Radiology
DX: R26.81 Unsteadiness on feet (principal); R42 Dizziness and giddiness; R53.1 Weakness
CPT/HCPCS: 70450; 70551

== ENCOUNTER → 2024-09-23 12:56 | Outpatient (BNV) | payer MEDICARE, MEDICAID, SELFPAY ==
[2021-08-28 07:22] VITALS: BP 146/76; BP 148/60; BMI 26.7
== END ==
PROVIDERS: Emergency Provider Emergency Medicine; PCP Internal Medicine; Visit Provider Internal Medicine Cardiovascular Disease
DX: R42 Dizziness and giddiness (principal); R94.31 Abnormal electrocardiogram [ECG] [EKG]
CPT/HCPCS: 93010

== ENCOUNTER 2024-09-26 14:19 | Outpatient (AMB) | payer MEDICARE, MEDICAID, SELFPAY ==
[2021-08-28 07:22] VITALS: BP 146/76; BP 148/60; BMI 26.7
--- NOTE | 2024-09-26 14:44 | MHC.PC.OV ---
Vital Signs 09/26/24 14:50 Height 5 ft 7 in Weight 171 lb 2 oz BMI 26.8 BP 122/66 Blood Pressure Location Rt brachial Position Sitting Respiration 14 Pulse 75 Pulse Source Pulse Oximeter Pulse Oximetry (%) 97 Oxygen Delivery Method Room Air Intake Visit Reasons: Fall F/U Intake Note: Emergency room follow up. 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 Allergies sesame seed Allergy (Verified 09/26/24 14:49) Swelling Tobacco use date assessed: 09/26/24 Fall risk assessment: 1 Fall in past year Last assessed Fall Risk: 09/26/24 Dental Screening Dental Screen Date: 09/22/23 Did you have a dental visit in the last 12 months?: Yes Did you have a dental problem in the last 6 months where you did not have access to dental care?: No Was dental information given to patient?: Patient has dentist HPI HPI Comments History of Present Illness Details 69 year old male with a past medical history of [place], diabetes, hypertension, CKD presenting for follow up Notes blood pressure continues to be elevated despite losartan, metoprolol and norvasc. He has had a few episodes recently where his lips have swollen and they have remained so for hours. He has no known food allergies Was in the ER recently 09/21 for acute flare of neck pain and 09/23 for dizziness. he was seen recently with complaints of uncontrolled blood pressure and lip swelling.He was advised to stop the losartan and start hydralazine. He did not stop the losartan and just started the hydralazine yesterday His blood pressure is normal today Diabetes is well controlled. 12/27/23 6.4%. On metformin 1000 twice daily, glipizide. On statin. Denies chest pain, exertional dyspnea. CKD. seeing nephrolog Having a lot of trouble sleeping. Tried OTC. on zolpidem. MSK: left ankle pain-referred to podiatry Declines colonoscopy. Cologuard test was ordered ROS CONSTITUTIONAL: Denies weight loss, fever and chills. HEENT: Denies changes in vision and hearing. RESPIRATORY: Denies SOB and cough. CV: Denies palpitations and CP GI: Denies abdominal pain, nausea, vomiting and diarrhea. : Denies dysuria and urinary frequency. MSK: Denies new myalgia and joint pain. SKIN: Denies rash and pruritus. NEUROLOGICAL: Denies headache PSYCHIATRIC: Denies recent changes in mood. PHYSICAL EXAM: GENERAL: Alert and oriented x 3. NAD EYES: EOMI. Anicteric. HENT: Moist mucous membranes. No scleral icterus. No cervical lymphadenopathy. LUNGS: Clear to auscultation bilaterally. CARDIOVASCULAR: Regular rate and rhythm. No murmur. No JVD. ABDOMEN: Soft, non-tender +bs EXTREMITIES: No edema. Non-tender. SKIN: No rashes or lesions. Warm. NEUROLOGIC: No focal neurological deficits. CN II-XII grossly intact PSYCHIATRIC: Cooperative. Appropriate mood and affect [facility] Medical History Low libido Screening for prostate cancer Pre-op examination Shift work sleep disorder Snoring Erectile dysfunction Headache Screening for prostate cancer Screening for colon cancer Adult general medical exam Erectile dysfunction due to type 2 diabetes mellitus Heart palpitations Chest pain COVID-19 High cholesterol Sciatica Hypertension Diabetes Epilepsy Heart attack Surgical History H/O colonoscopy History of tonsillectomy History of cardiac catheterization (~2015) History of coronary artery bypass graft x 2 (~2005) Family History Father Cardiovascular disease Mother No problems noted. Social History Housing: Apartment Alcohol intake: former Comment: hasnt drank in 30 years Patient Tobacco Use Status: Never used Tobacco e-Cigarette/Vaping Use: Never Used Second Hand Smoke Exposure: No service: No Current occupational status: previously employed Current occupational exposures/hazards: No Cognitive needs: No Hearing needs: No Vision needs: No Questionnaire Thrive Questionnaire Date Thrive assessed: 08/15/24 I am a: Patient What is your living situation today?: I have a steady place to live Within the past 12 months, did the food you bought not last and you didn't have the money to get more?: Sometimes True Within the past 12 months, did you worry whether your food would run out before you got money to buy more?: Sometimes True Do you have trouble paying for medicines?: No Do you have trouble getting transportation to medical appointments?: No Do you have trouble paying your heating and electricity bill?: No Do you have trouble taking care of your child, family member or friend?: No Do you have trouble with day-to-day activities such as bathing, preparing meals, shopping, managing finances, etc.?: No Are you currently unemployed and looking for a job?: I choose not to answer this question Are you interested in more education?: No Please select the resources that you would like help with: None Currently or been in a relationship where the following occur: No concerns reported THRIVE Score: 2 LAURA-7 AMB Questionnaire LAURA-7 Date LAURA - 7 assessed: 04/22/23 Source: Developed by Drs. Alex Ledezma, Nicole Scott, Messi Og and colleagues, with an educational rhonda from [employer]. Physical exam (Primary Care) Vital Signs: Last Vital Signs Pulse 75 09/26/24 14:50 Resp 14 09/26/24 14:50 BP 122/66 09/26/24 14:50 Pulse Ox 97 09/26/24 14:50 Oxygen Delivery Method Room Air 09/26/24 14:50 BMI result Body Mass Index 26.8 Tobacco/Smoking Status: Tobacco use Status Tobacco use date assessed 09/26/24 09/26/24 14:54 Patient Tobacco Use Status Never used Tobacco 09/26/24 14:46 e-Cigarette/Vaping Use Never Used 09/26/24 14:46 Thrive Assessment: Date of Thrive Assessment Date Thrive assessed 08/15/24 09/26/24 14:46 Currently or been in a relationship where the following occur: No concerns reported Coding Level of Care Code Est Pt Level 3 (59847) Diagnoses Essential hypertension I10 Type 2 diabetes mellitus with unspecified complications E11.8 Assessment & Plan Assessment & Plan (1) Essential hypertension: Code(s): I10 - Essential (primary) hypertension Category: Medical (2) Type 2 diabetes mellitus with unspecified complications: Code(s): E11.8 - Type 2 diabetes mellitus with unspecified complications Category: Medical Plan ER follow up x 2 Reinforced stopping losartan pending allergy consult Continue hydralazine.BP check 2 weeks Neck pain is at baseline
[2024-09-26 14:50] VITALS: BP 122/66; PULSE 75; RESP 14; O2SAT 97; BMI 26.8
--- OUTSIDE RECORDS SUMMARY | 2024-09-26 15:40 | XMS_ITS | Clinical Summary ---
Author Organization [address] [facility] Address [address] [place] [address] Phone Care Team Providers Care Analysis Manager Name Role Phone Lou Jameson MD Primary Care Provider [phone] Allergies No known active allergies Medications diclofenac [...] 1:30 PM EDT Office Visit Orthopedic Surgery [facility] [address] [phone] Brandon Clement DPM Metatarsalgia of both feet (Primary Dx); Dermatophytosis of nail; Pain in toe of right foot; Pain in toe of left foot; Type II diabetes mellitus with peripheral circulatory disorder ([facility] V24, [facility] V28); Diabetic mononeuropathy simplex ([facility] V24, [facility] V28); Tinea pedis of [...] 1:45 PM EDT Office Visit Orthopedic Surgery [facility] [address] [phone] Brandon Clement DPM [address] [address] Health Maintenance Due Date Last Done Comments [...] Insurance MEDICAID - [place] MEDICARE Care Teams Analysis Manager Relationship Specialty Start Date End Date Lou Jameson MD [address] [place] [address] PCP - General 03/15/24
--- OUTSIDE RECORDS SUMMARY | 2024-09-26 15:40 | XMS_ITS | Clinical Summary ---
Author Organization [employer] Address [address] [place] [address] Care Team Providers Care Apigee Developer Name Role Phone Unavailable Primary Care Provider [...]
== END 2024-09-26 15:14 | disposition home or self-care (01) ==
LOC: HO.HMCFM 14:23
PROVIDERS: PCP Internal Medicine; Visit Provider Internal Medicine
DX: I10 Essential (primary) hypertension (principal); E11.8 Type 2 diabetes mellitus with unspecified complications

== ENCOUNTER → 2024-09-26 14:19 | Outpatient (BNVA) | payer MEDICARE, MEDICAID, SELFPAY ==
[2021-08-28 07:22] VITALS: BP 146/76; BP 148/60; BMI 26.7
== END ==
PROVIDERS: PCP Internal Medicine; Visit Provider Internal Medicine
DX: E11.22 Type 2 diabetes mellitus with diabetic chronic kidney disease (principal); I12.9 Hypertensive chronic kidney disease with stage 1 through stage 4 chronic kidney disease, or unspecified chronic kidney disease; N18.9 Chronic kidney disease, unspecified; I25.2 Old myocardial infarction
CPT/HCPCS: 99212

== ENCOUNTER 2024-10-06 09:38 | Outpatient (AMB) | payer MEDICARE, MEDICAID, SELFPAY ==
[2021-08-28 07:22] VITALS: BP 146/76; BP 148/60; BMI 26.7
--- NOTE | 2024-10-06 09:39 | A.OFFVIS_ITS ---
Vital Signs 10/06/24 09:41 Height 5 ft 7 in Weight 172 lb 1 oz BMI 26.9 BP 139/66 Blood Pressure Location Rt brachial Position Sitting Pulse 74 Pulse Source Pulse Oximeter Intake Visit Reasons: Neck pain ED RFERRAL Allergies sesame seed Allergy (Verified 10/06/24 09:44) Swelling HPI Comments Details: The patient is a 69-year-old male presenting with chronic neck pain and back pain. The neck pain began over 5 years ago and was significant enough in early September to prompt an emergency room visit, resulting in a referral for pain management. The neck pain has been persistent and is accompanied by stiffness and muscle spasms, though not severe, affecting the quality of life due to limitations in movement and activity. Concurrently, the patient has experienced chronic low back pain with radiation to the right leg, suggestive of sciatica. Physical therapy was completed for the back in the past but not for the neck, and the neck imaging suggests moderate degenerative arthritis and multilevel moderate central stenosis. The individual's medical history reveals well- documented hypertension, diabetes, a seizure disorder managed with antiepileptics, and past myocardial infarctions with consequent cardiac surgeries. His lifestyle includes adequate hydration and absence of deleterious habits such as smoking or alcohol abuse or ilicit drug use. Patient reports frequent falls and clumsiness with intermittent difficulty of balance which prompts him to lean more on the left side when waking. Denies any bladder or bowel dysfunction or saddle anesthesia. - Chronic neck pain with radiation to the shoulders, present for over five years. - Quality: Stiffness, spasming, non-severe but annoying, impacting activity. - Location: Neck, middle and lower back, radiating down the right leg (indicative of sciatica). - Exacerbating factors: Bending activities, movements, walking, range of motions - Relieving factors: Not explored in physical therapy adequately, willing to restart PT - Functional impact: Difficulty bending, putting on shoes. - Affect: Pain perceived as a chronic annoyance, impacting quality of life but not causing psychological distress. - Analgesia: Reports feeling pain at a moderate level with a history of Methocarbamol use. - Adverse Effects: None reported from current pain management. - Activities of Daily Living: Impeded by pain in bending and certain physical activities; incapability described in detailed functional movements. - Aberrant Drug Related Behaviors: None reported. Oswestry Neck Disability Index Score=2 PFSH Medical History Low libido Screening for prostate cancer Pre-op examination Shift work sleep disorder Snoring Erectile dysfunction Headache Screening for prostate cancer Screening for colon cancer Adult general medical exam Erectile dysfunction due to type 2 diabetes mellitus Heart palpitations Chest pain COVID-19 High cholesterol Sciatica Hypertension Diabetes Epilepsy Heart attack Surgical History H/O colonoscopy History of tonsillectomy History of cardiac catheterization (~2015) History of coronary artery bypass graft x 2 (~2005) Family History Father Cardiovascular disease Mother No problems noted. Social History Housing: Apartment Alcohol intake: former Comment: hasnt drank in 30 years Patient Tobacco Use Status: Never used Tobacco e-Cigarette/Vaping Use: Never Used Second Hand Smoke Exposure: No service: No Current occupational status: previously employed Current occupational exposures/hazards: No Cognitive needs: No Hearing needs: No Vision needs: No Review of Systems Const Details: - Musculoskeletal: Reports neck stiffness and lower back pain radiating to right leg; denies current shoulder pain. - Cardiovascular: Denies current chest pain; history of myocardial infarction. - Neurological: Denies memory issues; reports no seizures in the past year. Last seizure activity 1 year ago due to missing medication. - Respiratory: Denies shortness of breath. - General: Reports general good health but with noted physical functional limitations. All systems reviewed & are unremarkable except as noted in HPI and below Physical Exam Vital Signs: Last Vital Signs Pulse 74 10/06/24 09:41 BP 139/66 10/06/24 09:41 BMI result Body Mass Index 26.9 General: Appears afebrile. No acute distress. Alert and oriented. Mood and affect appropriate. Follows and participates in conversation appropriately. Respiratory effort is unlabored. No cough. Able to transition from sit to stand unassisted. Ambulates with bilaterally normal heel strike and toe off. Neck Other: Patient with decreased cervical ROM in all planes/especially with left lateral rotation. Reports increased pain with cervical extension and flexion. Spurling compression test equivocal. Pain is unchanged by Spurling maneuver with retraction. Elvey's tension test positive bilaterally, with radiation of pain from neck to wrist. Lhermitte's test was negative. DTR intact, +1 and symmetrical. Patient demonstrated 5/5 motor strength of bilateral upper extremities. 2 + radial pulses. Significant tightness throughout left upper trapezius as well as TTP throughout bilateral upper trapezius muscles. No paravertebral tenderness over facet joints bilaterally. Neck: Yes normal visual inspection, Yes full ROM, Yes no lymphadenopathy, Yes supple, No anterior neck swelling, Yes no JVD, No prominent supraclavicular fat pad and No prominent dorsocervical fat pad General: Yes no CVA tenderness Back/Spine/Pelvis Back: no CVA tenderness Cervical Spine: cervical muscular tenderness, pain with cervical ROM, No Cervical spine scars present, cervical spasm and No Cervical spine tenderness Thoracic/Lumbar Spine: thoracic and lumbar spine normal to inspection, No Thoracic/lumbar spine scar(s), Lasegue's sign negative, straight leg raise negative bilaterally, pain with thoraco-lumbar ROM, No paraspinal muscle tenderness, thoraco-lumbar ROM limited, No thoracic spinal tenderness and lumbar spinal tenderness at L4 and at L5 Pelvis: no buttock tenderness Sacroiliac joints: bilaterally nontender Extrem General: Yes capillary refill normal, Yes no clubbing, cyanosis or edema and Yes no calf tenderness Results Reviewed Results Reviewed: CT CERVICAL SPINE WITHOUT CONTRAST 09/21/24 CLINICAL INFORMATION: Neck pain radiating down shoulders. COMPARISON: 12/21/2023. TECHNIQUE: Spiral CT imaging of the cervical spine performed in axial plane without contrast. Multiplanar reformatted images were constructed from the axial data set. This CT examination was performed using dose optimization techniques as appropriate, variously including the following: *Automated exposure control *Adjustment of mA and/or kV according to patient size (this includes techniques or standardized protocols for targeted exams where dose is matched to indication/reason for exam; i.e. extremities or head) *Use of iterative reconstruction technique FINDINGS: CORONAL ALIGNMENT: -There is a minimal right convex scoliosis, apex at T6, possibly positional. SAGITTAL ALIGNMENT: -Mildly exaggerated lordosis. -Trace degenerative retrolisthesis C3 on C4, C5 on C6, and C6 on C7. C1-C2 AND CRANIOCERVICAL JUNCTION: -Intact and normally aligned. VERTEBRAL BODIES AND FACETS: -No fractures, compression deformities, or suspicious bone lesions. -Sclerosis of the endplates present at C3-4. -Normal facet alignment bilaterally with mild multilevel facet degenerative changes. DISCS: -Moderate to severe multilevel disc degeneration present, with associated mild disc osteophytic spurring, spanning C3-C7. Findings appear most severe at C6-7. CENTRAL CANAL: -No evidence of high-grade central canal narrowing or large disc herniation allowing for modality limitations. -Moderate central canal stenosis present C3-4, C4-5, C5-6, and C6-7 due to disc osteophytic bulges and facet hypertrophic changes. -Multilevel neural foraminal encroachment, severe at C4-5, C5-6, and C6-7 bilaterally. PREVERTEBRAL AND PARAVERTEBRAL SOFT TISSUES: -No prevertebral soft tissue abnormality. The thyroid appears normal. No mass or lymphadenopathy. Mild to moderate bilateral carotid bulb calcifications. LUNG APICES: -Imaged lung apices are clear allowing for motion artifact. IMPRESSION: 1. No acute bony abnormality. 2. Moderate degenerative spondylosis of the spine spanning C3-C7. 3. No high-grade central canal stenosis. Moderate central stenosis present C3-4, C4-5, C5-6, and C6-7 due to disc osteophytic ridge complexes and facet hypertrophic changes. Multilevel neural foraminal encroachment, severe at C4-5, C5-6, and C6-7 bilaterally. MRI would be a more appropriate examination to evaluate for etiology of radicular symptoms. XR SHOULDER, RIGHT 09/21/24 CLINICAL INFORMATION: SHoulder pain FINDINGS: Normal bone mineralization. No fracture, dislocation, or suspicious bone lesion. Normal alignment. The glenohumeral joint is mild to moderate osteoarthrosis. The AC joint is mild spurring. There is a type II acromion. No undersurface spurring. The subacromial space is preserved. Sternotomy wires and surgical clips in the mediastinum. Coronary stent noted. Remainder of the soft tissue and bony structures appear normal. IMPRESSION: No acute findings right shoulder. XR SHOULDER, LEFT 09/21/24 CLINICAL INFORMATION: shoulder pain FINDINGS: Normal bone mineralization. No fracture, dislocation, or suspicious bone lesion. Normal alignment. The glenohumeral joint demonstrate mild degenerative arthritis. The AC joint demonstrates mild degenerative arthritis. There is a type II acromion. There is a small subacromial spur. The subacromial space is grossly preserved. Sternotomy wires and surgical clips in the mediastinum. Coronary stent noted. Remainder of the soft tissue and bony structures appear normal. IMPRESSION: No acute findings left shoulder. Assessment & Plan Assessment & Plan (1) Cervicalgia: Code(s): M54.2 - Cervicalgia Category: Medical (2) Cervical spondylosis: Code(s): M47.812 - Spondylosis without myelopathy or radiculopathy, cervical region Category: Medical (3) Degenerative disc disease, cervical: Code(s): M50.30 - Other cervical disc degeneration, unspecified cervical region Category: Medical (4) Muscle spasms of neck: Code(s): M62.838 - Other muscle spasm Category: Medical (5) Chronic low back pain: Code(s): M54.50 - Low back pain, unspecified; G89.29 - Other chronic pain Category: Medical (6) Lumbar radiculopathy: Code(s): M54.16 - Radiculopathy, lumbar region Category: Medical (7) Recurrent falls: Code(s): R29.6 - Repeated falls Category: Medical (8) Cervical spinal stenosis: Code(s): M48.02 - Spinal stenosis, cervical region Category: Medical Plan I will initiate physical therapy focusing on both cervical and lumbar symptoms. A back x-ray will be conducted to ensure no significant structural changes are contributing to the pain. A cervical spine MRI to assess for neural integrity and compression and follow up on previous CT scan findings and history of repeated falls and balance concerns, to rule out myelopathy. Patient education on conservative management through home-based care, including adequate hydration, daily gentle streching exercises and postural adjustments, was provided. Physical activity engagement within safe limits, avoiding strenuous activities until further findings are completely evaluated, was recommended. Follow-up appointments will be contingent upon the new therapy responses and diagnostic imaging outcomes. Patient was informed and verbally consented to the use of an ambient scribe for clinic note documentation during this visit. Orders: Orders PT Evaluation and Treatment Today G89.29 - Other chronic pain, M47.812 - Spondylosis without myelopathy or radiculopathy, cervical region, M48.02 - Spinal stenosis, cervical region, M50.30 - Other cervical disc degeneration, unspecified cervical region, M54.16 - Radiculopathy, lumbar region, M54.2 - Cer vicalgia, M54.50 - Low back pain, unspecified, M62.838 - Other muscle spasm XR lumbar spine 6V w bending Today G89.29 - Other chronic pain, M54.16 - Radiculopathy, lumbar region, M54.50 - Low back pain, unspecified MR cervical spine wo con Today M47.812 - Spondylosis without myelopathy or radiculopathy, cervical region, M48.02 - Spinal stenosis, cervical region, R29.6 - Repeated falls Coding Level of Care Code New Pt Level 4 (11485) Diagnoses Cervicalgia M54.2 Cervical spondylosis M47.812 Degenerative disc disease, cervical M50.30 Muscle spasms of neck M62.838 Chronic low back pain M54.50; G89.29 Lumbar radiculopathy M54.16 Recurrent falls R29.6 Cervical spinal stenosis M48.02
[2024-10-06 09:41] VITALS: BP 139/66; PULSE 74; BMI 26.9
--- OUTSIDE RECORDS SUMMARY | 2024-10-06 09:56 | XMS_ITS | Clinical Summary ---
Author Organization [address] [facility] Address [address] [place] [address] Phone Care Team Providers Care Slide Fastener Repairer Name Role Phone Lou Jameson MD Primary [...] 1:30 PM EDT Office Visit Orthopedic Surgery [facility] [address] [phone] Brandon Clement DPM Metatarsalgia of both feet (Primary Dx); Dermatophytosis of nail; Pain in toe of right foot; Pain in toe of left foot; Type II diabetes mellitus with peripheral circulatory disorder [place] [place] [facility] [place] Diabetic mononeuropathy simplex [place] [place] [facility] [place] Tinea pedis of [...] 1:45 PM EDT Office Visit Orthopedic Surgery [facility] [address] [phone] Brandon Clement DPM [address] [address] Health Maintenance Due Date Last Done Comments [...] Insurance [place]ICA[place] - [place] MEDICARE Care Teams Slide Fastener Repairer Relationship Specialty Start Date End Date Lou Jameson MD [address] [place] [address] PCP - General 03/15/24
--- OUTSIDE RECORDS SUMMARY | 2024-10-06 09:56 | XMS_ITS | Clinical Summary ---
Author Organization [employer] Address [address] [facility] [address] [place] [address] Care Team Providers Care Solid Waste Landfill Technician Name Role Phone Unavailable Primary Care Provider [...]
== END 2024-10-06 10:10 | disposition home or self-care (01) ==
LOC: HO.PMC 09:39
PROVIDERS: PCP Internal Medicine; Visit Provider Nurse Practitioner Family
DX: M47.812 Spondylosis without myelopathy or radiculopathy, cervical region (principal); M50.30 Other cervical disc degeneration, unspecified cervical region; M62.838 Other muscle spasm; M54.50 Low back pain, unspecified; G89.29 Other chronic pain; M54.16 Radiculopathy, lumbar region; R29.6 Repeated falls; M48.02 Spinal stenosis, cervical region
CPT/HCPCS: 99204

== ENCOUNTER 2024-10-06 09:38 | Outpatient (REF) | payer MEDICARE, MEDICAID, SELFPAY ==
[2021-08-28 07:22] VITALS: BP 146/76; BP 148/60; BMI 26.7
--- NOTE | ~2024-10-06 | XR_ITS ---
CLINICAL HISTORY: M54.50 - Low back pain, unspecified 7 views lumbar spine Comparison: None Findings: Slight dextrocurvature of the lumbar spine either positional or scoliosis. There is grade 1 anterolisthesis at L4-5 which appears stable with flexion and extension. Lumbar vertebral bodies maintain normal height. No acute fracture is identified. Multilevel mild spondylosis. Degenerative disc disease at L4-5. Facet arthropathy from L3-4 to L5-S1. Mild degenerative changes bilateral hip joints. Atherosclerotic vascular disease. IMPRESSION: 1. No acute findings. 2. Grade 1 anterolisthesis and degenerative disc disease at L4-5. 3. Facet arthropathy L3-4 to L5-S1. 4. Slight dextrocurvature either positional or scoliosis. This document has been electronically signed by: Carol Elam MD on 10/06/2024 17:14:09
--- OUTSIDE RECORDS SUMMARY | 2024-10-06 10:35 | XMS_ITS | Clinical Summary ---
Author Organization 175 [facility] Address [address] [place] [address] Phone Care Team Providers Care Desk Top Publisher Name Role Phone Lou Jameson MD Primary Care Provider [phone] Allergies No known active allergies Medications diclofenac [...] Orthopedic Surgery [facility] [address] [phone] Brandon Clement DPM Metatarsalgia of both feet (Primary Dx); Dermatophytosis of nail; Pain in toe of right foot; Pain in toe of left foot; Type II diabetes mellitus with peripheral circulatory disorder ([facility] [place], [facility] [place]28[place] Diabetic mononeuropathy simplex ([facility] [place], [facility] [place]28); Tinea pedis of both feet; Corns [...] Orthopedic Surgery [facility] [address] [phone] Brandon Clement DPM [address] [address] Health Maintenance Due Date Last Done Comments [...] Insurance [place] Care Teams Desk Top Publisher Relationship Specialty Start Date End Date Lou Jameson MD [address] [place] [address] PCP - General 03/15/24
--- OUTSIDE RECORDS SUMMARY | 2024-10-06 10:35 | XMS_ITS | Clinical Summary ---
Author Organization [employer] Address [address] [facility] [address] [place] [address] Care Team Providers Care Freelance Graphic Designer Name Role Phone Unavailable Primary Care [...]
== END 2024-10-06 09:39 | disposition home or self-care (01) ==
LOC: HO.XRAY 09:38
PROVIDERS: PCP Internal Medicine; Visit Provider Nurse Practitioner Family
DX: M54.50 Low back pain, unspecified (principal); G89.29 Other chronic pain; M54.16 Radiculopathy, lumbar region; M54.2 Cervicalgia; M47.812 Spondylosis without myelopathy or radiculopathy, cervical region
CPT/HCPCS: 72114; 99202

== ENCOUNTER → 2024-10-06 10:20 | Outpatient (BNV) | payer MEDICARE, MEDICAID, SELFPAY ==
[2021-08-28 07:22] VITALS: BP 146/76; BP 148/60; BMI 26.7
== END ==
PROVIDERS: PCP Internal Medicine; Visit Provider Specialist
DX: M54.50 Low back pain, unspecified (principal)
CPT/HCPCS: 72114

== ENCOUNTER 2024-10-12 09:28 | Outpatient (AMB) | payer MEDICARE, MEDICAID, SELFPAY ==
[2021-08-28 07:22] VITALS: BP 146/76; BP 148/60; BMI 26.7
--- NOTE | 2024-10-12 09:42 | A.OFFPC_ITS ---
Vital Signs 10/12/24 09:49 Height 5 ft 7 in Weight 168 lb BMI 26.3 BP 140/62 H Blood Pressure Location Rt brachial Position Sitting Pulse 78 Pulse Source Pulse Oximeter Temp 97.8 F Temp Source Temporal Artery Scan Pulse Oximetry (%) 97 Oxygen Delivery Method Room Air Intake Visit Reasons: BP follow up ok for PA-if so 1/2 h Intake Note: Kiel presents in the office today for a follow up for his blood pressure. Patient has his most recent BP readings. Allergies sesame seed Allergy (Verified 10/12/24 09:44) Swelling Medication List - Last Reconciled 10/12/24 by CODY Mooney amlodipine 10 mg PO DAILY aspirin 81 mg PO DAILY atorvastatin 80 mg PO BEDTIME blood pressure test kit-large check bp daily once stable check twice a week and as needed blood sugar diagnostic (FreeStyle Lite Strips) daily clotrimazole 1% 1 appl topical BID 2 weeks collagenase clostridium histo. 1 appl topical BEDTIME PRN 14 days epinephrine (EpiPen 2-Charanjit) 0.3 mg (0.3 mL) IM Q10M PRN glipizide 10 mg PO BID 90 days hydralazine 50 mg PO TID lamotrigine 200 mg PO BID 90 days metformin 1,000 mg PO BID 90 days methocarbamol 1,500 mg (2 x 750 mg) PO Q8H PRN metoprolol succinate ER 100 mg PO DAILY metoprolol succinate ER 50 mg PO DAILY needle (disp) 18 G (BD Regular [place]) As directed - draw up testosterone needle (disp) 23 gauge (BD Regular [place]) Inject testosterone subcutaneous safety needles (BD SafetyGlide Needle) As directed to inject testosterone syringe (disposable) (BD Luer-Verito Syringe) Testosterone injection weekly testosterone cypionate (Depo-Testosterone) 80 mg (0.4 mL) subcut QWEEK 4 weeks zolpidem 10 mg PO BEDTIME Tobacco use date assessed: 10/12/24 Dental Screening Dental Screen Date: 10/12/24 Did you have a dental visit in the last 12 months?: No Did you have a dental problem in the last 6 months where you did not have access to dental care?: No Was dental information given to patient?: Patient has dentist HPI HPI Comments History of Present Illness Details This is a 69-year-old male with a past medical history of cervical spine stenosis, chronic lower back pain, lip swelling, CKD stage 3, low testosterone, coronary artery disease, epilepsy, CVA and type 2 diabetes presenting for a blood pressure check. Patient recently discussed recurrent lip swelling at an appointment with his primary care provider. He was instructed to discontinue losartan and continue hydralazine and metoprolol. He has not had an episode of lip swelling since that time, but he does note episodes began prior to initiating losartan. He has an appointment with the allergy and immunology office at the end of the month. He has an EpiPen. He is followed by pain management, and he recently had an x-ray which showed spondylosis and grade 1 anterolisthesis and degenerative disc disease at L4-L5. Patient says he will be doing physical therapy with hopes that this decreases stiffness in his lower back and helps with fall prevention. He has already been referred for physical therapy. He brings a list of blood pressure readings from home since stopping losartan: 175/85 155/81 160/83 170/102 119/75 135/72 152/82 138/71 137/55 141/79 151/73 The goal for his blood pressure is less than 130/80. ROS: Constitutional: No fevers or chills Respiratory: No shortness of breath Cardiovascular: No chest pain, chest pressure or chest discomfort. No palpitations or pedal edema. Neurologic: No headache, dizziness, syncope Physical exam: Constitutional: Alert, in no distress. Neck: Supple, Full range of motion. No lymphadenopathy. Respiratory: Clear to auscultation. Cardiovascular: S1 S2 regular. No murmurs Extremities: Warm and well perfused. No clubbing, cyanosis or edema. Psychiatric: Normal mood and affect [facility] Medical History Low libido Screening for prostate cancer Pre-op examination Shift work sleep disorder Snoring Erectile dysfunction Headache Screening for prostate cancer Screening for colon cancer Adult general medical exam Erectile dysfunction due to type 2 diabetes mellitus Heart palpitations Chest pain COVID-19 High cholesterol Sciatica Hypertension Diabetes Epilepsy Heart attack Surgical History H/O colonoscopy History of tonsillectomy History of cardiac catheterization (~2015) History of coronary artery bypass graft x 2 (~2005) Family History Father Cardiovascular disease Mother No problems noted. Social History (Updated 10/12/24 @ 09:48 by Ines Evans MA) Housing: Apartment Alcohol intake: former Comment: hasnt drank in 30 years Patient Tobacco Use Status: Never used Tobacco e-Cigarette/Vaping Use: Never Used Second Hand Smoke Exposure: No service: No Current occupational status: previously employed Current occupational exposures/hazards: No Cognitive needs: No Hearing needs: No Vision needs: No Questionnaire Thrive Questionnaire Date Thrive assessed: 08/15/24 I am a: Patient What is your living situation today?: I have a steady place to live Within the past 12 months, did the food you bought not last and you didn't have the money to get more?: Sometimes True Within the past 12 months, did you worry whether your food would run out before you got money to buy more?: Sometimes True Do you have trouble paying for medicines?: No Do you have trouble getting transportation to medical appointments?: No Do you have trouble paying your heating and electricity bill?: No Do you have trouble taking care of your child, family member or friend?: No Do you have trouble with day-to-day activities such as bathing, preparing meals, shopping, managing finances, etc.?: No Are you currently unemployed and looking for a job?: I choose not to answer this question Are you interested in more education?: No Please select the resources that you would like help with: None Currently or been in a relationship where the following occur: No concerns reported THRIVE Score: 2 AUDIT C Alcohol Use Questionnaire (AUDIT-C) 3. How often do you have six or more drinks on one occasion?: Never Total Score: 0 LAURA-7 AMB Questionnaire LAURA-7 Date LAURA - 7 assessed: 04/22/23 Source: Developed by Drs. Alex Ledezma, Nicole Scott, Messi Og and colleagues, with an educational rhonda from [employer]. Physical exam (Primary Care) Vital Signs: Last Vital Signs Temp 97.8 F 10/12/24 09:49 Pulse 78 10/12/24 09:49 BP 140/62 H 10/12/24 09:49 Pulse Ox 97 10/12/24 09:49 Oxygen Delivery Method Room Air 10/12/24 09:49 BMI result Body Mass Index 26.3 Tobacco/Smoking Status: Tobacco use Status Tobacco use date assessed 10/12/24 10/12/24 09:52 Patient Tobacco Use Status Never used Tobacco 10/12/24 09:48 e-Cigarette/Vaping Use Never Used 10/12/24 09:48 Thrive Assessment: Date of Thrive Assessment Date Thrive assessed 08/15/24 10/12/24 09:43 Currently or been in a relationship where the following occur: No concerns reported Coding Level of Care Code Est Pt Level 4 (99256) Complex EM visit Add On G2211 Diagnoses Chronic low back pain M54.50; G89.29 Essential hypertension I10 Insomnia G47.00 Assessment & Plan Assessment & Plan (1) Chronic low back pain: Code(s): M54.50 - Low back pain, unspecified; G89.29 - Other chronic pain Category: Medical Plan: Patient followed by pain management in his starting physical therapy. (2) Essential hypertension: Code(s): I10 - Essential (primary) hypertension Category: Medical Plan: Blood pressure today is above goal as are the majority of readings from his list at home. Patient instructed to remain off losartan due to reported angioedema. Follow up with Allergy and immunology as planned. Change metoprolol succinate ER from 50 mg twice a day to 150 mg once daily. Side effects reviewed in detail with the patient. If he experiences orthostatic symptoms or pulse rate less than 60 he will contact the office. He will continue to keep a log of blood pressure and heart rate at home. (3) Insomnia: Code(s): G47.00 - Insomnia, unspecified Category: Medical Plan: Requested refill on zolpidem. Prescription sent to pharmacy. Advised not to drive or operate heavy machinery and to have at least 8 hours to sleep after taking this medication. Do not drink alcohol with it. Plan Follow up in 4 weeks for a blood pressure check. Medications: New metoprolol succinate ER Take with metoprolol succinate ER 50 mg daily for a total daily dose of 150 mg. 100 mg PO DAILY 90 tabs 0RF Refilled zolpidem 10 mg PO BEDTIME 30 tabs 0RF Discontinued metoprolol succinate ER Discontinued Reason: Doctor's Order 50 mg PO BID 90 days 180 tabs 3RF
--- OUTSIDE RECORDS SUMMARY | 2024-10-12 09:44 | XMS_ITS | Clinical Summary ---
Author Organization [address] [facility] Address [address] [place] [address] Phone Care Team Providers Care Grinder Mill Operator Name Role Phone Lou Jameson MD Primary [...] Orthopedic Surgery [facility] [address] [phone] Brandon Clement DPM Metatarsalgia of both feet (Primary Dx); Dermatophytosis of nail; Pain in toe of right foot; Pain in toe of left foot; Type II diabetes mellitus with peripheral circulatory disorder ([facility] V24, [facility] V28); Diabetic mononeuropathy simplex ([facility] V24, [facility] V28); Tinea pedis of both feet; Corns [...] Orthopedic Surgery [facility] [address] [phone] Brandon Clement DPM [address] [address] Health Maintenance Due Date Last Done Comments [...] Insurance MEDICA[place] - [place] MEDICARE Care Teams Grinder Mill Operator Relationship Specialty Start Date End Date Lou Jameson MD [address] [place] [address] PCP - General 03/15/24
--- OUTSIDE RECORDS SUMMARY | 2024-10-12 09:44 | XMS_ITS | Clinical Summary ---
Author Organization [employer] Address [address] [place] [address] [address] [place] [address] Care Team Providers Care Anaesthetic Technician Name Role Phone Unavailable Primary Care [...]
[2024-10-12 09:49] VITALS: BP 140/62; PULSE 78; TEMP 36.6; O2SAT 97; BMI 26.3
== END 2024-10-12 10:45 | disposition home or self-care (01) ==
LOC: HO.HMCFM 09:28
PROVIDERS: PCP Internal Medicine; Visit Provider Physician Assistant Medical
DX: M54.50 Low back pain, unspecified (principal); G89.29 Other chronic pain; I10 Essential (primary) hypertension; G47.00 Insomnia, unspecified

== ENCOUNTER → 2024-10-12 09:28 | Outpatient (BNVA) | payer MEDICARE, MEDICAID, SELFPAY ==
[2021-08-28 07:22] VITALS: BP 146/76; BP 148/60; BMI 26.7
== END ==
PROVIDERS: PCP Internal Medicine; Visit Provider Physician Assistant Medical
DX: E11.22 Type 2 diabetes mellitus with diabetic chronic kidney disease (principal); I12.9 Hypertensive chronic kidney disease with stage 1 through stage 4 chronic kidney disease, or unspecified chronic kidney disease; G47.00 Insomnia, unspecified; N18.30 Chronic kidney disease, stage 3 unspecified; I25.10 Atherosclerotic heart disease of native coronary artery without angina pectoris; M54.50 Low back pain, unspecified; Z86.73 Personal history of transient ischemic attack (TIA), and cerebral infarction without residual deficits
CPT/HCPCS: 99212

== ENCOUNTER → 2024-10-17 17:11 | Outpatient (BNV) | payer MEDICARE, MEDICAID, SELFPAY ==
[2021-08-28 07:22] VITALS: BP 146/76; BP 148/60; BMI 26.7
== END ==
PROVIDERS: PCP Internal Medicine; Visit Provider Student in an Organized Health Care Education/Training Program
DX: M48.02 Spinal stenosis, cervical region (principal)
CPT/HCPCS: 72141

== ENCOUNTER 2024-10-17 17:12 | Outpatient (REF) | payer MEDICARE, MEDICAID, SELFPAY ==
[2021-08-28 07:22] VITALS: BP 146/76; BP 148/60; BMI 26.7
--- NOTE | ~2024-10-17 | MR_ITS ---
CLINICAL HISTORY: M47.812 - Spondylosis without myelopathy or radiculopathy, cervical region MR cervical spine without gadolinium Comparison: CT/CA/SR - CT CERVICAL SPINE WO IV CON - 09/21/24 15:43 EDT Normal vertebral body alignment. No acute fractures or pathologic bone lesions. Severe multilevel spondylosis of the cervical spine with degenerative disc desiccation, disc height loss, posterior disc osteophyte complexes, ligamentum flavum thickening, uncovertebral joint hypertrophy and facet arthropathy. At C2-C3, mild spinal canal narrowing and [id number] left neural foraminal narrowing. At C3-C4, moderate to severe spinal canal narrowing, abutment and ventral cord remodeling. Severe left and moderate right neural foraminal narrowing. At C4-C5, severe spinal canal narrowing and ventral cord remodeling, no abnormal cord signal. Moderate right and severe left neural foraminal narrowing. At C5-C6: Severe spinal canal narrowing, abutment and ventral cord remodeling. Severe bilateral neural foraminal narrowing. At C6-C7, moderate spinal canal and moderate bilateral neural foraminal narrowing. At C7-T1, no significant spinal canal or neural foraminal narrowing. Visualized intracranial contents are unremarkable. No cervical fluid collections or masses. No abnormal cervical cord signal. IMPRESSION: No acute findings. Severe multilevel spondylosis of the cervical spine as detailed in the findings most notably at C4-C5 and C5-C6 with severe spinal canal narrowing with chronic cord compression without abnormal cord signal. Multilevel moderate to severe neural foraminal narrowings as detailed in the findings. This document has been electronically signed by: Lalitha Harrison MD on 10/17/2024 19:45:53
== END 2024-10-17 17:13 | disposition home or self-care (01) ==
LOC: HO.MRI 17:12
PROVIDERS: PCP Internal Medicine; Visit Provider Nurse Practitioner Family
DX: M47.812 Spondylosis without myelopathy or radiculopathy, cervical region (principal); M48.02 Spinal stenosis, cervical region; R29.6 Repeated falls
CPT/HCPCS: 72141

== ENCOUNTER 2024-10-23 09:54 | Outpatient (AMB) | payer MEDICARE, MEDICAID, SELFPAY ==
[2021-08-28 07:22] VITALS: BP 146/76; BP 148/60; BMI 26.7
--- NOTE | 2024-10-23 09:57 | HO.SPINEOV ---
Intake Visit Reasons: cervical disc degeneration Intake Note: Mr. Bourne is here today c/o neck pain that radiates down the back. Supervisor Cutting And Boning Required: No Allergies losartan Allergy (Severe, Verified 10/23/24 10:10) Swelling sesame seed Allergy (Verified 10/23/24 10:10) Swelling Assessment & Plan Assessment & Plan (1) Cervical spinal stenosis: Code(s): M48.02 - Spinal stenosis, cervical region Category: Medical Plan Dear colleague, Thank you for referring Mr. Bourne to our office today. He is a pleasant 69 year old male who comes in today as a referral from our colleagues in pain management after he had an MRI of the cervical spine completed showing severe spinal cord compression. He was also recently evaluated in the emergency department here at [facility] on 09/21/24 for a severe flare up of neck pain. He reports that he has had posterior neck stiffness for many years, and will occasionally get flare ups of shooting pain into his bilateral shoulders terminating near the deltoid. He states that in addition to this he has had some trouble with balance lately, and has actually fallen twice in the last few months. He feels he cannot walk properly without feeling like he might fall. He denies any known inciting incident for his neck pain, or the newer balance issues that have cropped up over the course of the last 1 year. He denies any shooting pains into his upper extremities, and denies any burning/numbness/weakness in his upper extremities. He denies any dexterity issues, and states that he has no trouble writing with a pen, or buttoning the buttons on a shirt. In addition to this he is still able to engage his upper extremities fairly well, and states he can carry grocery bags inside without significant issue. He has been to physical therapy multiple times in the past to help treat his pain, however he states he does not feel it to be particularly helpful unless he rigorously completes all exercises and stretching each day. He has had cortisone injections in his back before, but has never had injections in his cervical spine. He is not currently taking any medications for the pain at home, but has been utilizing a TENs unit which he states is very helpful for him. PMH: Hx of 4 previous myocardial infarctions with stent placement, CKD stage 3 (estimated Cr cleanace 43 as of 09/23/24), low testosterone, coronary artery disease, epilepsy (on Lamictal), CVA, and type 2 diabetes (last A1C 12/27/23 6.4%). Depression, sleep apnea, HTN, seasonal allergies. Social hx: Patient does not smoke, reports no alcohol use x 30 years (former drinker). No other susbtance use disclosed. Medications: See [employer] list. On Aspirin, Lamictal, Metformin. Allergies: Losartan, sesame seeds. Physical exam: The patient has 5/5 strength in his upper and lower extremities. He ambulates with a slightly spastic gait if observed walking > 5 feet. He uses no assistive devices to ambulate. He rises from a seated position without difficulty and gets up onto the examination table without issue. His refelxes are 2+ intact. No clonus. (-) nunes's. (-) bilateral straight leg raise. (-) Babinski's. Imaging review: MRI of the cervical spine completed here at [facility] shows diffuse spondylosis of the cervical spine. At C3-4 there is moderate central canal and severe left-sided foraminal stenosis. At C4-5 there is severe central canal stenosis, and what I would call severe left-sided and moderate right-sided foraminal stenosis. At C5-6 there is severe central canal stenosis, with severe bilateral foraminal stenosis. No evidence of T2 signal change or myelomalacia. Impression: Kiel is a pleasant 69-year-old male who comes in today for evaluation after presenting to the emergency department on 09/21/2024 for an acute flare-up of neck pain, followed by a cervical MRI that showed severe spinal cord compression. In office today he does not disclosed many symptoms of his severe cord compression, aside from flare-ups of neck pain, bilateral shoulder pain, and some worsening balance issues over the last 1 year. He has a fairly extensive medical history including for previous myocardial infarctions, stage 3 kidney disease, and current T2DM although well controlled. We discussed his imaging, and his symptoms, and he states that he is highly motivated to have surgery so he can have this fixed prior to any worsening of symptoms. I discussed the progression of cervical cord compression, and did extensively explained to him that there is no evidence of myelomalacia or signal change on his MRI, indicating that the compression noted on imaging has not as of yet caused damage to the spinal cord. In cases such as his Dr. Casillas typically would typically recommend the patient refrain from surgery until he becomes more symptomatic, given the risk of performing surgery given his medical complications. However, the patient appears highly motivated to have this addressed before it worsens any further, as he does appear to already be shpwing signs of severe cord compression, given his history of worsening balance issues and falls which has occurred over the course of the last 1 year. I will review his case with Dr. Casillas, and call to update him thereafter. It is highly likely that Dr. Casillas will want to evaluate the patient in clinic before proceeding with a decision. Thank you for allowing us to care for your patient. The total time spent with this visit with this patient was 45 minutes reviewing history, physical exam, MRI imaging review, and implementation of treatment plan or further diagnostic testing Jason Casillas MD,PhD [facility] Orders: Orders XR cervical spine 4V Today M48.02 - Spinal stenosis, cervical region Coding Level of Care Code New Pt Level 4 (73363) Diagnoses Cervical spinal stenosis M48.02
== END 2024-10-23 11:33 | disposition home or self-care (01) ==
LOC: HO.HNS 09:55
PROVIDERS: PCP Internal Medicine; Referring Provider Nurse Practitioner Family; Visit Provider Physician Assistant
DX: M48.02 Spinal stenosis, cervical region (principal)
CPT/HCPCS: 99204

== ENCOUNTER 2024-10-23 09:54 | Outpatient (REF) | payer MEDICARE, MEDICAID, SELFPAY ==
[2021-08-28 07:22] VITALS: BP 146/76; BP 148/60; BMI 26.7
--- NOTE | ~2024-10-23 | XR_ITS ---
CLINICAL HISTORY: M48.02 - Spinal stenosis, cervical region --- Additional Notes or Special Instructi ons: AP LAT FLEX EX 4 views cervical spine Comparison: MR - MR CERVICAL SPINE WO CON - 10/17/24 17:21 EDT Findings: No acute fractures. Degenerative changes of the cervical spine with osteophytes. There is narrowing of the C3-C4 and C6-C7 intervertebral disc space. No instability on the extension and flexion images. No prevertebral soft tissue swelling. IMPRESSION: No acute findings. This document has been electronically signed by: Jhonny Mcfadden MD on 10/24/2024 16:00:22
== END 2024-10-23 09:55 | disposition home or self-care (01) ==
LOC: HO.HOSX 09:54
PROVIDERS: PCP Internal Medicine; Referring Provider Nurse Practitioner Family; Visit Provider Physician Assistant
DX: M48.02 Spinal stenosis, cervical region (principal)
CPT/HCPCS: 72050; 99202

== ENCOUNTER → 2024-10-23 10:29 | Outpatient (BNV) | payer MEDICARE, MEDICAID, SELFPAY ==
[2021-08-28 07:22] VITALS: BP 146/76; BP 148/60; BMI 26.7
== END ==
PROVIDERS: PCP Internal Medicine; Referring Provider Nurse Practitioner Family; Visit Provider Nuclear Medicine
DX: M48.02 Spinal stenosis, cervical region (principal)
CPT/HCPCS: 72050

== ENCOUNTER 2024-11-07 12:45 | Outpatient (REF) | payer SELFPAY ==
[2021-08-28 07:22] VITALS: BP 146/76; BP 148/60; BMI 26.7
--- OUTSIDE RECORDS SUMMARY | 2024-11-07 14:28 | XMS_ITS | Clinical Summary ---
Author Organization [employer] Address [address] [place] [address] [address] [place] [address] Care Team Providers Care Antenna Machine Operator Name Role Phone Unavailable Primary Care Provider [...] 2023-2 5 season) 2024 06/20/2021, 10/04/2020, 09/06/2020 Dental X-Ray: Bitewings 08/25/2024 08/25/2023 Tobacco Screening 09/29/2024 09/30/2023 Influenza Vaccine (Season Ended) 2025 04/07/2021 Dental X-Ray: Full Mouth 09/24/2026 09/24/2023 DTaP/Tdap/Td [...] this topic Meningococcal Vaccine Aged Out No phliippe ronald eligible based on patient's age to [...]
== END 2024-11-07 12:46 | disposition home or self-care (01) ==
LOC: HO.HAP 12:45
PROVIDERS: Visit Provider Internal Medicine
DX: Z46.1 Encounter for fitting and adjustment of hearing aid (principal); H90.3 Sensorineural hearing loss, bilateral
CPT/HCPCS: 92593

== ENCOUNTER 2024-11-14 08:51 | Outpatient (AMB) | payer MEDICARE, MEDICAID, SELFPAY ==
[2021-08-28 07:22] VITALS: BP 146/76; BP 148/60; BMI 26.7
--- NOTE | 2024-11-14 09:07 | A.OFFPC_ITS ---
Vital Signs 11/14/24 09:14 Height 5 ft 7 in Weight 170 lb 6 oz BMI 26.7 BP 136/64 Blood Pressure Location Rt brachial Position Sitting Respiration 14 Pulse 72 Pulse Source Pulse Oximeter Temp 98.9 F Temp Source Oral Pulse Oximetry (%) 97 Oxygen Delivery Method Room Air Intake Visit Reasons: with PCP to recheck blood pressure Intake Note: Blood pressure follow up. Right ear blocked for about a week. Direct Support Worker Required: No Allergies losartan Allergy (Severe, Verified 11/14/24 09:14) Swelling sesame seed Allergy (Verified 11/14/24 09:14) Swelling Tobacco use date assessed: 11/14/24 Dental Screening Dental Screen Date: 10/12/24 HPI HPI Comments History of Present Illness Details 69 year old male with a past medical his tory of [place], diabetes, hypertension, CKD presenting for follow up CV: off losartan due to lip swelling, on metoprolol 150mg daily, norvasc 2.5, hydralazine 50mg tid. No chest pain, dyspnea Had to move back his appt with allergy/immunology because they want him to have labs prior to his appt. He has some transportation issues. He recently has lip swelling and facial tingling when he ate strawberries. He is carrying his epipen Diabetes is well controlled. 12/27/23 6.4%. He needs to repeat A1C which has been ordered. On metformin 1000 twice daily, glipizide. On statin. Denies chest pain, exertional dyspnea. CKD stage 3. seeing nephrology Insomnia: on zolpidem. MSK: left ankle pain-referred to podiatry Recently seen by ENT for hearing. Told him to get his ears cleaned by PCP. They are blocked today. Will have him use drops and return Declines colonoscopy. Cologuard test was ordered ROS see HPI PHYSICAL EXAM: GENERAL: Alert and oriented x 3. NAD EYES: EOMI. Anicteric. HENT: Moist mucous membranes. b/l cerumen impaction LUNGS: Clear to auscultation bilaterally. CARDIOVASCULAR: Regular rate and rhythm. No murmur. No JVD. ABDOMEN: Soft, non-tender +bs EXTREMITIES: No edema. Non-tender. SKIN: No rashes or lesions. Warm. NEUROLOGIC: No focal neurological deficits. CN II-XII grossly intact PSYCHIATRIC: Cooperative. Appropriate mood and affect [facility] Medical History Low libido Screening for prostate cancer Pre-op examination Shift work sleep disorder Snoring Erectile dysfunction Headache Screening for prostate cancer Screening for colon cancer Adult general medical exam Erectile dysfunction due to type 2 diabetes mellitus Heart palpitations Chest pain COVID-19 High cholesterol Sciatica Hypertension Diabetes Epilepsy Heart attack Surgical History H/O colonoscopy History of tonsillectomy History of cardiac catheterization (~2015) History of coronary artery bypass graft x 2 (~2005) Family History Father Cardiovascular disease Mother No problems noted. Social History Housing: Apartment Alcohol intake: former Comment: hasnt drank in 30 years Patient Tobacco Use Status: Never used Tobacco e-Cigarette/Vaping Use: Never Used Second Hand Smoke Exposure: No service: No Current occupational status: previously employed Current occupational exposures/hazards: No Cognitive needs: No Hearing needs: No Vision needs: No Questionnaire Thrive Questionnaire Date Thrive assessed: 08/15/24 I am a: Patient What is your living situation today?: I have a steady place to live Within the past 12 months, did the food you bought not last and you didn't have the money to get more?: Sometimes True Within the past 12 months, did you worry whether your food would run out before you got money to buy more?: Sometimes True Do you have trouble paying for medicines?: No Do you have trouble getting transportation to medical appointments?: No Do you have trouble paying your heating and electricity bill?: No Do you have trouble taking care of your child, family member or friend?: No Do you have trouble with day-to-day activities such as bathing, preparing meals, shopping, managing finances, etc.?: No Are you currently unemployed and looking for a job?: I choose not to answer this question Are you interested in more education?: No Please select the resources that you would like help with: None Currently or been in a relationship where the following occur: No concerns reported THRIVE Score: 2 LAURA-7 AMB Questionnaire LAURA-7 Date LAURA - 7 assessed: 04/22/23 Source: Developed by Drs. Alex Ledezma, Nicole Scott, Messi Og and colleagues, with an educational rhonda from [employer]. Physical exam (Primary Care) Vital Signs: Last Vital Signs Temp 98.9 F 11/14/24 09:14 Pulse 72 11/14/24 09:14 Resp 14 11/14/24 09:14 BP 136/64 11/14/24 09:14 Pulse Ox 97 11/14/24 09:14 Oxygen Delivery Method Room Air 11/14/24 09:14 BMI result Body Mass Index 26.7 Tobacco/Smoking Status: Tobacco use Status Tobacco use date assessed 11/14/24 11/14/24 09:21 Patient Tobacco Use Status Never used Tobacco 11/14/24 09:19 e-Cigarette/Vaping Use Never Used 11/14/24 09:19 Thrive Assessment: Date of Thrive Assessment Date Thrive assessed 08/15/24 11/14/24 09:08 Currently or been in a relationship where the following occur: No concerns reported Coding Level of Care Code Est Pt Level 4 (70069) Complex EM visit Add On G2211 Diagnoses Type 2 diabetes mellitus with unspecified complications E11.8 Stage 3 chronic kidney disease, unspecified whether stage 3a or 3b CKD N18.30 Chronic kidney disease stage 3 subtype: unspecified whether 3a or 3b Essential hypertension I10 Assessment & Plan Assessment & Plan (1) Type 2 diabetes mellitus with unspecified complications: Code(s): E11.8 - Type 2 diabetes mellitus with unspecified complications Category: Medical (2) CKD (chronic kidney disease) stage 3, GFR 30-59 ml/min: Code(s): N18.30 - Chronic kidney disease, stage 3 unspecified Category: Medical Qualifiers: Chronic kidney disease stage 3 subtype: unspecified whether 3a or 3b Qualified Code(s): N18.30 - Chronic kidney disease, stage 3 unspecified (3) Essential hypertension: Code(s): I10 - Essential (primary) hypertension Category: Medical Plan 69 year old for follow up HTN-well controlled on new regimen Stressed importance of getting labs and seeing manager facility Diabetes-overdue A1C. He is advised to have this performed Cerumen impaction-debrox x one week then return for irrigation Orders: Orders Hemoglobin A1c Today E11.8 - Type 2 diabetes mellitus with unspecified complications, I10 - Essential (primary) hypertension Comprehensive Met. Panel Today E11.8 - Type 2 diabetes mellitus with unspecified complications, I10 - Essential (primary) hypertension Lipid Panel Today E78.5 - Hyperlipidemia, unspecified, N18.30 - Chronic kidney disease, stage 3 unspecified Complete Blood Count Auto Diff Today E78.5 - Hyperlipidemia, unspecified, N18.30 - Chronic kidney disease, stage 3 unspecified Medications: New Debrox 6.5% (carbamide peroxide) 5 drps otic (ears) DAILY 15 mL 0RF 7 days NS
[2024-11-14 09:14] VITALS: BP 136/64; PULSE 72; RESP 14; TEMP 37.2; O2SAT 97; BMI 26.7
--- OUTSIDE RECORDS SUMMARY | 2024-11-14 09:17 | XMS_ITS | Clinical Summary ---
Author Organization [employer] Address [address] [place] [address] [address] [place] [address] Care Team Providers Care Costume Specialist Name Role Phone Unavailable Primary Care Provider [...]
== END 2024-11-14 09:46 | disposition home or self-care (01) ==
LOC: HO.HMCFM 08:52
PROVIDERS: PCP Internal Medicine; Visit Provider Internal Medicine
DX: E11.8 Type 2 diabetes mellitus with unspecified complications (principal); N18.30 Chronic kidney disease, stage 3 unspecified; I10 Essential (primary) hypertension

== ENCOUNTER → 2024-11-14 08:51 | Outpatient (BNVA) | payer MEDICARE, MEDICAID, SELFPAY ==
[2021-08-28 07:22] VITALS: BP 146/76; BP 148/60; BMI 26.7
== END ==
PROVIDERS: PCP Internal Medicine; Visit Provider Internal Medicine
DX: E11.8 Type 2 diabetes mellitus with unspecified complications (principal); E11.22 Type 2 diabetes mellitus with diabetic chronic kidney disease; I12.9 Hypertensive chronic kidney disease with stage 1 through stage 4 chronic kidney disease, or unspecified chronic kidney disease; N18.30 Chronic kidney disease, stage 3 unspecified; G47.00 Insomnia, unspecified; M25.572 Pain in left ankle and joints of left foot; I25.2 Old myocardial infarction; Z79.84 Long term (current) use of oral hypoglycemic drugs; Z79.899 Other long term (current) drug therapy
CPT/HCPCS: 99212

== ENCOUNTER 2024-11-17 11:53 | Outpatient (REF) | payer MEDICARE, MEDICAID, SELFPAY ==
[2021-08-28 07:22] VITALS: BP 146/76; BP 148/60; BMI 26.7
[2024-11-17 12:16] LABS: Hematocrit 34.3 % (42.0-52.0); Hemoglobin 11.6 g/dl (14.0-18.0); Imm Gran Abs Auto 0.03 X10*3/uL (0.00-0.03); Imm Gran Pct Auto 0.5 % (0.0-0.4); Lymphocytes Absolute Auto 3.1 X10*3/uL (1.2-4.9); Lymphocytes Percent Auto 48.8 % (20-40); MANUAL DIFF FLAG SCAN; Mean Corpuscular HGB Conc 33.8 g/dl (31.0-36.0); Mean Corpuscular Hemoglobin 28.7 pg (27.0-33.0); Mean Corpuscular Volume 84.9 fL (80.0-98.0); Mean Platelet Volume 9.6 fL (9.4-12.4); Monocytes Absolute Auto 0.4 X10*3/uL (0.1-1.2); Monocytes Percent Auto 5.6 % (2-11); Neutrophils Absolute Auto 2.9 x10*3/uL (2.0-8.3); Neutrophils Percent Auto 45.1 % (45-73); Platelet Count 218 X10*3/uL (160-400); Red Blood Count 4.04 X10*6/uL (4.60-5.80); Red Cell Distribution Width 13.9 % (11.0-16.0); SCAN SMEAR FLAG 1; White Blood Count 6.4 X10*3/uL (4.8-10.8)
[2024-11-17 12:30] LABS: Estimated Average Glucose 128 mg/dL; Hemoglobin A1c % 6.1 % (<6.0)
[2024-11-17 12:33] LABS: Alanine Aminotransferase 17 U/L (0-40); Albumin Level 4.1 g/dL (3.5-5.0); Alkaline Phosphatase 123 U/L (39-117); Anion Gap 13 (12-20); Aspartate Amino Transferase 20 U/L (5-37); Blood Urea Nitrogen 20 mg/dL (9-16); Carbon Dioxide 25 mmol/L (22-29); Chloride 106 mmol/L (96-108); Cholesterol 114 mg/dL (<200); Estimated Glomerular Filt Rate 47; Glucose Random 161 mg/dL (60-115); HDL Cholesterol 27 mg/dL (>40); LDL Cholesterol Calculated 50 mg/dL (<100); Potassium 4.1 mmol/L (3.3-5.1); Sodium 140 mmol/L (135-145); Total Protein 7.3 g/dL (6.5-8.0); Triglycerides 186 mg/dL (<150)
[2024-11-17 12:38] LABS: Appearance Urine Clear; Color Urine Yellow; Glucose Urine UA 500 mg/dL (Negative); Leukocyte Esterase Urine Negative (Negative); Nitrite Urine Negative (Negative); UMIC TRIGGER UA YES; Urine Blood Negative (Negative); Urine Ketones Negative (Negative); Urine Protein 300 (3+) mg/dL (Neg-Trace)
[2024-11-17 12:42] LABS: SLIDE REVIEW VERIFIED
[2024-11-17 12:45] LABS: Bacteria Urine None Seen (None Seen); Granular Casts Urine Present; RBC Urine 0-2 /HPF (0-2); Squamous Epithelial Cell Urine 0-2 /HPF (0-2); WBC Urine 0-5 /HPF (0-5)
--- OUTSIDE RECORDS SUMMARY | 2024-11-17 12:58 | XMS_ITS | Clinical Summary ---
Author Organization [employer] Address [address] [place] [address] [address] [place] [address] Care Team Providers Care Associate Programmer Analyst Name Role Phone Unavailable Primary Care Provider [...]
[2024-11-17 13:05] LABS: Creatinine Urine 169.46 mg/dL
[2024-11-17 13:24] LABS: Total Protein Urine Random 230 mg/dL (<12)
== END 2024-11-17 11:54 | disposition home or self-care (01) ==
LOC: HO.LAB 11:53
PROVIDERS: Internal Medicine; Visit Provider Internal Medicine Hypertension Specialist
DX: N18.30 Chronic kidney disease, stage 3 unspecified (principal); I10 Essential (primary) hypertension; E11.8 Type 2 diabetes mellitus with unspecified complications; E78.5 Hyperlipidemia, unspecified
CPT/HCPCS: 36415; 80053; 80061; 81001; 82570; 83036; 84156; 85025

== ENCOUNTER 2024-11-21 09:42 | Outpatient (AMB) | payer MEDICARE, SELFPAY ==
[2021-08-28 07:22] VITALS: BP 146/76; BP 148/60; BMI 26.7
[2024-11-21 09:45] VITALS: BP 108/52; PULSE 71; O2SAT 94; BMI 27.1
--- NOTE | 2024-11-21 09:45 | HO.NEPHOV_ITS ---
Vital Signs 11/21/24 09:45 Height 5 ft 7 in Weight 173 lb BMI 27.1 BP 108/52 L Blood Pressure Location Rt brachial Position Sitting Pulse 71 Pulse Source Pulse Oximeter Pulse Oximetry (%) 94 Oxygen Delivery Method Room Air Intake Visit Reasons: FU/ conf Fashion Adviser Required: No Accompanied by: Self / Same As Patient Allergies losartan Allergy (Severe, Verified 11/21/24 09:48) Swelling sesame seed Allergy (Verified 11/21/24 09:48) Swelling Medication List - Last Reconciled 11/21/24 by Mynor Gallegos MD amlodipine 2.5 mg PO DAILY aspirin 81 mg PO DAILY atorvastatin 80 mg PO BEDTIME blood pressure test kit-large check bp daily once stable check twice a week and as needed blood sugar diagnostic (FreeStyle Lite Strips) daily clotrimazole 1% 1 appl topical BID 2 weeks collagenase clostridium histo. 1 appl topical BEDTIME PRN 14 days Debrox 6.5% (carbamide peroxide) 5 drps otic (ears) DAILY 7 days NS epinephrine (EpiPen 2-Charanjit) 0.3 mg (0.3 mL) IM Q10M PRN glipizide 10 mg PO BID 90 days hydralazine 50 mg PO TID lamotrigine 200 mg PO BID 90 days levocetirizine 5 mg PO DAILY metformin 1,000 mg PO BID 90 days methocarbamol 1,500 mg (2 x 750 mg) PO Q8H PRN metoprolol succinate ER 100 mg PO DAILY metoprolol succinate ER 50 mg PO DAILY needle (disp) 18 G (BD Regular Bevel Grulla) As directed - draw up testosterone needle (disp) 23 gauge (BD Regular Bevel Grulla) Inject testosterone subcutaneous safety needles (BD SafetyGlide Needle) As directed to inject testosterone syringe (disposable) (BD Luer-Verito Syringe) Testosterone injection weekly testosterone cypionate (Depo-Testosterone) 80 mg (0.4 mL) subcut QWEEK 4 weeks zolpidem 10 mg PO BEDTIME HPI Comments Details: 69-year-old man with a history of diabetes mellitus and proteinuria referred for chronic kidney disease. Kiel had RI at the age of 43. He was diagnosed with diabetes mellitus at that time. He has had diabetes mellitus for more than 20 years. Recent urine protein creatinine ratio was 1.333. He was started on losartan 50 mg few months ago. Serum creatinine was 1.24 back in December of 2021. The next serum creatinine was 1.47 in February of 2024. With the increase p.o. hydration repeat serum creatinine was 1.41 in March of 2024. He also has hypertension. He was initially on metoprolol. History of seizures.. [place]. He is on lamotrigine. Follows with Dr. Weston There is a strong family history of coronary disease. Paternal grandmother at the age of 39. His father at age of 51 -both from myocardial infarction. He is currently retired. No history of smoking or alcohol abuse. 11/21/24 The patient is a 69-year-old male presenting with chronic kidney disease and essential hypertension. The patient has a history of chronic kidney disease, with recent lab results showing improvement in kidney function. In September, the creatinine level was 1.72 mg/dL with a kidney function of 40%, which improved to 1.49 mg/dL and 47% function in October. The patient has been advised to maintain hydration, which appears to be contributing to the improvement. The patient also has a history of essential hypertension, with recent blood pressure readings at home around 136 mmHg systolic. Today, the blood pressure was measured at 104/60 mmHg, which is lower than usual. The patient is currently on amlodipine 2.5 mg, hydralazine 50 mg three times daily, and metoprolol 150 mg. The patient has diabetes mellitus and is currently taking glipizide. The patient reports not consuming sugar and plans to monitor blood glucose levels more regularly. The patient experienced an allergic reaction to losartan, characterized by swelling, and has since discontinued its use. Recently, the patient experienced lip swelling after consuming [place] food, which resolved without intervention. [facility] Medical History Low libido Screening for prostate cancer Pre-op examination Shift work sleep disorder Snoring Erectile dysfunction Headache Screening for prostate cancer Screening for colon cancer Adult general medical exam Erectile dysfunction due to type 2 diabetes mellitus Heart palpitations Chest pain COVID-19 High cholesterol Sciatica Hypertension Diabetes Epilepsy Heart attack Surgical History H/O colonoscopy History of tonsillectomy History of cardiac catheterization (~2015) History of coronary artery bypass graft x 2 (~2005) Family History Father Cardiovascular disease Mother No problems noted. Social History Housing: Apartment Alcohol intake: former Comment: hasnt drank in 30 years Patient Tobacco Use Status: Never used Tobacco e-Cigarette/Vaping Use: Never Used Second Hand Smoke Exposure: No service: No Current occupational status: previously employed Current occupational exposures/hazards: No Cognitive needs: No Hearing needs: No Vision needs: No Physical Exam Vital Signs: Last Vital Signs Pulse 71 11/21/24 09:45 BP 108/52 L 11/21/24 09:45 Pulse Ox 94 11/21/24 09:45 Oxygen Delivery Method Room Air 11/21/24 09:45 BMI result Body Mass Index 27.1 Comfortable Neck supple no JVD. Lungs entry equal no rales. Heart S1-S2 heard no gallop or rub. Abdomen soft nontender. Neuro alert awake oriented. No asterixis. Extremities no edema. Results Reviewed Nephrology Results: Hgb, (14.0-18.0) 11.6 g/dl L 11/17/24 WBC, (4.8-10.8) 6.4 X10*3/uL 11/17/24 Plt Count, (160-400) 218 X10*3/uL 11/17/24 Sodium, (135-145) 140 mmol/L 11/17/24 Potassium, (3.3-5.1) 4.1 mmol/L 11/17/24 Chloride, (96-108) 106 mmol/L 11/17/24 Carbon Dioxide, (22-29) 25 mmol/L 11/17/24 BUN, (9-16) 20 mg/dL H 11/17/24 Creatinine, (0.5-1.4) 1.49 mg/dL H 11/17/24 Calcium, (8.4-10.2) 9.0 mg/dL 11/17/24 Urine Protein, (Neg-Trace) 300 (3+) mg/dL H 11/17/24 Urine Creatinine 169.46 mg/dL 11/17/24 Renal US 06/14/24 Assessment & Plan Assessment & Plan (1) RISHABH (acute kidney injury): Code(s): N17.9 - Acute kidney failure, unspecified Category: Medical (2) CKD (chronic kidney disease) stage 3, GFR 30-59 ml/min: Code(s): N18.30 - Chronic kidney disease, stage 3 unspecified Category: Medical Qualifiers: Chronic kidney disease stage 3 subtype: unspecified whether 3a or 3b Qualified Code(s): N18.30 - Chronic kidney disease, stage 3 unspecified (3) Essential hypertension: Code(s): I10 - Essential (primary) hypertension Category: Medical Plan Kiel has stage 3 chronic kidney disease in the setting of longstanding diabetes mellitus. He has had diabetes mellitus for more than 20 years. He has non nephrotic range proteinuria most likely due to underlying diabetic kidney disease. No reason to believe he has any active glomerular nephritis or interstitial disease. No Obstructive uropathy based on renal ultrasonogram There could be a component of acute kidney injury. Further clinical course we will determine this. Serum creatinine was 1.24 about 2 years ago and the current serum creatinine is around 1.4. This may be due to natural progression of the underlying disease. Cr improved with hydration ( 1.79 down to 1.4) 24 hr urine shows volume of 625 cc with 919 mg of protein.- Non nephrotic Encouraged to increase fluid intake Proteinuria Most likely due to Diabetic kdiney disease h/o Lip swelling /Angioedema while on Losartan Unable to use Losartan Hypertension. BP well controlled Goal is to maintain blood pressure less than 130/80 mm Hg. Encouraged him to stay on low-sodium diet. Keep amlodipine 2.5 mg Orders: Orders Basic Metabolic Panel 3 Months I10 - Essential (primary) hypertension, N18.30 - Chronic kidney disease, stage 3 unspecified Coding Level of Care Code Est Pt Level 4 (93561) Diagnoses RISHABH (acute kidney injury) N17.9 Stage 3 chronic kidney disease, unspecified whether stage 3a or 3b CKD N18.30 Chronic kidney disease stage 3 subtype: unspecified whether 3a or 3b Essential hypertension I10
--- OUTSIDE RECORDS SUMMARY | 2024-11-21 10:31 | XMS_ITS | Clinical Summary ---
Author Organization [employer] Address [address] [place] [address] [address] [place] [address] Care Team Providers Care Ophthalmic Photographer Name Role Phone Unavailable Primary Care Provider [...]
--- OUTSIDE RECORDS SUMMARY | 2024-11-21 10:31 | XMS_ITS | Clinical Summary ---
Author Organization [address] [facility] Address [address] [place] [address] Phone Care Team Providers Care Dramatic Coach Name Role Phone Lou Jameson MD Primary Care Provider [phone] Allergies No known active allergies Medications diclofenac [...] 1:30 PM EDT Office Visit Orthopedic Surgery [facility] [address] [phone] Brandon Clement DPM Metatarsalgia of both feet (Primary Dx); Dermatophytosis of nail; Pain in toe of right foot; Pain in toe of left foot; Type II diabetes mellitus with peripheral circulatory disorder ([facility] V24, [facility] V28); Diabetic mononeuropathy simplex ([facility] V24, [facility] V28); Tinea pedis of both feet; Corns [...] 1:45 PM EDT Office Visit Orthopedic Surgery [facility] [address] [phone] Brandon Clement DPM [address] [address] Health Maintenance Due Date Last Done Comments Diabetes: Annual GFR (Glomerular Filtration Rate) 1957 Diabetes: Annual Foot Exam 1967 Diabetes: Annual Retina Eye Exam 1967 Pneumococcal Vaccine: 50+ Years (1 of 2 - PCV) 1976 Zoster Vaccines (1 of 2) 2007 RSV Immunization Adult Patients (1 - Risk 60-74 years 1-dose series) 2017 COVID-19 Vaccine (2023-2 5 season) 2024 06/20/2021, 10/04/2020, 09/06/2020 Abdominal Aortic Aneurysm (AAA) Screen 03/18/2024 Cholesterol Screening (Lipid Panel) 03/18/2024 Colorectal Cancer Screening: Colonoscopy 03/18/2024 Depression Screening 03/18/2024 Falls Risk Assessment 03/18/2024 Hepatitis C Screening 03/18/2024 Medicare Annual Wellness Visit 03/18/2024 Social Influencers of Health Screening 03/18/2024 Diabetes: Annual Urine Albumin-Creatinine Ratio (uACR) 06/02/2024 Diabetes: Blood Sugar Contro l Test (HGBA1C) 06/02/2024 Influenza Vaccine (#1) 2025 04/07/2021 DTaP,Tdap,and Td Vaccines (2 - [...] Insurance MEDICAID - [place] MEDICARE Care Teams Dramatic Coach Relationship Specialty Start Date End Date Lou Jameson MD [address] [place] [address] PCP - General 03/15/24
== END 2024-11-21 10:06 | disposition home or self-care (01) ==
LOC: HO.HKA 09:43
PROVIDERS: PCP Internal Medicine; Visit Provider Internal Medicine Hypertension Specialist
DX: N17.9 Acute kidney failure, unspecified (principal); N18.30 Chronic kidney disease, stage 3 unspecified; I10 Essential (primary) hypertension
CPT/HCPCS: 99214

== ENCOUNTER → 2024-11-21 09:42 | Outpatient (BNVA) | payer MEDICARE, SELFPAY ==
[2021-08-28 07:22] VITALS: BP 146/76; BP 148/60; BMI 26.7
== END ==
PROVIDERS: PCP Internal Medicine; Visit Provider Internal Medicine Hypertension Specialist
DX: E11.22 Type 2 diabetes mellitus with diabetic chronic kidney disease (principal); I12.9 Hypertensive chronic kidney disease with stage 1 through stage 4 chronic kidney disease, or unspecified chronic kidney disease; N18.30 Chronic kidney disease, stage 3 unspecified; N17.9 Acute kidney failure, unspecified; Z79.84 Long term (current) use of oral hypoglycemic drugs
CPT/HCPCS: 99212

== ENCOUNTER 2024-11-30 13:39 | Outpatient (AMB) | payer MEDICARE, MEDICAID, SELFPAY ==
[2021-08-28 07:22] VITALS: BP 146/76; BP 148/60; BMI 26.7
--- OUTSIDE RECORDS SUMMARY | 2024-11-30 13:43 | XMS_ITS | Clinical Summary ---
Author Organization [employer] Address [address] [place] [address] [address] [place] [address] Care Team Providers Care Machine Erector Name Role Phone Unavailable Primary Care Provider [...] 08/25/2023 Tobacco Screening 09/29/2024 09/30/2023 Influenza Vaccine (#1) 2025 04/07/2021 Dental X-Ray: Full Mouth 09/24/2026 [...]
--- OUTSIDE RECORDS SUMMARY | 2024-11-30 13:43 | XMS_ITS | Clinical Summary ---
Author Organization [address] [facility] Address [address] [place] [address] Phone Care Team Providers Care Translator Interpreter Name Role Phone Lou Jameson MD Primary Care Provider [phone] Allergies No known active allergies Medications diclofenac [...] 1:30 PM EDT Office Visit Orthopedic Surgery [facility] [address] [phone] Brandon Clement DPM Metatarsalgia of both feet (Primary Dx); Dermatophytosis of nail; Pain in toe of right foot; Pain in toe of left foot; Type II diabetes mellitus with peripheral circulatory disorder ([facility] V24, [facility] V28); Diabetic mononeuropathy simplex ([facility] V24, [facility] V28); Tinea pedis of both feet; Corns [...] 1:45 PM EDT Office Visit Orthopedic Surgery [facility] [address] [phone] Brandon Clement DPM [address] [address] Health Maintenance Due Date Last Done Comments [...] Insurance [place] - [place]ICARE Care Teams Translator Interpreter Relationship Specialty Start Date End Date Lou Jameson MD [address] [place] [address] PCP - General 03/15/24
--- NOTE | 2024-11-30 13:44 | A.SPINEOV_ITS ---
Intake Visit Reasons: re-evaluation Intake Note: Mr. Bourne is here today for a re-evaluation. Commissary Worker Required: No Allergies losartan Allergy (Severe, Verified 11/30/24 13:44) Swelling sesame seed Allergy (Verified 11/30/24 13:44) Swelling Assessment & Plan Assessment & Plan (1) Cervicalgia: Code(s): M54.2 - Cervicalgia Category: Medical Plan Mr Bourne is here in follow-up. He recently saw Jason ROSS for an initial evaluation. 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 He came back in today because he was walking down the street the other day and felt that his legs were wobbly underneath him. He had to lean up against a telephone pole. This startled him so much that he was concerned something was going on. Although he does get this symptom from time to time, it was more intense than usual. Since those events a few days ago, he seemed to be back more his usual self. He does not have any specific upper extremity or lower extremity complaints with numbness tingling or weakness. He has some reports of gait instability as above but it does not seem to be a consistent thing. No issues with fine motor tasks. On my exam today, he is able to stand on his own independently and walk down the hallway. He was able to go down on 1 knee to the floor to tie his shoe lace and then re-tie it again and stand up without assistance. Tandem gait testing did not reveal any significant instability. Motor examination of the upper and lower extremities reveals full strength. Reflexes normal at the biceps and triceps bilaterally, negative Yo's sign. Diminished reflexes at the patella, absent reflexes at the Achilles. Upgoing toe on the left side, downgoing on the right. I reviewed his imaging again, showing stenosis at C4-5 and C5-6 moderate to severe without evidence of cord signal change or intramedullary myelomalacia. His only exam finding is an upgoing toe on the left side which can be attributed to his old stroke. Typically, without overt symptoms or clear physical exam findings, Dr. Casillas will usually keep these patients on supervision with exams every 3-6 months in the office. The patient was educated on the signs and symptoms of myelopathy, and will report to us if he develops any. I am not sure what caused his legs to feel wobbly intermittently there a few days ago, but usually cervical myelopathy would be a consistent problem that does not just come and go on its own from day-to-day. I will see him back in 3-6 months. Total amount of time spent in this visit was 20 minutes in discussion of symptoms, cervical MRI imaging results and subsequent plan of care Alfonzo Casillas MD,PhD [facility] Coding Level of Care Code Est Pt Level 3 (18401) Diagnoses Cervicalgia M54.2
== END 2024-11-30 14:17 | disposition home or self-care (01) ==
LOC: HO.HNS 13:39
PROVIDERS: PCP Internal Medicine; Visit Provider Physician Assistant
DX: M54.2 Cervicalgia (principal)
CPT/HCPCS: 99213

== ENCOUNTER → 2024-11-30 13:39 | Outpatient (BNVA) | payer MEDICARE, OTHER, SELFPAY ==
[2021-08-28 07:22] VITALS: BP 146/76; BP 148/60; BMI 26.7
== END ==
PROVIDERS: PCP Internal Medicine; Visit Provider Physician Assistant
DX: M54.2 Cervicalgia (principal)
CPT/HCPCS: 99212

== ENCOUNTER 2025-01-19 09:15 | Outpatient (AMB) | payer MEDICARE, SELFPAY ==
[2021-08-28 07:22] VITALS: BP 146/76; BP 148/60; BMI 26.7
[2025-01-19 09:19] VITALS: BP 114/52; PULSE 58; RESP 14; TEMP 37; O2SAT 98; BMI 26.8
--- NOTE | 2025-01-19 09:19 | MHC.PC.OV ---
Vital Signs 01/19/25 09:19 Height 5 ft 7 in Weight 171 lb BMI 26.8 BP 114/52 L Blood Pressure Location Lt brachial Position Sitting Respiration 14 Pulse 58 Pulse Source Pulse Oximeter Temp 98.6 F Temp Source Oral Pulse Oximetry (%) 98 Oxygen Delivery Method Room Air Intake Visit Reasons: Right ear block Intake Note: Right ear blocked. Trouble hearing out of left ear. Galley Hand Required: No Allergies losartan Allergy (Severe, Verified 01/19/25 09:21) Swelling sesame seed Allergy (Verified 01/19/25 09:21) Swelling Tobacco use date assessed: 11/14/24 Dental Screening Dental Screen Date: 10/12/24 HPI HPI Comments History of Present Illness Details 69 year old male with a past medical history of [place], diabetes, hypertension, CKD presenting for cerumen impaction/hearing loss Patient notes decreased hearing x weeks. Has seen ENT -told to follow up with pcp for cleaning. Ears flushed today with total cerumen removal CV: off losartan due to lip swelling, on metoprolol 150mg daily, norvasc 2.5, hydralazine 50mg tid. No chest pain, dyspnea Had to move back his appt with allergy/immunology because they want him to have labs prior to his appt. He has some transportation issues. He recently has lip swelling and facial tingling when he ate strawberries. He is carrying his epipen Diabetes is well controlled. 12/27/23 6.4%. He needs to repeat A1C which has been ordered. On metformin 1000 twice daily, glipizide. On statin. Denies chest pain, exertional dyspnea. CKD stage 3. seeing nephrology Insomnia: on zolpidem. MSK: left ankle pain-referred to podiatry Recently seen by ENT for hearing. Told him to get his ears cleaned by PCP. They are blocked today. Will have him use drops and return Declines colonoscopy. Cologuard test was ordered ROS see HPI PHYSICAL EXAM: GENERAL: Alert and oriented x 3. NAD EYES: EOMI. Anicteric. HENT: Moist mucous membranes. b/l cerumen impaction removed with clear canals thereafter LUNGS: Clear to auscultation bilaterally. CARDIOVASCULAR: Regular rate and rhythm. No murmur. No JVD. ABDOMEN: Soft, non-tender +bs EXTREMITIES: No edema. Non-tender. SKIN: No rashes or lesions. Warm. NEUROLOGIC: No focal neurological deficits. CN II-XII grossly intact PSYCHIATRIC: Cooperative. Appropriate mood and affect FOR[facility]LY [facility], [facility] Medical History Low libido Screening for prostate cancer Pre-op examination Shift work sleep disorder Snoring Erectile dysfunction Headache Screening for prostate cancer Screening for colon cancer Adult general medical exam Erectile dysfunction due to type 2 diabetes mellitus Heart palpitations Chest pain COVID-19 High cholesterol Sciatica Hypertension Diabetes Epilepsy Heart attack Surgical History H/O colonoscopy History of tonsillectomy History of cardiac catheterization (~2015) History of coronary artery bypass graft x 2 (~2005) Family History Father Cardiovascular disease Mother No problems noted. Social History Housing: Apartment Alcohol intake: former Comment: hasnt drank in 30 years Patient Tobacco Use Status: Never used Tobacco e-Cigarette/Vaping Use: Never Used Second Hand Smoke Exposure: No service: No Current occupational status: previously employed Current occupational exposures/hazards: No Cognitive needs: No Hearing needs: No Vision needs: No Questionnaire Thrive Questionnaire Date Thrive assessed: 08/15/24 I am a: Patient What is your living situation today?: I have a steady place to live Within the past 12 months, did the food you bought not last and you didn't have the money to get more?: Sometimes True Within the past 12 months, did you worry whether your food would run out before you got money to buy more?: Sometimes True Do you have trouble paying for medicines?: No Do you have trouble getting transportation to medical appointments?: No Do you have trouble paying your heating and electricity bill?: No Do you have trouble taking care of your child, family member or friend?: No Do you have trouble with day-to-day activities such as bathing, preparing meals, shopping, managing finances, etc.?: No Are you currently unemployed and looking for a job?: I choose not to answer this question Are you interested in more education?: No Please select the resources that you would like help with: None Currently or been in a relationship where the following occur: No concerns reported THRIVE Score: 2 LAURA-7 AMB Questionnaire LAURA-7 Date LAURA - 7 assessed: 04/22/23 Source: Developed by Drs. Alex Ledezma, Nicole Scott, Messi Og and colleagues, with an educational rhonda from [employer]. Physical exam (Primary Care) Vital Signs: Last Vital Signs Temp 98.6 F 01/19/25 09:19 Pulse 58 01/19/25 09:19 Resp 14 01/19/25 09:19 BP 114/52 L 01/19/25 09:19 Pulse Ox 98 01/19/25 09:19 Oxygen Delivery Method Room Air 01/19/25 09:19 BMI result Body Mass Index 26.8 Tobacco/Smoking Status: Tobacco use Status Tobacco use date assessed 11/14/24 01/19/25 09:21 Patient Tobacco Use Status Never used Tobacco 01/19/25 09:21 e-Cigarette/Vaping Use Never Used 01/19/25 09:21 Thrive Assessment: Date of Thrive Assessment Date Thrive assessed 08/15/24 01/19/25 09:21 Currently or been in a relationship where the following occur: No concerns reported Coding Level of Care Code Est Pt Level 3 (29019) Diagnoses Bilateral impacted cerumen H61.23 Laterality: bilateral Stage 3 chronic kidney disease, unspecified whether stage 3a or 3b CKD N18.30 Chronic kidney disease stage 3 subtype: unspecified whether 3a or 3b Assessment & Plan Assessment & Plan (1) Cerumen impaction: Code(s): H61.20 - Impacted cerumen, unspecified ear Category: Medical Qualifiers: Laterality: bilateral Qualified Code(s): H61.23 - Impacted cerumen, bilateral (2) CKD (chronic kidney disease) stage 3, GFR 30-59 ml/min: Code(s): N18.30 - Chronic kidney disease, stage 3 unspecified Category: Medical Qualifiers: Chronic kidney disease stage 3 subtype: unspecified whether 3a or 3b Qualified Code(s): N18.30 - Chronic kidney disease, stage 3 unspecified Plan b/l cerumen impaction-ears flushed with removal of all wax, hearing improved CKD requests nephrology referral for Orders: Referrals Nephrology Referral N18.30 - Chronic kidney disease, stage 3 unspecified
--- OUTSIDE RECORDS SUMMARY | 2025-01-19 10:05 | XMS_ITS | Clinical Summary ---
Author Organization [facility] Address [address] [place] [address] [address] [place] [address] Care Team Providers Care Utility Mechanic Name Role Phone Unavailable Primary Care Provider [...]
--- OUTSIDE RECORDS SUMMARY | 2025-01-19 10:05 | XMS_ITS | Clinical Summary ---
Author Organization [facility] Address [address] [address] Phone Care Team Providers Care Die Trimmer Name Role Phone Pcp, Unknown Primary Care Provider Unavailabl e Social History Tobacco Use Types Packs/Day Years Used Date Smoking Tobacco: Never Assessed Education Answer Date Recorded Are you interested in more education? Not on zakiya e 09/18/2022 Are you concerned about learning? Not on file 09/18/2022 No 09/18/2022 No 09/18/2022 Digital Access Answer Date Recorded No 10/17/2022 No 10/17/2022 No 10/17/2022 Reliable internet access at home? Not on file 10/17/2022 Device with a working camera? Not on file Sex and Gender Information Value Date Recorded Sex Assigned at Not on file Legal Sex Male 11:12 AM EST Gender Identity Not on file Sexual Orientation Not on file Plan of Treatment Health Maintenance Due Date Last Done Comments LIPID PANEL 1957 DEPRESSION SCREENING 1969 SMOKING Hx and SMOKELESS TOBACCO SCREENING 1970 HEPATITIS C SCREENING 1975 COLOGUARD 2002 COLONOSCOPY 2002 COLORECTAL CANCER SCREENING 2002 FIT TEST 2002 FOBT 2002 SIGMOIDOSCOPY 2002 VIRTUAL COLONOSCOPY 2002 PNEUMOCOCCAL VACCINES (50+ years) (1 of 1 - PCV) 2007 ZOSTER VACCINES (1 of 2) 2007 COVID-19 VACCINE (3 - 2023-2 5 season) 2024 10/04/2020, 09/06/2020 Adult Td,Tdap Booster 11/20/2029 11/21/2019 RSV VACCINE (1 - 1-dose 75+ series) 2032 HEPATITIS A VACCINES Aged Out No long er eligible based on patient's age to complete this topic HIB VACCINES Aged Out No longer eligi ble based on patient's age to complete this topic MENINGOCOCCAL VACCINES (ACWY) Aged Out No longer eligible based on patient's age to complete this topic MENINGOCOCCAL VACCINES (B) Aged Out N o longer eligible based on patient's age to complete this topic Medical Devices Not on file Insurance [facility] [employer] [facility] [employer] [facility] [employer] ACO [place] [address] [place] [address] ACO Care Teams Die Trimmer Relationship Specialty Start Date End Date Pcp, Unknown PCP - General 09/30/21 Additional Source Comments The information contained in this document represents components of the legal health record. It is not the complete legal health record.[facility]
--- OUTSIDE RECORDS SUMMARY | 2025-01-19 10:05 | XMS_ITS | Clinical Summary ---
Author Organization [facility] Address [address] [place] [address] Phone Care Team Providers Care Industrial Cleaner Name Role Phone Lou Jameson MD Primary Care Provider [phone] Allergies No known active allergies Medications diclofenac [...] V24, CMS/HCC V28) 06/02/2024 Tinea unguium 06/02/2024 Social History Tobacco Use Types Packs/Day Years [...] 06/07/2024 12:54 PM EST Plan of Treatment Health Maintenance Due Date Last Done Comments Diabetes: Annual GFR (Glomerular Filtration Rate) 1957 Diabetes: Annual Foot Exam 1967 Diabetes: Annual Retina Eye Exam 1967 Pneumococcal Vaccine: 50+ Years (1 of 2 - PCV) 1976 Zoster Vaccines (1 of 2) 2007 RSV Immunization Adult Patients (1 - Risk 60-74 years 1-dose series) 2017 COVID-19 Vaccine (4 - 2023-2 5 season) 2024 06/20/2021, 10/04/2020, 09/06/2020 Abdominal Aortic Aneurysm (AAA) Screen 03/18/2024 Cholesterol Screening (Lipid Panel) 03/18/2024 Colorectal Cancer Screening: Colonoscopy 03/18/2024 Falls Risk Assessment 03/18/2024 Hepatitis C Screening 03/18/2024 Medicare Annual Wellness Visit 03/18/2024 Social Influencers of Health Screening 03/18/2024 Depression Screening 05/24/2024 Diabetes: Annual Urine Albumin-Creatinine Ratio (uACR) 06/02/2024 [...] Insurance MEDICA[place] - [place] MEDICARE Care Teams Industrial Cleaner Relationship Specialty Start Date End Date Lou Jameson MD PCP - General 03/15/24
== END 2025-01-19 09:48 | disposition home or self-care (01) ==
LOC: HO.HMCFM 09:16
PROVIDERS: PCP Internal Medicine; Visit Provider Internal Medicine
DX: H61.23 Impacted cerumen, bilateral (principal); N18.30 Chronic kidney disease, stage 3 unspecified

== ENCOUNTER → 2025-01-19 09:15 | Outpatient (BNVA) | payer MEDICARE, OTHER, SELFPAY ==
[2021-08-28 07:22] VITALS: BP 146/76; BP 148/60; BMI 26.7
== END ==
PROVIDERS: PCP Internal Medicine; Visit Provider Internal Medicine
DX: H61.23 Impacted cerumen, bilateral (principal); I12.9 Hypertensive chronic kidney disease with stage 1 through stage 4 chronic kidney disease, or unspecified chronic kidney disease; E11.22 Type 2 diabetes mellitus with diabetic chronic kidney disease; N18.30 Chronic kidney disease, stage 3 unspecified; M25.512 Pain in left shoulder; G47.00 Insomnia, unspecified; Z79.84 Long term (current) use of oral hypoglycemic drugs; Z79.899 Other long term (current) drug therapy
CPT/HCPCS: 99212

== ENCOUNTER 2025-01-23 13:00 | Outpatient (RCR) | payer MEDICARE, OTHER, SELFPAY ==
[2021-08-28 07:22] VITALS: BP 146/76; BP 148/60; BMI 26.7
--- NOTE | 2025-01-10 16:38 | MHC.PT.EP ---
[facility] [place] Office [place] [facility] [place] Office [address] [phone] F: [phone] F: [phone] F: [phone] F: [phone] Physical Therapy Plan of Care Date of Evaluation: 01/02/25 Date of Surgery: Diagnosis: Cervicalgia. Assessment: Pt is a 69 y/o male referred to PT for eval and treat of cervicalgia which is resulting in decreased tolerance for static positions, lifting objects of weight, turning head to end ranges, as well as disturbed sleep secondary to sedentary lifestyle, poor PM and TV habits, mild decreased cervical AROM, increased cervical accessory tissue tension and pain. Pt is deemed an appropriate candidate to receive skilled PT services to address their physical impairments in order to improve their functional ability. Frequency and Duration: The patient will be seen 2 x /wk x 3 wks. Short Term Goals: Initiate home program. Improve cervical pain to at most 1-2/10. Halfway Goals: I with home program. Pt will no longer be painful with end range cervical rotation. Pt will no longer be disturbed sleep d/t neck pain. Treatment Plan: Modalities to reduce pain, spasms and effusion. Manual therapy to restore motion and function. Therapeutic exercise to improve strength and flexibility. Neuromuscular re-education for posture and balance. Therapeutic activities to return to functional activities of daily living. Electronically signed by: Minor Gonzalez PT. Please sign and return to therapist. Thank you for your referral.
--- NOTE | 2025-01-23 15:00 | MHC.PT.DC ---
[facility] [place] Office [place] Office [place] Office [address]ola Farr [address] [phone] F: [phone] F: [phone] F: [phone] F: [phone] Physical Therapy Discharge Report Diagnosis: Cervicalgia. Date of Surgery: Date of Evaluation: 01/02/25 Date of Discharge: 01/23/25 Treatments to Date: 6 Cancellations to Date: No Shows to Date: Discharge Status: Achieved Goals Improved Function Independent with HEP Discharge Summary: Kiel has been an active participant in his therapy; he has met his therapeutic goals, has been painless of his neck, is I with his home program, and in agreement with DC at this time. Electronically signed by: Minor Gonzalez PT. Please sign and return to therapist. Thank you for your referral.
== END 2025-01-23 13:55 | disposition home or self-care (01) ==
LOC: HO.PT 13:00
PROVIDERS: PCP Internal Medicine; Visit Provider Nurse Practitioner Family
DX: M50.30 Other cervical disc degeneration, unspecified cervical region (principal); M47.812 Spondylosis without myelopathy or radiculopathy, cervical region; M62.838 Other muscle spasm
CPT/HCPCS: 97110; 97140; 97161

== ENCOUNTER 2025-02-16 11:39 | Outpatient (REF) | payer MEDICARE, MEDICAID, SELFPAY ==
[2021-08-28 07:22] VITALS: BP 146/76; BP 148/60; BMI 26.7
[2025-02-16 12:37] LABS: Total Hemoglobin (HGBA1C) 3301.4222 umol/L
[2025-02-16 12:55] LABS: Alanine Aminotransferase 19 U/L (0-40); Albumin Level 4.1 g/dL (3.5-5.0); Alkaline Phosphatase 146 U/L (39-117); Anion Gap 12 (12-20); Aspartate Amino Transferase 22 U/L (5-37); Blood Urea Nitrogen 15 mg/dL (9-16); Calcium 9.2 mg/dL (8.4-10.2); Carbon Dioxide 27 mmol/L (22-29); Chloride 107 mmol/L (96-108); Cholesterol 162 mg/dL (<200); Estimated Glomerular Filt Rate 51; HDL Cholesterol 25 mg/dL (>40); Potassium 3.8 mmol/L (3.3-5.1); Sodium 142 mmol/L (135-145); Total Protein 7.3 g/dL (6.5-8.0); Triglycerides 245 mg/dL (<150)
--- OUTSIDE RECORDS SUMMARY | 2025-02-16 13:37 | XMS_ITS | Clinical Summary ---
Author Organization [facility] Address [address] [place] [address] [address] [place] [address] Care Team Providers Care Logistics Analytics Manager Name Role Phone Unavailable Primary Care [...] 2007 Zoster Vaccines (1 of 2) 2007 Dental X-Ray: Bitewings 08/25/2024 08/25/2023 Tobacco Screening 09/29/2024 09/30/2023 COVID-19 Vaccine (4 - 2024-2 6 season) 2025 06/20/2021, 10/04/2020, 09/06/2020 Influenza Vaccine (#1) 2025 04/07/2021 Dental X-Ray: [...]
--- OUTSIDE RECORDS SUMMARY | 2025-02-16 13:37 | XMS_ITS | Encounter Summary ---
Author Organization [facility] Address [address] [place] [address] Phone Care Team Providers Care Local City Driver Name Role Phone Lou Jameson MD Primary Care Provider [phone] Encounter Details Date Type Department Care Team (Late st Contact Info) Description 02/14/2025 Documentation Only [facility], [address] [place] [address] [place], [place] [address] [place] [address] Social History Tobacco Use Types Packs/Day Years Used Date Smoking Tobacco: Never Assessed Sex and Gender Information Value Date Recorded Sex Assigned at Not on file Legal Sex Male 11:42 AM EDT Gender Identity Not on file Sexual Orientation Not on file documented as of this encounter Plan of Treatment Not on file documented as of this encounter Visit Diagnoses Not on filedocumented in this encounter Care Teams Local City Driver Relationship Specialty Start Date End Date Lou Jameson MD [address] [place] [id number] PCP - General Internal Medicine 02/14/25 documented as of this encounter
--- OUTSIDE RECORDS SUMMARY | 2025-02-16 13:37 | XMS_ITS | Clinical Summary ---
Author Organization [facility] Address [address] [place] [address] Phone Care Team Providers Care Bleach Plant Operator Name Role Phone Lou Jameson MD Primary Care Provider [phone] Encounters Date Type Department Care Team Description 02/14/2025 Documentation Only [facility] [place], [address] [place] [address] Kinga Peck [place] from Last 3 Months Social History Tobacco Use Types Packs/Day Years Used Date Smoking Tobacco: Never Assessed Sex and Gender Information Value Date Recorded Sex Assigned at Not on file Legal Sex Male 11:42 AM EDT Gender Identity Not on file Sexual Orientation Not on file Plan of Treatment Health Maintenance Due Date Last Done Comments Colorectal Cancer Screening: Annual FOBT 2006 Colorectal Cancer Screening: Colonoscopy 2006 Colorectal Cancer Screening: Sigmoidoscopy 2006 Pneumococcal Vaccine: 50+ Ye ars (1 of 1 - PCV) 2007 Influenza Vaccine (#1) 2025 Diabetes: Hemoglobin A1C 02/14/2025 Diabetes: Ophthalmology Exam 02/14/2025 Diabetes: Pedal Pulse Checked 02/14/2025 Diabetes: Sensory Foot Exam 02/14/2025 Diabetes: Visual Foot Exam 02/14/2025 Hepatitis B Vaccine Aged Out No longe r eligible based on patient's age to complete this topic Insurance Medicare Medicaid [place] Care Teams Bleach Plant Operator Relationship Specialty Start Date End Date Lou Jameson MD [address] [place] [address] PCP - General Internal Medicine 02/14/25
--- OUTSIDE RECORDS SUMMARY | 2025-02-16 13:37 | XMS_ITS | Clinical Summary ---
Author Organization [facility] Address [address] [place] [address] Phone Care Team Providers Care Corporate Real Estate Specialist Name Role Phone Lou Jameson MD Primary Care Provider [phone] Allergies No known active allergies Medications diclofenac [...] - Risk 60-74 years 1-dose series) 2017 Abdominal Aortic Aneurysm (AAA) Screen 03/18/2024 Cholesterol Screening (Lipid Panel) 03/18/2024 Colorectal Cancer Screening: Colonoscopy 03/18/2024 Falls Risk Assessment 03/18/2024 Hepatitis C Screening 03/18/2024 Medicare Annual Wellness Visit 03/18/2024 Social Influencers of Health Screening 03/18/2024 Depression Screening 05/24/2024 Diabetes: Annual Urine Albumin-Creatinine Ratio (uACR) 06/02/2024 Diabetes: Blood Sugar Contro l Test (HGBA1C) 06/02/2024 COVID-19 Vaccine (4 - 2024-2 6 season) 2025 06/20/2021, 10/04/2020, 09/06/2020 Influenza Vaccine (#1) 2025 04/07/2021 DTaP,Tdap,and Td [...] Insurance [place] - [place] MEDICARE Care Teams Corporate Real Estate Specialist Relationship Specialty Start Date End Date Lou Jameson MD PCP - General 03/15/24
--- OUTSIDE RECORDS SUMMARY | 2025-02-16 13:37 | XMS_ITS | Clinical Summary ---
Author Organization [facility] Address [address] [address] Phone Care Team Providers Care Inspector Aluminum Boat Name Role Phone Pcp, Unknown Primary Care [...] 2007 ZOSTER VACCINES (1 of 2) 2007 INFLUENZA VACCINE (#1) 2024 COVID-19 VACCINE (3 - 2024-2 6 season) 2025 10/04/2020, 09/06/2020 Adult Td,Tdap Booster 11/20/2029 11/21/2019 [...] topic Medical Devices Not on file Insurance [facility] [place] [address] [place] [address] [facility] [employer] [place] [address] [place] [address] [employer]IANCE A[employer] [facility] Care Teams Inspector Aluminum Boat Relationship Specialty Start Date End Date Pcp, Unknown PCP - General 09/30/21 Additional Source Comments The information contained in this document represents components of the legal health record. It is not the complete legal health record.[facility]
[2025-02-23 12:03] LABS: Testosterone, Free 53.6 pg/mL (35.0-155.0)
== END 2025-02-16 11:40 | disposition home or self-care (01) ==
LOC: HO.LAB 11:39
PROVIDERS: Internal Medicine Hypertension Specialist; Urology; PCP Internal Medicine; Visit Provider Internal Medicine
DX: I12.9 Hypertensive chronic kidney disease with stage 1 through stage 4 chronic kidney disease, or unspecified chronic kidney disease (principal); E11.22 Type 2 diabetes mellitus with diabetic chronic kidney disease; N18.30 Chronic kidney disease, stage 3 unspecified; R79.89 Other specified abnormal findings of blood chemistry
CPT/HCPCS: 36415; 80053; 80061; 83036; 84402; 84403

== ENCOUNTER 2025-02-19 09:36 | Outpatient (AMB) | payer MEDICARE, MEDICAID, SELFPAY ==
[2021-08-28 07:22] VITALS: BP 146/76; BP 148/60; BMI 26.7
[2025-02-19 10:01] VITALS: BP 120/64; PULSE 58; RESP 14; O2SAT 98; BMI 26.0
--- NOTE | 2025-02-19 10:01 | MHC.PC.OV ---
Vital Signs 02/19/25 10:01 Height 5 ft 7 in Weight 166 lb BMI 26.0 BP 120/64 Blood Pressure Location Lt brachial Position Sitting Respiration 14 Pulse 58 Pulse Source Pulse Oximeter Pulse Oximetry (%) 98 Oxygen Delivery Method Room Air Intake Visit Reasons: DM - follow up bp labs Intake Note: Diabetes follow up. Has testosterone prescription, but has not started medication. Bobbin Stripper Required: No Allergies losartan Allergy (Severe, Verified 01/19/25 09:21) Swelling sesame seed Allergy (Verified 01/19/25 09:21) Swelling Tobacco use date assessed: 02/19/25 Fall risk assessment: No Falls in past year Last assessed Fall Risk: 02/19/25 Dental Screening Dental Screen Date: 10/12/24 HPI HPI Comments History of Present Illness Details 69 year old male with a past medical history of MD, diabetes, hypertension, CKD presenting for follow up Diabetes is well controlled. 7.0% from 6.4%. . On metformin 1000 twice daily, glipizide. On statin. Denies chest pain, exertional dyspnea. CKD stage 3. seeing nephrology. Last Cr improved to 1.39 CV: off losartan due to lip swelling, on metoprolol 150mg daily, norvasc 2.5, hydralazine 50mg tid. No chest pain, dyspnea Had to move back his appt with allergy/immunology because they want him to have labs prior to his appt. He has some transportation issues. He recently has lip swelling and facial tingling when he ate strawberries. He is carrying his epipen Insomnia: on zolpidem. MSK: left ankle pain-referred to podiatry Follows with ENT Declines colonoscopy. Cologuard negative ROS see HPI PHYSICAL EXAM: GENERAL: Alert and oriented x 3. NAD EYES: EOMI. Anicteric. HENT: Moist mucous membranes. b/l cerumen impaction removed with clear canals thereafter LUNGS: Clear to auscultation bilaterally. CARDIOVASCULAR: Regular rate and rhythm. No murmur. No JVD. ABDOMEN: Soft, non-tender +bs EXTREMITIES: No edema. Non-tender. SKIN: No rashes or lesions. Warm. NEUROLOGIC: No focal neurological deficits. CN II-XII grossly intact PSYCHIATRIC: Cooperative. Appropriate mood and affect [facility] Medical History Screening for prostate cancer Low libido Screening for prostate cancer Pre-op examination Shift work sleep disorder Snoring Erectile dysfunction Headache Screening for colon cancer Adult general medical exam Erectile dysfunction due to type 2 diabetes mellitus Heart palpitations Chest pain COVID-19 High cholesterol Sciatica Hypertension Diabetes Epilepsy Heart attack Surgical History H/O colonoscopy History of tonsillectomy History of cardiac catheterization (~2015) History of coronary artery bypass graft x 2 (~2005) Family History Father Cardiovascular disease Mother No problems noted. Social History Housing: Apartment Alcohol intake: former Comment: hasnt drank in 30 years Patient Tobacco Use Status: Never used Tobacco e-Cigarette/Vaping Use: Never Used Second Hand Smoke Exposure: No service: No Current occupational status: previously employed Current occupational exposures/hazards: No Cognitive needs: No Hearing needs: No Vision needs: No Questionnaire Thrive Questionnaire Date Thrive assessed: 08/15/24 I am a: Patient What is your living situation today?: I have a steady place to live Within the past 12 months, did the food you bought not last and you didn't have the money to get more?: Sometimes True Within the past 12 months, did you worry whether your food would run out before you got money to buy more?: Sometimes True Do you have trouble paying for medicines?: No Do you have trouble getting transportation to medical appointments?: No Do you have trouble paying your heating and electricity bill?: No Do you have trouble taking care of your child, family member or friend?: No Do you have trouble with day-to-day activities such as bathing, preparing meals, shopping, managing finances, etc.?: No Are you currently unemployed and looking for a job?: I choose not to answer this question Are you interested in more education?: No Please select the resources that you would like help with: None Currently or been in a relationship where the following occur: No concerns reported THRIVE Score: 2 LAURA-7 AMB Questionnaire LAURA-7 Date LAURA - 7 assessed: 04/22/23 Source: Developed by Drs. Alex Ledezma, Nicole Scott, Messi Og and colleagues, with an educational rhonda from [employer]. Physical exam (Primary Care) Vital Signs: Last Vital Signs Pulse 58 02/19/25 10:01 Resp 14 02/19/25 10:01 BP 120/64 02/19/25 10:01 Pulse Ox 98 02/19/25 10:01 Oxygen Delivery Method Room Air 02/19/25 10:01 BMI result Body Mass Index 26.0 Tobacco/Smoking Status: Tobacco use Status Tobacco use date assessed 02/19/25 02/19/25 10:04 Patient Tobacco Use Status Never used Tobacco 02/19/25 10:08 e-Cigarette/Vaping Use Never Used 02/19/25 10:08 Thrive Assessment: Date of Thrive Assessment Date Thrive assessed 08/15/24 02/19/25 10:01 Currently or been in a relationship where the following occur: No concerns reported Coding Level of Care Code Est Pt Level 4 (51717) Complex EM visit Add On G2211 Diagnoses Type 2 diabetes mellitus with unspecified complications E11.8 Essential hypertension I10 Hyperlipidemia, unspecified hyperlipidemia type E78.5 Hyperlipidemia type: unspecified Stage 3 chronic kidney disease, unspecified whether stage 3a or 3b CKD N18.30 Chronic kidney disease stage 3 subtype: unspecified whether 3a or 3b Assessment & Plan Assessment & Plan (1) Type 2 diabetes mellitus with unspecified complications: Code(s): E11.8 - Type 2 diabetes mellitus with unspecified complications Category: Medical (2) Essential hypertension: Code(s): I10 - Essential (primary) hypertension Category: Medical (3) Hyperlipidemia: Code(s): E78.5 - Hyperlipidemia, unspecified Category: Medical Qualifiers: Hyperlipidemia type: unspecified Qualified Code(s): E78.5 - Hyperlipidemia, unspecified (4) CKD (chronic kidney disease) stage 3, GFR 30-59 ml/min: Code(s): N18.30 - Chronic kidney disease, stage 3 unspecified Category: Medical Qualifiers: Chronic kidney disease stage 3 subtype: unspecified whether 3a or 3b Qualified Code(s): N18.30 - Chronic kidney disease, stage 3 unspecified Plan 69 year old for follow up Dm is well controlled. continue routine eye exams. HTN-blood pressure adequately controlled CKD-has upcoming nephrology appt booked Orders: Orders Hemoglobin A1c 3 Months E11.8 - Type 2 diabetes mellitus with unspecified complications, I10 - Essential (primary) hypertension, N18.30 - Chronic kidney disease, stage 3 unspecified Comprehensive Met. Panel 3 Months E11.8 - Type 2 diabetes mellitus with unspecified complications, I10 - Essential (primary) hypertension, N18.30 - Chronic kidney disease, stage 3 unspecified Prostate Specific Antigen 3 Months E11.8 - Type 2 diabetes mellitus with unspecified complications, I10 - Essential (primary) hypertension, N18.30 - Chronic kidney disease, stage 3 unspecified Microalbumin, Random (w Creat) 3 Months E11.8 - Type 2 diabetes mellitus with unspecified complications, I10 - Essential (primary) hypertension, N18.30 - Chronic kidney disease, stage 3 unspecified
--- OUTSIDE RECORDS SUMMARY | 2025-02-19 10:28 | XMS_ITS | Clinical Summary ---
Author Organization [facility] Address [address] [address] Phone Care Team Providers Care Dinkey Engine Firer/Fireman Name Role Phone Pcp, Unknown Primary Care [...] topic Medical Devices Not on file Insurance [facility] [place] [address] [place] [id number] [facility]CO [facility] [employer] [place] [address] [place] [address] [employer] [facility] [employer] [facility] [place] [address] Care Teams Dinkey Engine Firer/Fireman Relationship Specialty Start Date End Date Pcp, Unknown PCP - General 09/30/21 Additional Source Comments The information contained in this document represents components of the legal health record. It is not the complete legal health record.[facility]
--- OUTSIDE RECORDS SUMMARY | 2025-02-19 10:28 | XMS_ITS | Clinical Summary ---
Author Organization [employer] Address [address] [place] [address] [address] [place] [address] Care Team Providers Care Maintenance Of Way Supervisor Name Role Phone Unavailable Primary Care Provider [...]
--- OUTSIDE RECORDS SUMMARY | 2025-02-19 10:28 | XMS_ITS | Encounter Summary ---
Author Organization [facility] Address [address] [place] [address] Phone Care Team Providers Care Stationary Fireman Name Role Phone Lou Jameson MD Primary Care Provider [phone] Encounter Details Date Type Department Care Team (Late st Contact Info) Description 02/14/2025 Documentation Only [facility], [address] [place] [address] [place], [place] [address] [place] [address] Social History Tobacco Use Types [...] on filedocumented in this encounter Care Teams Stationary Fireman Relationship Specialty Start Date End Date Lou Jameson MD [address] [place] [id number] PCP - General Internal Medicine 02/14/25 documented as of this encounter
--- OUTSIDE RECORDS SUMMARY | 2025-02-19 10:28 | XMS_ITS | Clinical Summary ---
Author Organization [facility] Address [address] [place] [address] Phone Care Team Providers Care Contract Loader Name Role Phone Lou Jameson MD Primary Care Provider [phone] Allergies No known active allergies Medications diclofenac [...] Insurance MEDICAID - [place] MEDICARE Care Teams Contract Loader Relationship Specialty Start Date End Date Lou Jameson MD PCP - General 03/15/24
--- OUTSIDE RECORDS SUMMARY | 2025-02-19 10:28 | XMS_ITS | Clinical Summary ---
Author Organization [facility] Address [address] [place] [address] Phone Care Team Providers Care [employer] Name Role Phone Lou Jameson MD Primary Care Provider [phone] Encounters Date Type Department Care Team Description 02/14/2025 Documentation Only [facility], [address] [place] [address] Kinga Peck [place] from Last [...] topic Insurance Medicare Medicaid [place] Care Teams [employer] Cox[employer]ain Relationship Specialty Start Date End Date Lou Jameosn MD [address] [place] [address] PCP - General Internal Medicine 02/14/25
== END 2025-02-19 10:22 | disposition home or self-care (01) ==
LOC: HO.HMCFM 09:36
PROVIDERS: PCP Internal Medicine; Visit Provider Internal Medicine
DX: E11.8 Type 2 diabetes mellitus with unspecified complications (principal); I10 Essential (primary) hypertension; E78.5 Hyperlipidemia, unspecified; N18.30 Chronic kidney disease, stage 3 unspecified

== ENCOUNTER → 2025-02-19 09:36 | Outpatient (BNVA) | payer MEDICARE, MEDICAID, SELFPAY ==
[2021-08-28 07:22] VITALS: BP 146/76; BP 148/60; BMI 26.7
== END ==
PROVIDERS: PCP Internal Medicine; Visit Provider Internal Medicine
DX: E11.8 Type 2 diabetes mellitus with unspecified complications (principal); I12.9 Hypertensive chronic kidney disease with stage 1 through stage 4 chronic kidney disease, or unspecified chronic kidney disease; E11.22 Type 2 diabetes mellitus with diabetic chronic kidney disease; N18.30 Chronic kidney disease, stage 3 unspecified; E78.5 Hyperlipidemia, unspecified; G47.00 Insomnia, unspecified; M25.572 Pain in left ankle and joints of left foot; I25.2 Old myocardial infarction; Z79.84 Long term (current) use of oral hypoglycemic drugs; Z79.899 Other long term (current) drug therapy
CPT/HCPCS: 99212

== ENCOUNTER 2025-03-08 10:15 | Observation (INO) | payer MEDICARE, MEDICAID, SELFPAY ==
[2021-08-28 07:22] VITALS: BP 146/76; BP 148/60; BMI 26.7
[2025-03-08] VITALS (7 sets, daily range): BP systolic 137–181; BP diastolic 54–81; PULSE 53–66; RESP 16–22; TEMP 36.5–36.8; O2SAT 95–99; BMI 25.4
--- NOTE | 2025-03-08 | EEG_ITS ---
Reason for Exam: seizures G40.0 Roomed Performed:?1st History: Patient reports history of seizure diagnosis. Patient had 2 episodes of dizziness and unsteadiness, last one being yesterday. Patient denies any confusion. While in ED it was noted that patient looked to have right facial drooping. Medication: atorvastatin, metoprolol, levocetirizine, epinephrine Technical description Photic stimulation: completed Hyperventilation:?omitted Behavioral state: pleasant, cooperative State of Consciousness: awake and drowsy Skull defect: none Sedation: none Handedness: left Duration of study:?30 min 10 sec Description: This is a 16 channel EEG with an EKG lead. Patient is reported awake during the tracing. Background EEG rhythm is 9-10 hertz 5-50 microvolt posteriorly and lower amplitude fast anteriorly with no obvious asymmetry or paroxysmal tendency. Photic stimulation does not produce any significant driving. Hyperventilation is [is unremarkable]. No sharp waves, spikes, asymmetric activity, or paroxysmal activity noted. Cardiac lead does not reveal any significant abnormality. Impression: Mild slowing with no evidence of seizure disorder MTDD
--- NOTE | ~2025-03-08 | MR_ITS ---
CLINICAL HISTORY: unsteady gait; stroke rule out . seizure r/o MR Brain with and without gadolinium Comparison: CT/MA/SR - CT HEAD NECK ANGIOGRAPHY WITH IV CONTRAST STROKE - 03/08/25 10:24 EDT MR - MR HEAD/BRAIN WO CON - 09/23/24 16:26 EDT Findings: No restricted diffusion. No intra-axial mass or hemorrhage. No midline shift. No hydrocephalus. Vascular flow voids are intact. No abnormal enhancement. Orbital contents are unremarkable. The sinuses and mastoid air cells are clear. No focal bone lesion. IMPRESSION: No acute findings. This document has been electronically signed by: Kesha Rueda MD on 03/08/2025 21:47:46
--- NOTE | ~2025-03-08 | CT_ITS ---
EXAMINATION: CT ANGIOGRAM HEAD AND NECK CLINICAL INFORMATION: Suspect acute stroke. Rule out LVO. COMPARISON: No prior CT angiography. Noncontrast head CT earlier same day. MRI brain 09/23/2024. CT head 09/23/2024. TECHNIQUE: Test bolus sequences and head and neck intravenous bolus administration 70 mL of Omnipaque 350. Helical imaging was performed in the axial plane from the aortic arch to the skull vertex. . The data was processed at the cardiac catheterization technologist's workstation for generation of MIP sequences. Angled MIPs and volume rendered reformatted images were also generated at an offline 3D workstation. Stenoses are assessed in accordance with NASCET criteria unless otherwise indicated. This CT examination was performed using dose optimization techniques as appropriate, variously including the following: *Automated exposure control *Adjustment of mA and/or kV according to patient size (this includes techniques or standardized protocols for targeted exams where dose is matched to indication/reason for exam; i.e. extremities or head) *Use of iterative reconstruction technique FINDINGS: NECK CTA: -AORTIC ARCH: Normal in caliber. Mild atheromatous calcification. Three-vessel branching pattern. -GREAT VESSEL ORIGINS: Widely patent. No stenosis. -RIGHT COMMON CAROTID ARTERY: Normal in course and caliber to the level of the bifurcation. -CERVICAL RIGHT INTERNAL CAROTID ARTERY: Mixed plaque present at the origin, resulting in an approximate 20% stenosis. Remainder of the vessel is normal in caliber into the skull base. There is a cervical loop present. -LEFT COMMON CAROTID ARTERY: Normal in course and caliber to the level of the bifurcation. -CERVICAL LEFT INTERNAL CAROTID ARTERY: Mild calcific atherosclerotic disease of the carotid bulb and proximal internal carotid artery without flow-limiting stenosis. Remainder of the vessel is normal in caliber into the skull base. There is a cervical loop present. -CERVICAL RIGHT VERTEBRAL ARTERY: Codominant. Mild stenosis at the origin due to calcific plaque. Otherwise normal in course and caliber into the skull base. -CERVICAL LEFT VERTEBRAL ARTERY: Codominant. Mild stenosis at the origin due to calcific plaque. Otherwise normal in course and caliber into the skull base. OTHER, SOFT TISSUES: -Prior sternotomy and probable CABG. Imaged superior mediastinal structures otherwise normal. -No lymphadenopathy or mass. No abnormal fluid collection or soft tissue swelling. -Normal thyroid. -Imaged lung apices are clear. CTA OF THE BRAIN: -INTRACRANIAL INTERNAL CAROTID ARTERIES: Moderate calcific atherosclerotic disease of the intracranial internal carotid arteries without occlusion or flow-limiting stenosis. Mild stenoses of the cavernous carotid arteries bilaterally. -RIGHT ANTERIOR CEREBRAL ARTERY: Normal A1 segment. Normal arborization of the distal segments. -LEFT ANTERIOR CEREBRAL ARTERY: Normal A1 segment. Normal arborization of the distal segments. -ANTERIOR COMMUNICATING ARTERY: Normal. -RIGHT MIDDLE CEREBRAL ARTERY: Normal M1 segment of the MCA without focal stenosis or occlusion. Normal bifurcation. Normal arborization of the distal segments. -LEFT MIDDLE CEREBRAL ARTERY: Normal M1 segment of the MCA without focal stenosis or occlusion. Normal bifurcation. Normal arborization of the distal segments. -RIGHT VERTEBRAL ARTERY V4: Normal in course and caliber. Normal PICA branch. -LEFT VERTEBRAL ARTERY V4: Normal in course and caliber. Normal PICA branch. -BASILAR ARTERY: Normal without focal stenosis or occlusion. Normal appearance of the proximal superior cerebellar arteries. Normal basilar tip. -RIGHT POSTERIOR CEREBRAL ARTERY: Normal P1 segment. Normal opacification of the distal [employer]ER segments. -LEFT POSTERIOR CEREBRAL ARTERY: Normal P1 segment. Normal opacification of the distal CEO [employer]ER segments. -POSTERIOR COMMUNICATING ARTERIES: The right is not seen. The left is diminutive but present. Normal opacification of the superior sagittal, straight, transverse, and sigmoid sinuses. No venous thrombosis. No space-occupying hemorrhage or definite evolving infarct. CT/CT angio head neck STROKE IMPRESSION: CTA NECK: 1. No evidence of significant stenosis, occlusion, dissection, or aneurysm of the major cervical arterial vasculature. 2. There is an approximate 20% stenosis of the RIGHT ICA at the origin due to mixed calcific and soft plaque. 3. There are mild stenoses at the origins of both vertebral arteries due to calcific plaque. CTA HEAD: 1. There is no evidence of significant stenosis, occlusion, dissection, or aneurysm of the major intracranial arterial vasculature. 2. Major cortical and dural venous sinuses are patent. 3. There is no space-occupying hemorrhage or evidence for evolving infarction. Electronically signed by: Hakan Faria MD 03/08/2025 10:58 AM EDT
--- NOTE | ~2025-03-08 | CT_ITS ---
EXAMINATION: CT HEAD WITHOUT IV CONTRAST STROKE HISTORY: Stroke Protocol. TECHNIQUE: Unenhanced helical CT of the head was performed per standard departmental protocol. Coronal and sagittal reformats of the head were also evaluated. One or more of the following techniques was used for dose reduction: Automated exposure control, adjustment of the mA and/or kV according to patient size, use of iterative reconstruction technique. DLP: 722 mGy-cm COMPARISON: Comparison is made with the prior examination dated 12/21/2023. FINDINGS: BRAIN: Again seen is mild prominence of the ventricular system and cortical sulci, consistent with atrophy. There is an old left cerebellar infarct. Ferrera/white differentiation is normal. There is no mass effect or midline shift. No intra- or extra-axial fluid collections are identified. SINUSES: The visualized paranasal sinuses are clear. The mastoid air cells and middle ear cavities are well pneumatized. ORBITS: The visualized orbits are unremarkable. BONES/SOFT TISSUES: The extracranial soft tissues are unremarkable. The calvarium is intact. No suspicious lytic or sclerotic lesions. CT/CT head for STROKE IMPRESSION: No acute intracranial abnormality. Findings were discussed with Dr. Hernandez in the emergency room on 03/08/2025 at 10:38 AM. Electronically signed by: Alex Benjamin MD 03/08/2025 10:38 AM EDT
--- NOTE | ~2025-03-08 | XR_ITS ---
EXAMINATION: XR CHEST 1 VIEW HISTORY: Stroke COMPARISON: Comparison is made with the prior examination dated 03/26/2021. FINDINGS: A single AP portable view of the chest performed at 10:44 AM is submitted. There are low lung volumes. There is scarring at the left lung base. No focal airspace opacities are identified. There is no pleural effusion, pneumothorax, or pulmonary vascular congestion. The heart is normal in size. The patient is status post median sternotomy and CABG. The bones are intact. XR/XR chest 1V IMPRESSION: Low lung volumes. No acute cardiopulmonary abnormality. Electronically signed by: Alex Benjamin MD 03/08/2025 10:57 AM EDT
--- NOTE | 2025-03-08 10:21 | ECG_ITS ---
Test Reason : STROKE Blood Pressure : */* mmHG Vent. Rate : 61 BPM Atrial Rate : 61 BPM P-R Int : 178 ms QRS Dur : 96 ms QT Int : 430 ms P-R-T Axes : 82 4 18 degrees QTcB Int : 432 ms Normal sinus rhythm Minimal voltage criteria for LVH, may be normal variant ( R in aVL ) Nonspecific T wave abnormality Abnormal ECG When compared with ECG of 23-Sep-2024 12:59, Criteria for Anterior infarct are no longer Present ST no longer elevated in Inferior leads Referred By: Tony Hernandez Electronically Signed By: Alex العراقي
[2025-03-08 10:31] LABS: Glucose, Whole Blood 155 mg/dL (60-115)
[2025-03-08] MEDS: iohexoL 350 MG/ML 100 ML INFUS..BTL IV (10:33)
--- NOTE | 2025-03-08 10:50 | ED_ITS ---
HPI - Neuro Symptoms/Deficit General Chief Complaint: Stroke Stated Complaint: ?STROKE,SLURR,LUE WEAK/R DROOP,-THIN,LKWT/7AM Time Seen by Provider: 03/08/25 10:21 Source: patient and EMS Mode of arrival: EMS Limitations: no limitations History of Present Illness ED Provider: DR. Hernandez HPI Narrative: 69-year-old male history of CKD stage 3, arthritis, HLD, HTN, DM, CAD, CVA with no residual deficit patient brought in by EMS as a stroke protocol for unclear onset of symptoms, patient stated that last night at 02:00 woke up the go to the bathroom felt dizzy but having notice any deficit then then in the morning patient was walking at the facility noticed by staff that patient is going unsteady, and noticed also right facial droop, EMS reported left upper extremity weakness, and slurred speech. Patient declined headache, passing out, chest pain. Reviewing patient records is no anticoagulation. Related Data Home Medications ?Medication ?Instructions ?Recorded ?Confirmed atorvastatin 80 mg tablet 80 mg PO BEDTIME 06/06/24 metoprolol succinate 50 mg 50 mg PO DAILY 10/12/2406/17 tablet,extended release 24 hr levocetirizine 5 mg tablet 5 mg PO DAILY 11/21/2406/17 Previous Rx's ?Medication ?Instructions ?Recorded aspirin 81 mg chewable tablet 81 mg PO DAILY #30 tabs 04/16/21 blood pressure test kit-large #1 ea 09/30/21 collagenase clostridium histo. 250 1 appl topical BEDT SAURAV PRN wound 09/22/23 unit/gram topical ointment care 14 days #15 grams clotrimazole 1 % topical cream 1 appl topical BID 2 we eks #45 03/07/24 grams glipizide 10 mg tablet 10 mg PO BID 90 days #180 ta bs 03/07/24 lamotrigine 200 mg tablet 200 mg PO BID 90 days #180 t abs 03/07/24 metformin 1,000 mg tablet 1,000 mg PO BID 90 days #180 tabs 03/07/24 needle (disp) 18 G 18 gauge x 1 #30 ea 07/04/24 (BD Regular Bevel Brooker) needle (disp) 23 gauge 23 gauge x #30 ea 07/04/24 3/4 (BD Regular Bevel Brooker) syringe (disposable) 1 mL (BD #30 ea 07/04/24 Luer-Verito Syringe) testosterone cypionate 200 mg/mL 80 mg (0.4 mL) subcut QWEEK 4 07/04/24 intramuscular oil weeks #2 mL (Depo-Testosterone) safety needles 23 gauge x 1 (BD #50 ea 07/06/24 SafetyGlide Needle) hydralazine 50 mg tablet 50 mg PO TID #270 tabs 09/18 methocarbamol 750 mg tablet 1,500 mg (2 x 750 mg) PO Q 8H PRN 09/21/24 pain, moderate #20 tabs amlodipine 2.5 mg tablet 2.5 mg PO DAILY #90 tabs 07/18 blood sugar diagnostic (FreeStyle #50 ea 10/24/24 Lite Strips) Debrox 6.5 % ear drops (carbamide 5 drp otic (ears) DA ISSAC 7 days #15 11/14/24 peroxide) mL metoprolol succinate 100 mg 100 mg PO DAILY #90 tabs 0 01/03/25 tablet,extended release 24 hr epinephrine 0.3 mg/0.3 mL 0.3 mg (0.3 mL) IM Q10M PRN 01/30/25 injection, auto-injector (EpiPen anaphylaxis/shortness of breath #2 2-Charanjit) ea zolpidem 10 mg tablet 10 mg PO BEDTIME #30 tabs Allergies Allergy/AdvReac Type Severity Reaction Status Date / Time losartan Allergy Severe Swelling Verified 03/08/25 10:27 sesame seed Allergy Swelling Verified 03/08/25 10:27 Review of Systems 2 Review of Systems: All other systems are reviewed and are negative Constitutional: Reports as per HPI and Reports no additional constitutional complaints Eyes: Reports as per HPI and Reports no additional eye complaints Reports system reviewed and no additional complaints, except as documented Cardiovascular: Reports as per HPI and Reports no additional cardiovascular complaints Respiratory: Reports as per HPI and Reports no additional respiratory complaints Gastrointestinal: Reports as per HPI and Reports no additional gastrointestinal complaints Genitourinary: Reports no additional female genitourinary complaints Musculoskeletal: Reports no additional musculoskeletal complaints Skin/Breast: Reports system reviewed and no additional complaints, except as docu Psychiatric: Reports no additional psychiatric complaints Endocrine: Reports no additional endocrine complaints Hematologic/Lymphatic: Reports no additional hematologic/lymphatic complaints Allergic/Immunologic: Reports no additional allergic/immunologic complaints Reports system reviewed and no additional complaints, except as documented and Reports Abnormal speech present [facility] Past Medical History Medical History Screening for prostate cancer Low libido Screening for prostate cancer Pre-op examination Shift work sleep disorder Snoring Erectile dysfunction Headache Screening for colon cancer Adult general medical exam Erectile dysfunction due to type 2 diabetes mellitus Heart palpitations Chest pain COVID-19 High cholesterol Sciatica Hypertension Diabetes Epilepsy Heart attack Surgical History H/O colonoscopy History of tonsillectomy History of cardiac catheterization (~2015) History of coronary artery bypass graft x 2 (~2005) Family History Family History Father Cardiovascular disease Mother No problems noted. Social History Social History Housing: Apartment Alcohol intake: former Comment: hasnt drank in 30 years Patient Tobacco Use Status: Never used Tobacco Smoked in Last 30 Days: No e-Cigarette/Vaping Use: Never Used Second Hand Smoke Exposure: No Use of substances other than those prescribed or required for medical reasons: No Advance Directives: No Advance Directives Information Provided: No Do you have a plan to hurt others: No Plan service: No Current occupational status: previously employed Current occupational exposures/hazards: No Cognitive needs: No Hearing needs: No Vision needs: No Physical Exam 2 Vital Signs: Vital Signs: Last Vital Signs Temp 98.2 F 03/08/25 12:42 Pulse 54 03/08/25 12:42 Resp 17 03/08/25 12:42 BP 163/59 H 03/08/25 12:42 Pulse Ox 99 03/08/25 12:42 O2 Del Method Room Air 03/08/25 12:42 BMI result Body Mass Index 25.4 Vital signs have been reviewed and appear to be correct. Blood pressure elevated. Heart rate normal. Respiratory rate normal. Temperature normal. Oxygen saturation normal. Appearance: Alert. Oriented X3. No acute distress. Head: Normal external exam. Normocephalic. Atraumatic. No Vick signs noted. No raccoon eyes noted Eyes: PERRLA. EOMI. Conjunctiva and sclera normal. Eyelids normal. ENT: TM's Normal. Pharynx normal. Uvula midline. Moist mucous membranes. No trismus noted. No drooling noted. No muffled voice noted. Neck: Normal inspection. Neck supple. FROM. No adenopathy. Thyroid Normal. No meningeal signs. No neck mass noted. CVS: Normal heart rate and rhythm. Heart sound normal. No murmurs noted. Pulses normal throughout. Respiratory: No respiratory distress. Painless inspiration. Breath sounds normal. No wheezes/rales/rhonchi noted. Chest nontender. No accessory muscle usage noted or decreased air movement noted. Abdomen: Soft and nontender. Bowel sounds normal in all 4 quadrants. No distention noted. No organomegaly noted. No visible injury noted. Back: No CVA tenderness. Full range of motion noted. Skin: Skin warm and dry. Normal skin color. Normal skin turgor. No rashes/lesions/lacerations noted. Extremities: No lower extremity edema. Extremities exhibit normal range of motion. Extremities nontender. Neuro: Mental status: Normal attention, orientation, memory, and affect. Cranial nerves: Pupils are equal, round and reactive to light, EOMI, visual jean-baptiste are fall, face is symmetric, facial sensations are normal. Motor examination normal muscle tone, strength to 4 extremities. DTR are +2, planter's are flexor. Sensory exam; normal coordination, no ataxia, gait stable. Cerebellar exam: [id number] and [id number]-[id number] is normal. Extrapyramidal system: No tremors, no rigidity with normal facial expressions. Mild Pronator drift left upper extremity. Course Reevaluation(s) Reevaluation #1: 69-year-old male came in for evaluation of stroke, minor symptoms of left upper extremity weakness with NIH score of 1, patient is out of the window for thrombolysis and patient is not a candidate for mechanical thrombectomy either with a patent large cerebral vessels. Time: 13:10 Medications Administered Discontinued Medications Generic Name Dose Route Start Last Admin Trade Name Freq PRN Reason Stop Dose Admin Iohexol 100 ml 03/08/25 10:33 03/08/25 10:33 Iohexol 350 Mg/Ml 100 Ml Infus..Btl IV 03/08/25 10:34 70 ml ONCE ONE Administration Medical Decision Making Differential Diagnosis Differential Diagnoses: The differential diagnosis associated with the presentation includes (Hemorrhagic stroke, ischemic stroke, TIA, electrolyte derangement, severe anemia, electrolyte derangement.) Admission/Observation Consideration of admission/observation: Escalation of care including admission/observation considered Lab Data MDM Lab Attestation statement: I reviewed the patient's lab results. 03/08/25 10:42 03/08/25 10:42 Labs: Lab Results 03/08/25 03/08/25 03/08/25 Range/Units 10:18 10:42 10:43 WBC 6.3 (4.8-10.8) X10*3/uL RBC 4.10 L (4.60-5.80) X10*6/uL Hgb 11.5 L (14.0-18.0) g/dl Hct 34.5 L (42.0-52.0) % MCV 84.1 (80.0-98.0) fL MCH 28.0 (27.0-33.0) pg MCHC 33.3 (31.0-36.0) g/dl RDW 14.6 (11.0-16.0) % Plt Count 180 (160-400) X10*3/uL MPV 9.8 (9.4-12.4) fL Immature Gran % (Auto) 0.2 (0.0-0.4) % Neut % (Auto) 45.5 (45-73) % Lymph % (Auto) 45.4 H (20-40) % [place] % (Auto) 8.9 (2-11) % Eos % (Auto) 0.0 (0-4) % Baso % (Auto) 0.0 (0-2) % Lymph # (Auto) 2.9 (1.2-4.9) X10*3/uL [place] # (Auto) 0.6 (0.1-1.2) X10*3/uL Eos # (Auto) 0.0 (0.0-0.4) X10*3/uL Baso # (Auto) 0.0 (0.0-0.2) X10*3/uL Abs Immat Gran (auto) 0.01 (0.00-0.03) X10*3/uL Absolute Neuts (auto) 2.9 (2.0-8.3) x10*3/uL Absolute Nucleated RBC 0.000 (0.0-0.012) X10*3/uL Nucleated RBC % (auto) 0.0 (0.0-0.2) /100WBC Smear Tech's Comments VERIFIED PT 13.9 H (10.9-12.4) SEC INR 1.2 H (0.9-1.1) APTT 73.0 H* (26.7-34.1) SEC Sodium 137 (135-145) mmol/L Potassium 4.0 (3.3-5.1) mmol/L Chloride 108 (96-108) mmol/L Carbon Dioxide 23 (22-29) mmol/L Anion Gap 10 L (12-20) BUN 36 H (9-16) mg/dL Creatinine 1.62 H (0.5-1.4) mg/dL Estim Creat Clear Calc 44.2 Estimated GFR 43 POC Glucose 155 H (60-115) mg/dL Random Glucose 149 H (60-115) mg/dL Calcium 9.4 (8.4-10.2) mg/dL Troponin I High Sens 5.5 (<3.5-35.0) ng/L Triglycerides 178 H (<150) mg/dL Cholesterol 115 (<200) mg/dL LDL Cholesterol, Calc 54 (<100) mg/dL HDL Cholesterol 26 L (>40) mg/dL Independent Interpretation I performed an independent interpretation of an: Plain X-Ray (Chest:Low lung volumes. No acute cardiopulmonary abnormality. ) and CT Scan (CTA of the head:1. There is no evidence of significant stenosis, occlusion, dissection, or aneurysm of the major intracranial arterial vasculature. 2. Major cortical and dural venous sinuses are patent. 3. There is no space-occupying hemorrhage or evidence for evolving infarction.) Radiology Impression Discussion of test interpretation with radiology: I have reviewed the radiologist's reading. NIH Stroke Scale Internal: Initial- Upon Arrival Level of Consciousness: Alert Level of Consciousness Questions: Answers both questions correctly Level of Consciousness Commands: Performs both tasks correctly Best Gaze: Normal Visual: No visual loss Facial Palsy: Normal Motor Arm (Right): No drift Motor Arm (Left): Drift Motor Leg (Right): No drift Motor Leg (Left): No drift Limb Ataxia: Absent Sensory: Normal Best Language: No aphasia Dysarthia: Normal Extinction and Inattention: No abnormality Score: 1 Discharge Plan Discharge Clinical Impression: Dizziness, Brain TIA Patient Disposition: Admitted As Inpatient Print Language: Ivorian
[2025-03-08 10:51] LABS: Hematocrit 34.5 % (42.0-52.0); Hemoglobin 11.5 g/dl (14.0-18.0); Imm Gran Abs Auto 0.01 X10*3/uL (0.00-0.03); Imm Gran Pct Auto 0.2 % (0.0-0.4); Lymphocytes Absolute Auto 2.9 X10*3/uL (1.2-4.9); MANUAL DIFF FLAG SCAN; Mean Corpuscular HGB Conc 33.3 g/dl (31.0-36.0); Mean Corpuscular Hemoglobin 28.0 pg (27.0-33.0); Mean Corpuscular Volume 84.1 fL (80.0-98.0); NRBC Abs Auto 0.000 X10*3/uL (0.0-0.012); NRBC Pct Auto 0.0 /100WBC (0.0-0.2); Platelet Count 180 X10*3/uL (160-400); Red Blood Count 4.10 X10*6/uL (4.60-5.80); SCAN SMEAR FLAG 1; White Blood Count 6.3 X10*3/uL (4.8-10.8)
[2025-03-08 11:00] LABS: INTERNATIONAL NORM RATIO 1.2 (0.9-1.1); Prothrombin Time 13.9 SEC (10.9-12.4)
[2025-03-08 11:05] LABS: Partial Thromboplastin Time 73.0 SEC (26.7-34.1); Stroke Lab Use COMPLETE
[2025-03-08 11:07] LABS: Anion Gap 10 (12-20); Blood Urea Nitrogen 36 mg/dL (9-16); Calcium 9.4 mg/dL (8.4-10.2); Carbon Dioxide 23 mmol/L (22-29); Chloride 108 mmol/L (96-108); Cholesterol 115 mg/dL (<200); Creatinine Clr Calc Pharmacy 44.2; Estimated Glomerular Filt Rate 43; HDL Cholesterol 26 mg/dL (>40); Potassium 4.0 mmol/L (3.3-5.1); Sodium 137 mmol/L (135-145); Triglycerides 178 mg/dL (<150)
[2025-03-08 11:19] LABS: Troponin-I High Sensitivity 5.5 ng/L (<3.5-35.0)
--- NOTE | 2025-03-08 11:49 | MHC.STROKE ---
Called to ED for Stroke Alert Pt awake, alert and answering questions. Pt is a poor historian telling different providers different timeline of events. Pt reports to this RN that he went to bed at 2230 last night and felt well. At some point during the night he reports that he got up to urinate however urinated on the nightstand. He was unable to provide the time that he got up to use the bathroom. When asked what time he got up this morning, he reports 1000. It was at that time that he felt dizzy and EMS was called. He reported to primary RN that he woke at 0700. Medical history reviewed. Pt states that he takes no medications. He denies smoking or alcohol use. Diet/activity reviewed. Stroke Education provided to patient. We reviewed the ED protocol along with the pamphlet provided to patient. He will need reinforcement of information. No focal weakness appreciated. Very mild right sided facial droop noted. Pt with hx of CVA. Following directions, no slurred speech noted however patient was yawning throughout assessment. Will continue to assist as needed.
[2025-03-08 13:17] LABS: Appearance Urine Clear; Glucose Urine UA Negative (Negative); PH 5.0 (5.0-9.0); Specific Gravity - Urine >= 1.030 (1.005-1.025); UMIC TRIGGER UACC YES
--- NOTE | 2025-03-08 13:52 | PM.IMHP ---
History of Present Illness Date of Service: 03/08/25 Attending physician on admission: Kamilah Ashton Chief Complaint: off balance This is a 69 year old male with history of CAD, diabetes, hypertension, seizure disorder presents to the emergency department with reports of being off balance. Initial triage note indicates dizziness since 02:00, found walking in the common area of his residence with unsteady gait, right-sided facial droop, left-sided weakness, slurred speech. As per ED nurse and economic development coordinator patient is a poor historian and is reporting different timeline of events to different providers. He states he was feeling well until midnight when he woke up to go to the bathroom, he was feeling off balance and fell over the bathtub, he was able to get up and then walk back to his bed. He fell back asleep until 08:00 this morning. He initially said at 08:00 this morning he was no longer off balance but then he said at 08:00 this morning he actually was still off balance and that is why he called 911. He says he feels both off balance and dizzy but unable to further explain. Triage notes indicate that the 911 call was not made by the patient but by someone else. ED note states staff at the facility called but pt reports living alone in an apartment. In the ED he was noted to have mild left pronator drift, no slurred speech was noted. His brain CT and head/neck CTA were negative for LVO. Patient reports chroic right side facial droop. He currently denies feeling dizzy. Lab work done was unremarkable. Given concern for stroke he will be admitted for further work up. Review of Systems Review of Systems: Yes all other systems are reviewed and are negative Constitutional: Constitutional: Denies chills and Denies fever(s) ENT: Reports dizziness Cardiovascular: Cardiovascular: Denies chest pain, Denies palpitations and Denies dyspnea Respiratory: Respiratory: Denies cough and Denies dyspnea Gastrointestinal: Gastrointestinal: Denies abdominal pain, Denies nausea and Denies vomiting Neurologic: Reports dizziness Endocrine: Endocrine: Denies palpitations [facility] Medical History Screening for prostate cancer Low libido Screening for prostate cancer Pre-op examination Shift work sleep disorder Snoring Erectile dysfunction Headache Screening for colon cancer Adult general medical exam Erectile dysfunction due to type 2 diabetes mellitus Heart palpitations Chest pain COVID-19 High cholesterol Sciatica Hypertension Diabetes Epilepsy Heart attack Family History Father Cardiovascular disease Mother No problems noted. Surgical History H/O colonoscopy History of tonsillectomy History of cardiac catheterization (~2015) History of coronary artery bypass graft x 2 (~2005) Social History Housing: Apartment Alcohol intake: former Comment: hasnt drank in 30 years Patient Tobacco Use Status: Never used Tobacco Smoked in Last 30 Days: No e-Cigarette/Vaping Use: Never Used Second Hand Smoke Exposure: No Use of substances other than those prescribed or required for medical reasons: No Advance Directives: No Advance Directives Information Provided: No Do you have a plan to hurt others: No Plan service: No Current occupational status: previously employed Current occupational exposures/hazards: No Cognitive needs: No Hearing needs: No Vision needs: No Meds Allergies Allergy/AdvReac Type Severity Reaction Status Date / Time losartan Allergy Severe Swelling Verified 03/08/25 10:27 sesame seed Allergy Swelling Verified 03/08/25 10:27 Home Medications ?Medication ?Instructions ?Recorded ?Confirmed ?Last Taken ?Type atorvastatin 80 mg tablet 80 mg PO BEDTIME 06/06/24 03/08/25 03/07/25 History metoprolol succinate 50 mg 50 mg PO DAILY 10/12/24 03/08/25 03/08/25 History tablet,extended release 24 hr levocetirizine 5 mg tablet 5 mg PO DAILY 11/21/24 03/08/25 03/08/25 History Physical Exam Vital Signs and Narrative: Vital Signs: Last Vital Signs Temp 98.2 F 03/08/25 12:42 Pulse 54 03/08/25 12:42 Resp 17 03/08/25 12:42 BP 163/59 H 03/08/25 12:42 Pulse Ox 99 03/08/25 12:42 O2 Del Method Room Air 03/08/25 12:42 BMI result Body Mass Index 25.4 Const: General: cooperative, comfortable, alert and awake Nutritional Appearance: average body habitus Orientation/consciousness: patient oriented x3 Resp: Effort & Inspection: normal respiratory effort, able to speak in complete sentences, no respiratory distress and no use of accessory muscles Cardio: Rate: regular rate GI: Inspection: No distended Palpation (GI): Soft to palpation and nontender Neuro: Other: mild right facial droop (pt reports this is chronic) no pronator drift noted. speech clear. tongue midline, moves all 4 extremities spontaneously, LUE hand grasp slightly weakness then right; General: patient oriented x3 Extrem: General: No pedal edema Results Labs 03/08/25 10:42 03/08/25 18:50 Labs: Laboratory Results - last 24 hr 03/08/25 03/08/25 03/08/25 10:18 10:42 10:43 MCV 84.1 MCH 28.0 MCHC 33.3 RDW 14.6 Plt Count 180 MPV 9.8 Immature Gran % (Auto) 0.2 Neut % (Auto) 45.5 Lymph % (Auto) 45.4 H Glascock % (Auto) 8.9 Eos % (Auto) 0.0 Baso % (Auto) 0.0 Lymph # (Auto) 2.9 Glascock # (Auto) 0.6 Eos # (Auto) 0.0 Baso # (Auto) 0.0 Abs Immat Gran (auto) 0.01 Absolute Neuts (auto) 2.9 Absolute Nucleated RBC 0.000 Nucleated RBC % (auto) 0.0 Smear Tech's Comments VERIFIED PT 13.9 H INR 1.2 H APTT 73.0 H* Anion Gap 10 L Estim Creat Clear Calc 44.2 Estimated GFR 43 POC Glucose 155 H Random Glucose 149 H Calcium 9.4 Troponin I High Sens 5.5 Triglycerides 178 H Cholesterol 115 LDL Cholesterol, Calc 54 HDL Cholesterol 26 L Urine Color Urine Appearance Urine pH Ur Specific Sylvester Urine Protein Urine Glucose (UA) Urine Ketones Urine Blood Urine Nitrite Ur Leukocyte Esterase Urine RBC Urine WBC Ur Squamous Epith Cells Urine Bacteria Hyaline Casts 03/08/25 13:08 MCV MCH MCHC RDW Plt Count MPV Immature Gran % (Auto) Neut % (Auto) Lymph % (Auto) Glascock % (Auto) Eos % (Auto) Baso % (Auto) Lymph # (Auto) Glascock # (Auto) Eos # (Auto) Baso # (Auto) Abs Immat Gran (auto) Absolute Neuts (auto) Absolute Nucleated RBC Nucleated RBC % (auto) Smear Tech's Comments PT INR APTT Anion Gap Estim Creat Clear Calc Estimated GFR POC Glucose Random Glucose Calcium Troponin I High Sens Triglycerides Cholesterol LDL Cholesterol, Calc HDL Cholesterol Urine Color Yellow Urine Appearance Clear Urine pH 5.0 Ur Specific Sylvester >= 1.030 H Urine Protein 30 (1+) H Urine Glucose (UA) Negative Urine Ketones Negative Urine Blood Negative Urine Nitrite Negative Ur Leukocyte Esterase Negative Urine RBC 0-2 Urine WBC 0-5 Ur Squamous Epith Cells 0-2 Urine Bacteria None Seen Hyaline Casts 0-2 Imaging Radiologist's Impressions: Impressions Head CT 03/08/25 10:21 IMPRESSION: No acute intracranial abnormality. Findings were discussed with Dr. Hernandez in the emergency room on 03/08/2025 at 10:38 AM. Electronically signed by: Alex Benjamin MD 03/08/2025 10:38 AM EDT Head/Neck CTA 03/08/25 10:24 IMPRESSION: CTA NECK: 1. No evidence of significant stenosis, occlusion, dissection, or aneurysm of the major cervical arterial vasculature. 2. There is an approximate 20% stenosis of the RIGHT ICA at the origin due to mixed calcific and soft plaque. 3. There are mild stenoses at the origins of both vertebral arteries due to calcific plaque. CTA HEAD: 1. There is no evidence of significant stenosis, occlusion, dissection, or aneurysm of the major intracranial arterial vasculature. 2. Major cortical and dural venous sinuses are patent. 3. There is no space-occupying hemorrhage or evidence for evolving infarction. Electronically signed by: Hakan Faria MD 03/08/2025 10:58 AM EDT Chest X-Ray 03/08/25 10:44 IMPRESSION: Low lung volumes. No acute cardiopulmonary abnormality. Electronically signed by: Alex Benjamin MD 03/08/2025 10:57 AM EDT Assessment and Plan (1) Dizziness: Status: Acute Plan This is a 69 year old male with h/o CAD s/p CABG and multiple stents, cereballar stroke, DM, CKD3, HTN, HLD who presents to the hospital due to feeling off balance with some question of left arm weakness and possible slurred speech Gait instability with slurred speech and left arm weakness (right facial droop old per pt) pt poor historian making symptoms and timeline of symptoms difficult to determine. LKWT unclear, slurred speech resolved, only mild left arm weakness remains. not a candidate for TNK. possible TIA vs stroke multiple stroke risk factors including DM, HTN, HLD old stroke noted in cerebellar region ?chronic gait instability also with h/o severe spondylosis of cervical spine with chronic cord compression ; follows in spine clinic, some notes indicate gait instability although most recent note from 11/30/24 indicates the patient was able to ambulate independently will admit to tele for neuro checks PT/OT eval LDL 54 continue baseline asa and statin check tox screen neurology consult to determine need for brain MRI DM Hba1c from 02/16/2025 - 7.0 SSI, POCs, ADA diet hold glipizide, metformin CAD s/p CABG in 2005, multiple stents; most recently MELISSA x2 to proximal and distal RCA continue asa, statin metoprolol refill from November was never picked up ?compliance; HR currently low 50s; monitor on tele and resume as indicated HTN continue norvasc, hold metoprolol for now, unclear compliance Seizure d/o continue lamotrigine and keppra seizure precautions CKD3 baseline SCr 1.4-1.7, currently within baseline follows with Dr. Gallegos dvt ppx - heparin Quality Stroke Does the patient have a stroke diagnosis?: No VTE Prior VTE?: No VTE Risk Level:: Medical - moderate - high VTE Device Contraindication: N/A - Device Ordered VTE Drug Contraindication: N/A - Med Ordered
--- NOTE | 2025-03-08 14:17 | PM.NEUROCN ---
History of Present Illness Data of Consult Service Date: 03/08/25 Primary Care Provider: Lou Jameson MD HPI Reason for consult: Possible TIA 69 years old man who was brought to hospital after episode of dizziness or unsteadiness. He said that this is happened 1 time before few weeks ago when it lasted about same time of few minutes. It made him unsteady but apparently not confused. According to ER notes, somebody noted right facial droop. He was not known to have seizure disorder. He denied any alcohol use or drug use or use of any new chemical or taking any new food. There was no complaint of headache. He was feeling fine now. Review of Systems Review of Systems: Constitutional:?No fever, chills, fatigue, weight loss, or night sweats. HEENT:?No headache, vision changes, hearing loss, nasal congestion, sore throat. Cardiovascular:?No chest pain, palpitations, orthopnea, PND, or leg swelling. Respiratory:?No cough, shortness of breath, wheezing, or hemoptysis. Gastrointestinal:?No nausea, vomiting, abdominal pain, diarrhea, or constipation. Genitourinary:?No dysuria, frequency, incontinence, or hematuria. Musculoskeletal:?No joint pain, stiffness, weakness, or muscle aches. Neurological:? As per HPI Psychiatric:?No anxiety, depression, mood swings, sleep disturbance, or hallucinations. Endocrine:?No heat/cold intolerance, polydipsia, polyuria, or hair/skin changes. Hematologic/Lymphatic:?No easy bruising, bleeding, or lymphadenopathy. Integumentary (Skin):?No rash, lesions, itching, or color changes. Allergic/Immunologic:?No seasonal allergies, hives, or recurrent infections. COUNT INCLUDES THE [facility] Past Medical History Medical History Screening for prostate cancer Low libido Screening for prostate cancer Pre-op examination Shift work sleep disorder Snoring Erectile dysfunction Headache Screening for colon cancer Adult general medical exam Erectile dysfunction due to type 2 diabetes mellitus Heart palpitations Chest pain COVID-19 High cholesterol Sciatica Hypertension Diabetes Epilepsy Heart attack Family History Family History Father Cardiovascular disease Mother No problems noted. Surgical History Surgical History H/O colonoscopy History of tonsillectomy History of cardiac catheterization (~2015) History of coronary artery bypass graft x 2 (~2005) Social History Social History Housing: Apartment Alcohol intake: former Comment: hasnt drank in 30 years Patient Tobacco Use Status: Never used Tobacco Smoked in Last 30 Days: No e-Cigarette/Vaping Use: Never Used Second Hand Smoke Exposure: No Use of substances other than those prescribed or required for medical reasons: No Advance Directives: No Advance Directives Information Provided: No Do you have a plan to hurt others: No Plan service: No Current occupational status: previously employed Current occupational exposures/hazards: No Cognitive needs: No Hearing needs: No Vision needs: No Meds Allergies Allergy/AdvReac Type Severity Reaction Status Date / Time losartan Allergy Severe Swelling Verified 03/08/25 10:27 sesame seed Allergy Swelling Verified 03/08/25 10:27 Active Medications: Current Medications Acetaminophen (Acetaminophen 325 Mg Tablet) 650 mg PO Q6H PRN PRN Reason: Pain, Mild 1-3,fever,headache Calcium Carbonate (Calcium Carbonate 750 Mg Tab.Chew) 750 mg PO Q4H PRN PRN Reason: Heartburn Dextrose (Dextrose 50 % 25 Gm/50 Ml Syringe) 25 gm IVPUSH Q15M PRN; Protocol PRN Reason: per Hypoglycemia Standing Ord. Glucose (Glucose Gel 15 Gm Gel..Gram.) 15 gm PO Q15M PRN; Protocol PRN Reason: per Hypoglycemia Standing Ord. Insulin Human Lispro (Insulin Lispro 100 Unit/Ml 3 Ml Vial) [facility]; Protocol Magnesium Hydroxide (Milk Of Magnesia 30 Ml Oral.Susp) 30 ml PO DAILY PRN PRN Reason: Constipation Melatonin (Melatonin 3 Mg Tablet) 6 mg PO BEDTIME PRN PRN Reason: Insomnia Sodium Chloride (0.9 % Sodium Chloride Flush 3 Ml Syringe) 3 ml IVFLUSH [facility] Home Medications ?Medication ?Instructions ?Recorded ?Confirmed ?Last Taken ?Type atorvastatin 80 mg tablet 80 mg PO BEDTIME 06/06/24 11/21/24 Unknown History metoprolol succinate 50 mg 50 mg PO DAILY 10/12/24 11/21/24 Unknown History tablet,extended release 24 hr levocetirizine 5 mg tablet 5 mg PO DAILY 11/21/24 11/21/24 Unknown History epinephrine 0.3 mg/0.3 mL 0.3 mg IM NEEDED anaphylaxis 03/08/25 03/08/25 Unknown History injection, auto-injector Physical Exam Vital Signs: Vital Signs: Last Vital Signs Temp 98.2 F 03/08/25 12:42 Pulse 54 03/08/25 12:42 Resp 17 03/08/25 12:42 BP 163/59 H 03/08/25 12:42 Pulse Ox 99 03/08/25 12:42 O2 Del Method Room Air 03/08/25 12:42 BMI result Body Mass Index 25.4 Neuro: Other: Mental Status: Alert and oriented to person, place, and time. Normal attention. Normal spontaneous speech, fluency, and comprehension. Cranial Nerves: CN II: Visual jean-baptiste full to confrontation, visual acuity intact. CN III, IV, : Pupils equal, round, reactive to light and accommodation. Extraocular movements are normal. CN V: Facial sensation is normal. CN VII: Facial movements symmetrical. CN VIII: Hearing intact to bedside conversation is normal. CN IX, X: Palate elevates symmetrically. CN XI: Shoulder shrug and head turn symmetrical. CN XII: Tongue midline without atrophy or fasciculations. Motor: Bulk and tone normal in all extremities. No significant muscle weakness in arms and legs. No drift. Reflexes: Deep tendon reflexes are trace to absent. Plantars are flexor. Coordination: [id number] testing is okay Extrapyramidal: Full facial expressions and blinking. No rigidity. Movements are appropriate with no tremor or abnormality. Speech: Normal; no dysarthria or tremor. Results Labs 03/08/25 10:42 03/08/25 10:42 Labs: Short CBC 03/08/25 Range/Units 10:42 WBC 6.3 (4.8-10.8) X10*3/uL Hgb 11.5 L (14.0-18.0) g/dl Hct 34.5 L (42.0-52.0) % Plt Count 180 (160-400) X10*3/uL BMP 03/08/25 10:42 Sodium 137 Potassium 4.0 Chloride 108 Carbon Dioxide 23 BUN 36 H Creatinine 1.62 H Calcium 9.4 Urine 03/08/25 Range/Units 13:08 Urine Color Yellow Urine Appearance Clear Urine pH 5.0 (5.0-9.0) Ur Specific Hoyt >= 1.030 H (1.005-1.025) Urine Protein 30 (1+) H (Neg-Trace) mg/dL Urine Glucose (UA) Negative (Negative) mg/dL His head CT revealed mild cerebral atrophy. CTA of brain and neck did not reveal any significant large vessel disease. I noted that he had an MRI of brain without contrast in September of this year that was reported normal. It revealed a left parieto-occipital area hyperintensity on FLAIR, which needed further definition or investigation. Assessment and Plan (1) Unsteadiness: Status: Acute 69 years old man who reported 2 episodes when something suddenly happening to him making him unsteady. He was not sure if it made him confused. Apparently 1 time, right facial droop was noted. He denied being sick or taking any new chemical around these episodes. He had multiple investigations including an MRI of brain in September of this year, which revealed a left parieto-occipital signal abnormality that required further evaluation. My recommendation is to obtain MRI with contrast only to define that abnormality. Otherwise an EEG is also recommended to rule out any possibility of seizure disorder. Overall description is not typical of stroke or TIA. Procedures Date of Service Date of Service: 03/08/25
--- NOTE | 2025-03-08 14:31 | PHA.MEDREC ---
Addendum entered by Jimmy Dobbs PharmD 03/08/25 14:35: reviewed Original Note: Pharmacy Consult ? Medication Reconciliation Pharmacy has completed the medication reconciliation. Patient is a poor historian. He instructed me to call [facility] and get a list of his medications. Patient states he had all his morning medications today. Utilized list from [facility] to confirm med list.
[2025-03-08 15:23] LABS: Prothrombin Time Whole Bld POC 12.9 sec (11.1-13.5); ~PT, ~INR - Anti Coag Clinic 1.1 (0.9-1.1)
--- NOTE | 2025-03-08 15:55 | PC.NURSE ---
Sister Anitra updated upon request, questions answered. Anitra requests to be contacted with any further updates.
[2025-03-08] MEDS: Thiamine HCL 200 MG in 0.9 % Sodium Chloride 100 ML 204 MG IV (16:09)
[2025-03-08 16:20] LABS: Glucose, Whole Blood 73 mg/dL (60-115)
[2025-03-08 16:38] LABS: Folate 8.4 ng/mL (> or = 4.0); Vitamin B12 284 pg/mL (200-900)
[2025-03-08 18:33] LABS: Glucose, Whole Blood 228 mg/dL (60-115)
[2025-03-08 18:48] LABS: Glucose, Whole Blood 186 mg/dL (60-115)
[2025-03-08 22:28] LABS: Glucose, Whole Blood 115 mg/dL (60-115)
[2025-03-09] VITALS (9 sets, daily range): BP systolic 148–181; BP diastolic 57–72; PULSE 52–60; RESP 13–23; TEMP 36.5–36.8; O2SAT 95–98; BMI 24.7
[2025-03-09 02:42] LABS: Cannabinoid Screen Urine Not Detected (Not Detect)
--- NOTE | 2025-03-09 03:39 | HO.NURTONUR ---
Addendum entered by Prudence Hernandez RN 03/09/25 21:21: a&ox4, able to make needs known. 20G lac. Work up neg. Original Note: Pt biba as a stroke alert. Pt was found by neighbor walking in common area of residence with unsteady gait. Symptoms reported right sided facial droop,left sided weakness, and slurred speech. LKW unknown. Pt reports dizziness since 2AM, denies recent trauma, alcohol or drug use, headache, chest pain. Pt is a poor historian and states right side facial droop is chronic. Pt NIH score 1. Pt has had a previous CVA with no deficits. Work up in the ED was negative, pt had a neurology consult. Pt being admitted for further evaluation, plan to have EEG in the morning. Pt is ca&o to self and place, able to ambulate with steady gait and make his needs known. Pt has 22G IV in left wrist. Labs: APTT: 73.0 BUN- 36 Creatinine- 1.62 EKG: NSR Head CT: IMPRESSION:No acute intracranial abnormality. Head/Neck CTA: IMPRESSION: CTA NECK: 1. No evidence of significant stenosis, occlusion, dissection, or aneurysm of the major cervical arterial vasculature. 2. There is an approximate 20% stenosis of the RIGHT ICA at the origin due to mixed calcific and soft plaque. 3. There are mild stenoses at the origins of both vertebral arteries due to calcific plaque. CTA HEAD: 1. There is no evidence of significant stenosis, occlusion, dissection, or aneurysm of the major intracranial arterial vasculature. 2. Major cortical and dural venous sinuses are patent. 3. There is no space-occupying hemorrhage or evidence for evolving infarction. Chest Xray: IMPRESSION:Low lung volumes. No acute cardiopulmonary abnormality Brain MRI- IMPRESSION:No acute findings
--- NOTE | 2025-03-09 07:29 | PC.NURSE ---
This RN assumed care of patient @ 0700 A&O x 3 Patient denies pain, states I feel fine now +CMS +ROM no deficits noted in extremities VSS and up to date Patient awaiting EEG
[2025-03-09 07:34] LABS: Glucose, Whole Blood 138 mg/dL (60-115)
[2025-03-09] MEDS: 0.9 % Sodium Chloride Flush 3 ML SYRINGE IVFLUSH ×2 (08:31→22:58)
--- NOTE | 2025-03-09 11:16 | MHC.CM.PN ---
CM met with Patient at bedside, in the ED, and addressed IMM with him, providing Patient with the original and a copy will be placed on the chart. Patient lives alone in an apartment and he has a Homemaker through [facility]. Per PT, no PT is indicated; home self care is likely and CM has initiated and will follow for dc planning. PCP is Dr. Lou Jameson and Patient will call for a Lyft for transport to home.
[2025-03-09 11:49] LABS: Glucose, Whole Blood 125 mg/dL (60-115)
--- NOTE | 2025-03-09 15:23 | HO.PM.IMPN ---
Subjective Subjective Date of Service: 03/09/25 Interval History: No new complaints today. No recurrence of slurred speech, aphasia, expressive or receptive. Denies palpitations, chest pain, dizziness diaphoresis or syncope. No paresthesia, or hemiplegia. Review of Systems Review of Systems: Yes all other systems are reviewed and are negative Physical Exam Exam: Exam: General: A&O x3, oriented to time place person and situation, comfortable, no pain Cardiac: S1, S2 auscultated with no S3/4, no MRG. Well perfused. Respiratory: Normal breath sounds auscultated throughout all lung zones, without wheezing, rales. Normal rate. GI/ : No abdominal pain on palpation, no masses or distentions. MSK: Normal ambulation without pain at bony prominences or musculature Neurological: Normal neurological examination on overview, without obvious CN II-XII abnormalities. Vital Signs: Vital Signs: Last Vital Signs Temp 97.7 F 03/09/25 04:34 Pulse 53 03/09/25 10:04 Resp 17 03/09/25 10:04 BP 148/57 H 03/09/25 10:04 Pulse Ox 97 03/09/25 10:04 O2 Del Method Room Air 03/09/25 10:04 BMI result Body Mass Index 25.4 Objective Data Active Medications Acetaminophen (Acetaminophen 325 Mg Tablet) 650 mg PO Q6H PRN PRN Reason: Pain, Mild 1-3,fever,headache Amlodipine Besylate (Amlodipine Besylate 2.5 Mg Tablet) 2.5 mg PO DAILY [facility]; Protocol Last Admin: 03/09/25 08:31 Dose: 2.5 mg Documented By: BRANDON Aspirin (Aspirin 81 Mg Tab.Chew) 81 mg PO DAILY [facility] Last Admin: 03/09/25 08:31 Dose: 81 mg Documented By: BRANDON Atorvastatin Calcium (Atorvastatin Calcium 80 Mg Tablet) 80 mg PO BEDTIME [facility] Last Admin: 03/08/25 22:21 Dose: 80 mg Documented By: DILLAN-ARIANA Calcium Carbonate (Calcium Carbonate 750 Mg Tab.Chew) 750 mg PO Q4H PRN PRN Reason: Heartburn Dextrose (Dextrose 50 % 25 Gm/50 Ml Syringe) 25 gm IVPUSH Q15M PRN; Protocol PRN Reason: per Hypoglycemia Standing Ord. Glucose (Glucose Gel 15 Gm Gel..Gram.) 15 gm PO Q15M PRN; Protocol PRN Reason: per Hypoglycemia Standing Ord. Heparin Sodium (Porcine) (Heparin Sodium,Porcine 5,000 Unit/Ml Vial) 5,000 unit SUBCUT Q12H [facility] Last Admin: 03/09/25 04:36 Dose: 5,000 unit Documented By: MARLEEN Thiamine HCl 200 mg/ Sodium (Chloride) 102 mls @ 204 mls/hr IV Q24H [facility] Last Infusion: 03/08/25 16:39 Dose: Infused Documented By: SHEBA Insulin Human Lispro (Insulin Lispro 100 Unit/Ml 3 Ml Vial) 0 unit SUBCUT QIDACHS [facility]; Protocol Last Admin: 03/09/25 11:47 Dose: Not Given Documented By: BRANDON Non-Admin Reason: No Insulin Coverage Lamotrigine (Lamotrigine 100 Mg Tablet) 200 mg PO BID [facility] Last Admin: 03/09/25 08:32 Dose: 200 mg Documented By: BRANDON Loratadine (Loratadine 10 Mg Tablet) 10 mg PO DAILY [facility] Last Admin: 03/09/25 08:29 Dose: 10 mg Documented By: BRANDON Magnesium Hydroxide (Milk Of Magnesia 30 Ml Oral.Susp) 30 ml PO DAILY PRN PRN Reason: Constipation Melatonin (Melatonin 3 Mg Tablet) 6 mg PO BEDTIME PRN PRN Reason: Insomnia Sodium Chloride (0.9 % Sodium Chloride Flush 3 Ml Syringe) 3 ml IVFLUSH QSHIFT [facility] Last Admin: 03/09/25 08:31 Dose: 3 ml Documented By: BRANDON Zolpidem Tartrate (Zolpidem Tartrate 5 Mg Tablet) 10 mg PO BEDTIME [facility] Last Admin: 03/08/25 22:20 Dose: 10 mg Documented By: SHEBA Labs 03/08/25 10:42 03/08/25 18:50 Labs: Laboratory Results - last 24 hr 03/08/25 03/08/25 03/08/25 10:25 10:42 13:08 PT (Fingerstick) Cancelled Whole Blood PT 12.9 INR (Fingerstick) Cancelled Whole Blood INR 1.1 POC Glucose Random Glucose Vitamin B12 Folate TSH 2.59 Urine Opiates Screen Not Detected Ur Buprenorphine Scrn Not Detected Ur Oxycodone Screen Not Detected Urine Methadone Screen Not Detected Urine Fentanyl Screen Not Detected Ur Barbiturates Screen Not Detected Ur Phencyclidine Scrn Not Detected Ur Amphetamines Screen Not Detected U Benzodiazepines Scrn Not Detected Urine Cocaine Screen Not Detected U Marijuana (THC) Screen Not Detected 03/08/25 03/08/25 03/08/25 15:27 16:16 18:27 PT (Fingerstick) Whole Blood PT INR (Fingerstick) Whole Blood INR POC Glucose 73 228 H Random Glucose Vitamin B12 284 Folate 8.4 TSH Urine Opiates Screen Ur Buprenorphine Scrn Ur Oxycodone Screen Urine Methadone Screen Urine Fentanyl Screen Ur Barbiturates Screen Ur Phencyclidine Scrn Ur Amphetamines Screen U Benzodiazepines Scrn Urine Cocaine Screen U Marijuana (THC) Screen 03/08/25 03/08/25 03/08/25 18:36 18:50 22:24 PT (Fingerstick) Whole Blood PT INR (Fingerstick) Whole Blood INR POC Glucose 186 H 115 Random Glucose 214 H Vitamin B12 Folate TSH Urine Opiates Screen Ur Buprenorphine Scrn Ur Oxycodone Screen Urine Methadone Screen Urine Fentanyl Screen Ur Barbiturates Screen Ur Phencyclidine Scrn Ur Amphetamines Screen U Benzodiazepines Scrn Urine Cocaine Screen U Marijuana (THC) Screen 03/09/25 03/09/25 07:22 11:45 PT (Fingerstick) Whole Blood PT INR (Fingerstick) Whole Blood INR POC Glucose 138 H 125 H Random Glucose Vitamin B12 Folate TSH Urine Opiates Screen Ur Buprenorphine Scrn Ur Oxycodone Screen Urine Methadone Screen Urine Fentanyl Screen Ur Barbiturates Screen Ur Phencyclidine Scrn Ur Amphetamines Screen U Benzodiazepines Scrn Urine Cocaine Screen U Marijuana (THC) Screen Assessment and Plan (1) Status post fall: Status: Acute (2) Essential hypertension: Status: Acute (3) Hyperlipidemia: Status: Acute (4) Atherosclerotic cardiovascular disease: Status: Acute (5) Type 2 diabetes mellitus with unspecified complications: Status: Acute (6) CKD (chronic kidney disease) stage 3, GFR 30-59 ml/min: Status: Acute (7) History of cerebrovascular accident (CVA) involving cerebellum: Status: Acute (8) Brain TIA: Status: Acute Plan 69 year old male with h/o CAD s/p CABG and multiple stents, cereballar stroke, DM, CKD3, HTN, HLD who presents with imbalance, LUE weakness & expressive/ receptive aphasia, admitted with TIA. TIA History of CVA without deficits Medication noncompliance Gait instability with slurred speech and left arm weakness Pt poor historian making symptoms and timeline of symptoms difficult to determine. LKWT unclear, slurred speech resolved, only mild left arm weakness remains. not a candidate for TNK. possible TIA vs stroke. Presents 03/08/2025. Multiple stroke risk factors including DM, HTN, HLD, CAD Old stroke noted in cerebellar region ?chronic gait instability Also with h/o severe spondylosis of cervical spine with chronic cord compression ; follows in spine clinic, some notes indicate gait instability although most recent note from 11/30/24 indicates the patient was able to ambulate independently LDL 54 Tox screen: negative MRI brain negative for acute CVA Patient endorses lack of compliance with medications ABCD2 score: 6 point - high-risk - 2 day stroke risk 8.1% - 7 day stroke risk 11.7% - 90 day stroke was 17.8% PLAN - high-dose atorvastatin 80 mg OD p.o. - aspirin 81 mg OD p.o. - PT/OT eval - neurology consult to determine need for brain MRI - telemetry - Neuro checks - managing risk factors T2 DM Hba1c from 02/16/2025 - 7.0 SSI, POCs, ADA diet Hold metformin while inpatient Discontinue glipizide Start [facility] outpatient setting CAD s/p CABG 2005 s/p multiple MELISSA Most recently MELISSA x2 to proximal and distal RCA metoprolol refill from November was never picked up - endorsed noncompliance to medications HR currently low 50s; monitor on tele PLAN - high-dose atorvastatin 80 mg OD p.o. - aspirin 81 mg OD p.o. - [facility] HTN Bradycardia PLAN - Continue Norvasc - hold metoprolol for now Seizure d/o continue lamotrigine and keppra seizure precautions CKD3 baseline SCr 1.4-1.7, currently within baseline follows with Dr. Rosy Nieves [employer] - VTE: Heparin 5000 t.i.d. - CODE STATUS: Full code - DIET: Cardiac - DISPOSITION: Observation-discharge tomorrow Total time managing care of this patient today: 45 minutes. Quality Stroke Does the patient have a stroke diagnosis?: No VTE Prior VTE?: No VTE Risk Level:: Medical - moderate - high VTE Device Contraindication: N/A - Device Ordered VTE Drug Contraindication: N/A - Med Ordered
[2025-03-09] MEDS: Thiamine HCL 200 MG in 0.9 % Sodium Chloride 100 ML IV (16:31)
[2025-03-09 17:37] LABS: Glucose, Whole Blood 107 mg/dL (60-115)
[2025-03-09 22:52] LABS: Glucose, Whole Blood 114 mg/dL (60-115)
[2025-03-10] VITALS: BP 162/78; PULSE 65; RESP 18; TEMP 36.3; O2SAT 97
[2025-03-10 03:22] VITALS: BP 164/78; PULSE 66; RESP 16; TEMP 36.6; O2SAT 95
[2025-03-10 08:00] VITALS: BP 164/74; PULSE 65; RESP 19; TEMP 36.2; O2SAT 97
[2025-03-10 08:08] LABS: Glucose, Whole Blood 169 mg/dL (60-115)
[2025-03-10] MEDS: 0.9 % Sodium Chloride Flush 3 ML SYRINGE IVFLUSH (08:27)
[2025-03-10 10:49] LABS: Hematocrit 38.2 % (42.0-52.0); Hemoglobin 12.8 g/dl (14.0-18.0); Mean Corpuscular HGB Conc 33.5 g/dl (31.0-36.0); Mean Corpuscular Hemoglobin 28.2 pg (27.0-33.0); Mean Corpuscular Volume 84.1 fL (80.0-98.0); Platelet Count 184 X10*3/uL (160-400); Red Blood Count 4.54 X10*6/uL (4.60-5.80); White Blood Count 6.9 X10*3/uL (4.8-10.8)
[2025-03-10 10:50] LABS: Imm Gran Abs Auto 0.02 X10*3/uL (0.00-0.03); Imm Gran Pct Auto 0.3 % (0.0-0.4); Lymphocytes Absolute Auto 2.8 X10*3/uL (1.2-4.9); MANUAL DIFF FLAG SCAN; NRBC Abs Auto 0.000 X10*3/uL (0.0-0.012); NRBC Pct Auto 0.0 /100WBC (0.0-0.2); SCAN SMEAR FLAG 1
[2025-03-10 11:00] LABS: Anion Gap 13 (12-20); Blood Urea Nitrogen 42 mg/dL (9-16); Calcium 9.7 mg/dL (8.4-10.2); Carbon Dioxide 24 mmol/L (22-29); Chloride 104 mmol/L (96-108); Creatinine Clr Calc Pharmacy 41.1; Estimated Glomerular Filt Rate 39; Potassium 4.3 mmol/L (3.3-5.1); Sodium 137 mmol/L (135-145)
--- NOTE | 2025-03-10 11:12 | P.DS_ITS ---
DS: Providers Provider Date of Service: 03/10/25 Date of admission: 03/08/25 13:18 Date of discharge: 03/10/25 Primary care physician: Lou Jameson MD Consults: 03/08/25 13:50 Consult to Neurology Routine Consulting Provider: Jayesh Zaldivar Reason for consultation: off balance, left side weakness, slurred speech; poor historian Has provider been notified: No DS: Diagnosis Discharge Diagnosis (1) Status post fall: Status: Acute (2) Essential hypertension: Status: Acute (3) Hyperlipidemia: Status: Acute (4) Atherosclerotic cardiovascular disease: Status: Acute (5) Type 2 diabetes mellitus with unspecified complications: Status: Acute (6) CKD (chronic kidney disease) stage 3, GFR 30-59 ml/min: Status: Acute (7) History of cerebrovascular accident (CVA) involving cerebellum: Status: Acute (8) Brain TIA: Status: Acute DS: Summary Hospital Course Hospital Course: Hospital Course: The patient is a 69-year-old male with a history of coronary artery disease (CAD) status post CABG and multiple stents, cerebellar stroke, type 2 diabetes mellitus, chronic kidney disease stage 3, hypertension, hyperlipidemia, and seizure disorder. He presented with acute onset of imbalance, left upper extremity weakness, and expressive/receptive aphasia. The initial evaluation was complicated by the patient being a poor historian, with unclear last known well time and variable symptom reporting. On admission, neurological deficits were noted, but slurred speech resolved and only mild left arm weakness persisted. Imaging (CT head, CTA head/neck) was negative for acute intracranial pathology or large vessel occlusion. MRI brain was negative for acute CVA. Laboratory workup was notable for hyperglycemia and CKD stage 3, but otherwise unremarkable. Toxicology screen was negative. The patient was managed with high-dose statin, aspirin, and DVT prophylaxis. Antihypertensive regimen was adjusted due to bradycardia, and diabetes management was transitioned to SSI and ADA diet with plans to initiate SGLT2 inhibitor outpatient. Seizure medications were continued. The patient was monitored on telemetry, received PT/OT evaluation, and had stable neurological status throughout hospitalization. He remained hemodynamically stable and was deemed safe for discharge with close outpatient follow-up. Problem List and Hospital Course * Transient Ischemic Attack (TIA) vs. Stroke * Presented with acute onset imbalance, left upper extremity weakness, and transient aphasia. CT head, CTA head/neck, and MRI brain were negative for acute pathology. Neurological symptoms largely resolved during admission, with only mild residual left arm weakness. Not a candidate for thrombolysis due to unclear last known well time and rapid symptom resolution. Monitored on telemetry with serial neuro checks. Neurology consulted. PT/OT evaluation completed. * Essential Hypertension * Blood pressure was elevated on admission. Home antihypertensive regimen included amlodipine and metoprolol, but the patient had a history of medication noncompliance. Metoprolol was held due to bradycardia (HR in low 50s). Blood pressure managed with amlodipine during hospitalization. * Hyperlipidemia * LDL on admission was 54 mg/dL, indicating good control. Continued on high- intensity statin therapy (atorvastatin 80 mg nightly) for secondary prevention of cardiovascular and cerebrovascular events. * Atherosclerotic Cardiovascular Disease (CAD, s/p CABG and Stents) * History of CAD with prior CABG and multiple drug-eluting stents. No acute cardiac events during admission. Continued on aspirin and statin. Metoprolol held due to bradycardia. Telemetry monitoring showed no arrhythmias. * Type 2 Diabetes Mellitus * HgbA1c prior to admission was 7.0%. Blood glucose levels were elevated during admission, managed with sliding scale insulin and ADA diet. Metformin and glipizide were held inpatient. Plan to initiate SGLT2 inhibitor (Farxiga) as outpatient for both glycemic and renal/cardiac benefit. * Chronic Kidney Disease Stage 3 * Baseline creatinine 1.4?1.7 mg/dL, stable during admission. No acute kidney injury. Nephrology follow-up recommended. Farxiga planned for outpatient initiation, with monitoring of renal function. * History of Cerebellar CVA * Prior cerebellar stroke with chronic right facial droop and possible baseline gait instability. No new cerebellar findings on imaging. Gait instability may be multifactorial (old stroke, cervical spondylosis, acute TIA). * Seizure Disorder * History of epilepsy, on lamotrigine and keppra. No seizures during admission. Continued home regimen and maintained seizure precautions. * Gait Instability / Fall * Presented after a fall, likely related to acute neurological event. No evidence of traumatic injury. PT/OT evaluation completed. Gait improved during admission; mild residual left arm weakness at discharge. * Medication Noncompliance * Patient endorsed poor adherence to prescribed medications, including metoprolol. Education provided regarding importance of medication compliance for secondary prevention. Status at Discharge Functional status at discharge: independent ambulation Overall status at discharge: patient is back to baseline Time Attestation Total time managing care of this patient today: 35 mintues. Discharge Coordination Time (in mins): 15 Quality: Safe Use of Opioids Does Pt have an Active Cancer Diagnosis on the Problem List?: No Quality: Stroke Does the patient have a stroke diagnosis?: No Physical Exam Exam: Exam: General: A&O x3, oriented to time place person and situation, comfortable, no pain Cardiac: S1, S2 auscultated with no S3/4, no MRG. Well perfused. Respiratory: Normal breath sounds auscultated throughout all lung zones, without wheezing, rales. Normal rate. GI/ : No abdominal pain on palpation, no masses or distentions. MSK: Normal ambulation without pain at bony prominences or musculature Neurological: * Alert and oriented to person, place, time, and situation. * Cranial nerves II-XII grossly intact. * Motor: Normal bulk and tone, 5/5 strength in all extremities. * Sensory: Intact to light touch, pinprick, and proprioception throughout. * Reflexes: 2+ and symmetric throughout. * Coordination: Liahqx-wv-yryc and imlj-kz-vevw testing normal. * Gait: Normal, steady, no ataxia. * Speech: Clear and fluent. * No pronator drift. * No dysarthria, aphasia, or neglect. Vital Signs: Vital Signs: Last Vital Signs Temp 97.1 F 03/10/25 08:00 Pulse 65 03/10/25 08:00 Resp 19 03/10/25 08:00 BP 164/74 H 03/10/25 08:00 Pulse Ox 97 03/10/25 08:00 O2 Del Method Room Air 03/10/25 08:00 BMI result Body Mass Index 24.7 DS: Data Data Completed and Pending Labs on day of discharge: Laboratory Results - last 24 hr 03/09/25 03/09/25 03/09/25 11:45 17:33 22:49 Sodium Potassium Chloride Carbon Dioxide Anion Gap BUN Creatinine Estim Creat Clear Calc Estimated GFR POC Glucose 125 H 107 114 Random Glucose Calcium 03/10/25 03/10/25 08:01 10:18 Sodium 137 Potassium 4.3 Chloride 104 Carbon Dioxide 24 Anion Gap 13 BUN 42 H Creatinine 1.74 H Estim Creat Clear Calc 41.1 Estimated GFR 39 POC Glucose 169 H Random Glucose 180 H Calcium 9.7 Discharge Plan Discharge Anticipated Discharge Date/Time: 03/10/25 11:20 Patient Disposition: Home, Self-Care Discharge Diagnosis: Transient ischemic attack (TIA) with near-complete resolution of symptoms and a normal neurological examination at discharge Referrals: Lou Jameson MD [Primary Care Provider, Endocrinology] - 1 Week Discharge Medications: New dapagliflozin propanediol [Farxiga] 5 mg tablet 5 mg PO DAILY Qty: 30 0RF Continued aspirin 81 mg tablet,chewable 81 mg PO DAILY Qty: 30 2RF atorvastatin 80 mg tablet 80 mg PO BEDTIME (DME) BD SafetyGlide Needle 23 gauge x 1 needle See Rx Instructions .Route Qty: 50 0RF Rx Instructions: As directed to inject testosterone amlodipine 2.5 mg tablet 2.5 mg PO DAILY Qty: 90 3RF (DME) FreeStyle Lite Strips Strip See Rx Instructions .Route Qty: 50 3RF Rx Instructions: daily metoprolol succinate 100 mg tablet extended release 24 hr 100 mg PO DAILY Qty: 90 0RF Rx Instructions: Take with metoprolol succinate ER 50 mg daily for a total daily dose of 150 mg. epinephrine [EpiPen 2-Charanjit] 0.3 mg/0.3 mL auto-injector 0.3 mg IM Q10M PRN (Reason: anaphylaxis/shortness of breath) Qty: 2 0RF Rx Instructions: for 2 doses zolpidem 10 mg tablet 10 mg PO BEDTIME Qty: 30 1RF (DME) blood pressure test kit-large Kit See Rx Instructions .ROUTE .MEDSUPPLY Qty: 1 0RF Rx Instructions: check bp daily once stable check twice a week and as needed metformin 1,000 mg tablet 1,000 mg PO BID 90 Days Qty: 180 3RF lamotrigine 200 mg tablet 200 mg PO BID 90 Days Qty: 180 3RF levocetirizine 5 mg tablet 5 mg PO DAILY (DME) BD Regular Bevel [place] 23 gauge x 3/4 needle See Rx Instructions .Route Qty: 30 0RF Rx Instructions: Inject testosterone subcutaneous (DME) BD Luer-Verito Syringe 1 mL syringe See Rx Instructions .MEDSUPPLY Qty: 30 0RF Rx Instructions: Testosterone injection weekly (DME) needle (disp) 18 G [BD Regular Bevel [place]] 18 gauge x 1 needle See Rx Instructions .MEDSUPPLY Qty: 30 0RF Rx Instructions: As directed - draw up testosterone metoprolol succinate 50 mg tablet extended release 24 hr 50 mg PO DAILY Discontinued glipizide 10 mg tablet 10 mg PO BID 90 Days Qty: 180 3RF Discharge Orders: Discharge Order (Routine); Ordered 03/10/25 Ordered By: Kamilah Ashton Diet: Advance to usual diet Activity on Discharge: As tolerated Stand Alone Forms: Patient Portal Discharge page Print Language: Indonesian Care Plan Goals: Continue high-dose atorvastatin and aspirin. Resume/continue antihypertensive therapy (amlodipine); hold metoprolol for bradycardia. Outpatient initiation of SGLT2 inhibitor (Farxiga) for diabetes. Continue seizure medications (lamotrigine, keppra). Maintain cardiac diet. DVT prophylaxis completed during admission. Arrange close outpatient follow-up with primary care, neurology, cardiology, and nephrology. Health Concerns: * High risk for recurrent cerebrovascular events (ABCD2 score: 6). * Medication noncompliance?emphasize importance of adherence. * Gait instability?fall risk; recommend home safety evaluation. * Chronic kidney disease?monitor renal function. * Diabetes?optimize glycemic control. Plan of Treatment: * Continue aspirin 81 mg daily and atorvastatin 80 mg nightly. * Continue amlodipine 2.5 mg daily; hold metoprolol until further evaluation. * Outpatient start of Farxiga; discontinue glipizide and metformin while inpatient. * Continue lamotrigine and keppra for seizure disorder. * Follow up with neurology for further stroke workup and management. * Outpatient PT/OT as indicated. * Monitor blood pressure and blood glucose at home. * Follow up with nephrology for CKD management. Assessment: The patient presented with acute neurological symptoms concerning for TIA versus stroke, with rapid resolution of most deficits and negative imaging for acute infarct. He remains at high risk for recurrent events given multiple vascular risk factors and history of noncompliance. He is stable for discharge with a comprehensive plan for secondary prevention and close outpatient follow-up.
[2025-03-10 11:36] LABS: Glucose, Whole Blood 137 mg/dL (60-115)
--- NOTE | 2025-03-10 11:44 | MHC.CM.PN ---
PT CLEARED TO [facility] TODAY WITH NO SERVICES [facility] TRANSPORT WILL BE ARRANGED (PHONE AND ADDRESS CONFIRMED)
[2025-03-10 11:56] VITALS: BP 162/75; PULSE 65; RESP 19; TEMP 36.7; O2SAT 90
== END 2025-03-10 12:38 | disposition home or self-care (01) ==
LOC: HO.ED 13:19 → HO.EDOVER 13:22 → HO.IMC 03-09 19:48
PROVIDERS: Admitting Provider Physician Assistant Medical; Emergency Provider Emergency Medicine; PCP Internal Medicine; Visit Provider Hospitalist
DX: G45.9 Transient cerebral ischemic attack, unspecified (principal); R26.81 Unsteadiness on feet; R42 Dizziness and giddiness; R47.81 Slurred speech; R47.01 Aphasia; E11.22 Type 2 diabetes mellitus with diabetic chronic kidney disease; I12.9 Hypertensive chronic kidney disease with stage 1 through stage 4 chronic kidney disease, or unspecified chronic kidney disease; N18.30 Chronic kidney disease, stage 3 unspecified; I25.10 Atherosclerotic heart disease of native coronary artery without angina pectoris; R29.810 Facial weakness; G40.909 Epilepsy, unspecified, not intractable, without status epilepticus; R26.89 Other abnormalities of gait and mobility; E78.5 Hyperlipidemia, unspecified; Z86.73 Personal history of transient ischemic attack (TIA), and cerebral infarction without residual deficits; Z95.1 Presence of aortocoronary bypass graft; Z91.148 Patient's other noncompliance with medication regimen for other reason; Z79.899 Other long term (current) drug therapy
CPT/HCPCS: 36415; 70450; 70496; 70498; 70553; 71045; 80048; 80061; 80307; 81001; 82607; 82746; 82947; 84443; 84484; 85025; 85610; 85730; 93005; 95816; 96365; 96366; 97161; 97165; 99222; 99285; A9585; J1644; J3411; Q9967

== ENCOUNTER → 2025-03-08 10:21 | Outpatient (BNV) | payer MEDICARE, MEDICAID, SELFPAY ==
[2021-08-28 07:22] VITALS: BP 146/76; BP 148/60; BMI 26.7
== END ==
PROVIDERS: Emergency Provider Emergency Medicine; PCP Internal Medicine; Visit Provider Radiology Diagnostic Radiology
DX: R13.10 Dysphagia, unspecified (principal); R42 Dizziness and giddiness
CPT/HCPCS: 70450; 70496; 70498; 71045

== ENCOUNTER → 2025-03-08 13:18 | Outpatient (BNV) | payer MEDICARE, MEDICAID, SELFPAY ==
[2021-08-28 07:22] VITALS: BP 146/76; BP 148/60; BMI 26.7
== END ==
PROVIDERS: Admitting Provider Physician Assistant Medical; Emergency Provider Emergency Medicine; PCP Internal Medicine; Visit Provider Psychiatry & Neurology Neurology
DX: R26.81 Unsteadiness on feet (principal)
CPT/HCPCS: 99223

== ENCOUNTER 2025-03-11 03:18 | Emergency (ER) | payer MEDICARE, MEDICAID, SELFPAY ==
[2021-08-28 07:22] VITALS: BP 146/76; BP 148/60; BMI 26.7
--- NOTE | ~2025-03-11 | XR_ITS ---
CLINICAL HISTORY: Difficulty swallowing Chest X-ray, 1 View COMPARISON: CR/SR - XR CHEST 1 VIEW - 03/08/25 10:44 EDT FINDINGS: No consolidation. Mild bibasilar atelectasis. No pleural effusion. No pneumothorax. No cardiomegaly. No acute fracture. Status post median sternotomy. IMPRESSION: No acute findings. This document has been electronically signed by: Luis Angel Rodriguez MD on 03/11/2025 04:46:24
[2025-03-11 03:25] VITALS: BP 156/81; BP 170/80; PULSE 71; PULSE 85; RESP 16; TEMP 36.9; O2SAT 90; O2SAT 97; BMI 23.5
--- NOTE | 2025-03-11 03:30 | ED.GENADULT ---
HPI - General Adult General Chief complaint: General Medical Stated complaint: Difficulty Swallowing Time Seen by Provider: 03/11/25 03:29 Source: patient, EMS, RN notes reviewed and old records reviewed Mode of arrival: EMS Limitations: no limitations History of Present Illness ED Provider: Dr. Elsie Moore HPI narrative: 69-year-old male with recent history of TIA, had an MRI of the brain on 03/08/2025 which was normal, on baby aspirin as well as lamotrigine for seizure disorder presenting via EMS with difficulty swallowing. Patient's symptoms during his TIA were an unsteady gait and dizziness. Again, was found to have a negative MRI and discharged home stable. Reports that tonight he was attempting to swallow his medications when he felt that it was difficult to swallow. He takes about 8 pills. Normally goes to bed around 330 in the morning and this is about the time that this event happened. Had been swallowing without difficulty prior to this. He was able to swallow all of his medications before the discomfort in his throat occurred. States that he both feels discomfort and occasionally feels as though he can not swallow his secretions fully. He is not drooling. He is speaking in full sentences with normal tongue movement. He has no numbness/tingling/weakness of the extremities or face. No facial droop. No difficulty speaking. Denies chest pain, abdominal pain, headache or vision changes. No reported fever. Related Data Home Medications ?Medication ?Instructions ?Recorded ?Confirmed atorvastatin 80 mg tablet 80 mg PO BEDTIME 06/06/24 03/08/25 metoprolol succinate 50 mg 50 mg PO DAILY 10/12/24 03/08/25 tablet,extended release 24 hr levocetirizine 5 mg tablet 5 mg PO DAILY 11/21/24 03/08/25 Previous Rx's ?Medication ?Instructions ?Recorded aspirin 81 mg chewable tablet 81 mg PO DAILY #30 tabs 04/16/21 blood pressure test kit-large #1 ea 09/30/21 lamotrigine 200 mg tablet 200 mg PO BID 90 days #180 tabs 03/07/24 metformin 1,000 mg tablet 1,000 mg PO BID 90 days #180 tabs 03/07/24 needle (disp) 18 G 18 gauge x 1 #30 ea 07/04/24 (BD Regular Bevel [place]) needle (disp) 23 gauge 23 gauge x #30 ea 07/04/24 3/4 (BD Regular Bevel [place]) syringe (disposable) 1 mL (BD #30 ea 07/04/24 Luer-Verito Syringe) safety needles 23 gauge x 1 (BD #50 ea 07/06/24 SafetyGlide Needle) amlodipine 2.5 mg tablet 2.5 mg PO DAILY #90 tabs 10/23/24 blood sugar diagnostic (FreeStyle #50 ea 10/24/24 Lite Strips) metoprolol succinate 100 mg 100 mg PO DAILY #90 tabs 01/03/25 tablet,extended release 24 hr epinephrine 0.3 mg/0.3 mL 0.3 mg (0.3 mL) IM Q10M PRN 01/30/25 injection, auto-injector (EpiPen anaphylaxis/shortness of breath #2 2-Charanjit) ea zolpidem 10 mg tablet 10 mg PO BEDTIME #30 tabs 02/20/25 dapagliflozin propanediol 5 mg 5 mg PO DAILY #30 tabs 03/10/25 tablet (Farxiga) aluminum-mag hydroxide-simethicone 5 ml PO QID 14 days #280 mL 03/11/25 400 mg-400 mg-40 mg/5 mL oral susp (Antacid Anti-Gas) Allergies Allergy/AdvReac Type Severity Reaction Status Date / Time losartan Allergy Severe Swelling Verified 03/11/25 03:27 sesame seed Allergy Swelling Verified 03/11/25 03:27 Review of Systems Review of Systems: As per HPI, full review of systems performed and negative but for the above mentioned pertinent positives and negatives. [facility] Past Medical History Medical History Screening for prostate cancer Low libido Screening for prostate cancer Pre-op examination Shift work sleep disorder Snoring Erectile dysfunction Headache Screening for colon cancer Adult general medical exam Erectile dysfunction due to type 2 diabetes mellitus Heart palpitations Chest pain COVID-19 High cholesterol Sciatica Hypertension Diabetes Epilepsy Heart attack Surgical History H/O colonoscopy History of tonsillectomy History of cardiac catheterization (~2015) History of coronary artery bypass graft x 2 (~2005) Family History Family History Father Cardiovascular disease Mother No problems noted. Social History Social History Household Members: None Housing: Apartment Do you presently have visiting nurse or other home services: No Alcohol intake: former Comment: hasnt drank in 30 years Patient Tobacco Use Status: Never used Tobacco Smoked in Last 30 Days: No e-Cigarette/Vaping Use: Never Used Second Hand Smoke Exposure: No Use of substances other than those prescribed or required for medical reasons: No Advance Directives: No Advance Directives Information Provided: Yes Do you have a plan to hurt others: No Plan service: No Current occupational status: previously employed Current occupational exposures/hazards: No Cognitive needs: No Hearing needs: No Vision needs: No Physical Exam ED Exam Exam: GENERAL: Chronically ill-appearing, conversant, no acute distress. SKIN: Normal skin color for ethnicity, warm, dry, no rashes noted. HEENT: Normocephalic, atraumatic, no stridor, posterior oropharynx nonerythematous, EOMI. NECK: Soft, supple, full ROM, midline structures nontender, no step-offs, no deformities, no lymphadenopathy. CHEST: Heart regular rate and rhythm, no murmurs, symmetric chest rise and fall. PULMONARY: Clear to auscultation bilaterally, no labored breathing, no wheezes/rhales/ rhonchi. ABDOMINAL: Soft, nondistended, nontender, positive bowel sounds in all quadrants. : Deferred. MUSCULOSKELETAL: Normal tone, full range of motion, no deformities, no peripheral edema. NEURO: Alert and oriented to person, CN II through XII intact, moves extremities equally, no sensory or motor deficits, no focal neurologic deficits. PSYCHIATRIC: Odd affect, fluid speech, appropriate demeanor. Vital Signs: Vital Signs - 24 hr 03/11/25 03:25 03/11/25 03:34 03/11/25 05:21 Temperature 98.4 F 98.4 F 98 F Pulse Rate 71 84 67 Respiratory Rate 16 12 18 Blood Pressure 156/81 H 156/81 H 164/77 H Pulse Oximetry 97 95 Oxygen Delivery Method Room Air Room Air Room Air BMI result Body Mass Index 23.5 NIH Stroke Scale Internal: Initial- Upon Arrival Time: 03:45 Level of Consciousness: Alert Level of Consciousness Questions: Answers both questions correctly Level of Consciousness Commands: Performs both tasks correctly Best Gaze: Normal Visual: No visual loss Facial Palsy: Normal Motor Arm (Right): No drift Motor Arm (Left): No drift Motor Leg (Right): No drift Motor Leg (Left): No drift Limb Ataxia: Absent Sensory: Normal Best Language: No aphasia Dysarthia: Normal Extinction and Inattention: No abnormality Score: 0 Medications Administered Discontinued Medications Generic Name Dose Route Start Last Admin Trade Name Kg PRN Reason Stop Dose Admin Al Hydroxide/Mg Hydroxide 30 ml 03/11/25 06:00 03/11/25 06:29 Magnesium Hydrox/Alum Hydrox 30 Ml Oral.Susp PO 03/11/25 06:01 30 ml ONCE ONE Administration Lidocaine HCl 15 ml 03/11/25 06:00 03/11/25 06:29 Lidocaine Hcl Viscous 2 % 15 Ml Solution MUCOUS MEM 03/11/25 06:01 15 ml ONCE ONE Administration Medical Decision Making Medical Decision Making MDM Narrative: 69-year-old male with recent history of TIA, had an MRI of the brain on 03/08/2025 which was normal, on baby aspirin as well as lamotrigine for seizure disorder presenting via EMS with difficulty swallowing. Patient's symptoms during his TIA were an unsteady gait and dizziness. Reports that tonight he was attempting to swallow his medications when he felt that it was difficult to swallow. He takes about 8 pills. Normally goes to bed around 330 in the morning and this is about the time that this event happened. Had been swallowing without difficulty prior to this. He was able to swallow all of his medications before the discomfort in his throat occurred. States that he both feels discomfort and occasionally feels as though he can not swallow his secretions fully. He is not drooling. He is speaking in full sentences with normal tongue movement. He has no numbness/tingling/weakness of the extremities or face. No facial droop. No difficulty speaking. [facility]. Differential diagnosis includes dysphagia, pill esophagitis, GERD, CVA, ACS, among others. Plan for blood work, EKG, chest x-ray. Initial NIHSS is 0. 7:04 AM 03/11/2025 (Dr. Elsie Moore, D.O.) workup today has been reassuring. Patient is able to tolerate oral intake in the emergency department after a GI cocktail. He has no other focal neurologic deficits on exam. I suspect that he is having silent GERD or perhaps pill esophagitis. Using shared decision making, plan for discharge home to follow-up with primary care and/or specialist. Patient understands and agrees with plan for discharge. Discharged home in stable condition. Differential Diagnosis Differential Diagnoses: The differential diagnosis associated with the presentation includes (as above) Admission/Observation Consideration of admission/observation: Escalation of care including admission/observation considered Lab Data MDM Lab Attestation statement: I reviewed the patient's lab results. 03/11/25 03:49 03/11/25 03:49 Labs: Lab Results 03/11/25 Range/Units 03:49 WBC 6.5 (4.8-10.8) X10*3/uL RBC 4.50 L (4.60-5.80) X10*6/uL Hgb 12.7 L (14.0-18.0) g/dl Hct 37.6 L (42.0-52.0) % MCV 83.6 (80.0-98.0) fL MCH 28.2 (27.0-33.0) pg MCHC 33.8 (31.0-36.0) g/dl RDW 14.3 (11.0-16.0) % Plt Count 200 (160-400) X10*3/uL MPV 10.1 (9.4-12.4) fL Immature Gran % (Auto) 0.2 (0.0-0.4) % Neut % (Auto) 41.6 L (45-73) % Lymph % (Auto) 49.3 H (20-40) % [place] % (Auto) 8.9 (2-11) % Eos % (Auto) 0.0 (0-4) % Baso % (Auto) 0.0 (0-2) % Lymph # (Auto) 3.2 (1.2-4.9) X10*3/uL [place] # (Auto) 0.6 (0.1-1.2) X10*3/uL Eos # (Auto) 0.0 (0.0-0.4) X10*3/uL Baso # (Auto) 0.0 (0.0-0.2) X10*3/uL Abs Immat Gran (auto) 0.01 (0.00-0.03) X10*3/uL Absolute Neuts (auto) 2.7 (2.0-8.3) x10*3/uL Absolute Nucleated RBC 0.000 (0.0-0.012) X10*3/uL Nucleated RBC % (auto) 0.0 (0.0-0.2) /100WBC Smear Tech's Comments VERIFIED Sodium 140 (135-145) mmol/L Potassium 3.9 (3.3-5.1) mmol/L Chloride 109 H (96-108) mmol/L Carbon Dioxide 22 (22-29) mmol/L Anion Gap 13 (12-20) BUN 46 H (9-16) mg/dL Creatinine 1.89 H (0.5-1.4) mg/dL Estim Creat Clear Calc 35.4 Estimated GFR 36 Random Glucose 96 (60-115) mg/dL Calcium 9.6 (8.4-10.2) mg/dL Total Bilirubin 0.8 (0.0-1.0) mg/dL AST 26 (5-37) U/L ALT 25 (0-40) U/L Alkaline Phosphatase 152 H (39-117) U/L Troponin I High Sens 10.3 D (<3.5-35.0) ng/L Total Protein 7.7 (6.5-8.0) g/dL Albumin 4.4 (3.5-5.0) g/dL Lipase 57 (8-78) U/L Independent Interpretation I performed an independent interpretation of an: EKG Interpretation: My independent interpretation of the ECG reveals normal sinus rhythm with rate of 81, LVH, normal axis, normal intervals, no ST elevations or depressions to suggest ischemic changes, relatively unchanged from previous on 03/08/2025. Radiology Impression Discussion of test interpretation with radiology: I have reviewed the radiologist's reading. Independent Historian Clinical information obtained from an independent historian. History obtained from or confirmed by: EMS External Record Review External record reviewed: Inpatient record Prescription Management I considered prescription management with: Pain Medication and Other (Antacids) Chronic Conditions Patient?s care impacted by: Hypertension and Other (CAD, epilepsy, CKD, TIA) Discharge Plan Discharge Clinical Impression: Dysphagia, Esophagitis Patient Disposition: Home, Self-Care Instructions: Dysphagia (ED) Additional Instructions: Take antacid medications daily for the next 2 weeks. Do not stop this medication early if you start to feel better. Call your primary care doctor as soon as possible to arrange a follow up appointment. Return to the emergency department sooner if you develop any new or worsening symptoms including: Worsening difficulty swallowing, chest pain, difficulty breathing, fevers greater than 100?, numbness/tingling/weakness of the extremities, difficulty with word finding or slurring of your speech, any new symptom that concerns you. Call 911 with any medical emergency. Prescriptions: New alum-mag hydroxide-simeth [Antacid Anti-Gas] 400-400-40 mg/5 mL suspension 5 ml PO QID 14 Days Qty: 280 0RF No Action aspirin 81 mg tablet,chewable 81 mg PO DAILY Qty: 30 2RF atorvastatin 80 mg tablet 80 mg PO BEDTIME (DME) BD SafetyGlide Needle 23 gauge x 1 needle See Rx Instructions .Route Qty: 50 0RF Rx Instructions: As directed to inject testosterone amlodipine 2.5 mg tablet 2.5 mg PO DAILY Qty: 90 3RF (DME) FreeStyle Lite Strips Strip See Rx Instructions .Route Qty: 50 3RF Rx Instructions: daily metoprolol succinate 100 mg tablet extended release 24 hr 100 mg PO DAILY Qty: 90 0RF Rx Instructions: Take with metoprolol succinate ER 50 mg daily for a total daily dose of 150 mg. epinephrine [EpiPen 2-Charanjit] 0.3 mg/0.3 mL auto-injector 0.3 mg IM Q10M PRN (Reason: anaphylaxis/shortness of breath) Qty: 2 0RF Rx Instructions: for 2 doses zolpidem 10 mg tablet 10 mg PO BEDTIME Qty: 30 1RF dapagliflozin propanediol [Farxiga] 5 mg tablet 5 mg PO DAILY Qty: 30 0RF (DME) blood pressure test kit-large Kit See Rx Instructions .ROUTE .MEDSUPPLY Qty: 1 0RF Rx Instructions: check bp daily once stable check twice a week and as needed metformin 1,000 mg tablet 1,000 mg PO BID 90 Days Qty: 180 3RF lamotrigine 200 mg tablet 200 mg PO BID 90 Days Qty: 180 3RF levocetirizine 5 mg tablet 5 mg PO DAILY (DME) BD Regular Bevel [place] 23 gauge x 3/4 needle See Rx Instructions .Route Qty: 30 0RF Rx Instructions: Inject testosterone subcutaneous (DME) BD Luer-Verito Syringe 1 mL syringe See Rx Instructions .MEDSUPPLY Qty: 30 0RF Rx Instructions: Testosterone injection weekly (DME) needle (disp) 18 G [BD Regular Bevel [place]] 18 gauge x 1 needle See Rx Instructions .MEDSUPPLY Qty: 30 0RF Rx Instructions: As directed - draw up testosterone metoprolol succinate 50 mg tablet extended release 24 hr 50 mg PO DAILY Print Language: Northern Irish
--- NOTE | 2025-03-11 03:31 | ECG_ITS ---
Test Reason : DIFFICULTY SWALLOWING Blood Pressure : */* mmHG Vent. Rate : 81 BPM Atrial Rate : 81 BPM P-R Int : 160 ms QRS Dur : 94 ms QT Int : 378 ms P-R-T Axes : 56 3 52 degrees QTcB Int : 439 ms Normal sinus rhythm Moderate voltage criteria for LVH, may be normal variant ( R in aVL , [place] product ) Nonspecific ST and T wave abnormality Abnormal ECG When compared with ECG of 08-Mar-2025 10:40, Nonspecific T wave abnormality no longer evident in Inferior leads Referred By: Elsie Moore Electronically Signed By: Alex العراقي
[2025-03-11 03:34] VITALS: BP 156/81; PULSE 84; RESP 12; TEMP 36.9
--- OUTSIDE RECORDS SUMMARY | 2025-03-11 03:51 | XMS_ITS | Clinical Summary ---
Author Organization [facility] Address [address] [address] Phone Care Team Providers Care Canning Machine Operator Name Role Phone Pcp, Unknown Primary Care [...] topic Medical Devices Not on file Insurance [facility] [place] [address] [address] ACO [facility] [employer] [place] [address] [place] [address] [employer] ACO [facility] [employer] [facility] Care Teams Canning Machine Operator Relationship Specialty Start Date End Date Pcp, Unknown PCP - General 09/30/21 Additional Source Comments The information contained in this document represents components of the legal health record. It is not the complete legal health record.[facility]
--- OUTSIDE RECORDS SUMMARY | 2025-03-11 03:51 | XMS_ITS | Encounter Summary ---
Author Organization [facility] Address [address] [place] [address] Phone Care Team Providers Care Cork Molder Name Role Phone Lou Jameson MD Primary Care Provider [phone] Encounter Details Date Type Department Care Team (Late st Contact Info) Description 02/14/2025 Documentation Only [facility] [address] [place] [address] [place] [address] [place] [address] Social History Tobacco Use Types Packs/Day Years Used Date Smoking Tobacco: Never Assessed Sex and Gender Information Value Date Recorded Sex Assigned at Not on file Legal Sex Male 11:42 AM EDT Gender Identity Not on file Sexual Orientation Not on file documented as of this encounter Plan of Treatment Upcoming Encounters Date Type Department Care Team (Late st Contact Info) Description 04/25/2025 3:30 PM EST Office Visit [facility] [address] [place] [id number] Herve Valencia MD [address] [place] [address] documented as of this encounter Visit Diagnoses Not on filedocumented in this encounter Care Teams Cork Molder Relationship Specialty Start Date End Date Lou Jameson MD [address] [place] [address] [phone] PCP - General Internal Medicine 02/14/25 documented as of this encounter
--- OUTSIDE RECORDS SUMMARY | 2025-03-11 03:51 | XMS_ITS | Clinical Summary ---
Author Organization [facility] Address [address] [place] [address] [address] [place] [address] Care Team Providers Care Nitriles Lab Technician Name Role Phone Unavailable Primary Care [...]
--- OUTSIDE RECORDS SUMMARY | 2025-03-11 03:51 | XMS_ITS | Clinical Summary ---
Author Organization [facility] Address [address] [place] [address] Phone Care Team Providers Care Integration Consultant Name Role Phone Lou Jameson MD Primary Care Provider [phone] Allergies No known active allergies Medications diclofenac [...] Date Last Done Comments Colorectal Cancer Screening: Colonoscopy 1957 Diabetes: Annual GFR (Glomerular Filtration Rate) 1957 Diabetes: Annual Foot Exam 1967 Diabetes: Annual Retina Eye Exam 1967 Pneumococcal Vaccine: 50+ Years (1 of 2 - PCV) 1976 RSV Immunization Adult Patients (1 - Risk 50-74 years 1-dose series) 2007 Zoster Vaccines (1 of 2) 2007 Abdominal Aortic Aneurysm (AAA) Screen 03/18/2024 Cholesterol Screening (Lipid Panel) 03/18/2024 Falls Risk Assessment 03/18/2024 Hepatitis C [...] Insurance MEDICAID - [place] MEDICARE Care Teams Integration Consultant Relationship Specialty Start Date End Date Lou Jameson MD PCP - General 03/15/24
--- OUTSIDE RECORDS SUMMARY | 2025-03-11 03:51 | XMS_ITS | Clinical Summary ---
Author Organization [facility] Address [address] [place] [address] Phone Care Team Providers Care Tack Puller Machine Name Role Phone Lou Jameson MD Primary Care Provider [phone] Encounters Date Type Department Care Team Description 02/14/2025 Documentation Only [facility] [address] [place] [address] Kinga Peck [place] from Last 3 Months Social History Tobacco Use Types Packs/Day Years Used Date Smoking Tobacco: Never Assessed Sex and Gender Information Value Date Recorded Sex Assigned at Not on file Legal Sex Male 11:42 AM EDT Gender Identity Not on file Sexual Orientation Not on file Plan of Treatment Upcoming Encounters Date Type Department Care Team (Late st Contact Info) Description 04/25/2025 3:30 PM EST Office Visit [facility] [address] [place] [address] Herve Valencia MD [address] [place] [address] [place] [address] Health Maintenance Due Date Last Done Comments [...] topic Insurance Medicare Medicaid [place] Care Teams Tack Puller Machine Relationship Specialty Start Date End Date Lou Jameson MD [address] [place] [address] PCP - General Internal Medicine 02/14/25
[2025-03-11 03:54] LABS: Hematocrit 37.6 % (42.0-52.0); Hemoglobin 12.7 g/dl (14.0-18.0); Imm Gran Abs Auto 0.01 X10*3/uL (0.00-0.03); Imm Gran Pct Auto 0.2 % (0.0-0.4); Lymphocytes Absolute Auto 3.2 X10*3/uL (1.2-4.9); Mean Corpuscular HGB Conc 33.8 g/dl (31.0-36.0); Mean Corpuscular Hemoglobin 28.2 pg (27.0-33.0); Mean Corpuscular Volume 83.6 fL (80.0-98.0); NRBC Abs Auto 0.000 X10*3/uL (0.0-0.012); NRBC Pct Auto 0.0 /100WBC (0.0-0.2); Platelet Count 200 X10*3/uL (160-400); Red Blood Count 4.50 X10*6/uL (4.60-5.80); SCAN SMEAR FLAG 1; White Blood Count 6.5 X10*3/uL (4.8-10.8)
[2025-03-11 04:06] LABS: MANUAL DIFF FLAG SCAN
[2025-03-11 04:07] LABS: Alanine Aminotransferase 25 U/L (0-40); Albumin Level 4.4 g/dL (3.5-5.0); Alkaline Phosphatase 152 U/L (39-117); Anion Gap 13 (12-20); Aspartate Amino Transferase 26 U/L (5-37); Blood Urea Nitrogen 46 mg/dL (9-16); Calcium 9.6 mg/dL (8.4-10.2); Carbon Dioxide 22 mmol/L (22-29); Chloride 109 mmol/L (96-108); Creatinine Clr Calc Pharmacy 35.4; Estimated Glomerular Filt Rate 36; Lipase 57 U/L (8-78); Potassium 3.9 mmol/L (3.3-5.1); Sodium 140 mmol/L (135-145); Total Protein 7.7 g/dL (6.5-8.0)
[2025-03-11 04:14] LABS: Troponin-I High Sensitivity 10.3 ng/L (<3.5-35.0)
[2025-03-11 05:21] VITALS: BP 164/77; PULSE 67; RESP 18; TEMP 36.6; O2SAT 95
[2025-03-11] MEDS: Lidocaine HCl Viscous 2 % 15 ML SOLUTION MUCOUS MEM (06:29)
[2025-03-11] MEDS: Magnesium Hydrox/Alum Hydrox 30 ML ORAL.SUSP PO (06:29)
[2025-03-11 07:09] VITALS: BP 166/75; PULSE 62; RESP 16; TEMP 36.6; O2SAT 100
[2025-03-11 07:10] VITALS: BP 166/75; PULSE 62; RESP 16; TEMP 36.6; O2SAT 100
== END 2025-03-11 07:11 | disposition home or self-care (01) ==
PROVIDERS: Emergency Provider Emergency Medicine; PCP Internal Medicine
DX: R13.10 Dysphagia, unspecified (principal); K20.90 Esophagitis, unspecified without bleeding; R94.31 Abnormal electrocardiogram [ECG] [EKG]; E11.9 Type 2 diabetes mellitus without complications; Z86.73 Personal history of transient ischemic attack (TIA), and cerebral infarction without residual deficits; Z79.82 Long term (current) use of aspirin; Z79.84 Long term (current) use of oral hypoglycemic drugs
CPT/HCPCS: 36415; 71045; 80053; 83690; 84484; 85025; 93005; 99283; 99284

== ENCOUNTER → 2025-03-11 03:31 | Outpatient (BNV) | payer MEDICARE, MEDICAID, SELFPAY ==
[2021-08-28 07:22] VITALS: BP 146/76; BP 148/60; BMI 26.7
== END ==
PROVIDERS: Emergency Provider Emergency Medicine; PCP Internal Medicine; Visit Provider Internal Medicine Cardiovascular Disease
DX: R94.31 Abnormal electrocardiogram [ECG] [EKG] (principal); R13.10 Dysphagia, unspecified
CPT/HCPCS: 93010

== ENCOUNTER → 2025-03-11 03:31 | Outpatient (BNV) | payer MEDICARE, MEDICAID, SELFPAY ==
[2021-08-28 07:22] VITALS: BP 146/76; BP 148/60; BMI 26.7
== END ==
PROVIDERS: Emergency Provider Emergency Medicine; PCP Internal Medicine; Visit Provider Radiology Diagnostic Radiology
DX: R13.10 Dysphagia, unspecified (principal)
CPT/HCPCS: 71045

== ENCOUNTER 2025-03-14 08:48 | Outpatient (AMB) | payer MEDICARE, MEDICAID, SELFPAY ==
[2021-08-28 07:22] VITALS: BP 146/76; BP 148/60; BMI 26.7
[2025-03-13 12:00] VITALS: BP 146/76; BP 148/60; BMI 26.7
--- NOTE | 2025-03-14 08:52 | MHC.PC.OV ---
Vital Signs 03/14/25 08:57 03/14/25 09:00 Weight 170 lb 4 oz BP 144/62 H 142/60 H Blood Pressure Location Rt brachial Rt brachial Position Sitting Sitting Respiration 20 Pulse 61 Pulse Source Pulse Oximeter Temp 97.8 F Temp Source Oral Pulse Oximetry (%) 98 Oxygen Delivery Method Room Air Intake Visit Reasons: Discharge follow-up [place] Intake Note: discharge follow up [place] Paper Pattern Folder Required: No Allergies losartan Allergy (Severe, Verified 03/14/25 08:54) Swelling sesame seed Allergy (Verified 03/14/25 08:54) Swelling Medication List - Last Reconciled 03/14/25 by Aleah Mendez PA-C alum-mag hydroxide-simeth 400-400-40 mg/5 mL (Antacid Anti-Gas) 5 mL PO QID 14 days amlodipine 2.5 mg PO DAILY aspirin 81 mg PO DAILY atorvastatin 80 mg PO BEDTIME blood pressure test kit-large check bp daily once stable check twice a week and as needed blood sugar diagnostic (FreeStyle Lite Strips) daily dapagliflozin propanediol (Farxiga) 5 mg PO DAILY epinephrine (EpiPen 2-Charanjit) 0.3 mg (0.3 mL) IM Q10M PRN lamotrigine 200 mg PO BID 90 days levocetirizine 5 mg PO DAILY metformin 1,000 mg PO BID 90 days metoprolol succinate ER 50 mg PO DAILY metoprolol succinate ER 100 mg PO DAILY needle (disp) 18 G (BD Regular Bevel [place]) As directed - draw up testosterone needle (disp) 23 gauge (BD Regular Bevel [place]) Inject testosterone subcutaneous safety needles (BD SafetyGlide Needle) As directed to inject testosterone syringe (disposable) (BD Luer-Verito Syringe) Testosterone injection weekly zolpidem 10 mg PO BEDTIME Tobacco use date assessed: 03/14/25 Fall risk assessment: No Falls in past year Last assessed Fall Risk: 03/14/25 Dental Screening Dental Screen Date: 03/14/25 Did you have a dental visit in the last 12 months?: No Did you have a dental problem in the last 6 months where you did not have access to dental care?: No Was dental information given to patient?: No HPI Discharge follow-up [place] HPI Details Patient is a 69-year-old male with a significant past medical history of a recent TIA, CKD, depression, insomnia and CAD presenting today for a hospital follow up. He was admitted on 03/08/25 with TIA like symptoms and presented with acute onset of imbalance, left upper extremity weakness and expressive/receptive aphasia. On admission neurological defects were noted such as mild left arm weakness which did resolve during hospitalization. The slurred speech had resolved. He did have a CTA of the head and neck and CT of the head which was negative for any acute intracranial pathology. The MRI was negative for acute CVA. Labs were notable for hyperglycemia and CKD but otherwise unremarkable. Toxicology screen was negative. He was monitored on telemetry and received PT/OT evaluation and had stable neurological status throughout hospitalization. He was discharged on 03/10/25 and advised to discontinue glipizide and start Farxiga. -he tells me today that he has not yet done this. Neurology was consulted and unclear if this is truly a TIA. He was instructed to follow up with Neurology and Cardiology. He does have an upcoming appointment with Cardiology on 04/06. He states that he has attempted to contact Neurology but has not heard back. On 03/11/2025 he reported back to the ER with complaints of dysphagia. He states that a few hours after leaving the hospital he felt like it was hard to swallow. He explains it as he did not feel like his throat was moving as well as it should. He tried to take his 8 pills that evening and felt like it was stuck in his throat. In the ER he was challenged and was able to swallow. They did give him a GI cocktail which was able to tolerate without difficulty. He states that the GI cocktail did seem to alleviate his symptoms fully. He has not difficulty since then. He was discharged from the ER and told to follow up with PCP as he appeared otherwise neurologically intact. Neuro: Follows with Neurology. He is currently on lamotrigine for seizure prophylaxis. CV: Blood pressure today in the office is 142/60. He is currently managed with metoprolol, amlodipine. Cholesterol is managed with atorvastatin 80 mg. GI: Weight has been stable Nephro: follows with renal associates. He is scheduled to be seen in 5 days. He does have worsened kidney function in the hospital. Endo: last a1c was 7 Colonoscopy: within the year [facility] Medical History Screening for prostate cancer Low libido Screening for prostate cancer Pre-op examination Shift work sleep disorder Snoring Erectile dysfunction Headache Screening for colon cancer Adult general medical exam Erectile dysfunction due to type 2 diabetes mellitus Heart palpitations Chest pain COVID-19 High cholesterol Sciatica Hypertension Diabetes Epilepsy Heart attack Surgical History H/O colonoscopy History of tonsillectomy History of cardiac catheterization (~2015) History of coronary artery bypass graft x 2 (~2005) Family History Father Cardiovascular disease Mother No problems noted. Social History (Updated 03/14/25 @ 08:56 by Wesley Mayo MA) Household Members: None Housing: Apartment Do you presently have visiting nurse or other home services: No Alcohol intake: former Comment: hasnt drank in 30 years Patient Tobacco Use Status: Never used Tobacco e-Cigarette/Vaping Use: Never Used Second Hand Smoke Exposure: No service: No Current occupational status: previously employed Current occupational exposures/hazards: No Cognitive needs: No Hearing needs: No Vision needs: No Questionnaire Thrive Questionnaire Date Thrive assessed: 08/15/24 I am a: Patient What is your living situation today?: I have a steady place to live Within the past 12 months, did the food you bought not last and you didn't have the money to get more?: Sometimes True Within the past 12 months, did you worry whether your food would run out before you got money to buy more?: Sometimes True Do you have trouble paying for medicines?: No Do you have trouble getting transportation to medical appointments?: No Do you have trouble paying your heating and electricity bill?: No Do you have trouble taking care of your child, family member or friend?: No Do you have trouble with day-to-day activities such as bathing, preparing meals, shopping, managing finances, etc.?: No Are you currently unemployed and looking for a job?: I choose not to answer this question Are you interested in more education?: No Please select the resources that you would like help with: None Currently or been in a relationship where the following occur: No concerns reported THRIVE Score: 2 LAURA-7 AMB Questionnaire LAURA-7 Date LAURA - 7 assessed: 03/14/25 Source: Developed by Drs. Alex Ledezma, Nicole Scott, Messi Og and colleagues, with an educational rhonda from [employer]. LAURA-7 Assessment Billing LAURA-7 Assessment Tool: LAURA-7 Assessment 28888 Physical exam (Primary Care) Vital Signs: Last Vital Signs Temp 97.8 F 03/14/25 08:57 Pulse 61 03/14/25 08:57 Resp 20 03/14/25 08:57 BP 142/60 H 03/14/25 09:00 Pulse Ox 98 03/14/25 08:57 Oxygen Delivery Method Room Air 03/14/25 08:57 Tobacco/Smoking Status: Tobacco use Status Tobacco use date assessed 03/14/25 03/14/25 09:01 Patient Tobacco Use Status Never used Tobacco 03/14/25 09:01 e-Cigarette/Vaping Use Never Used 03/14/25 09:01 Thrive Assessment: Date of Thrive Assessment Date Thrive assessed 08/15/24 03/14/25 09:01 Currently or been in a relationship where the following occur: No concerns reported Const Orientation/consciousness: patient oriented x3 HENMT Ears: hearing grossly normal bilaterally Neck Thyroid: Thyroid normal Lymphatic: no lymphadenopathy noted Resp Auscultation: clear to auscultation bilaterally Cardio Rate: regular rate Rhythm: regular rhythm Heart sounds: S1 normal heart sound present and S2 normal heart sound present GI Inspection: Yes normal to inspection Palpation (GI): Soft to palpation and Other GI palpation findings present (nontender, no cva tenderness) Auscultation: normoactive bowel sounds Rectal Exam - Male: Yes deferred Skin General skin exam: no rashes or lesions noted Neuro General: patient oriented x3, gait normal and no focal motor deficits Results Reviewed Results Reviewed: MR Brain with and without gadolinium Comparison: CT/HI/SR - CT HEAD NECK ANGIOGRAPHY WITH IV CONTRAST STROKE - 03/08/25 10:24 EDT MR - MR HEAD/BRAIN WO CON - 09/23/24 16:26 EDT Findings: No restricted diffusion. No intra-axial mass or hemorrhage. No midline shift. No hydrocephalus. Vascular flow voids are intact. No abnormal enhancement. Orbital contents are unremarkable. The sinuses and mastoid air cells are clear. No focal bone lesion. IMPRESSION: No acute findings. Coding Level of Care Code TCM Mod MDM <= 7 Days Complex EM visit Add On G2211 Diagnoses Epilepsy G40.909 Brain TIA G45.9 Essential hypertension I10 Type 2 diabetes mellitus with unspecified complications E11.8 Stage 3 chronic kidney disease, unspecified whether stage 3a or 3b CKD N18.30 Chronic kidney disease stage 3 subtype: unspecified whether 3a or 3b Hospital discharge follow-up Z09 Additional Codes LAURA-7 Assessment Billing - LAURA-7 Assessment Tool: LAURA-7 Assessment 43137 ([id number]) Assessment & Plan Assessment & Plan (1) Epilepsy: Code(s): G40.909 - Epilepsy, unspecified, not intractable, without status epilepticus Category: Medical Plan: referral to neurology (2) Brain TIA: Code(s): G45.9 - Transient cerebral ischemic attack, unspecified Category: Medical Plan: as above scheduled to see Cardiology Reviewed imaging with patient today and hospital recommendations Medications reconciled (3) Essential hypertension: Code(s): I10 - Essential (primary) hypertension Category: Medical Plan: continue current plan (4) Type 2 diabetes mellitus with unspecified complications: Code(s): E11.8 - Type 2 diabetes mellitus with unspecified complications Category: Medical Plan: d/c glipizide start farxiga. We did discuss risks and benefits and adverse effects of this medication including increased risk of UTI, yeast infections and dehydration. Advised to hydrate and recheck labs 2 weeks after starting this medication. (5) CKD (chronic kidney disease) stage 3, GFR 30-59 ml/min: Code(s): N18.30 - Chronic kidney disease, stage 3 unspecified Category: Medical Qualifiers: Chronic kidney disease stage 3 subtype: unspecified whether 3a or 3b Qualified Code(s): N18.30 - Chronic kidney disease, stage 3 unspecified Plan: We will check labs today (6) Hospital discharge follow-up: Code(s): Z09 - Encounter for follow-up examination after completed treatment for conditions other than malignant neoplasm Plan: as above Orders: Orders Basic Metabolic Panel Today N18.30 - Chronic kidney disease, stage 3 unspecified Referrals Neurology Referral G40.909 - Epilepsy, unspecified, not intractable, without status epilepticus, G45.9 - Transient cerebral ischemic attack, unspecified, Z86.73 - Personal history of transient ischemic attack (TIA), and cerebral infarction without residual deficits Medications: Refilled dapagliflozin propanediol (Farxiga) 5 mg PO DAILY 90 tabs 0RF
[2025-03-14 08:57] VITALS: BP 144/62; PULSE 61; RESP 20; TEMP 36.6; O2SAT 98
[2025-03-14 09:00] VITALS: BP 142/60
--- OUTSIDE RECORDS SUMMARY | 2025-03-14 09:27 | XMS_ITS | Clinical Summary ---
Author Organization [employer] Address [address] [place] [address] [address] [place] [address] Care Team Providers Care Shirring Machine Operator Automatic Name Role Phone Unavailable Primary Care Provider [...]
--- OUTSIDE RECORDS SUMMARY | 2025-03-14 09:27 | XMS_ITS | Encounter Summary ---
Author Organization [facility] Address [address] [place] [address] Phone Care Team Providers Care Ambulance Assistant Name Role Phone Lou Jameson MD Primary Care Provider [phone] Encounter Details Date Type Department Care Team (Late st Contact Info) Description 02/14/2025 Documentation Only [facility] [address] [place] [address] [place], [place] [address] [place] [address] Social History Tobacco Use Types [...] Visit [facility] [address] [place] [phone] Herve Valencia MD [address] [place] [address] documented as of this encounter Visit Diagnoses Not on filedocumented in this encounter Care Teams Ambulance Assistant Relationship Specialty Start Date End Date Lou Jameson MD [address] [place] [address] [phone] PCP - General Internal Medicine 02/14/25 documented as of this encounter
--- OUTSIDE RECORDS SUMMARY | 2025-03-14 09:27 | XMS_ITS | Clinical Summary ---
Author Organization [facility] Address [address] [place] [address] Phone Care Team Providers Care Art Objects Supervisor Name Role Phone Lou Jameson MD Primary Care Provider [phone] Encounters Date Type Department Care Team Description 02/14/2025 Documentation Only [facility] [address] [place] [address] Kinga Peck MA from Last [...] Visit [facility] [address] [place] [address] Herve Valencia MD [address] [place] [address] [place] [address] Health Maintenance Due Date Last [...] topic Insurance Medicare Medicaid [place] Care Teams Art Objects Supervisor Relationship Specialty Start Date End Date Lou Jameson MD [address] [place] [address] PCP - General Internal Medicine 02/14/25
--- OUTSIDE RECORDS SUMMARY | 2025-03-14 09:27 | XMS_ITS | Clinical Summary ---
Author Organization [facility] Address [address] [email or web address] [address] [address] Phone Care Team Providers Care Maxillofacial Surgeon Name Role Phone Pcp, Unknown Primary Care [...] topic Medical Devices Not on file Insurance [facility] [place] [address] [place] [address] [employer]CO [facility] [employer] [place] [address] [place] [address] [employer] [facility] [employer] [facility] [employer] Care Teams Maxillofacial Surgeon Relationship Specialty Start Date End Date Pcp, Unknown PCP - General 09/30/21 Additional Source Comments The information contained in this document represents components of the legal health record. It is not the complete legal health record.[facility]
--- OUTSIDE RECORDS SUMMARY | 2025-03-14 09:27 | XMS_ITS | Clinical Summary ---
Author Organization [facility] Address [address] [place] [address] Phone Care Team Providers Care Advertising Material Distributor Name Role Phone Lou Jameson MD Primary Care Provider [phone] Allergies No known active allergies Medications diclofenac [...] Insurance MEDICA[place] - [place] MEDICARE Care Teams Advertising Material Distributor Relationship Specialty Start Date End Date Lou Jameson MD PCP - General 03/15/24
== END 2025-03-14 09:25 | disposition home or self-care (01) ==
LOC: HO.HMCFM 08:49
PROVIDERS: PCP Internal Medicine; Visit Provider Physician Assistant
DX: I12.9 Hypertensive chronic kidney disease with stage 1 through stage 4 chronic kidney disease, or unspecified chronic kidney disease (principal); G40.909 Epilepsy, unspecified, not intractable, without status epilepticus; E11.8 Type 2 diabetes mellitus with unspecified complications; N18.30 Chronic kidney disease, stage 3 unspecified; G45.9 Transient cerebral ischemic attack, unspecified; Z09 Encounter for follow-up examination after completed treatment for conditions other than malignant neoplasm

== ENCOUNTER → 2025-03-14 08:48 | Outpatient (BNVA) | payer MEDICARE, MEDICAID, SELFPAY ==
[2025-03-13 12:00] VITALS: BP 146/76; BP 148/60; BMI 26.7
== END ==
PROVIDERS: PCP Internal Medicine; Visit Provider Physician Assistant
DX: E11.22 Type 2 diabetes mellitus with diabetic chronic kidney disease (principal); R13.10 Dysphagia, unspecified; G40.909 Epilepsy, unspecified, not intractable, without status epilepticus; I12.9 Hypertensive chronic kidney disease with stage 1 through stage 4 chronic kidney disease, or unspecified chronic kidney disease; N18.30 Chronic kidney disease, stage 3 unspecified; Z09 Encounter for follow-up examination after completed treatment for conditions other than malignant neoplasm; Z86.73 Personal history of transient ischemic attack (TIA), and cerebral infarction without residual deficits
CPT/HCPCS: 96127; 99495

== ENCOUNTER 2025-03-16 09:17 | Outpatient (REF) | payer MEDICARE, MEDICAID, SELFPAY ==
[2025-03-13 12:00] VITALS: BP 146/76; BP 148/60; BMI 26.7
[2025-03-16 12:49] LABS: Anion Gap 10 (12-20); Blood Urea Nitrogen 26 mg/dL (9-16); Calcium 9.5 mg/dL (8.4-10.2); Carbon Dioxide 27 mmol/L (22-29); Chloride 110 mmol/L (96-108); Estimated Glomerular Filt Rate 44; Potassium 4.2 mmol/L (3.3-5.1); Sodium 143 mmol/L (135-145)
== END 2025-03-16 09:18 | disposition home or self-care (01) ==
LOC: HO.LAB 09:17
PROVIDERS: Physician Assistant; Absent Provider Internal Medicine Hypertension Specialist; PCP Internal Medicine; Visit Provider Nurse Practitioner
DX: G40.909 Epilepsy, unspecified, not intractable, without status epilepticus (principal); G47.00 Insomnia, unspecified; N18.30 Chronic kidney disease, stage 3 unspecified; Z86.73 Personal history of transient ischemic attack (TIA), and cerebral infarction without residual deficits; Z79.899 Other long term (current) drug therapy
CPT/HCPCS: 36415; 80048; 99212

== ENCOUNTER 2025-03-16 09:17 | Outpatient (AMB) | payer MEDICARE, MEDICAID, SELFPAY ==
[2025-03-13 12:00] VITALS: BP 146/76; BP 148/60; BMI 26.7
--- NOTE | 2025-03-16 09:22 | MHC.OFFVIS ---
Vital Signs 03/16/25 09:30 Height 5 ft 7 in Weight 170 lb BMI 26.6 BP 168/71 H Blood Pressure Location Rt brachial Position Sitting Respiration 16 Pulse 64 Pulse Oximetry (%) 98 Oxygen Delivery Method Room Air Intake Visit Reasons: Follow Up Per Dr. Zaldivar Lease Operator Required: No Allergies losartan Allergy (Severe, Verified 03/20/25 09:50) Swelling sesame seed Allergy (Verified 03/20/25 09:50) Swelling HPI Comments Details: Kiel is a 69-year-old male patient with a past medical history of essential hypertension, hyperlipidemia, CVA involving the cerebellum, epilepsy, and insomnia who is here for a hospital follow-up. He had been brought to the hospital after experiencing an episode of dizziness and unsteadiness which had happened a proximally 1 week prior. He had fallen out of bed and was noted by neighbors to have confusion and a right facial droop. When he finally was no longer confused, he was in the hospital and had not recalled any of the events leading up to his hospital arrival. He tells me that he does have a known history of seizure disorder and he does take lamotrigine. He admits to poor compliance with the lamotrigine and has been only taking it once daily leading up to this event. He has since his hospitalization been taking it twice daily as prescribed. His prescribed dose is 200 mg twice daily. He also notes that he has profound insomnia and takes 10 mg of zolpidem nightly. He had taken his zolpidem that night before awakening early that morning with his confusion. He does report some sleepwalking as a child though is unaware of any sleep walking events in his adult life. Since his hospitalization, he denies any other events including confusion, dissociation, or loss of awareness. He denies any abnormal movements or tonic-clonic events. He denies awakening from sleep having had bitten his tongue. Prior workup: CT brain-Mild cerebral atrophy CTA of head and neck-no significant large vessel occlusion MRI of the brain September of 2024-left parieto-occipital area of FLAIR hyperintensity MRI of the brain February 2025-similar to prior MRI without any acute findings Routine EEG 2024- Mild slowing with no evidence of seizure disorder [facility] Medical History Screening for prostate cancer Low libido Screening for prostate cancer Pre-op examination Shift work sleep disorder Snoring Erectile dysfunction Headache Screening for colon cancer Adult general medical exam Erectile dysfunction due to type 2 diabetes mellitus Heart palpitations Chest pain COVID-19 High cholesterol Sciatica Hypertension Diabetes Epilepsy Heart attack Surgical History H/O colonoscopy History of tonsillectomy History of cardiac catheterization (~2015) History of coronary artery bypass graft x 2 (~2005) Family History Father Cardiovascular disease Mother No problems noted. Social History Household Members: None Housing: Apartment Do you presently have visiting nurse or other home services: No Alcohol intake: former Comment: hasnt drank in 30 years Patient Tobacco Use Status: Never used Tobacco e-Cigarette/Vaping Use: Never Used Second Hand Smoke Exposure: No service: No Current occupational status: previously employed Current occupational exposures/hazards: No Cognitive needs: No Hearing needs: No Vision needs: No Review of Systems Const All systems reviewed & are unremarkable except as noted in HPI and below Physical Exam Vital Signs: Last Vital Signs Pulse 64 03/16/25 09:30 Resp 16 03/16/25 09:30 BP 168/71 H 03/16/25 09:30 Pulse Ox 98 03/16/25 09:30 Oxygen Delivery Method Room Air 03/16/25 09:30 BMI result Body Mass Index 26.6 Const General: cooperative, healthy appearing, comfortable and no acute distress Nutritional Appearance: well nourished Orientation/consciousness: patient oriented x3 Limitations: no limitations HEENT Head: Yes normal to inspection and Yes normocephalic Eyes General: appearance normal, both eyes and all related structures Visual Will: normal visual will by confrontation Alignment and Position: alignment normal Periorbital: periorbital findings normal Eyelids: Yes eyelids normal Conjunctivae: conjunctivae normal Sclerae: sclerae normal Neck Neck: Yes normal visual inspection and Yes full ROM General: Yes no CVA tenderness Back/Spine/Pelvis Back: no CVA tenderness Cervical Spine: normal cervical lordosis Thoracic/Lumbar Spine: thoracic and lumbar spine normal to inspection Neuro General: patient oriented x3 and deep tendon reflexes 2+ bilaterally Cranial nerves: Yes CN's II-XII intact bilaterally and Yes Facial sensation intact/muscles of mastication intact Cognition (Neuro): normal cognition Gait exam (Neuro): Normal gait present Motor exam (neuro): no tremor noted Sensory Exam: double simultaneous stimulation for sensation normal Romberg Test: Negative Pupils: Normal pupillary reactivity/response: bilateral Psych Appearance: grossly normal Mental Status: mental status grossly normal Speech and movement: Normal speech and movement present and Clear speech present Affect: normal affect Attitude: cooperative Thought process: Normal thought process present Thought content: Normal thought content present Insight: Good insight present (Psych) Judgement: Good judgement present (Psych) Assessment & Plan Assessment & Plan (1) History of cerebrovascular accident (CVA) involving cerebellum: Code(s): Z86.73 - Personal history of transient ischemic attack (TIA), and cerebral infarction without residual deficits Category: Medical (2) Epilepsy: Code(s): G40.909 - Epilepsy, unspecified, not intractable, without status epilepticus Category: Medical (3) Insomnia: Code(s): G47.00 - Insomnia, unspecified Category: Medical Plan Kiel is a 69-year-old male patient with a past medical history of essential hypertension, hyperlipidemia, CVA involving the cerebellum, epilepsy, and insomnia who is here for a hospital follow-up after a transient episode of confusion and loss of awareness. He does have history of seizure disorder for which she takes lamotrigine and had been poorly compliant with this medication leading up to his event. It is very possible that his poor compliance led to seizure event and prolonged episode of confusion. His routine EEG from 03/08/2025 however was reassuring noting some slowing but without any evidence of seizure disorder. He also takes Ambien 10 mg for insomnia which is known to cause sleepwalking and confusion and some individuals. I can not fully exclude that the zolpidem did not play a role in this episode. I will perform a 48 hour ambulatory EEG, we have discussed the importance of compliance with his medications, and pending his EEG, primary care may consider trial of another sleep agent. -48 hour ambulatory EEG -compliance with lamotrigine 200 mg twice daily -pending EEG, consider alternative agent for sleep -follow up in 2 months or sooner if needed Coding Level of Care Code Est Pt Level 4 (99859) Diagnoses History of cerebrovascular accident (CVA) involving cerebellum Z86.73 Epilepsy G40.909 Insomnia G47.00
[2025-03-16 09:30] VITALS: BP 168/71; PULSE 64; RESP 16; O2SAT 98; BMI 26.6
--- OUTSIDE RECORDS SUMMARY | 2025-03-16 10:06 | XMS_ITS | Encounter Summary ---
Author Organization [facility] Address [address] [place] [address] Phone Care Team Providers Care Farm Machine Tender Name Role Phone Lou Jameson MD Primary Care Provider Encounter Details Date Type Department Care Team (Late st Contact Info) Description 02/14/2025 Documentation Only [facility] [address] [place] [address] [place] [address] [place] [address] Social History Tobacco Use Types [...] Visit [facility] [address] [place] [phone] Herve Valencia MD [address] [facility] [place] [address] documented as of this encounter Visit Diagnoses Not on filedocumented in this encounter Care Teams Farm Machine Tender Relationship Specialty Start Date End Date Lou Jameson MD [address] [place] [address] [phone] PCP - General Internal Medicine 02/14/25 documented as of this encounter
--- OUTSIDE RECORDS SUMMARY | 2025-03-16 10:06 | XMS_ITS | Clinical Summary ---
Author Organization [facility] Address [address] [place] [address] Phone Care Team Providers Care Av Specialist Name Role Phone Lou Jamesno MD Primary Care Provider [phone] Encounters Date Type Department Care Team Description 02/14/2025 Documentation Only [facility] [address] [place] [address] Kinga Peck MA from Last [...] Visit [facility] [address] [place] [address] Herve Valencia MD [address] [place] [address] [place] [address] Health Maintenance Due Date Last [...] topic Insurance Medicare Medicaid [place] Care Teams Av Specialist Relationship Specialty Start Date End Date Lou Jameson MD [address] [place] [address] PCP - General Internal Medicine 02/14/25
--- OUTSIDE RECORDS SUMMARY | 2025-03-16 10:06 | XMS_ITS | Clinical Summary ---
Author Organization [facility] Address [address] [employer] [address] [address] Phone Care Team Providers Care Corporate Safety Director Name Role Phone Pcp, Unknown Primary Care [...] topic Medical Devices Not on file Insurance [facility] [place] [address] [place] [address] ACO [facility] [employer] [place] [address] [place] [address] [employer] [facility] Care Teams Corporate Safety Director Relationship Specialty Start Date End Date Pcp, Unknown PCP - General 09/30/21 Additional Source Comments The information contained in this document represents components of the legal health record. It is not the complete legal health record.[facility]
--- OUTSIDE RECORDS SUMMARY | 2025-03-16 10:06 | XMS_ITS | Clinical Summary ---
Author Organization [facility] Address [address] [place] [address] Phone Care Team Providers Care Picture Copyist Name Role Phone Lou Jameson MD Primary Care Provider [phone] Allergies No known active allergies Medications diclofenac [...] Insurance [place] - [place] Care Teams Picture Copyist Relationship Specialty Start Date End Date Lou Jameson MD PCP - General 03/15/24
--- OUTSIDE RECORDS SUMMARY | 2025-03-16 10:06 | XMS_ITS | Clinical Summary ---
Author Organization [employer] Address [address] [place] [address] [address] [place] [address] Care Team Providers Care Solar Sales Energy Advisor Name Role Phone Unavailable Primary Care Provider [...]
== END 2025-03-16 10:25 | disposition home or self-care (01) ==
LOC: HO.HSM 09:18
PROVIDERS: PCP Internal Medicine; Visit Provider Nurse Practitioner
DX: Z86.73 Personal history of transient ischemic attack (TIA), and cerebral infarction without residual deficits (principal); G40.909 Epilepsy, unspecified, not intractable, without status epilepticus; G47.00 Insomnia, unspecified
CPT/HCPCS: 99214

== ENCOUNTER 2025-03-20 09:38 | Outpatient (AMB) | payer MEDICARE, MEDICAID, SELFPAY ==
[2021-08-28 07:22] VITALS: BP 146/76; BP 148/60; BMI 26.7
[2025-03-13 12:00] VITALS: BP 146/76; BP 148/60; BMI 26.7
[2025-03-20 09:49] VITALS: BP 132/62; PULSE 69; O2SAT 97; BMI 26.6
--- NOTE | 2025-03-20 09:49 | HO.NEPHOV_ITS ---
Vital Signs 03/20/25 09:49 Height 5 ft 7 in Weight 170 lb BMI 26.6 BP 132/62 Blood Pressure Location Rt brachial Position Sitting Pulse 69 Pulse Source Pulse Oximeter Pulse Oximetry (%) 97 Oxygen Delivery Method Room Air Intake Visit Reasons: 3mon follow-up w/labs confirmed Artificial Insemination Technician Required: No Accompanied by: Self / Same As Patient Allergies losartan Allergy (Severe, Verified 03/20/25 09:50) Swelling sesame seed Allergy (Verified 03/20/25 09:50) Swelling Medication List - Last Reconciled 03/20/25 by Mynor Gallegos MD alum-mag hydroxide-simeth 400-400-40 mg/5 mL (Antacid Anti-Gas) 5 mL PO QID 14 days amlodipine 2.5 mg PO DAILY aspirin 81 mg PO DAILY atorvastatin 80 mg PO BEDTIME blood pressure test kit-large check bp daily once stable check twice a week and as needed blood sugar diagnostic (FreeStyle Lite Strips) daily dapagliflozin propanediol (Farxiga) 5 mg PO DAILY epinephrine (EpiPen 2-Charanjit) 0.3 mg (0.3 mL) IM Q10M PRN lamotrigine 200 mg PO BID 90 days levocetirizine 5 mg PO DAILY metformin 1,000 mg PO BID 90 days metoprolol succinate ER 50 mg PO DAILY metoprolol succinate ER 100 mg PO DAILY needle (disp) 18 G (BD Regular Bevel [place]) As directed - draw up testosterone needle (disp) 23 gauge (BD Regular Bevel [place]) Inject testosterone subcutaneous safety needles (BD SafetyGlide Needle) As directed to inject testosterone syringe (disposable) (BD Luer-Verito Syringe) Testosterone injection weekly zolpidem 10 mg PO BEDTIME HPI Comments Details: 69-year-old man with a history of diabetes mellitus and proteinuria referred for chronic kidney disease. Kiel had DC at the age of 43. He was diagnosed with diabetes mellitus at that time. He has had diabetes mellitus for more than 20 years. Recent urine protein creatinine ratio was 1.333. He was started on losartan 50 mg few months ago. Serum creatinine was 1.24 back in December of 2021. The next serum creatinine was 1.47 in February of 2024. With the increase p.o. hydration repeat serum creatinine was 1.41 in March of 2024. He also has hypertension. He was initially on metoprolol. History of seizures.. [place]. He is on lamotrigine. Follows with Dr. Mekhi scanlon There is a strong family history of coronary disease. Paternal grandmother at the age of 39. His father at age of 51 -both from myocardial infarction. He is currently retired. No history of smoking or alcohol abuse. 11/21/24 The patient is a 69-year-old male presenting with chronic kidney disease and essential hypertension. The patient has a history of chronic kidney disease, with recent lab results showing improvement in kidney function. In September, the creatinine level was 1.72 mg/dL with a kidney function of 40%, which improved to 1.49 mg/dL and 47% function in October. The patient has been advised to maintain hydration, which appears to be contributing to the improvement. The patient also has a history of essential hypertension, with recent blood pressure readings at home around 136 mmHg systolic. Today, the blood pressure was measured at 104/60 mmHg, which is lower than usual. The patient is currently on amlodipine 2.5 mg, hydralazine 50 mg three times daily, and metoprolol 150 mg. The patient has diabetes mellitus and is currently taking glipizide. The patient reports not consuming sugar and plans to monitor blood glucose levels more regularly. The patient experienced an allergic reaction to losartan, characterized by swelling, and has since discontinued its use. Recently, the patient experienced lip swelling after consuming Danish food, which resolved without intervention. 03/21/25 - The patient is a 69-year-old male presenting with a follow-up for CKD in a setting of DM and after a suspected transient ischemic attack (TIA). - Experienced dizziness and incoherence, leading to hospitalization. - MRI with contrast was negative; TIA diagnosis was made. - Neurologist disputed TIA, suggested medication as cause.- ? Zolpedem - Difficulty swallowing - attributed to acid reflux by ED , treated with lidocaine.- Able to swallow now!! - Kidney function improved from 36% to 44%. - Creatinine improved from 1.89 mg/dL to 1.59 mg/dL. - A1c levels increased from 6.3 to 7. - No issues with urination, nausea, or vomiting. [facility] Medical History Screening for prostate cancer Low libido Screening for prostate cancer Pre-op examination Shift work sleep disorder Snoring Erectile dysfunction Headache Screening for colon cancer Adult general medical exam Erectile dysfunction due to type 2 diabetes mellitus Heart palpitations Chest pain COVID-19 High cholesterol Sciatica Hypertension Diabetes Epilepsy Heart attack Surgical History H/O colonoscopy History of tonsillectomy History of cardiac catheterization (~2015) History of coronary artery bypass graft x 2 (~2005) Family History Father Cardiovascular disease Mother No problems noted. Social History Household Members: None Housing: Apartment Do you presently have visiting nurse or other home services: No Alcohol intake: former Comment: hasnt drank in 30 years Patient Tobacco Use Status: Never used Tobacco e-Cigarette/Vaping Use: Never Used Second Hand Smoke Exposure: No service: No Current occupational status: previously employed Current occupational exposures/hazards: No Cognitive needs: No Hearing needs: No Vision needs: No Physical Exam Vital Signs: Last Vital Signs Pulse 69 03/20/25 09:49 BP 132/62 03/20/25 09:49 Pulse Ox 97 03/20/25 09:49 Oxygen Delivery Method Room Air 03/20/25 09:49 BMI result Body Mass Index 26.6 Comfortable Neck supple no JVD. Lungs entry equal no rales. Heart S1-S2 heard no gallop or rub. Abdomen soft nontender. Neuro alert awake oriented. No asterixis. Extremities no edema. Results Reviewed Nephrology Results: Hgb, (14.0-18.0) 12.7 g/dl L 03/11/25 WBC, (4.8-10.8) 6.5 X10*3/uL 03/11/25 Plt Count, (160-400) 200 X10*3/uL 03/11/25 Sodium, (135-145) 143 mmol/L 03/16/25 Potassium, (3.3-5.1) 4.2 mmol/L 03/16/25 Chloride, (96-108) 110 mmol/L H 03/16/25 Carbon Dioxide, (22-29) 27 mmol/L 03/16/25 BUN, (9-16) 26 mg/dL H 03/16/25 Creatinine, (0.5-1.4) 1.59 mg/dL H 03/16/25 Calcium, (8.4-10.2) 9.5 mg/dL 03/16/25 Urine Protein, (Neg-Trace) 30 (1+) mg/dL H 03/08/25 Renal US 06/14/24 Assessment & Plan Assessment & Plan (1) RISHABH (acute kidney injury): Code(s): N17.9 - Acute kidney failure, unspecified Category: Medical (2) CKD (chronic kidney disease) stage 3, GFR 30-59 ml/min: Code(s): N18.30 - Chronic kidney disease, stage 3 unspecified Category: Medical Qualifiers: Chronic kidney disease stage 3 subtype: unspecified whether 3a or 3b Qualified Code(s): N18.30 - Chronic kidney disease, stage 3 unspecified (3) Essential hypertension: Code(s): I10 - Essential (primary) hypertension Category: Medical Plan Kiel has stage 3 chronic kidney disease in the setting of longstanding diabetes mellitus. He has had diabetes mellitus for more than 20 years. He has non nephrotic range proteinuria most likely due to underlying diabetic kidney disease. No reason to believe he has any active glomerular nephritis or interstitial disease. No Obstructive uropathy based on renal ultrasonogram Serum creatinine was 1.24 about 2 years ago and the current serum creatinine is around 1.4. This may be due to natural progression of the underlying disease. Cr improved with hydration ( 1.79 down to 1.4) 24 hr urine shows volume of 625 cc with 919 mg of protein.- Non nephrotic Encouraged to increase fluid intake Recent episode of RISHABH due to hypoperfusion - resolved ( feb 2025) Proteinuria Most likely due to Diabetic kdiney disease h/o Lip swelling /Angioedema while on Losartan Unable to use Losartan Hypertension. BP well controlled Goal is to maintain blood pressure less than 130/80 mm Hg. Encouraged him to stay on low-sodium diet. Orders: Orders Basic Metabolic Panel 3 Months N18.30 - Chronic kidney disease, stage 3 unspecified Creatinine Urine 3 Months N18.30 - Chronic kidney disease, stage 3 unspecified UA and rflx microscopic 3 Months N18.30 - Chronic kidney disease, stage 3 unspecified Total Protein Urine Random 3 Months N18.30 - Chronic kidney disease, stage 3 unspecified Coding Level of Care Code Est Pt Level 4 (26698) Diagnoses RISHABH (acute kidney injury) N17.9 Stage 3 chronic kidney disease, unspecified whether stage 3a or 3b CKD N18.30 Chronic kidney disease stage 3 subtype: unspecified whether 3a or 3b Essential hypertension I10
--- OUTSIDE RECORDS SUMMARY | 2025-03-20 11:09 | XMS_ITS | Clinical Summary ---
Author Organization [employer] Address [address] [place] [address] 7[address] [place] [address] Care Team Providers Care Fuel Assembler Name Role Phone Unavailable Primary Care Provider [...]
--- OUTSIDE RECORDS SUMMARY | 2025-03-20 11:09 | XMS_ITS | Clinical Summary ---
Author Organization [facility] Address [address] [employer] [address] [address] Phone Care Team Providers Care Collections Attorney Name Role Phone Pcp, Unknown Primary Care [...] topic Medical Devices Not on file Insurance [facility] [place] [address] [address] ACO [facility] [employer] [place] [place] [address] [place] [address] [employer] [facility] Care Teams Collections Attorney Relationship Specialty Start Date End Date Pcp, Unknown PCP - General 09/30/21 Additional Source Comments The information contained in this document represents components of the legal health record. It is not the complete legal health record.[facility]
== END 2025-03-20 10:05 | disposition home or self-care (01) ==
LOC: HO.HKA 09:39
PROVIDERS: PCP Internal Medicine; Visit Provider Internal Medicine Hypertension Specialist
DX: N17.9 Acute kidney failure, unspecified (principal); N18.30 Chronic kidney disease, stage 3 unspecified; I10 Essential (primary) hypertension
CPT/HCPCS: 99214

== ENCOUNTER → 2025-03-20 09:38 | Outpatient (BNVA) | payer MEDICARE, SELFPAY ==
[2025-03-13 12:00] VITALS: BP 146/76; BP 148/60; BMI 26.7
== END ==
PROVIDERS: PCP Internal Medicine; Visit Provider Internal Medicine Hypertension Specialist
DX: I12.9 Hypertensive chronic kidney disease with stage 1 through stage 4 chronic kidney disease, or unspecified chronic kidney disease (principal); N18.30 Chronic kidney disease, stage 3 unspecified; N17.9 Acute kidney failure, unspecified
CPT/HCPCS: 99212

== ENCOUNTER 2025-03-22 14:07 | Outpatient (REF) | payer MEDICARE, SELFPAY ==
[2025-03-13 12:00] VITALS: BP 146/76; BP 148/60; BMI 26.7
--- NOTE | ~2025-03-22 | XR_ITS ---
EXAMINATION: XR LUMBOSACRAL SPINE 4 view minimum CLINICAL INFORMATION: M54.16 - Radiculopathy, lumbar region COMPARISON: Previous x-ray September 2024 TECHNIQUE: AP lateral and lateral flexion and extension views of the lumbosacral spine. FINDINGS: There is anterior subluxation of L4 with respect to L5. This appears stable on flexion and extension views and not appreciably changed from September 2024 exam. Mild curvature of the proximal lumbar spine to the right. Bone alignment is otherwise normal. No fracture or dislocation. Degenerative spondylosis and degenerative disc disease at L4-5. Lower lumbar spine facet arthritis. Atherosclerotic disease. XR/XR lumbar spine 4V min IMPRESSION: 7 mm anterior subluxation of L4 with respect to L5 similar to September 2024 exam. Mild degenerative disc disease and spondylosis at L4-5 and lower lumbar spine facet arthritis. Electronically signed by: Kavya Hines MD 03/22/2025 03:12 PM EDT
== END 2025-03-22 14:08 | disposition home or self-care (01) ==
LOC: HO.HOSX 14:07
PROVIDERS: PCP Internal Medicine; Visit Provider Physician Assistant
DX: M54.16 Radiculopathy, lumbar region (principal)
CPT/HCPCS: 72110; 99212

== ENCOUNTER 2025-03-22 14:07 | Outpatient (AMB) | payer MEDICARE, MEDICAID, SELFPAY ==
[2025-03-13 12:00] VITALS: BP 146/76; BP 148/60; BMI 26.7
--- NOTE | 2025-03-22 14:15 | A.SPINEOV_ITS ---
Intake Visit Reasons: 3 month follow up Intake Note: Mr. Bourne is here today for a 3 month F/u. Map Maker Required: No Allergies losartan Allergy (Severe, Verified 03/20/25 09:50) Swelling sesame seed Allergy (Verified 03/20/25 09:50) Swelling Assessment & Plan Assessment & Plan (1) Lumbar radiculopathy: Code(s): M54.16 - Radiculopathy, lumbar region Category: Medical Plan Mr Bourne is here in follow-up. He has not developed any myelopathic complaints to speak of. He did recently have an episode where he fell out of bed, but suspects that was due to his sleeping medication. Apparently he was brought to the hospital, was found confused, aphasic, having trouble with his balance. He was ruled out for a stroke, he tells me he had an EEG done as well and that was negative. He was discharged in a few days it sounds like. In terms of his cervical spine issues though, he has not developed any neck his strength is excellent. He does have some difficulty with tandem gait walking but does have history of diabetes and cerebellar stroke. Reflexes are flat if not slightly diminished, no clonus, no Mitchell's sign. He does report some trouble walking with pain down into his hips and thighs. He had a x-ray done a few years ago here at [facility] showing spondylolisthesis at L4-5. Be because he is in so much pain with walking, even short distances he has to sit down multiple times just to get to the convenience store, he asked me if I would consider working this up for him. Given the extent of degeneration on his x-rays, I think it is worth getting an MRI. I will also get a set of standing flexion-extension x-rays to look at the spondylolisthesis. I will see him back once that is completed. With regard to the cervical spine, we can continue to monitor clinically unless he starts to get symptoms. Total amount of time spent in this visit was 20 minutes in discussion of symptoms, cervical and lumbar imaging results and subsequent plan of care Alfonzo Casillas MD,PhD [facility] Orders: Orders MR lumbar spine wo con Today M54.16 - Radiculopathy, lumbar region XR lumbar spine 4V min Today M54.16 - Radiculopathy, lumbar region Coding Level of Care Code Est Pt Level 3 (43679) Diagnoses Lumbar radiculopathy M54.16
--- OUTSIDE RECORDS SUMMARY | 2025-03-22 17:12 | XMS_ITS | Encounter Summary ---
Author Organization [facility] Address [address] [place] [address] Phone Care Team Providers Care Freight Brake Operator Name Role Phone Lou Jameson MD Primary Care Provider [phone] Encounter Details Date Type Department Care Team (Late st Contact Info) Description 02/14/2025 Documentation Only [facility] [address] [place] [address] [place] [address] [place] [address] Social History Tobacco Use Types [...] Visit [facility] [address] [place] [address] Herve Valencia MD [address] [place] [address] documented as of this encounter Visit Diagnoses Not on filedocumented in this encounter Care Teams Freight Brake Operator Relationship Specialty Start Date End Date Lou Jameson MD [address] [place] [address] PCP - General Internal Medicine 02/14/25 documented as of this encounter
--- OUTSIDE RECORDS SUMMARY | 2025-03-22 17:12 | XMS_ITS | Clinical Summary ---
Author Organization [employer] Address [address] [place] [address] [address] [place] [address] Care Team Providers Care Stoner Out Name Role Phone Unavailable Primary Care Provider [...]
--- OUTSIDE RECORDS SUMMARY | 2025-03-22 17:12 | XMS_ITS | Clinical Summary ---
Author Organization [facility] Address [address] [place] [address] Phone Care Team Providers Care Economics Instructor Name Role Phone Lou Jameson MD Primary Care Provider [phone] Allergies No known active allergies Medications diclofenac [...] Insurance [place] Care Teams Economics Instructor Relationship Specialty Start Date End Date Lou Jameson MD PCP - General 03/15/24
--- OUTSIDE RECORDS SUMMARY | 2025-03-22 17:12 | XMS_ITS | Clinical Summary ---
Author Organization [facility] Address [address] [place] [address] Phone Care Team Providers Care Chief Librarian Music Department Name Role Phone Lou Jameson MD Primary Care Provider [phone] Encounters Date Type Department Care Team Description 02/14/2025 Documentation Only [facility] [address] [place] [address] Kinga Peck MA from Last [...] Visit [facility] [address] [place] [address] Herve Valencia MD [address] [place] [address] [place] [address] Health Maintenance Due Date Last [...] topic Insurance Medicare Medicaid [place] Care Teams Chief Librarian Music Department Relationship Specialty Start Date End Date Lou Jameson MD [address] [place] [address] PCP - General Internal Medicine 02/14/25
--- OUTSIDE RECORDS SUMMARY | 2025-03-22 17:12 | XMS_ITS | Clinical Summary ---
Author Organization [facility] Address [address] [employer] [address] [address] Phone Care Team Providers Care Rfid Strategist Name Role Phone Pcp, Unknown Primary Care [...] topic Medical Devices Not on file Insurance [facility] [place] [place] [address] ACO [facility] [employer] [employer] [place] [address] [place] [address] [employer] [facility] [employer] [facility] ACO Care Teams Rfid Strategist Relationship Specialty Start Date End Date Pcp, Unknown PCP - General 09/30/21 Additional Source Comments The information contained in this document represents components of the legal health record. It is not the complete legal health record.[facility]
== END 2025-03-22 15:38 | disposition home or self-care (01) ==
LOC: HO.HNS 14:08
PROVIDERS: PCP Internal Medicine; Visit Provider Physician Assistant
DX: M54.16 Radiculopathy, lumbar region (principal)
CPT/HCPCS: 99213

== ENCOUNTER → 2025-03-22 14:58 | Outpatient (BNV) | payer MEDICARE, MEDICAID, SELFPAY ==
[2025-03-13 12:00] VITALS: BP 146/76; BP 148/60; BMI 26.7
== END ==
PROVIDERS: PCP Internal Medicine; Visit Provider Radiology Diagnostic Radiology
DX: M47.26 Other spondylosis with radiculopathy, lumbar region (principal); M51.369 Other intervertebral disc degeneration, lumbar region without mention of lumbar back pain or lower extremity pain
CPT/HCPCS: 72110

== ENCOUNTER 2025-04-06 08:12 | Outpatient (AMB) | payer MEDICARE, MEDICAID, SELFPAY ==
[2021-08-28 07:22] VITALS: BP 146/76; BP 148/60; BMI 26.7
[2025-03-13 12:00] VITALS: BP 146/76; BP 148/60; BMI 26.7
--- OUTSIDE RECORDS SUMMARY | 2025-04-06 08:19 | XMS_ITS | Clinical Summary ---
Author Organization [employer] Address [address] [place] [address] [address] [place] [address] Care Team Providers Care Plastics Scientist Name Role Phone Unavailable Primary Care Provider [...]
--- OUTSIDE RECORDS SUMMARY | 2025-04-06 08:19 | XMS_ITS | Clinical Summary ---
Author Organization [facility] Address [address] [address] [address] Phone Care Team Providers Care Electric Container Tester Name Role Phone Pcp, Unknown Primary Care [...] patient's age to complete this topic IPV VACCINES Aged Out No longer eligi ble based on patient's age to complete this topic MENINGOCOCCAL VACCINES (ACWY) Aged Out No longer eligible based on patient's age to complete this topic MENINGOCOCCAL VACCINES (B) Aged Out N o longer eligible based on patient's age to complete this topic Medical Devices Not on file Insurance [place] [address] [place] [address] ACO [facility] ACO [facility] ACO [facility] [employer] ACO ACO [facility] ACO Care Teams Electric Container Tester Relationship Specialty Start Date End Date Pcp, Unknown PCP - General 09/30/21 Additional Source Comments The information contained in this document represents components of the legal health record. It is not the complete legal health record.[facility]
--- OUTSIDE RECORDS SUMMARY | 2025-04-06 08:20 | XMS_ITS | Clinical Summary ---
Author Organization 175 [facility] Address [address] [place] [address] Phone Care Team Providers Care Campus Security Officer Name Role Phone Lou Jameson MD Primary Care Provider [phone] Allergies No known active allergies Medications diclofenac [...] Insurance [place] - [place] Care Teams Campus Security Officer Relationship Specialty Start Date End Date Lou Jameson MD PCP - General 03/15/24
--- NOTE | 2025-04-06 08:22 | MHC.OFFVIS ---
Vital Signs 04/06/25 08:26 Height 5 ft 7 in Weight 170 lb BMI 26.6 BP 110/64 Blood Pressure Location Lt brachial Position Sitting Pulse 89 Pulse Source Pulse Oximeter Intake Visit Reasons: 6 month f/up r/s 03-14-25 -(HS) Intake Note: 6 mth r/s Regional Driver Required: No Accompanied by: Self / Same As Patient Allergies losartan Allergy (Severe, Verified 03/20/25 09:50) Swelling sesame seed Allergy (Verified 03/20/25 09:50) Swelling Medication List - Last Reconciled 04/06/25 by ALTAGRACIA Solis alum-mag hydroxide-simeth 400-400-40 mg/5 mL (Antacid Anti-Gas) 5 mL PO QID 14 days amlodipine 2.5 mg PO DAILY aspirin 81 mg PO DAILY atorvastatin 80 mg PO BEDTIME blood pressure test kit-large check bp daily once stable check twice a week and as needed blood sugar diagnostic (FreeStyle Lite Strips) daily dapagliflozin propanediol (Farxiga) 5 mg PO DAILY epinephrine (EpiPen 2-Charanjit) 0.3 mg (0.3 mL) IM Q10M PRN lamotrigine 200 mg PO BID 90 days levocetirizine 5 mg PO DAILY metformin 1,000 mg PO BID 90 days metoprolol succinate ER 50 mg PO DAILY metoprolol succinate ER 100 mg PO DAILY needle (disp) 18 G (BD Regular Bevel Elaine) As directed - draw up testosterone needle (disp) 23 gauge (BD Regular Bevel Elaine) Inject testosterone subcutaneous safety needles (BD SafetyGlide Needle) As directed to inject testosterone syringe (disposable) (BD Luer-Verito Syringe) Testosterone injection weekly zolpidem 10 mg PO BEDTIME HPI HPI 6 month f/up r/s 03-14-25 -(HS): Details: The patient is a 69-year-old male presenting for follow-up of coronary artery disease, and recent hospitalization for possible CVA/ TIA which was ruled out.. History includes coronary artery bypass grafting in 2006, right coronary stenting in 2015, and right coronary artery stenting in 2020 for non-ST elevation myocardial infarction. He has hypertension, hyperlipidemia, and diabetes mellitus. Echocardiogram on June 27, 2019, showed ejection fraction 60-65%, mild right ventricular enlargement, mild aortic valve calcification, and mild tricuspid regurgitation. Presented to ER on March 08, 2025, with dizziness, right facial droop, left upper extremity weakness, and slurred speech. MRI was negative for acute CVA; history of prior CVA with chronic right facial droop and gait instability. He has been feeling good since his hospital discharge with no concerning symptoms. He is believed neurologically he is back to his baseline. He has no chest discomfort, shortness of breath, heart palpitations, lightheadedness. He tries to remain physically active. [facility] Medical History Screening for prostate cancer Low libido Screening for prostate cancer Pre-op examination Shift work sleep disorder Snoring Erectile dysfunction Headache Screening for colon cancer Adult general medical exam Erectile dysfunction due to type 2 diabetes mellitus Heart palpitations Chest pain COVID-19 High cholesterol Sciatica Hypertension Diabetes Epilepsy Heart attack Surgical History H/O colonoscopy History of tonsillectomy History of cardiac catheterization (~2015) History of coronary artery bypass graft x 2 (~2005) Family History Father Cardiovascular disease Mother No problems noted. Social History Household Members: None Housing: Apartment Do you presently have visiting nurse or other home services: No Alcohol intake: former Comment: hasnt drank in 30 years Patient Tobacco Use Status: Never used Tobacco e-Cigarette/Vaping Use: Never Used Second Hand Smoke Exposure: No service: No Current occupational status: previously employed Current occupational exposures/hazards: No Cognitive needs: No Hearing needs: No Vision needs: No Review of Systems Const All systems reviewed & are unremarkable except as noted in HPI and below Denies chills, Denies fatigue, Denies fever(s), Denies frequent falls, Denies weakness, Denies weight gain and Denies weight loss ENT Denies dizziness Card Denies chest pain, Denies leg edema, Denies lightheadedness, Denies palpitations, Denies dyspnea and Denies dyspnea on exertion Resp Denies cough, Denies dyspnea and Denies dyspnea on exertion GI Denies hematochezia Musc Denies abnormal gait, Denies muscle weakness, Denies numbness, Denies radiating pain into limb and Denies tingling Neuro Denies abnormal gait, Denies dizziness, Denies frequent falls, Denies numbness, Denies tingling and Denies weakness Endo Denies fatigue and Denies palpitations Physical Exam Vital Signs: Last Vital Signs Pulse 89 04/06/25 08:26 BP 110/64 04/06/25 08:26 BMI result Body Mass Index 26.6 Const General: cooperative, healthy appearing, comfortable and no acute distress Orientation/consciousness: patient oriented x3 Neck Neck: Yes normal visual inspection and Yes no JVD Resp Effort & Inspection: normal respiratory effort Auscultation: clear to auscultation bilaterally, no crackles, no rales, no rhonchi and no wheezes Cardio Rate: regular rate Rhythm: regular rhythm Heart sounds: S1 normal heart sound present, S2 normal heart sound present, no gallops, no murmurs and no rubs Skin General skin exam: no rashes or lesions noted Neuro General: patient oriented x3 Extrem General: Yes normal to inspection, No no pedal edema and No calf tenderness Psych Appearance: grossly normal Mental Status: mental status grossly normal Speech and movement: Normal speech and movement present Assessment & Plan Assessment & Plan (1) Atherosclerotic cardiovascular disease: Code(s): I25.10 - Atherosclerotic heart disease of [place] coronary artery without angina pectoris Category: Medical Plan: History of CAD with remote Coronary artery bypass grafting, RCA stenting x2, most recent 2020. Last echocardiogram 06/27/2019 with EF 60-65%, mild calcification of the aortic valve, mild TR, no regional wall motion abnormalities. Condition stable with no anginal symptoms. Will update echocardiogram to further evaluate valves. Continue aspirin indefinitely. Continue high-dose atorvastatin with ideal LDL goal less than 70. Continue amlodipine and metoprolol. Signs and symptoms of angina reviewed with him. (2) History of cerebrovascular accident (CVA) involving cerebellum: Code(s): Z86.73 - Personal history of transient ischemic attack (TIA), and cerebral infarction without residual deficits Category: Medical Plan: Prior history of CVA. Recent hospitalization for symptoms concerning for recurrent CVA however MRI shows no acute finding. He is having further evaluation for possible seizure activity. He follows with neurology. (3) Essential hypertension: Code(s): I10 - Essential (primary) hypertension Category: Medical Plan: Blood pressure goal less than 130/80. Well controlled at this time. Continue amlodipine and metoprolol. (4) Hyperlipidemia: Code(s): E78.5 - Hyperlipidemia, unspecified Category: Medical Qualifiers: Hyperlipidemia type: unspecified Qualified Code(s): E78.5 - Hyperlipidemia, unspecified Plan: [place] LDL goal less than 70. Labs done 03/08/2025 showed LDL 54. Continue high-dose atorvastatin (5) Hospital discharge follow-up: Code(s): Z09 - Encounter for follow-up examination after completed treatment for conditions other than malignant neoplasm Category: Medical Plan: Discharge notes reviewed Plan Time spent on chart review, documentation, interview and assessment Orders: Orders CA echo transthoracic complete Today I25.10 - Atherosclerotic heart disease of [place] coronary artery without angina pectoris Coding Level of Care Code Est Pt Level 4 (21409) Complex EM visit Add On G2211 Diagnoses Atherosclerotic cardiovascular disease I25.10 History of cerebrovascular accident (CVA) involving cerebellum Z86.73 Essential hypertension I10 Hyperlipidemia, unspecified hyperlipidemia type E78.5 Hyperlipidemia type: unspecified Hospital discharge follow-up Z09 Time Spent (min) 32
[2025-04-06 08:26] VITALS: BP 110/64; PULSE 89; BMI 26.6
== END 2025-04-06 08:45 | disposition home or self-care (01) ==
LOC: HO.HCS 08:13
PROVIDERS: PCP Internal Medicine; Visit Provider Nurse Practitioner Family
DX: I25.10 Atherosclerotic heart disease of native coronary artery without angina pectoris (principal); Z86.73 Personal history of transient ischemic attack (TIA), and cerebral infarction without residual deficits; I10 Essential (primary) hypertension; E78.5 Hyperlipidemia, unspecified; Z09 Encounter for follow-up examination after completed treatment for conditions other than malignant neoplasm
CPT/HCPCS: 99214; G2211

== ENCOUNTER → 2025-04-06 08:12 | Outpatient (BNVA) | payer MEDICARE, MEDICAID, SELFPAY ==
[2025-03-13 12:00] VITALS: BP 146/76; BP 148/60; BMI 26.7
== END ==
PROVIDERS: PCP Internal Medicine; Visit Provider Nurse Practitioner Family
DX: I10 Essential (primary) hypertension (principal); I25.10 Atherosclerotic heart disease of native coronary artery without angina pectoris; Z09 Encounter for follow-up examination after completed treatment for conditions other than malignant neoplasm; Z95.5 Presence of coronary angioplasty implant and graft; E78.5 Hyperlipidemia, unspecified; Z86.73 Personal history of transient ischemic attack (TIA), and cerebral infarction without residual deficits; Z79.82 Long term (current) use of aspirin
CPT/HCPCS: 99212

== ENCOUNTER 2025-04-23 13:42 | Outpatient (REF) | payer MEDICARE, MEDICAID, SELFPAY ==
[2025-03-13 12:00] VITALS: BP 146/76; BP 148/60; BMI 26.7
--- NOTE | ~2025-04-23 | MR_ITS ---
EXAMINATION: MR LUMBAR SPINE WITHOUT CONTRAST CLINICAL INFORMATION: M 54.16. Radiculopathy, lumbar region.. COMPARISON: Correlated to x-ray dated March 22, 2025. October 06, 2024. TECHNIQUE: MRI of the lumbar spine was obtained using routine sequences without contrast. FINDINGS: Last rib-bearing vertebra labeled T12. No bone marrow STIR signal abnormality. Modic type II endplate changes, subchondral cyst formation, decreased intervertebral disc height and signal at L4-5. 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 1 mm retrolisthesis L2-3. Small marginal osteophyte formation at T12-L1: L2-3 levels. Conus medullaris ends at pedicle of L1 with normal signal. T12-L1: No central spinal canal or neuroforamina stenosis. L1-2: Broad-based disc bulging. Facet joint hypertrophy. No central spinal canal or neuroforamina stenosis. L2-3: Broad-based disc bulging. Facet joint and ligamentum flavum hypertrophy. Reduced AP diameter of the thecal sac and bilateral, right greater left neuroforamina and stenosis encroaching the neural limits. L3-4: Broad-based disc bulging with a focal annular fissure and broad-based left foraminal disc herniation . Facet joint hypertrophy. 4 mm fluid signal characteristic beneath the right ligamentum flavum. Decreased AP diameter of the thecal sac. Bilateral neuroforamina stenosis left greater than the right encroaching the left L3 exiting nerve root. L4-5: Grade 1 anterolisthesis resulting in uncovered disc with asymmetric to the right broad-based disc bulging resulting in decreased AP diameter of the thecal sac and right neuroforamina stenosis compressing the right L4 nerve root and encroaching the left L4 nerve root. Bilateral facet joint hypertrophy. L5-S1: Broad-based disc bulging. No central spinal canal stenosis. Bilateral neuroforamina narrowing, left greater than the right likely encroaching the L5 exiting nerve roots. No prevertebral compartment hematoma, mass or fluid collection. 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 Grade 1 retrolisthesis L2-3 resulting in bilateral right greater than left neuroforamina and stenosis encroaching the right L2 nerve root. Spondylosis L3-4 with the likely broad-based left foraminal herniated disc encroaching likely compressing the left L3 exiting nerve root. 4 mm synovial cyst beneath the right ligamentum flavum L3-4 without compression upon neural elements. Electronically signed by: Izaiah Mcgee MD 04/23/2025 02:35 PM [facility]
--- OUTSIDE RECORDS SUMMARY | 2025-04-23 17:14 | XMS_ITS | Clinical Summary ---
Author Organization [employer] Address [address] [place] [address] [address] [place] [address] Care Team Providers Care Appeals Coordinator Name Role Phone Unavailable Primary Care Provider [...]
--- OUTSIDE RECORDS SUMMARY | 2025-04-23 17:14 | XMS_ITS | Clinical Summary ---
Author Organization [facility] Address [address] [employer] [address] [address] Phone Care Team Providers Care Radiagraph Operator Name Role Phone Pcp, Unknown Primary [...] topic Medical Devices Not on file Insurance [facility] [place] [address] [place] [id number] ACO [facility] [employer] [place] [place] [address] [place] [address] [employer] [facility] Care Teams Radiagraph Operator Relationship Specialty Start Date End Date Pcp, Unknown PCP - General 09/30/21 Additional Source Comments The information contained in this document represents components of the legal health record. It is not the complete legal health record.[facility]
== END 2025-04-23 13:43 | disposition home or self-care (01) ==
LOC: HO.MRI 13:42
PROVIDERS: PCP Internal Medicine; Visit Provider Physician Assistant
DX: M54.16 Radiculopathy, lumbar region (principal)
CPT/HCPCS: 72148

== ENCOUNTER → 2025-04-23 13:50 | Outpatient (BNV) | payer MEDICARE, MEDICAID, SELFPAY ==
[2025-03-13 12:00] VITALS: BP 146/76; BP 148/60; BMI 26.7
== END ==
PROVIDERS: PCP Internal Medicine; Visit Provider Radiology Diagnostic Radiology
DX: M47.26 Other spondylosis with radiculopathy, lumbar region (principal); M71.38 Other bursal cyst, other site
CPT/HCPCS: 72148

== ENCOUNTER 2025-04-27 15:05 | Outpatient (AMB) | payer MEDICARE, MEDICAID, SELFPAY ==
[2025-04-23 15:22] VITALS: BP 146/76; BP 148/60; BMI 26.7
--- NOTE | 2025-04-27 15:10 | A.SPINEOV_ITS ---
Intake Visit Reasons: MRI f/u with in office Intake Note: Mr. Bourne is here today to f/u on the results to his MRI. Combiner Required: No Allergies losartan Allergy (Severe, Verified 04/27/25 15:11) Swelling sesame seed Allergy (Verified 04/27/25 15:11) Swelling Assessment & Plan Assessment & Plan (1) Lumbar radiculopathy: Code(s): M54.16 - Radiculopathy, lumbar region Category: Medical (2) Cervical spinal stenosis: Code(s): M48.02 - Spinal stenosis, cervical region Category: Medical Plan Mr Bourne came in for follow up. his lumbar MRI done at [place] indeed shows that he has an L4-5 grade 1-2 spondylolisthesis. Now that he reflects more about it, he tells me that he is really just in some mild discomfort in his back with a little bit of sciatic pain. I sat down and reviewed his imaging with him, and told him that if the pain escalated and got to a point where he was becoming debilitated from it, I think he would be a good candidate for lumbar fusion. We also reviewed his cervical MRI imaging, again we talked about the fact that in light of him having no symptoms, Dr. Casillas would typically not choose to operate. On exam he is still demonstrating excellent strength with no evidence of hyperreflexia. His gait is normal with no instability. If he develops symptoms of either of the problems of the lumbar and cervical he will come back and see me sooner, but for now I told him to follow up in 6 months. Total amount of time spent in this visit was 20 minutes in discussion of symptoms, lumbar and cervical imaging results and subsequent plan of care Alfonzo Casillas MD,PhD [facility] Coding Level of Care Code Est Pt Level 3 (70150) Diagnoses Lumbar radiculopathy M54.16 Cervical spinal stenosis M48.02
--- OUTSIDE RECORDS SUMMARY | 2025-04-27 19:09 | XMS_ITS | Clinical Summary ---
Author Organization [facility] Address [address] [employer] [address] [address] Phone Care Team Providers Care Parcel Post Clerk Name Role Phone Pcp, Unknown Primary Care [...] topic Medical Devices Not on file Insurance [facility] [place] [place] [address] ACO [facility] [place] [address] [address] [place] [id number] [employer] [facility] ACO [facility] ACO Care Teams Parcel Post Clerk Relationship Specialty Start Date End Date Pcp, Unknown PCP - General 09/30/21 Additional Source Comments The information contained in this document represents components of the legal health record. It is not the complete legal health record.[facility]
--- OUTSIDE RECORDS SUMMARY | 2025-04-27 19:09 | XMS_ITS | Clinical Summary ---
Author Organization [employer] Address [address] [place] [address] [address] [place] [address] Care Team Providers Care Band Singer Name Role Phone Unavailable Primary Care Provider [...]
== END 2025-04-27 15:40 | disposition home or self-care (01) ==
LOC: HO.HNS 15:06
PROVIDERS: PCP Internal Medicine; Visit Provider Physician Assistant
DX: M54.16 Radiculopathy, lumbar region (principal); M48.02 Spinal stenosis, cervical region
CPT/HCPCS: 99213

== ENCOUNTER → 2025-04-27 15:05 | Outpatient (BNVA) | payer MEDICARE, MEDICAID, SELFPAY ==
[2025-04-23 15:22] VITALS: BP 146/76; BP 148/60; BMI 26.7
== END ==
PROVIDERS: PCP Internal Medicine; Visit Provider Physician Assistant
DX: M54.16 Radiculopathy, lumbar region (principal); M48.02 Spinal stenosis, cervical region
CPT/HCPCS: 99212

== ENCOUNTER 2025-05-07 08:00 | Outpatient (REF) | payer MEDICARE, MEDICAID, SELFPAY ==
[2025-04-23 15:22] VITALS: BP 146/76; BP 148/60; BMI 26.7
--- NOTE | 2025-05-07 08:05 | EEG_ITS ---
48 Ambulatory EEG History: H/O coronary artery disease with bypass 2005 and stenting 2015, HTN, hyperlipidemia, and diabetes mellitus. pt was in ED on March 08, 2025, with dizziness, right facial droop, left upper extremity weakness, and slurred speech. MRI was negative for acute CVA; history of prior CVA with chronic right facial droop and gait instability. Routine EEG from 03/08/25 showed mild slowing with no evidence of seizure disorder Medication: alum-mag hydroxide-simeth, amlodipine, aspirin, atorvastatin, dapagliflozin propanediol, lamotrigine, levocetirizine, metformin, metoprolol, zolpidem Technical description: Behavioral state: cooperative but restless at times Fp2 came off when pt was moving around State of Consciousness: awake and asleep Skull defect: no Sedation: no Handedness: Right Duration of study: 48 hour Ambulatory EEG Last Event: 03/08/2025 Diary entries / Symptoms: Patient remained asymptomatic during this study per diaries. After leads were applied tech noticed gait was off and pt was having a hard time walking and focusing on first day-pt stated this was is norm Description: This is a 16 channel 48 hour ambulatory EEG. Patient kept diary but did not report any events. Each day of EEG was separately reviewed and included wakefulness and sleep. Background EEG rhythm during wakefulness was low amplitude symmetric alpha posteriorly and lower amplitude fast anteriorly. Patient transitioned into different stages of sleep. During 1st day of study, few left parietal sharp and slow wave complexes were noted. Impression: Mildly abnormal ambulatory EEG. Patient did not report any symptoms but mild left parietal abnormality was noted suggestive of underlying tendency for seizure disorder MTDD
--- OUTSIDE RECORDS SUMMARY | 2025-05-07 08:15 | XMS_ITS | Clinical Summary ---
Author Organization [employer] Address [address] [place] [address] [address] [place] [address] Care Team Providers Care District Court Bailiff Name Role Phone Unavailable Primary Care Provider [...]
--- OUTSIDE RECORDS SUMMARY | 2025-05-07 08:15 | XMS_ITS | Clinical Summary ---
Author Organization [facility] Address [address] [employer] [address] [address] Phone Care Team Providers Care Administrative Director Name Role Phone Pcp, Unknown Primary [...] file Insurance [facility] [place] [address] [place] [id number] ACO [facility] [employer] [place] [address] [place] [address] [employer] [facility] ACO [facility] ACO Care Teams Administrative Director Relationship Specialty Start Date End Date Pcp, Unknown PCP - General 09/30/21 Additional Source Comments The information contained in this document represents components of the legal health record. It is not the complete legal health record.[facility]
--- OUTSIDE RECORDS SUMMARY | 2025-05-07 08:15 | XMS_ITS | Clinical Summary ---
Author Organization [facility] Address [address] [place] [address] Phone Care Team Providers Care Pmo Consultant Name Role Phone Lou Jameson MD Primary Care Provider [phone] Allergies No known active allergies Medications diclofenac [...] unspecified compli cations 06/02/2024 Tinea unguium 06/02/2024 Social History Tobacco [...] Insurance MEDICAID - [place] MEDICARE Care Teams Pmo Consultant Relationship Specialty Start Date End Date Lou Jameson MD PCP - General 03/15/24
--- OUTSIDE RECORDS SUMMARY | 2025-05-07 08:15 | XMS_ITS | Clinical Summary ---
Author Organization [facility] Address [address] [place] [address] Phone Care Team Providers Care Inker And Opaquer Name Role Phone Lou Jameson MD Primary Care Provider [phone] Encounters Date Type Department Care Team Description 02/14/2025 Documentation Only [facility] [address] [place] [address] Kinga Peck MA from Last [...] topic Insurance Medicare Medicaid [place] Care Teams Inker And Opaquer Relationship Specialty Start Date End Date Lou Jameson MD [address] [place] [address] PCP - General Internal Medicine 02/14/25
--- OUTSIDE RECORDS SUMMARY | 2025-05-07 08:15 | XMS_ITS | Encounter Summary ---
Author Organization [facility] Address [address] [place] [address] Phone Care Team Providers Care Merchandising Coordinator Name Role Phone Lou Jameson MD Primary Care Provider [phone] Encounter Details Date Type Department Care Team (Late st Contact Info) Description 02/14/2025 Documentation Only [facility], [address] [place] [address] [place] [address] [place] [address] Social History Tobacco Use Types [...] on filedocumented in this encounter Care Teams Merchandising Coordinator Relationship Specialty Start Date End Date Lou Jameson MD [address] [place] [id number] PCP - General Internal Medicine 02/14/25 documented as of this encounter
== END 2025-05-07 08:01 | disposition home or self-care (01) ==
LOC: HO.NEURO 08:00
PROVIDERS: PCP Internal Medicine; Visit Provider Nurse Practitioner
DX: G40.909 Epilepsy, unspecified, not intractable, without status epilepticus (principal)
CPT/HCPCS: 95700; 95708

== ENCOUNTER → 2025-05-07 08:05 | Outpatient (BNV) | payer MEDICARE, MEDICAID, SELFPAY ==
[2025-04-23 15:22] VITALS: BP 146/76; BP 148/60; BMI 26.7
== END ==
PROVIDERS: PCP Internal Medicine; Visit Provider Psychiatry & Neurology Neurology
DX: G40.909 Epilepsy, unspecified, not intractable, without status epilepticus (principal)
CPT/HCPCS: 95721

== ENCOUNTER → 2025-05-08 08:16 | Outpatient (REF) | payer MEDICARE, MEDICAID, SELFPAY ==
[2025-04-23 15:22] VITALS: BP 146/76; BP 148/60; BMI 26.7
--- NOTE | 2025-05-08 08:18 | CA_ITS ---
Transthoracic Echocardiogram Patient (Last, First, Middle): Kiel Bourne, Gender: M Date of : 1955 Age: 69 Procedure Date: 05/08/2025 Procedure Type: Transthoracic Echocardiogram Location: OP Height: 170.18 cm Weight: 77.11 kg BSA: 1.89 m2 Heart Rate: 65 bpm BP: 138 / 60 mmHg [employer] Consultant: CLAYTON Referring MD: Bozena Griffin NP-Benito Heat Treater: Errol De Leon MD Symptoms: I25.10 - Atherosclerotic heart disease of [place] coronary artery without... Study Quality: Adequate ECG Rhythm: Sinus Conclusions: - 1. Normal LV ejection fraction 65-70% with pseudonormal filling pattern 2. Mildly dilated left atrium 3. Mild aortic stenosis 4. Normal LV systolic pressure 5. No gross pericardial effusion Findings Left Ventricle Normal left ventricular size and systolic function. There is mildly increased left ventricular wall thickness. The visually estimated ejection fraction is between 65-70%. Spectral Doppler is indicative of a pseudonormal filling pattern. E/E prime ratio is between 8 and 15 consistent with indeterminate filling pressures. Right Ventricle Normal right ventricular cavity size and systolic function. Atria The left atrium is mildly dilated. There is lipomatous hypertrophy of the interatrial septum. There is no evidence of interatrial shunt. The right atrium is normal in size. Aortic Valve There is mild calcification of the aortic valve. There is mild aortic valve stenosis. There is no aortic valve regurgitation. Mitral Valve Normal mitral valve structure and function. There is no mitral valve regurgitation. There is no mitral valve stenosis. Pulmonic Valve The pulmonic valve is likely normal. Tricuspid Valve Normal tricuspid valve structure. There is trace tricuspid valve regurgitation. The right ventricular systolic pressure is normal. The right ventricular systolic pressure is 17 mmHg. Normal right atrial pressure. There is no evidence of pulmonary hypertension. Great Vessels All visible segments of the aorta are normal in size. The pulmonary artery was not well visualized. There is no dilatation of the ascending aorta measuring 3.20 cm. Venous The inferior vena cava is normal in size and collapses greater than 50% with inspiration. Pericardium/Pleural There is no evidence of pericardial effusion. Prior Study Comparison Changes noted compared to prior study dated: 06/27/2019. Mild aortic stenosis is noted Measurements 2D Linear Measurements IVSd: 1.38 0.6-0.9/0.6-1.0 cm LVIDd: 3.62 3.9-5.3/4.2-5.9 cm LVIDd Index: 1.92 2.4-3.2/2.2-3.1 cm/m2 LVIDs: 2.54 2.0-3.6 cm LVPWd: 1.23 0.7-1.1 cm LA Diam: 4.50 2.7-3.8/3.0-4.0 cm LAIDs Index: 2.38 1.5-2.3 cm/m2 LV Mass: 202.14 67-162/88-224 g LV Mass Index: 106.95 43-95/49-115 g/m2 LVOT Diam: 1.90 3.0+(-)1.3 cm 2D Systolic Function EF 4C: 68.50 >55% EF 2C: 67.20 >55% EF BiP: 67.60 >55% Mitral Valve MV Pk E: 0.87 MV PK A: 0.48 MV Decel Time: 205.00 E/A: 1.80 E'Lateral: 7.40 E'Medial: 6.74 E/E' Med: 13.00 E/E' Lat: 11.80 PHT: 60.00 MVA PHT: 3.67 Decel [place]: 4.26 Aortic Valve AoV Pk Abe: 1.61 AoV Mn Abe: 1.16 AoV VTI: 0.38 AoV Pk Grad: 10.00 Aov Mn Grad: 6.00 TAWANNA Cont.VTI: 1.75 LVOT LVOT Pk Abe: 0.93 LVOT Mn Abe: 0.71 LVOT VTI: 0.23 LVOT Pk Grad: 3.00 LVOT Mn Grad: 2.00 LVOT Diam: 1.90 LVOT Area: 2.84 Diastolic Function MV Pk E: 0.87 MV Pk A: 0.48 E/A: 1.80 E'Medial: 6.74 E/E' Med: 13.00 E' Laterial: 7.40 E/E' Lat: 11.80 Right Ventricle TAPSE (mm): 18.00 TVS' Abe: 11.00 Tricuspid Valve TR Pk Abe: 1.89 TR Pk Grad: 14.00 RA Press: 3.00 RVSP: 17.00 Great Vessels Aorta Sinus of Valsalva: 3.50 2.0-3.5 cm Ao Asc: 3.20 2.1-3.4 cm Ao Arch: 2.80 Pulmonary Veins Pulm Vein S/D 1.10 Pulmonary Valve PV Pk Abe: 1.02 Peak PV Grad: 4.00 Updated in Other Vendor System with Status of Final Errol De Leon MD electronically signed on 05/08/2025 1:02:25 PM with status of Final
--- OUTSIDE RECORDS SUMMARY | 2025-05-08 08:30 | XMS_ITS | Encounter Summary ---
Author Organization [facility] Address [address] [place] [address] Phone Care Team Providers Care Hydraulic Rubbish Compactor Mechanic Name Role Phone Lou Jameson MD Primary Care Provider [phone] Encounter Details Date Type Department Care Team (Late st Contact Info) Description 02/14/2025 Documentation Only [facility], [address] [place] [address] [place] [address] [place] [address] Social History Tobacco Use Types [...] on filedocumented in this encounter Care Teams Hydraulic Rubbish Compactor Mechanic Relationship Specialty Start Date End Date Lou Jameson MD [address] [place] [id number] PCP - General Internal Medicine 02/14/25 documented as of this encounter
--- OUTSIDE RECORDS SUMMARY | 2025-05-08 08:30 | XMS_ITS | Clinical Summary ---
Author Organization [facility] Address [address] [address] Phone Care Team Providers Care Hot Tar Roofer Helper Name Role Phone Pcp, Unknown Primary Care [...] topic Medical Devices Not on file Insurance [facility] [place] [address] [place] [address] [facility] [employer] [employer] [place] [address] [place] [address] [employer] [facility] Care Teams Hot Tar Roofer Helper Relationship Specialty Start Date End Date Pcp, Unknown PCP - General 09/30/21 Additional Source Comments The information contained in this document represents components of the legal health record. It is not the complete legal health record.[facility]
--- OUTSIDE RECORDS SUMMARY | 2025-05-08 08:30 | XMS_ITS | Clinical Summary ---
Author Organization [address] [facility] Address [address] [place] [address] Phone Care Team Providers Care Ferry Captain Name Role Phone Lou Jameson MD Primary [...] Insurance [place] - [place] Care Teams Ferry Captain Relationship Specialty Start Date End Date Lou Jameson MD PCP - General 03/15/24
--- OUTSIDE RECORDS SUMMARY | 2025-05-08 08:30 | XMS_ITS | Clinical Summary ---
Author Organization [employer] Address [address] [place] [address] [address] [place] [address] Care Team Providers Care Hooker Up Name Role Phone Unavailable Primary Care Provider [...]
== END ==
LOC: HO.CARD 08:16
PROVIDERS: PCP Internal Medicine; Visit Provider Nurse Practitioner Family
DX: I25.10 Atherosclerotic heart disease of native coronary artery without angina pectoris (principal)
CPT/HCPCS: 93306

== ENCOUNTER → 2025-05-08 08:18 | Outpatient (BNV) | payer MEDICARE, MEDICAID, SELFPAY ==
[2025-04-23 15:22] VITALS: BP 146/76; BP 148/60; BMI 26.7
== END ==
PROVIDERS: PCP Internal Medicine; Visit Provider Internal Medicine Cardiovascular Disease
DX: I35.0 Nonrheumatic aortic (valve) stenosis (principal); I51.7 Cardiomegaly
CPT/HCPCS: 93306

== ENCOUNTER 2025-05-22 12:53 | Outpatient (AMB) | payer MEDICARE, MEDICAID, SELFPAY ==
[2025-04-23 15:22] VITALS: BP 146/76; BP 148/60; BMI 26.7
--- NOTE | 2025-05-22 12:54 | MHC.OFFVIS ---
Vital Signs 05/22/25 13:00 Height 5 ft 7 in Weight 170 lb BMI 26.6 BP 152/74 H Blood Pressure Location Rt brachial Position Sitting Respiration 16 Pulse 90 Pulse Source Pulse Oximeter Pulse Oximetry (%) 96 Oxygen Delivery Method Room Air Intake Visit Reasons: follow up Allergies losartan Allergy (Severe, Verified 05/22/25 13:00) Swelling sesame seed Allergy (Verified 05/22/25 13:00) Swelling HPI Comments Details: Kiel is a 69-year-old male patient with a past medical history of essential hypertension, hyperlipidemia, CVA involving the cerebellum, epilepsy, and insomnia who is here for a hospital follow-up. In February he had been brought to the hospital after experiencing an episode of dizziness and unsteadiness which had happened a proximally 1 week prior. He had fallen out of bed and was noted by neighbors to have confusion and a right facial droop. When he finally was no longer confused, he was in the hospital and had not recalled any of the events leading up to his hospital arrival. At the time of our follow up visit in February, he explained that he does have a known history of seizure disorder for which she takes lamotrigine. He did at that time has been to poor compliance with the lamotrigine has been taking it only on average once daily leading up to the event. His prescribed dose is 200 mg twice daily. He also discussed profound insomnia getting 4-6 hours per night even with the use of 10 mg of zolpidem nightly. He had taken the zolpidem the night before he woke up with confusion. At time of last visit, I recommended good medication compliance with lamotrigine 200 mg twice daily, a 48 hour ambulatory EEG, and possible discussion of changing his sleep agent or performing an in-lab sleep study to evaluate for possibility of sleep disordered breathing. He had his ambulatory EEG on 05/07/2025 which showed some mild abnormalities including a mild left parietal abnormality suggestive of an underlying tendency for seizure disorder. He did not have any reported symptoms during his ambulatory study. He tells me today that since the time of his last visit, he has been compliant with his lamotrigine 200 mg twice daily and has not had any recurrent episodes of confusion or disorientation. He denies any other known symptoms of possible seizure. Sleep continues to be very disturbed getting only 4-6 hours per night but never feeling rested the next day. He notes some profound daytime somnolence and fatigue. Prior workup: CT brain-Mild cerebral atrophy CTA of head and neck-no significant large vessel occlusion MRI of the brain September of 2024-left parieto-occipital area of FLAIR hyperintensity MRI of the brain February 2025-similar to prior MRI without any acute findings Routine EEG 2024- Mild slowing with no evidence of seizure disorder PFSH Medical History Screening for prostate cancer Low libido Screening for prostate cancer Pre-op examination Shift work sleep disorder Snoring Erectile dysfunction Headache Screening for colon cancer Adult general medical exam Erectile dysfunction due to type 2 diabetes mellitus Heart palpitations Chest pain COVID-19 High cholesterol Sciatica Hypertension Diabetes Epilepsy Heart attack Surgical History H/O colonoscopy History of tonsillectomy History of cardiac catheterization (~2015) History of coronary artery bypass graft x 2 (~2005) Family History Father Cardiovascular disease Mother No problems noted. Social History Household Members: None Housing: Apartment Do you presently have visiting nurse or other home services: No Alcohol intake: former Comment: hasnt drank in 30 years Patient Tobacco Use Status: Never used Tobacco e-Cigarette/Vaping Use: Never Used Second Hand Smoke Exposure: No service: No Current occupational status: previously employed Current occupational exposures/hazards: No Cognitive needs: No Hearing needs: No Vision needs: No Review of Systems Const All systems reviewed & are unremarkable except as noted in HPI and below Physical Exam Vital Signs: Last Vital Signs Pulse 90 05/22/25 13:00 Resp 16 05/22/25 13:00 BP 152/74 H 05/22/25 13:00 Pulse Ox 96 05/22/25 13:00 Oxygen Delivery Method Room Air 05/22/25 13:00 BMI result Body Mass Index 26.6 Const General: cooperative, healthy appearing, comfortable and no acute distress Nutritional Appearance: well nourished Orientation/consciousness: patient oriented x3 Limitations: no limitations HEENT Head: Yes normal to inspection and Yes normocephalic Eyes General: appearance normal, both eyes and all related structures Visual Jean-Baptiste: normal visual jean-baptiste by confrontation Alignment and Position: alignment normal Periorbital: periorbital findings normal Eyelids: Yes eyelids normal Conjunctivae: conjunctivae normal Sclerae: sclerae normal Neck Neck: Yes normal visual inspection and Yes full ROM General: Yes no CVA tenderness Back/Spine/Pelvis Back: no CVA tenderness Cervical Spine: normal cervical lordosis Thoracic/Lumbar Spine: thoracic and lumbar spine normal to inspection Neuro General: patient oriented x3 Cranial nerves: Yes CN's II-XII intact bilaterally Cognition (Neuro): normal cognition Gait exam (Neuro): Normal gait present Motor exam (neuro): no tremor noted Sensory Exam: double simultaneous stimulation for sensation normal Romberg Test: Negative Pupils: Normal pupillary reactivity/response: bilateral Psych Appearance: grossly normal Mental Status: mental status grossly normal Speech and movement: Normal speech and movement present and Clear speech present Affect: normal affect Attitude: cooperative Thought process: Normal thought process present Thought content: Normal thought content present Insight: Good insight present (Psych) Judgement: Good judgement present (Psych) Assessment & Plan Assessment & Plan (1) Fatigue: Code(s): R53.83 - Other fatigue Category: Medical Qualifiers: Fatigue type: unspecified Qualified Code(s): R53.83 - Other fatigue (2) Poor sleep: Code(s): Z72.820 - Sleep deprivation Category: Medical (3) Daytime somnolence: Code(s): R40.0 - Somnolence Category: Medical (4) Epilepsy: Code(s): G40.909 - Epilepsy, unspecified, not intractable, without status epilepticus Category: Medical (5) History of cerebrovascular accident (CVA) involving cerebellum: Code(s): Z86.73 - Personal history of transient ischemic attack (TIA), and cerebral infarction without residual deficits Category: Medical (6) Insomnia: Code(s): G47.00 - Insomnia, unspecified Category: Medical Plan Kiel is a 69-year-old male patient with a past medical history of essential hypertension, hyperlipidemia, CVA involving the cerebellum, epilepsy, and insomnia who is here for a follow up visit after hospitalization in February for an episode of disorientation. 48 hour ambulatory EEG did show some mild left parietal abnormalities suggestive of an underlying tendency for seizure disorder consistent with his reported history. He has been more compliant with his lamotrigine 200 mg twice daily since our last visit and has not had any recurrent seizure events or episodes of disorientation. Sleep has been an ongoing issue for him. He takes zolpidem 10 mg at bedtime. I have some suspicion that the zolpidem may have played a role in his event of disorientation however his ongoing daytime somnolence raises some concern for sleep disordered breathing. Sleep disordered breathing can it be exacerbated by sedating agents such as zolpidem. I would like him to have an in-lab sleep study to evaluate for sleep disordered breathing which can certainly increased risk for seizure. In the meantime, I have expressed the importance of continuation of good compliance of his lamotrigine as ordered. -in-lab sleep study -compliance with lamotrigine 200 mg twice daily -follow up after sleep study Orders: Orders RT PSG in-lab sleep study Today G40.909 - Epilepsy, unspecified, not intractable, without status epilepticus, R40.0 - Somnolence, R53.83 - Other fatigue, Z72.820 - Sleep deprivation Coding Level of Care Code Est Pt Level 4 (79874) Diagnoses Fatigue, unspecified type R53.83 Fatigue type: unspecified Poor sleep Z72.820 Daytime somnolence R40.0 Epilepsy G40.909 History of cerebrovascular accident (CVA) involving cerebellum Z86.73 Insomnia G47.00
[2025-05-22 13:00] VITALS: BP 152/74; PULSE 90; RESP 16; O2SAT 96; BMI 26.6
--- OUTSIDE RECORDS SUMMARY | 2025-05-22 16:45 | XMS_ITS | Clinical Summary ---
Author Organization [facility], Address [address] [place] [address] [place] [address] Phone Care Team Providers Care Chassis Wirer Name Role Phone Lou Jameson MD Primary Care Provider [phone] Social History Tobacco Use Types Packs/Day Years [...] topic Insurance Medicare Medicaid [place] Care Teams Chassis Wirer Relationship Specialty Start Date End Date Lou Jameson MD [address] [place] [address] PCP - General Internal Medicine 02/14/25
--- OUTSIDE RECORDS SUMMARY | 2025-05-22 16:45 | XMS_ITS | Clinical Summary ---
Author Organization [employer] [facility] Address [address] [place] [address] [address] [place] [address] Care Team Providers Care Office Coordinator Name Role Phone Unavailable Primary Care [...]
--- OUTSIDE RECORDS SUMMARY | 2025-05-22 16:45 | XMS_ITS | Clinical Summary ---
Author Organization [address] [facility] Address [address] [place] [address] Phone Care Team Providers Care Die Maker Stamping Name Role Phone Lou Jameson MD Primary [...] Diabetes: Annual GFR (Glomerular Filtration Rate) 1955 Drug Screen 1955 Non-Opioid Controlled Substance Agreement 1957 Diabetes: Annual Foot Exam 1967 Diabetes: [...] Insurance [place] - [place] MED[place]ARE Care Teams Die Maker Stamping Relationship Specialty Start Date End Date Luo Jameson MD PCP - General 03/15/24
--- OUTSIDE RECORDS SUMMARY | 2025-05-22 16:45 | XMS_ITS | Clinical Summary ---
Author Organization [facility] Address [address] [address] Phone Care Team Providers Care Manager Of Employee Relations Name Role Phone Pcp, Unknown Primary Care [...] Medical Devices Not on file Insurance [facility] [place] [address] [address] [place] [address] ACO [facility] [employer] [place] [address] [place] [address] [employer] [facility] [facility] Care Teams Manager Of Employee Relations Relationship Specialty Start Date End Date Pcp, Unknown PCP - General 09/30/21 Additional Source Comments The information contained in this document represents components of the legal health record. It is not the complete legal health record.[facility]
--- OUTSIDE RECORDS SUMMARY | 2025-05-22 16:45 | XMS_ITS | Encounter Summary ---
Author Organization [facility] Address [address] [place] [address] Phone Care Team Providers Care Publicity Agent Name Role Phone Lou Jameson MD Primary Care Provider [phone] Encounter Details Date Type Department Care Team (Late st Contact Info) Description 02/14/2025 Documentation Only [facility], [address] [place] [address] [place] [address] [place] [address] Social History Tobacco Use Types [...] on filedocumented in this encounter Care Teams Publicity Agent Relationship Specialty Start Date End Date Lou Jameson MD [address] [place] [id number] PCP - General Internal Medicine 02/14/25 documented as of this encounter
== END 2025-05-22 13:23 | disposition home or self-care (01) ==
LOC: HO.HSM 12:54
PROVIDERS: PCP Internal Medicine; Visit Provider Nurse Practitioner
DX: R53.83 Other fatigue (principal); Z72.820 Sleep deprivation; R40.0 Somnolence; G40.909 Epilepsy, unspecified, not intractable, without status epilepticus; Z86.73 Personal history of transient ischemic attack (TIA), and cerebral infarction without residual deficits; G47.00 Insomnia, unspecified
CPT/HCPCS: 99214

== ENCOUNTER → 2025-05-22 12:53 | Outpatient (BNVA) | payer MEDICARE, MEDICAID, SELFPAY ==
[2025-04-23 15:22] VITALS: BP 146/76; BP 148/60; BMI 26.7
== END ==
PROVIDERS: PCP Internal Medicine; Visit Provider Nurse Practitioner
DX: G47.00 Insomnia, unspecified (principal); R40.0 Somnolence; R53.83 Other fatigue; G40.909 Epilepsy, unspecified, not intractable, without status epilepticus; R06.83 Snoring; Z86.73 Personal history of transient ischemic attack (TIA), and cerebral infarction without residual deficits
CPT/HCPCS: 99212